=== PATIENT | female | born 1935 | race Caucasian/White ===

== ENCOUNTER → 2018-07-02 14:40 | Outpatient (CLI) | payer MEDICARE, SELFPAY ==
--- NOTE | 2018-07-02 14:45 | BI_ITS ---
MAMMOGRAPHY - BILATERAL SCREENING 3-D HEATHER SYNTHESIS REASON FOR EXAM: Female, 83 years old. Bilateral Screening 3-D tomosynthesis PERTINENT HISTORY: Asymptomatic. MA breast carcinoma, grandmother unknown age. TECHNIQUE: 2-D mammograms and 3-D Heather synthesis of the breast (s) were performed. CAD was performed. COMPARISON: 06/24/2017, 06/22/2016. FINDINGS: The breast composition is almost entirely fat. Scattered benign appearing calcifications are again seen. No dense spiculated dominant masses or suspicious microcalcification cluster are identified. No new architectural distortion, asymmetric density, adenopathy, skin thickening or nipple retraction identified. There has been no significant change since the most recent prior study. BI/SCREENING MAMM (CAD), BILAT IMPRESSION: No mammographic sign of malignancy. Routine yearly mammograms recommended. ASSESSMENT CATEGORY: BIRADS Category 2: Benign. A letter regarding these results will be sent to the patient by the facility within 30 days. FOLLOW UP RECOMMENDATION: Yearly follow up mammogram recommended. (A) Negative mammographic results should not deter biopsy as a palpable lesion if present should be followed on clinical grounds and biopsy performed if clinically persistent for 3 months or increasing size. Approximately 10% of breast cancers are not detected by mammography. A normal mammogram should not delay biopsy of a clinically suspicious abnormality. Dense breast tissue mainstream neoplasm. Electronically Signed: Clyde Tom, at 20:29 EDT Tel , Service support ,
== END ==
PROVIDERS: Family Provider Family Medicine; PCP Family Medicine; Visit Provider Family Medicine
DX: Z12.31 Encounter for screening mammogram for malignant neoplasm of breast (principal)
CPT/HCPCS: 77063; 77067

== ENCOUNTER 2018-11-18 12:58 | Emergency (ER) | payer MEDICARE, SELFPAY ==
[2018-11-18 12:58] VITALS: BP 153/80; PULSE 75; RESP 20; TEMP 36.4; O2SAT 98; BMI 31.3
--- NOTE | 2018-11-18 14:10 | CT_ITS ---
STUDY: CT CERVICAL SPINE WITHOUT CONTRAST REASON FOR EXAM: Female, 83 years old. Trauma RADIATION DOSAGE (If Supplied By Facility): CTDIvol = ( 35.10 ) mGy, DLP = ( 719.31 ) mGycm TECHNIQUE: High resolution transaxial imaging was performed without contrast material. Sagittal and coronal images were reconstructed. Individualized dose optimization techniques were used for this CT. COMPARISON: None FINDINGS: No definite acute fracture/dislocation. The cervical junction is intact. C1-C2 articulation is intact. Mild reversal of curvature. There is normal alignment. Facet joints are intact at all levels bilaterally. No jumped facets. There is multilevel spondyloarthropathy. Multilevel degenerative disc disease seen. Multilevel loss of disc height. Multilevel posterior marginal osteophytes and disc bulges. Multilevel neural foraminal narrowing. Multilevel compromise of the spinal canal. Findings most prominent at C3-C4, and C6-C7. Visualized paraspinal soft tissues and structures are unremarkable. CT/Spine Cervical without Contras IMPRESSION: There is no definite acute fracture/dislocation. Degenerative changes. Electronically Signed: Fabian Sousa MD at 15:33 EST , Service support ,
--- NOTE | 2018-11-18 14:10 | CT_ITS ---
STUDY: CT BRAIN WITHOUT CONTRAST REASON FOR EXAM: Female, 83 years old. Trauma. RADIATION DOSAGE (If Supplied By Facility): CTDIvol = ( 60.81 ) mGy, DLP = ( 1044.28 ) mGycm TECHNIQUE: Transaxial CT imaging of the brain was performed without administration of intravenous contrast material. Individualized dose optimization techniques were used for this CT. COMPARISON: None. FINDINGS: Normal soft tissue structures. Normal calvarium. There are nasal fractures seen. Normal size ventricles and extra-axial spaces for the patient's age. Normal white matter tracts of the cerebral hemispheres. Normal basal ganglia and thalami. Normal brainstem. Normal cerebellum. There is no intracranial hemorrhage. There are no findings of an acute ischemic infarction. Normal visualized paranasal sinuses. CT/Brain/Head without Contrast IMPRESSION: Normal unenhanced CT scan of the brain. Electronically Signed: Fabian Sousa MD at 15:21 EST , Service support ,
--- NOTE | 2018-11-18 14:10 | CT_ITS ---
STUDY: CT FACIAL BONES WITHOUT CONTRAST REASON FOR EXAM: Female, 83 years old. Trauma RADIATION DOSAGE (If Supplied By Facility): CTDIvol = ( 33.45 ) mGy, DLP = ( 729.5 ) mGycm TECHNIQUE: The patient was scanned in a multi detector CT scanner. Sagittal and coronal images were reconstructed. Individualized dose optimization techniques were used for this CT. COMPARISON: None. FINDINGS: Soft tissue swelling seen over the nose. Bilateral comminuted nasal fractures are seen with mild deviation of the nose to the right. No other facial bone fractures. Normal orbital blanton and orbital contents. Normal visualized paranasal sinuses. CT/Sinus/Facial Bone IMPRESSION: Nondisplaced bilateral nasal fractures, but there is some deviation of the nose to the right. Electronically Signed: Fabian Sousa MD at 15:30 EST , Service support ,
[2018-11-18] MEDS: Diphth,Pertuss(Acell),Tet Vac 0.5 ML Vial IM (14:24)
--- NOTE | 2018-11-18 15:46 | ED.DCSUM_ITS ---
- ER Visit Summary Date of Service: 11/18/18 Chief Complaint: Fall History of Present Illness: The patient is a 83 F presenting after fall. Patient states she was loading firewood into a truck and tripped and fell. She has a laceration to her nose with bruising of her forehead. She denies loss of consciousness. No amnesia to the event. No vomiting. She is not on blood thinners. Last tetanus is unknown. No other injuries. Physical Examination: Vitals are stable. Patient is afebrile. Alert no acute distress. HEENT exam abrasion to nose with1.0 cm laceration. No septal hematoma. Midface stable. Abrasion right forehead Neck is nontender Lungs are clear and equal bilaterally. Heart is regular rate and rhythm. Abdomen is soft nontender nondistended. Extremities are unremarkable. Skin is warm and dry. No focal neurologic deficit. Remainder of exam is unremarkable. Emergency Department Course and Treatment: Patient was given tetanus IM. CT head shows no acute process. CT C-spine shows no fracture. CT facial bones shows nondisplaced bilateral nasal fractures, but there is some deviation of the nose to the right. Laceration was repaired. Anesthetized with lidocaine. Irrigated with saline. 2, 6-0 simple sutures were placed. Patient tolerated this well. She declines pain medication. She is advised to follow-up with Dr. Howard. Advised return to ED if worsening complaints. Disposition: Discharge home Impression: Mechanical fall, nasal bone fracture, facial laceration, laceration repair This note was generated with [employer] dictation software. It may contain incorrect words, spelling, and punctuation that were not noted in review of the chart prior to signing ED Disposition - Plan for ED Patient: Referrals: Dakotah Sierra MD [Primary Care Provider] -
--- NOTE | 2018-11-18 16:08 | ED.DEP ---
ED Disposition - Plan for ED Patient: Instructions: ED Mechanical Fall, ED Fx Nasal Conf W X Ray Referrals: Dakotah Sierra MD [Primary Care Provider] - Ariel Diaz MD [STAFF PHYSICIAN] -
== END 2018-11-18 16:37 | disposition home or self-care (01) ==
PROVIDERS: Emergency Provider Emergency Medicine; Family Provider Family Medicine; PCP Family Medicine
DX: S02.2XXB Fracture of nasal bones, initial encounter for open fracture (principal); Z23 Encounter for immunization; W01.0XXA Fall on same level from slipping, tripping and stumbling without subsequent striking against object, initial encounter; Y93.89 Activity, other specified; Y92.89 Other specified places as the place of occurrence of the external cause; Y99.8 Other external cause status
CPT/HCPCS: 12011; 70450; 70486; 72125; 90715; 99283; J7030

== ENCOUNTER → 2020-07-06 | Outpatient (CLI) | payer MEDICARE, SELFPAY ==
[2020-07-06 10:34] LABS: Anion Gap 8 (5-15); BUN 17 mg/dL (7-18); BUN/Creat Ratio 16.8 RATIO (10-20); Calcium,Total 8.7 mg/dL (8.5-10.1); Chloride 106 mmol/L (98-107); Cholesterol 214 mg/dL (200); Creatinine, Serum 1.01 mg/dL (0.55-1.02); EST Glomerular Filtration Rate 56 mL/min (>60); Est Glom Filt Rate - Afr Amer 67 mL/min (>60); Free T3 2.4 pg/mL (2.18-3.98); Glucose 126 mg/dL (74-106); High Density Lipoprotein 49 mg/dL; Potassium 3.9 mmol/L (3.5-5.1); Sodium Level 141 mmol/L (136-145); T4 Free Direct 1.41 ng/dL (0.76-1.46); Thyroid Stim Hormone (TSH) 0.71 uIU/mL (0.358-3.74); Triglycerides 145 mg/dL; Very Low Density Lipoprotein 29 mg/dL (5-40)
== END | disposition home or self-care (01) ==
PROVIDERS: PCP Family Medicine; Referring Provider Family Medicine; Visit Provider Nurse Practitioner Adult Health
DX: E03.9 Hypothyroidism, unspecified (principal); Z13.1 Encounter for screening for diabetes mellitus; Z13.220 Encounter for screening for lipoid disorders
CPT/HCPCS: 36415; 80048; 80061; 84439; 84443; 84481

== ENCOUNTER → 2020-07-07 | Outpatient (CLI) | payer MEDICARE, SELFPAY ==
[2020-07-07 12:53] LABS: Hemoglobin A1c 6.2 % (3.8-5.6)
== END | disposition home or self-care (01) ==
PROVIDERS: PCP Family Medicine; Referring Provider Family Medicine; Visit Provider Family Medicine
DX: R73.9 Hyperglycemia, unspecified (principal)
CPT/HCPCS: 36415; 83036

== ENCOUNTER → 2020-08-05 13:23 | Outpatient (CLI) | payer MEDICARE, SELFPAY ==
--- NOTE | 2020-08-05 13:27 | BI_ITS ---
MAMMOGRAPHY - BILATERAL SCREENING REASON FOR EXAM: Female, 85 years old. Routine annual screening examination. PERTINENT HISTORY: Grandmother with breast cancer. TECHNIQUE: Digital bilateral breast heahter (3D mammographic acquisition) in the CC and MLO projections. 2-D mediolateral oblique (MLO) and craniocaudad (CC) views of both breasts were obtained. CAD: Full Field Digital Mammography with Computer Added Detection was performed. COMPARISON: Comparison is made with prior study dated 07/02/2018. FINDINGS: Breast Composition: The breasts are almost entirely fatty. There are no dominant masses or suspicious calcifications. No other significant abnormalities are identified. There has been no significant change since the prior study. BI/SCREEN MAMM (CAD) W/HEATHER BILAT IMPRESSION: Stable bilateral screening mammogram. Yearly follow-up mammogram recommended. (A) ASSESSMENT CATEGORY: BIRADS Category 1: Negative. A letter regarding these results will be sent to the patient by the facility within 30 days. Approximately 10% of breast cancers are not detected by mammography. A normal mammogram should not delay biopsy of a clinically suspicious abnormality. [id number] Electronically Signed: Kwaku Pryor, at 14:32 EST , Service support ,
== END ==
PROVIDERS: PCP Family Medicine; Referring Provider Family Medicine; Visit Provider Family Medicine
DX: Z12.31 Encounter for screening mammogram for malignant neoplasm of breast (principal)
CPT/HCPCS: 77063; 77067

== ENCOUNTER → 2020-10-11 10:32 | Outpatient (CLI) | payer MEDICARE, SELFPAY ==
[2020-10-11 12:21] LABS: Absolute Neutrophil Count 2.9 X10^3/uL (2.0-7.7); Basophil# 0.02 X10^3/uL; Basophil% 0.4 % (0-1); Eosinophil# 0.11 X10^3/uL; Eosinophils% 2.4 % (0-5); Hematocrit 42.2 % (37-47); Hemoglobin 13.7 g/dL (12.0-15.0); Lymphocyte % 23.9 % (19-41); Mean Corp Hgb Conc 32.5 g/dL (32-36); Mean Corpuscular Hgb 30.4 pg (27.0-32.0); Mean Corpuscular Volume 93.8 fL (81-99); Monocyte# 0.51 X10^3/uL; Monocyte% 11.1 % (0-10); NRBC Flagged by Analyzer 0 % (0-5); Neutrophil # 2.85 X10^3/uL (2.7-7.7); Platelet Count 227 K/mm3 (150-450); RBC Distribution Width CV 13.2 % (11.6-14.6); RBC Distribution Width SD 45.2 fl (35.1-43.9); White Blood Count 4.6 K/mm3 (4.4-11.0)
[2020-10-11 12:34] LABS: ALB/GLOB Ratio 1.2 RATIO (0.9-2.4); AST(SGOT) 11 U/L (15-37); Alanine Aminotransfer ALT/SGPT 20 U/L (13-56); Albumin, Serum 3.8 g/dL (3.2-5.0); Alkaline Phosphatase 51 U/L (45-117); Anion Gap 7 (5-15); BUN 20 mg/dL (7-18); BUN/Creat Ratio 18.5 RATIO (10-20); Calcium,Total 8.8 mg/dL (8.5-10.1); Chloride 106 mmol/L (98-107); Creatinine, Serum 1.08 mg/dL (0.55-1.02); EST Glomerular Filtration Rate 51 mL/min (>60); Est Glom Filt Rate - Afr Amer 62 mL/min (>60); Globulin 3.3 g/dL (2.2-4.2); Glucose 113 mg/dL (74-106); Potassium 4.2 mmol/L (3.5-5.1); Protein, Total 7.1 g/dL (6.4-8.2); Sodium Level 138 mmol/L (136-145)
[2020-10-11 12:36] LABS: Hemoglobin A1c 6.2 % (3.8-5.6)
== END ==
PROVIDERS: PCP Family Medicine; Referring Provider Family Medicine; Visit Provider Family Medicine
DX: M85.80 Other specified disorders of bone density and structure, unspecified site (principal); R73.03 Prediabetes
CPT/HCPCS: 36415; 80053; 82306; 83036; 85025

== ENCOUNTER → 2020-10-13 14:09 | Outpatient (CLI) | payer MEDICARE, SELFPAY ==
--- NOTE | 2020-10-13 14:11 | US_ITS ---
STUDY: THYROID ULTRASOUND REASON FOR EXAM: Female, 85 years old. HX OF NODULE AND HYPOTHYROIDISM. PT STATES SHE IS ON SYNTHROID. PT BELIEVES SHE HAD A TOTAL THYROIDECTOMY IN . TECHNIQUE: Ultrasound evaluation of the thyroid was performed with real-time and static hu-scale imaging. COMPARISON: None. FINDINGS: The patient is status post thyroidectomy. The regional lymph nodes are normal. US/Thyroid IMPRESSION: The patient is status post thyroidectomy. Electronically Signed: Kwaku Pryor MD at 15:11 EST , Service support ,
== END ==
PROVIDERS: PCP Family Medicine; Referring Provider Family Medicine; Visit Provider Family Medicine
DX: E03.9 Hypothyroidism, unspecified (principal)
CPT/HCPCS: 76536

== ENCOUNTER → 2021-06-06 08:59 | Outpatient (CLI) | payer MEDICARE, SELFPAY ==
[2021-06-08 09:46] LABS: Magnesium 2.5 mg/dL (1.6-2.6)
== END ==
PROVIDERS: Anesthesiology; PCP Family Medicine; Visit Provider Orthopaedic Surgery
DX: Z01.818 Encounter for other preprocedural examination (principal)
CPT/HCPCS: 83735

== ENCOUNTER → 2021-06-06 12:16 | Outpatient (CLI) | payer MEDICARE, SELFPAY ==
[2021-06-06 15:06] LABS: Absolute Lymphocyte Count 1.27 X10^3/uL (0.83-4.51); Absolute Neutrophil Count 3.3 X10^3/uL (2.0-7.7); Basophil# 0.02 X10^3/uL; Basophil% 0.4 % (0-1); Eosinophil# 0.11 X10^3/uL; Eosinophils% 2.1 % (0-5); Hematocrit 41.3 % (37-47); Hemoglobin 13.4 g/dL (12.0-15.0); Lymphocyte # 1.27 X10^3/ul (0.83-4.51); Lymphocyte % 23.9 % (19-41); Mean Corp Hgb Conc 32.4 g/dL (32-36); Mean Corpuscular Volume 95.6 fL (81-99); Mean Platelet Vol. 10.5 fl (6.2-12.0); Monocyte# 0.64 X10^3/uL; NRBC Flagged by Analyzer 0 % (0-5); Neutrophil # 3.27 X10^3/uL (2.7-7.7); Neutrophil % 61.4 % (47-70); Platelet Count 211 K/mm3 (150-450); RBC Distribution Width CV 13.3 % (11.6-14.6); RBC Distribution Width SD 47.2 fl (35.1-43.9); Red Blood Count 4.32 M/mm3 (4.2-5.4); White Blood Count 5.3 K/mm3 (4.4-11.0)
[2021-06-06 15:32] LABS: AST(SGOT) 13 U/L (15-37); Alanine Aminotransfer ALT/SGPT 23 U/L (13-56); Albumin, Serum 3.7 g/dL (3.2-5.0); Alkaline Phosphatase 47 U/L (45-117); Anion Gap 7 (5-15); BUN 21 mg/dL (7-18); BUN/Creat Ratio 22.5 RATIO (10-20); Calcium,Total 9.2 mg/dL (8.5-10.1); Chloride 107 mmol/L (98-107); Creatinine, Serum 0.93 mg/dL (0.55-1.02); EST Glomerular Filtration Rate 61 mL/min (>60); Est Glom Filt Rate - Afr Amer 73 mL/min (>60); Globulin 3.6 g/dL (2.2-4.2); Glucose 86 mg/dL (74-106); Potassium 4.1 mmol/L (3.5-5.1); Protein, Total 7.3 g/dL (6.4-8.2); Sodium Level 141 mmol/L (136-145); Thyroid Stim Hormone (TSH) 0.52 uIU/mL (0.358-3.74)
== END ==
PROVIDERS: PCP Family Medicine; Referring Provider Registered Nurse; Visit Provider Registered Nurse
DX: Z01.818 Encounter for other preprocedural examination (principal)
CPT/HCPCS: 36415; 80053; 84443; 85025

== ENCOUNTER → 2021-07-18 07:11 | Outpatient (CLI) | payer MEDICARE, SELFPAY ==
--- NOTE | 2021-07-18 07:12 | ECHOCS_ITS ---
Reason For Study: MURMUR Procedure This was a 2D Doppler, Color Flow transthoracic echocardiogram. The study was technically difficult. Due to body habitus. Contrast injection was performed. Exam performed in department. Left Ventricle Normal LV size. Left ventricular systolic function is normal. The estimated ejection fraction is 60 %. No regional wall motion abnormalities noted. Right Ventricle Normal RV size. Normal systolic function. Atria The left atrium is mildly enlarged. Normal right atrium. No doppler evidence for ASD. Mitral Valve There is no mitral annular calcification. Normal mitral valve. Mild (1+) mitral valve insufficiency. Tricuspid Valve Normal tricuspid valve. Trivial tricuspid valve insufficiency. Unable to estimate RV systolic pressure/pulmonary artery pressure due to technically difficult study. Aortic Valve Trisinus/trileaflet aortic valve. Mild focal aortic valve calcification. Pulmonic Valve Trivial pulmonic valve insufficiency. Great Vessels Normal sized aortic root. Pericardium/Pleural Trivial pericardial effusion. There are no echocardiographic indications of cardiac tamponade. Medication 22 gauge I.V. with prn adaptor inserted into right arm. Diluted definity 4.0ml given slow IV push to enhance endocardial definition. MMode/2D Measurements & Calculations LVIDd: 5.4 cm IVSd: 1.2 cm Ao root diam: 3.1 cm LVIDs: 3.7 cm LVPWd: 1.2 cm FS: 32.5 % LAV(MOD-bp): 73.5 ml LA A4 area: 21.0 cm2 LA dimension(2D): 4.6 cm LAV(MOD-bp) Indexed: 36.0 ml/m2 LAV(MOD-sp2): 74.7 ml LAV(MOD-sp4): 66.8 ml RA A4 area: 14.7 cm2 Time Measurements MV dec time: 0.21 sec Doppler Measurements & Calculations MV E max adam: 72.8 cm/sec Lat Peak E' Adam: 9.0 cm/sec Med Peak E' Adam: 5.0 cm/sec MV A max adam: 53.2 cm/sec E/E' lat: 8.1 E/E' med: 14.6 MV E/A: 1.4 Ao V2 max: 134.1 cm/sec LV V1 max: 100.0 cm/sec PA V2 max: 78.1 cm/sec Ao max P.2 mmHg LV V1 max P.0 mmHg ECHO/Echo Complete W/ Contrast Interpretation Summary The study was technically difficult. Contrast injection was performed. Left ventricular systolic function is normal. The estimated ejection fraction is 60 %. The left atrium is mildly enlarged. Mild (1+) mitral valve insufficiency. Trivial tricuspid valve insufficiency. Mild focal aortic valve calcification. Trivial pulmonic valve insufficiency. Trivial pericardial effusion. There are no echocardiographic indications of cardiac tamponade. Unable to estimate RV systolic pressure/pulmonary artery pressure due to techni flaquito difficult study. Transmitral diastolic flow velocities suggest diastolic dysfunction (pseudonorm al pattern). Ordering Physician: Warren Rollins Referring Physician: Dakotah Sierra Performed By: Alejandra Miramontes, ROSI, RVT
--- NOTE | 2021-07-18 09:19 | STRESSREP_ITS ---
Stress Test Report Date: 07-18-2021 Procedure: Pharmacologic stress nuclear imaging study Indications: Abnormal ECG; preoperative cardiovascular evaluation; hy perlipidemia; hypertension Consent: Per the patient Procedure: The patient underwent pharmacologic (Regadenoson 0.4mg ) evaluation with a peak heart rate of 78 beats per minute (57%predicted maximal heart rate) and a peak blood pressure of 130/74 mmHg. The baseline ECG demonstrated sinus rhythm; nonspecific ST/T wave abnormality. The peak pharmacologic ECG demonstrated with continued nonspecific ST/T wave abnormality. There was a rare PVC during recovery. There was no complaint of chest discomfort during pharmacologic infusion or recovery. The examination was discontinued secondary to completion of protocol. Impression: 1. Pharmacologic (Regadenoson) evaluation 2. Peak pharmacologic ECG with continued nonspecific ST/T wave abnormality. 3. There was a rare PVC during recovery. 4. Nuclear images pending Myocardial perfusion imaging study: Technique: The patient was injected with 14.1 millicuries of technetium 99m Cardiolite and subsequently rest SPECT Cardiolite nuclear imaging was obtained in the horizontal long, vertical long, and short axis views. The patient underwent pharmacologic (Regadenoson) evaluation with a peak heart rate of 78 beats per minute (57% percent predicted maximal heart rate) and a peak blood pressure of 130/74 mmHg. The patient was injected with 44.8 millicuries of technetium 99m Cardiolite and subsequently stress SPECT Cardiolite nuclear imaging was obtained in the horizontal long, vertical long, and short axis views. A gated Cardiolite study at peak stress was obtained. Interpretation: Rest and stress SPECT Cardiolite nuclear imaging status post realignment, normalization, and attenuation correction demonstrate the appearance of relative uniform tracer uptake/myocardial perfusion at rest and status post stress the appearance of an area of diminished myocardial perfusion/tracer uptake in the mid to distal anterior segments. There is end systolic thickening and brightening. The gated Cardiolite study demonstrates myocardial thickening and inward wall motion. The reported LVEF is 70%. Impression: 1. Rest and stress SPECT cardiac nuclear imaging demonstrate myocardial perfusion changes concerning for an area of stress-induced myocardial ischemia in the mid to distal anterior segments. 2. The gated Cardiolite study reports an LVEF of 70%. This note was generated with [employer] software. It may contain incorrect words, spelling, and punctuation that were not noted in checking the note before signing.
== END ==
PROVIDERS: PCP Family Medicine; Referring Provider Internal Medicine Cardiovascular Disease; Visit Provider Internal Medicine Cardiovascular Disease
DX: R94.31 Abnormal electrocardiogram [ECG] [EKG] (principal)
CPT/HCPCS: 78452; 93017; 93306; A9500; Q9957; A4216; C8929; J2785; J3490

== ENCOUNTER → 2021-07-24 09:12 | Outpatient (CLI) | payer MEDICARE, SELFPAY ==
[2021-07-24 10:02] LABS: Absolute Neutrophil Count 2.7 X10^3/uL (2.0-7.7); Basophil# 0.03 X10^3/uL; Basophil% 0.6 % (0-1); Eosinophil# 0.15 X10^3/uL; Eosinophils% 3.2 % (0-5); Hematocrit 39.6 % (37-47); Hematocrit 40.7 % (37-47); Hemoglobin 13.1 g/dL (12.0-15.0); Hemoglobin 13.2 g/dL (12.0-15.0); Lymphocyte % 27.8 % (19-41); Mean Corp Hgb Conc 32.4 g/dL (32-36); Mean Corp Hgb Conc 33.1 g/dL (32-36); Mean Corpuscular Hgb 30.7 pg (27.0-32.0); Mean Corpuscular Hgb 30.9 pg (27.0-32.0); Mean Corpuscular Volume 93.4 fL (81-99); Mean Corpuscular Volume 94.7 fL (81-99); Mean Platelet Vol. 10.1 fl (6.2-12.0); Monocyte# 0.47 X10^3/uL; Monocyte% 10.1 % (0-10); NRBC Flagged by Analyzer 0 % (0-5); Neutrophil # 2.71 X10^3/uL (2.7-7.7); Neutrophil % 58.1 % (47-70); Platelet Count 222 K/mm3 (150-450); Platelet Count 226 K/mm3 (150-450); RBC Distribution Width CV 13.1 % (11.6-14.6); RBC Distribution Width CV 13.2 % (11.6-14.6); RBC Distribution Width SD 45.1 fl (35.1-43.9); RBC Distribution Width SD 45.2 fl (35.1-43.9); Red Blood Count 4.24 M/mm3 (4.2-5.4); White Blood Count 4.7 K/mm3 (4.4-11.0)
[2021-07-24 10:16] LABS: Prothrombin Time (Protime)PT. 12.7 SECONDS (11.7-14.9)
[2021-07-24 10:17] LABS: Partial Thromboplast Time 25.9 Seconds (24.1-36.2)
[2021-07-24 11:05] LABS: ALB/GLOB Ratio 0.9 RATIO (0.9-2.4); AST(SGOT) 15 U/L (15-37); Alanine Aminotransfer ALT/SGPT 18 U/L (13-56); Albumin, Serum 3.3 g/dL (3.2-5.0); Alkaline Phosphatase 48 U/L (45-117); Anion Gap 7 (5-15); BUN 16 mg/dL (7-18); BUN/Creat Ratio 17.3 RATIO (10-20); Calcium,Total 8.7 mg/dL (8.5-10.1); Chloride 109 mmol/L (98-107); Creatinine, Serum 0.93 mg/dL (0.55-1.02); EST Glomerular Filtration Rate 61 mL/min (>60); Est Glom Filt Rate - Afr Amer 74 mL/min (>60); Free T3 2.1 pg/mL (2.18-3.98); Globulin 3.6 g/dL (2.2-4.2); Glucose 113 mg/dL (74-106); Potassium 3.9 mmol/L (3.5-5.1); Protein, Total 6.9 g/dL (6.4-8.2); Sodium Level 139 mmol/L (136-145); T4 Free Direct 1.23 ng/dL (0.76-1.46); Thyroid Stim Hormone (TSH) 1.15 uIU/mL (0.358-3.74)
== END ==
PROVIDERS: Internal Medicine Cardiovascular Disease; PCP Family Medicine; Referring Provider Family Medicine; Visit Provider Family Medicine
DX: Z01.810 Encounter for preprocedural cardiovascular examination (principal); E03.9 Hypothyroidism, unspecified; R73.03 Prediabetes; E78.2 Mixed hyperlipidemia; I10 Essential (primary) hypertension; R94.31 Abnormal electrocardiogram [ECG] [EKG]; R94.39 Abnormal result of other cardiovascular function study; D3A.090 Benign carcinoid tumor of the bronchus and lung
CPT/HCPCS: 36415; 80048; 80053; 84439; 84443; 84481; 85025; 85027; 85610; 85730

== ENCOUNTER 2021-08-01 07:45 | Day surgery (SDC) | payer MEDICARE, SELFPAY ==
--- NOTE | 2021-07-26 10:14 | RAD_ITS ---
STUDY: X-RAY CHEST REASON FOR EXAM: Female, 86 years old. Preop for pelvic surgery TECHNIQUE: PA and lateral views of the chest. COMPARISON: None. FINDINGS: The lungs are clear and expanded. There is no demonstrated pleural abnormality. Normal size heart. Normal mediastinum and riki. Normal visualized pulmonary arteries. Normal visualized aortic arch and descending thoracic aorta. There are diffuse degenerative changes of the visualized thoracic spine. There is degenerative osteoarthritis of the bilateral shoulders. There is no demonstrated abnormality of the visualized soft tissue structures of the upper abdomen. RAD/Chest PA and Lateral IMPRESSION: No acute pulmonary process Electronically Signed: Anil Spain MD at 10:46 EDT , Service support ,
[2021-07-31 07:35] VITALS: BMI 33.2
--- NOTE | 2021-07-31 18:35 | PCM.HP.BLA ---
History and Physical Date of Admission: 08/01/21 [facility] [address] [facility]. [address] [place] [address] [phone] OFFICE VISITDate of Service: 07/26/21 MR#:[id number]: IRAJ SANTOS #:[id number]:1935 Provider: KYARA Mendez RoofAge/Sex: 86/F [facility] HPI History of Present Illness Surgical H&P: Yes Details: This is an 86-year-old white female who presents today for outpatient cardiovascular consultation based upon concerns of an abnormal preoperative ECG with a history of hypertension and hyperlipidemia (not treated) pending upcoming right hip arthroplasty (total). The patient states the best of her knowledge she has no cardiovascular history. She does not recall undergoing cardiovascular evaluation past other than ECGs. It appears she had an ECG performed in 2014 which demonstrated sinus rhythm with minimal voltage criteria for LVH and nonspecific ST and T wave abnormality. Her recent EKG at her PCP office demonstrated sinus rhythm with findings of left ventricular hypertrophy and ST and T wave changes. It appears it was the ST and T wave changes are more prominent than 2015 that raised a concern. Her ECG was repeated in the office on 06/07/2021 showed sinus rhythm with voltage criteria for LVH as well as nonspecific ST and T wave abnormalities which could be compatible with LVH and/or myocardial ischemia in the lateral distribution. To evaluate EKG changes, she underwent a stress test on 07/18/2021 that showed changes concerning for an area of stress-induced myocardial ischemia in the mid to distal anterior segments. She underwent an echocardiogram on 07/18/2021 that showed ejection fraction of 60% and no regional wall motion abnormalities. There was no significant valve disease. Thus, to assess abnormal stress test, she will undergo a heart catheterization. She denies chest, arm, jaw, or neck discomfort. She denies symptoms of shortness of breath with exertion, shortness of breath at rest, orthopnea, PND, sudden weight gain, or bilateral lower extremity edema. She denies chronic cough. She denies palpitations, lightheadedness, dizziness, near syncope, or syncopal episodes. She denies claudication issues. She denies fever or chills. She denies blood in urine, blood in stool, or epistaxis. She denies myalgia. She denies unexplainable fatigue. Her exercise tolerance is stable. 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 Is patient in pain?: No Allergies No Known Allergies Allergy (Verified 07/26/21 09:27) Medications coenzyme Q10 100 mg PO DAILY 12/29/14 [History Confirmed 07/26/21] cholecalciferol (vitamin D3) 50 mcg (2,000 unit) tablet 50 mcg PO DAILY 06/06/21 [History Confirmed 07/26/21] levothyroxine 100 mcg tablet 100 mcg PO DAILY 06/06/21 [History Confirmed 07/26/21] lisinopril 5 mg tablet 5 mg PO QHS 06/06/21 [History Confirmed 07/26/21] clopidogrel 75 mg tablet 75 mg PO QDAY #30 tab 07/26/21 [Rx Confirmed 07/26/21] PFSH Medical History (Reviewed 07/26/21 @ 09:39 by Luis Enrique Joseph NP, CERTIFIED COURT/MEDICAL INTERPRETER-C) Abnormal EKG Abnormal stress test Arthritis Benign essential HTN Cancer Cardiology follow-up encounter History of echocardiogram History of pain when walking History of stress test Hypothyroidism Loss of hearing Lung nodule Mixed hyperlipidemia Non-smoker Restless legs Thyroid disease Wears glasses Surgical History (Reviewed 07/26/21 @ 09:39 by Luis Enrique Joseph CERTIFIED COURT/MEDICAL INTERPRETER, CERTIFIED COURT/MEDICAL INTERPRETER-C) H/O hysterectomy with unilateral oophorectomy History of appendectomy History of left hip replacement History of lobectomy of lung History of thyroidectomy Social History (Reviewed 07/26/21 @ 09:39 by Luis Enrique Joseph NP, CERTIFIED COURT/MEDICAL INTERPRETER-C) Smoking Status: Never smoker alcohol intake: never substance use type: does not use caffeine: No ROS Const Const: Negative for fatigue, weakness, body ache, fever(s) or chills ENT ENT: Negative for dizziness or Nosebleed/epistaxis Cardio Chest Pain: No Palpitations: No Edema: None Muscle aches with walking: None Resp Respiratory: Negative for SOB with activity, SOB at rest, SOB orthopnea\SOB lying down, Cough or paroxysmal nocturnal dyspnea GI GI: Negative nausea, vomiting blood/hematemesis, bright, red blood in stools or black,tarry stools : Negative for hematuria or frequent nighttime urination/ nocturia Musc Musc: Negative for muscle aches/ myalgia Skin Skin: Negative non-healing lesions or rash Neuro Neuro: Negative for dizziness, lightheadedness, near syncope, syncope, orthostatic symptoms or weakness Endo Endo: Negative for fatigue Allergy Allergy/Immunology: Negative for rash Cardiology Exam Const Appearance: cooperative, healthy appearing, comfortable and no acute distress Nutritional Appearance: well nourished and obese Orientation: alert, awake and oriented x3 Head Head: normal to inspection Ears: hearing grossly normal bilaterally Nose: external nose normal Face and Sinus: face symmetric Mouth: oral mucosae normal Eyes General: appearance normal, both eyes and all related structures Eyelids: eyelids normal EOM: EOM intact bilaterally Neck Neck: normal visual inspection and no JVD Carotids: normal carotid upstroke Chest Chest inspection: normal inspection of the chest, symmetric chest movement and normal respiratory effort; Negative cough Auscultation: Bilateral: Clear to Auscultation Cardio Rate: regular rate Rhythm: regular rhythm Heart sounds: S1 normal and S2 normal; Negative rub, gallop or murmur GI GI: normal to inspection and obese Neuro General: patient alert, patient awake, patient oriented x3 and CN's II-XI intact bilaterally Skin Skin: no rashes or lesions noted Extremities Pulses: Normal: Right Posterior Tibial Pulse, Left Posterior Tibial Pulse, Right Radial Pulse and Left Radial Pulse Lower Extremity Edema: None: Bilateral Psych Psychological: normal affect Supplemental Info Supplemental Information Echocardiogram from 07/18/2021: Interpretation Summary The study was technically difficult. Contrast injection was performed. Left ventricular systolic function is normal. The estimated ejection fraction is 60 %. The left atrium is mildly enlarged. Mild (1+) mitral valve insufficiency. Trivial tricuspid valve insufficiency. Mild focal aortic valve calcification. Trivial pulmonic valve insufficiency. Trivial pericardial effusion. There are no echocardiographic indications of cardiac tamponade. Unable to estimate RV systolic pressure/pulmonary artery pressure due to technically difficult study. Transmitral diastolic flow velocities suggest diastolic dysfunction (pseudonormal pattern). Stress Test Report Date: 07-18-2021 Procedure: Pharmacologic stress nuclear imaging study Indications: Abnormal ECG; preoperative cardiovascular evaluation; hyperlipidemia; hypertension Consent: Per the patient Procedure: The patient underwent pharmacologic (Regadenoson 0.4mg ) evaluation with a peak heart rate of 78 beats per minute (57%predicted maximal heart rate) and a peak blood pressure of 130/74 mmHg. The baseline ECG demonstrated sinus rhythm; nonspecific ST/T wave abnormality. The peak pharmacologic ECG demonstrated with continued nonspecific ST/T wave abnormality. There was a rare PVC during recovery. There was no complaint of chest discomfort during pharmacologic infusion or recovery. The examination was discontinued secondary to completion of protocol. Impression: 1. Pharmacologic (Regadenoson) evaluation 2. Peak pharmacologic ECG with continued nonspecific ST/T wave abnormality. 3. There was a rare PVC during recovery. 4. Nuclear images pending Myocardial perfusion imaging study: Technique: The patient was injected with 14.1 millicuries of technetium 99m Cardiolite and subsequently rest SPECT Cardiolite nuclear imaging was obtained in the horizontal long, vertical long, and short axis views. The patient underwent pharmacologic (Regadenoson) evaluation with a peak heart rate of 78 beats per minute (57% percent predicted maximal heart rate) and a peak blood pressure of 130/74 mmHg. The patient was injected with 44.8 millicuries of technetium 99m Cardiolite and subsequently stress SPECT Cardiolite nuclear imaging was obtained in the horizontal long, vertical long, and short axis views. A gated Cardiolite study at peak stress was obtained. Interpretation: Rest and stress SPECT Cardiolite nuclear imaging status post realignment, normalization, and attenuation correction demonstrate the appearance of relative uniform tracer uptake/myocardial perfusion at rest and status post stress the appearance of an area of diminished myocardial perfusion/tracer uptake in the mid to distal anterior segments. There is end systolic thickening and brightening. The gated Cardiolite study demonstrates myocardial thickening and inward wall motion. The reported LVEF is 70%. Impression: 1. Rest and stress SPECT cardiac nuclear imaging demonstrate myocardial perfusion changes concerning for an area of stress-induced myocardial ischemia in the mid to distal anterior segments. 2. The gated Cardiolite study reports an LVEF of 70%. Labs: LDL Cholesterol 136 mg/dL (0-130) H HDL Cholesterol 49 mg/dL (40-) Triglycerides 145 mg/dL (-199) VLDL Cholesterol 29 mg/dL (5-40) Diagnostics: Electrocardiogram Echocardiogram Stress Test NM Stress Test Chest X-Ray Pulmonary: No Data to Display Assessment and Plan Assessment and Plan (1) Abnormal stress test: Status: Acute Orders: Orders: 12 Lead EKG performed by BMS Today Plan - Luis Enrique Joseph CERTIFIED COURT/MEDICAL INTERPRETER, CERTIFIED COURT/MEDICAL INTERPRETER-C: Given patient's most recent abnormal stress test and nonspecific ST changes on EKG previously and again today, she will undergo a heart catheterization. She will begin aspirin and Plavix therapy. Based on results further recommendation will be made. Due to abnormal stress test and concerns, her hip surgery has been postponed. Timing of her hip surgery may depend on findings and long-term antiplatelet therapy. (2) Mixed hyperlipidemia: Status: Acute Plan - Luis Enrique Joseph NP, CERTIFIED COURT/MEDICAL INTERPRETER-C: She will continue risk factor and lifestyle modification. Based on results of heart catheterization, initiating statin medication may be indicated. Plan Details Other Medications: New: clopidogrel (Plavix) 75 mg PO QDAY 30 tabs 11RF Other Orders: Orders: 12 Lead EKG performed by BMS Today Z01.810 Follow Up: Keep as is (KRR) COVID (Procedure Consent) Procedure Criteria Procedure Criteria: Yes Elective The surgeon/proceduralist and patient have discussed in detail the risk of exposure to and/or potential harm posed by the COVID-19 virus with having a surgery/procedure at this time versus the risk of delaying the surgery/procedure. It is not possible to know either the risk of delaying the surgery or procedure or chance of getting an infection with perfect accuracy, but a joint decision was made between the patient and the surgeon/proceduralist to proceed at this time with the scheduled surgery/procedure as indicated on the consent form. Coding Level of Care Code Off vis,est,level 3 Diagnoses Abnormal stress test R94.39 Mixed hyperlipidemia E78.2 Coding Level of Care Code Off vis,est,level 3 Diagnoses Abnormal stress test R94.39 Mixed hyperlipidemia E78.2 07/26/21 1010<Electronically signed by Luis Enrique Joseph NP CERTIFIED COURT/MEDICAL INTERPRETER-C>Date Luis Enrique Joseph NP CERTIFIED COURT/MEDICAL INTERPRETER-C Assessment & Plan Addt'l Comments I have re-examined the patient. There are no clinical changes since date of exam
--- NOTE | 2021-08-01 10:13 | CL.D_ITS ---
Patient Name: IRAJ SANTOS Study Date: 08/01/2021 Performing: Warren Rollins MD Ht: 66.14 inches 168 cm : 1935 Wt: 205.03 lbs 93 kg Age: 86 Gender: female BSA: 2.02 PROCEDURE(S) PERFORMED [id number]/COR/LV CLINICAL PROFILE AND INDICATIONS Indications: Suspected CAD, Pre-Operative Evaluation Heart Failure: None Stress/Imaging Date: 07/18/2021tress Test with SPECT MPI: Positive Intermediate Risk Angina Classification Anginal Classification w/in 2 Weeks: No symptoms CAD Presentations: No Sxs, no angina. CONCLUSIONS Normal Left Ventricular End Diastolic Pressure Normal LV size, wall motion,and systolic function LVEF: by LV gram 60 % Normal coronary arteries RECOMMENDATIONS Risk factor modification DESCRIPTION OF PROCEDURE The patient arrived to the procedure lab. The risks and benefits of the procedure as well as a full d escription of our services here and current unavailability of surgical backup were fully explained to the patient and/or their significant other prior to the catheterization. The Timeout was completed, verifying the correct patient and procedure. The patient's procedural site was prepped and draped in the usual fashion. Local anesthetic was given subcutaneously to right radial region with Lidocaine 2% . Using a modified Seldinger technique, arterial access was obtained via the right radial artery, a 6 Fr sheath was inserted. Left Coronary Artery selective angiography was performed in multiple views u sing a 5 Fr. 4.0 Milton catheter. Right Coronary Artery selective angiography was then performed in mu ltiple views using a 5 Fr. 4.0 Milton catheter. Left Ventriculography was performed in DOMINGUEZ projection using a 5 Fr. Pigtail catheter. LV to AO pullback pressures were then recorded.The arterial sheath was pulled and a TR Band was applied for hemostasis CORONARY ANGIOGRAPHY DOMINANCE: Co- Dominant LEFT HEART ASSESSMENT Left Ventricular Ejection Fraction: by LV Gram 60 % Normal LV wall motion Normal Left Ventricular End Diastolic Pressure LVEDP: 5 mmHg LEFT MAIN: Angiographically normal LEFT ANTERIOR DESCENDING ARTERY: Angiographically normal CIRCUMFLEX ARTERY: Angiographically normal RIGHT CORONARY ARTERY: Angiographically normal AORTIC ROOT: Angiographically normal COMPLICATIONS No Complications PROCEDURE MEDICATIONS Versed 1 mg IV Fentanyl 50 mcg IV Oxygen: 2 L/min via nasal cannula Heparin given IA 08/01/2021 09:41:19 Verapamil 2.5mg, Ntg 100mcgs, 2000 units of Heparin given IA 08/01/2021 09:41:19 SUMMARY OF HEMODYNAMIC DATA Time AIR REST ECG 08:05:38 AO 97/58 (78) SA 09:43:21 LV 135/-10, 10 09:50:03 LV 132/-16, 5 09:50:10 LV 145/-9, 9 09:51:50 LV 146/-9, 11 09:51:57 LVp 149/-8, 11 09:52:03 AOp 135/62 (91) 09:52:08 Signed By Warren Rollins MD On 08/01/2021 10:13:16 Warren Rollins MD
== END 2021-08-01 11:40 | disposition home or self-care (01) ==
LOC: CLSP 07:47
PROVIDERS: PCP Family Medicine; Referring Provider Internal Medicine Cardiovascular Disease; Visit Provider Internal Medicine Cardiovascular Disease
DX: R94.39 Abnormal result of other cardiovascular function study (principal); R94.31 Abnormal electrocardiogram [ECG] [EKG]; E78.2 Mixed hyperlipidemia; I10 Essential (primary) hypertension; E03.9 Hypothyroidism, unspecified; M19.90 Unspecified osteoarthritis, unspecified site; E66.9 Obesity, unspecified; Z79.899 Other long term (current) drug therapy
CPT/HCPCS: 71046; 93458; 99152; 99153; J7040; Q9967; C1769; C1894

== ENCOUNTER 2021-09-18 05:15 | Day surgery (SDC) | payer MEDICARE, SELFPAY ==
[2021-08-31 15:34] LABS: Hematocrit 41.1 % (37-47); Hemoglobin 13.6 g/dL (12.0-15.0); Mean Corp Hgb Conc 33.1 g/dL (32-36); Mean Corpuscular Volume 93.6 fL (81-99); Mean Platelet Vol. 10.6 fl (6.2-12.0); Platelet Count 252 K/mm3 (150-450); RBC Distribution Width CV 13.1 % (11.6-14.6); RBC Distribution Width SD 45.3 fl (35.1-43.9); Red Blood Count 4.39 M/mm3 (4.2-5.4)
[2021-08-31 16:08] LABS: Anion Gap 9 (5-15); BUN 26 mg/dL (7-18); BUN/Creat Ratio 17.6 RATIO (10-20); Calcium,Total 9.2 mg/dL (8.5-10.1); Chloride 106 mmol/L (98-107); Creatinine, Serum 1.48 mg/dL (0.55-1.02); EST Glomerular Filtration Rate 36 mL/min (>60); Est Glom Filt Rate - Afr Amer 43 mL/min (>60); Glucose 179 mg/dL (74-106); Potassium 4.1 mmol/L (3.5-5.1); Sodium Level 138 mmol/L (136-145)
[2021-08-31 16:09] LABS: Hemoglobin A1c 6.1 % (3.8-5.6)
[2021-09-18] VITALS (11 sets, daily range): BP systolic 87–132; BP diastolic 45–85; PULSE 56–77; RESP 12–20; TEMP 36.1–36.9; O2SAT 94–100; BMI 32.1
[2021-09-18 06:30] LABS: Magnesium 2.4 mg/dL (1.6-2.6)
[2021-09-18] MEDS: Lactated Ringers 1,000 ML 15 ML IV (06:30)
[2021-09-18] MEDS: Acetaminophen 500 MG Tablet 1000 MG PO (06:41)
[2021-09-18] MEDS: Gabapentin 600 MG Tablet PO (06:41)
[2021-09-18 07:05] LABS: Bedside Glucose 99 mg/dL (70-110)
--- NOTE | 2021-09-18 07:06 | RAD_ITS ---
STUDY: X-RAY - PELVIS AND RIGHT HIP REASON FOR EXAM: Female, 86 years old. Follow-up after right total hip arthroplasty. TECHNIQUE: 2 views of the pelvis and hip. COMPARISON: None. FINDINGS: Osteopenia. New right total hip arthroplasty in anatomic alignment with expected post-operative findings. There are no complications noted. RAD/Hip 1 view with Pelvis IMPRESSION: Placement of right total hip arthroplasty in anatomic alignment without complications. Electronically Signed: Michel Sommer MD at 9:28 EST , Service support ,
--- NOTE | 2021-09-18 07:30 | FEM_PTH ---
PATIENT: IRAJ SANTOS LOC: [facility] U#:[id number] AGE/SX: 86/F ROOM: RE09/18/[address]: Dr. Miles Corona DO : 1935 BED: DIS: 09/18/2021 SPEC #: [id number] RECD: 09/18/21 11:13 STATUS: MALLORY REQ #: [id number] ANTOINE: 09/18/21 07:[address]: Miles Corona DEPT: SURGICAL PATHOLOGY RECD BY: Katina Funes ENTERED: 09/18/21 11:28 SP TYPE: FEM HEAD OTHR DR: Dr. Dakotah Sierra MD Tissues: Femoral region, NOS Procedures: Decalcification bone/plaque Surgery Specimen Level IV HEADER OPERATION: ERAS, total hip replacement PRE-OP DIAGNOSIS: Primary osteoarthritis TISSUE SUBMITTED: Right hip bone MICROSCOPIC DIAGNOSIS Right hip bone, total hip replacement/resection: Femoral head with degenerative osteoarthritic changes. Fragments of fibroadipose tissue, fibroconnective tissue, skeletal muscle tissue and reactive synovial tissue. HÉCTOR:greyson 09/21/2021 MICROSCOPIC DESCRIPTION Slides are reviewed. GROSS DESCRIPTION Received is one container labeled with the patient's name and designated right hip bone. The specimen consists of a shelton femoral head with portion of femoral neck. The femoral head measures 4.5 x 5 x 4 cm and the femoral neck measures up to 2 cm in length. The articular surface displays prominent osteophyte formation, eburnation and bone erosion. Also present in the specimen container are multiple irregular fragments of bone reamings and pink-yellow soft tissue measuring in aggregate 8 x 8 x 2.5 cm. Thermal Spray Operator sections are submitted in two cassettes as follows: 1 - soft tissue, 2 - bone after decalcification. / HÉCTOR:greyson 09/18/21 TC:5 CPT: 25940, 07059
--- NOTE | 2021-09-18 08:31 | OP.PCM_ITS ---
Report of Operation Date of Procedure: 09/18/21 Pre-Operative Diagnosis: OA Right hip Post-Operative Diagnosis: same Surgery/Procedure Performed:: Right THR Description of Surgical Findings:: Report of Operation Date of Procedure: 09/18/21 Pre-Operative Diagnosis: OA [ right ] hip Post-Operative Diagnosis: same Surgery/Procedure Performed: [right ] THR acoustical carpenter: Michel Blas PA-C Type of Anesthesia: spinal Anesthesiologist: Dakotah Augustin M.D. Specimen's removed: bone Estimated Blood Loss (50 mL): Implants: Karel MDM 50 mm cup, Size 5, 132 degree neck Accolade 2 femur, +0 neck length Surgical Indications: Patient has severe end-stage osteoarthritic changes in the [ right ] hip. They have failed conservative measures including activity modification, anti- inflammatories, use of assistive devices. This to the point where the pain affects their ability to enjoy life and complete activities of daily living without discomfort. Patient has elected to undergo the above procedure Procedure Description: The patient was greeted in the preoperative area the [ ] hip was marked with surgical marker preoperative antibiotics administered. The patient was then taken to or suite in stable condition. Preoperative tranexamic acid was also utilized. Once the patient was placed in the supine position on the operating room table and once adequate anesthesia was obtained they were then placed in the lateral decubitus position with the surgical hip facing the field. All bony prominences were well-padded. A commercial hip position was utilized. The appropriate extremity was then prepped and draped in usual sterile fashion. Ioban was placed on the skin. Surgical timeout was performed and surgery was commenced. A standard posterior approach to the hip was then performed. Incision was planned and carried out with a #10 blade scalpel. Dissection was then carried length of the incision to the IT band which was split proximally and distally. A Charnley retractor was then placed for soft tissue retraction exposing the piriformis. A standard posterior capsulotomy was performed. Severe eburnation of bone was noted and periarticular osteophytes were identified consistent with severe end-stage osteoarthritis. A femoral neck osteotomy guide was used to gregory the proximal femur. A femoral osteotomy was then created approximately 1 fingerbreadth above the lesser trochanter. This was measured and placed on the back table. Once this was complete acetabular retractors were placed anteriorly and posteriorly. Labrum was then removed from the acetabulum exposing the entire cup of the acetabulum. Sequential reaming was then commenced and the acetabulum was medialized and sequentially widened in order to accommodate appropriate size cup. The acetabular cup was then impacted into position to the appropriate depth referencing [id number] degrees anteversion and [45 degrees ]of inclination. Excellent purchase was obtained. An appropriate size MDM liner was then placed. Attention was then turned to the femoral preparation. The hip was placed in the 90/90 position and a lateralizing box osteotome was utilized. Femoral starting awl was used followed by sequential broaching to the appropriate size. Excellent purchase was obtained with the stem no stem subsidence and excellent rotational stability was confirmed. A calcar reamer was then used in the trial head neck was placed on the broach. The hip was then located and taken through full range of motion flexion internal and external rotation as well as extension. Excellent stability was noted no impingement was identified of the components and leg lengths appear to be appropriate. The hip was at this point dislocated and the trial femoral components were removed. The final femoral stem was then implanted and impacted to the appropriate depth. Again excellent purchase was obtained no stem subsidence or rotational instability was noted. The hip was once again trialed and confirmation of leg length and stability was performed. Soft tissue tension also appeared to be appropriate. At this point the hip was redislocated and the trunnion was cleaned and dried meticulously in the appropriate size MDM femoral head was placed on the clean dry trunnion using a 12/14 Albarado taper. The hip was once again relocated and again taken through full range of motion. I did inject a cocktail of postoperative pain medication in the deep and superficial tissues. Copious irrigation was performed. Anatomic closure of the piriformis tendon was performed through drill holes in the greater trochanter. A #1 Vicryl 0 Vicryl was utilized in subcutaneous tissue and surgical dana were placed in the skin. A well-padded nonadherent dressing was applied. Patient was taken to PACU in stable condition. No complications were identified. Will follow standard postop protocol for total hip arthroplasty. My events assistant played a vital role in the procedure beginning with positioning, holding retraction of soft tissues, positioning the leg to optimize visualization during the procedure and assisting with wound closure. Post-op Plan: DVT ppx; ASA 81 mg BID, thigh high compression stockings Follow up: in office in 2 weeks for wound check PT: to start POD #0 at hospital, outpatient PT should be arranged. Preoperative antibiotic: Ancef 2 grams IV Miles Corona DO Surgeon: Miles Corona acoustical carpenter: Michel Blas Type of Anesthesia: Spinal Anesthesiologist: Dakotah Augustin Estimated Blood Loss (mL): 50 cc Fluids Replaced: 1000 cc crystalloid Admit VTE Documentation VTE Present on Admission: No VTE Mechan Device Prophylaxis: SCD's and Thigh High DEISY Hose VTE Pharm Prophylaxis ordered?: Yes
[2021-09-18] MEDS: Lactated Ringers 1,000 ML 999 ML IV (09:20)
== END 2021-09-18 14:44 | disposition home or self-care (01) ==
LOC: SDC 05:16 → AC 05:56
PROVIDERS: Anesthesiology; PCP Family Medicine; Referring Provider Orthopaedic Surgery; Visit Provider Orthopaedic Surgery
PROC: 0SR90JZ Replacement of Right Hip Joint with Synthetic Substitute, Open Approach (ICD-10-PCS; CPT 27130; principal; 2021-09-18 07:05)
DX: M16.11 Unilateral primary osteoarthritis, right hip (principal); I10 Essential (primary) hypertension; E78.2 Mixed hyperlipidemia; E03.9 Hypothyroidism, unspecified; M19.90 Unspecified osteoarthritis, unspecified site; Z96.642 Presence of left artificial hip joint; Z79.899 Other long term (current) drug therapy
CPT/HCPCS: 01214; 27130; 36415; 73501; 80048; 82962; 83036; 83735; 85027; 87081; 88305; 88307; 88311; 97162; C1776; J7120

== ENCOUNTER → 2022-05-29 | Outpatient (CLI) | payer MEDICARE, SELFPAY ==
--- NOTE | 2022-05-29 10:31 | BI_ITS ---
MAMMOGRAPHY - BILATERAL SCREENING REASON FOR EXAM: Female, 87 years old. Routine annual screening examination. PERTINENT HISTORY: Non-contributory. TECHNIQUE: Digital bilateral breast heather (3D mammographic acquisition) in the CC and MLO projections. 2-D mediolateral oblique (MLO) and craniocaudad (CC) views of both breasts were obtained. CAD: Full Field Digital Mammography with Computer Added Detection was performed. COMPARISON: Comparison is made with prior study dated 08/05/2020 and 07/02/2018. FINDINGS: Breast Composition: The breasts are almost entirely fatty. There are no dominant masses or suspicious calcifications. Stable benign appearing bilateral axillary lymph nodes. No other significant abnormalities are identified. There has been no significant change since the prior study. BI/SCRN MAMM (CAD)W/HEATHER BILAT IMPRESSION: Stable bilateral screening mammogram. Yearly follow-up mammogram recommended. (A) ASSESSMENT CATEGORY: BIRADS Category 2: Benign. A letter regarding these results will be sent to the patient by the facility within 30 days. Approximately 10% of breast cancers are not detected by mammography. A normal mammogram should not delay biopsy of a clinically suspicious abnormality. [id number] Electronically Signed: Kwaku Pryor MD at 8:49 EDT ,
== END | disposition home or self-care (01) ==
LOC: OPBI 10:28
PROVIDERS: PCP Family Medicine; Visit Provider Family Medicine
DX: Z12.31 Encounter for screening mammogram for malignant neoplasm of breast (principal)
CPT/HCPCS: 77063; 77067

== ENCOUNTER → 2022-08-07 | Outpatient (CLI) | payer MEDICARE, SELFPAY ==
[2022-08-07 12:01] LABS: Absolute Lymphocyte Count 1.26 X10^3/uL (0.83-4.51); Absolute Neutrophil Count 3.1 X10^3/uL (2.0-7.7); Basophil# 0.03 X10^3/uL; Basophil% 0.6 % (0-1); Eosinophil# 0.22 X10^3/uL; Eosinophils% 4.2 % (0-5); Hematocrit 41.4 % (37-47); Hemoglobin 13.2 g/dL (12.0-15.0); Lymphocyte # 1.26 X10^3/ul (0.83-4.51); Lymphocyte % 24.2 % (19-41); Mean Corp Hgb Conc 31.9 g/dL (32-36); Mean Corpuscular Hgb 30.3 pg (27.0-32.0); Mean Corpuscular Volume 95.2 fL (81-99); Mean Platelet Vol. 10.2 fl (6.2-12.0); Monocyte# 0.61 X10^3/uL; Monocyte% 11.7 % (0-10); NRBC Flagged by Analyzer 0 % (0-5); Neutrophil # 3.07 X10^3/uL (2.7-7.7); Neutrophil % 59.1 % (47-70); Platelet Count 259 K/mm3 (150-450); RBC Distribution Width CV 13.4 % (11.6-14.6); RBC Distribution Width SD 47.6 fl (35.1-43.9); Red Blood Count 4.35 M/mm3 (4.2-5.4); White Blood Count 5.2 K/mm3 (4.4-11.0)
[2022-08-07 12:17] LABS: ALB/GLOB Ratio 1.1 RATIO (0.9-2.4); AST(SGOT) 16 U/L (15-37); Alanine Aminotransfer ALT/SGPT 18 U/L (13-56); Albumin, Serum 3.7 g/dL (3.2-5.0); Alkaline Phosphatase 50 U/L (45-117); Anion Gap 7 (5-15); BUN 19 mg/dL (7-18); BUN/Creat Ratio 18.1 RATIO (10-20); Calcium,Total 9.5 mg/dL (8.5-10.1); Chloride 104 mmol/L (98-107); Creatinine, Serum 1.05 mg/dL (0.55-1.02); EST Glomerular Filtration Rate 53 mL/min (>60); Est Glom Filt Rate - Afr Amer 64 mL/min (>60); Globulin 3.5 g/dL (2.2-4.2); Glucose 121 mg/dL (74-106); Potassium 4.1 mmol/L (3.5-5.1); Protein, Total 7.2 g/dL (6.4-8.2); Sodium Level 138 mmol/L (136-145)
[2022-08-07 12:18] LABS: Hemoglobin A1c 6.2 % (3.8-5.6)
[2022-08-07 12:34] LABS: Microalbumin:Creatinine Ratio 12.1 mg/g CRE (<30 mg/g CRE)
== END | disposition home or self-care (01) ==
LOC: MFPLAB 10:35
PROVIDERS: PCP Family Medicine; Referring Provider Family Medicine; Visit Provider Family Medicine
DX: E11.9 Type 2 diabetes mellitus without complications (principal)
CPT/HCPCS: 36415; 80053; 82043; 82570; 83036; 85025

== ENCOUNTER 2022-08-30 17:05 | Observation (INO) | payer MEDICARE, SELFPAY ==
[2022-08-30] VITALS (9 sets, daily range): BP systolic 144–168; BP diastolic 71–96; PULSE 64–91; RESP 16–22; TEMP 36.3–36.7; O2SAT 96–100; BMI 33.9; BMI 33.5; BMI 31.4
[2022-08-30 17:30] LABS: Bedside Glucose 95 mg/dL (74-106)
--- NOTE | 2022-08-30 17:38 | CT_ITS ---
We are attempting to reach an attending provider to discuss findings. An addendum with communication details will be sent when the communication is complete. STUDY: CT HEAD STROKE PROTOCOL W/O CONTRAST INJECTION REASON FOR EXAM: Female, 87 years old. Neuro deficit, acute, stroke suspected -- left hemianopsia RADIATION DOSAGE (If Supplied By Facility): CTDIvol = ( 44.99 ) mGy, DLP = ( 812.98 ) mGycm TECHNIQUE: Transaxial CT imaging of the brain was performed without administration of intravenous contrast material. Individualized dose optimization techniques were used for this CT. COMPARISON: 11/18/2018 FINDINGS: Normal soft tissue structures. Normal calvarium. Normal size ventricles and extra-axial spaces for the patient''s age. Normal white matter tracts of the cerebral hemispheres. Normal basal ganglia and thalami. Normal brainstem. Normal cerebellum. There is no intracranial hemorrhage. There is cortical and subcortical White matter hypoattenuation in the medial right occipital lobe with mild swelling. Normal visualized paranasal sinuses. ASPECT score: 10 CT/STROKE Brain/Head without Cont IMPRESSION: Findings suggest acute infarct in the medial occipital lobe. Electronically Signed: Warren Muro MD at 18:35 EST ,
--- NOTE | 2022-08-30 17:38 | EKG12_ITS ---
Test Reason : NEURO S/SX Blood Pressure : / mmHG Vent. Rate : 068 BPM Atrial Rate : 068 BPM P-R Int : 176 ms QRS Dur : 100 ms QT Int : 404 ms P-R-T Axes : 063 -14 174 degrees QTc Int : 429 ms Normal sinus rhythm Left ventricular hypertrophy with repolarization abnormality ( R in aVL , Reserve product ) Abnormal ECG Confirmed by NAEEM KHAN, SASHA ([id number]), editor sound FRANCESCO ARMENDARIZ ([id number]) on 09/04/2022 10:38:10 AM Referred By: Confirmed By:LUPILLO HARTLEY MD
--- NOTE | 2022-08-30 17:39 | EDS_ITS ---
HPI History of Present Illness Chief Complaint: Eye Problem Informant: patient and spouse/S.O. Narrative Narrative: Sent in here from [facility], I spoke with Dr. Payne prior to arrival. Patient 2 days of peripheral field vision loss. She wears glasses. Symptoms worse when looking left. Denies headache. Denies stroke history. History of diabetes and hypertension. Reported peripheral visual vision of left hemianopsia. Patient denies any speech changes or hemiparesis. In addition after exam noted injured her left hand 3 days ago there is swelling to the hand and ring finger. She has had her wedding ring there for years unable to remove this. Prior similar symptoms: No PFSH PFSH Medical History Abnormal EKG Abnormal stress test Arthritis Benign essential HTN Cancer Cardiology follow-up encounter History of echocardiogram History of pain when walking History of stress test Hypertension Hypothyroidism Loss of hearing Lung nodule Mixed hyperlipidemia Non-smoker Restless legs Thyroid disease Wears glasses Home Medications coenzyme Q10 50 mg chewable tablet 100 mg PO DAILY 12/29/14 [History Last Taken Unknown] cholecalciferol (vitamin D3) 50 mcg (2,000 unit) tablet 50 mcg PO DAILY 06/06/21 [History Last Taken Unknown] levothyroxine 100 mcg tablet 100 mcg PO DAILY 06/06/21 [History Last Taken 09/18/21] lisinopril 5 mg tablet 5 mg PO QHS 06/06/21 [History Last Taken Unknown] Allergy/AdvReac Type Severity Reaction Status Date / Time No Known Allergies Allergy Verified 08/30/22 17:08 Family History Other Breast cancer CVA (cerebral vascular accident) Heart disease Surgical History H/O hysterectomy with unilateral oophorectomy (~09/18/21) H/O total hip arthroplasty History of appendectomy History of cardiac catheterization History of colonoscopy (~2017) History of left hip replacement History of lobectomy of lung History of thyroidectomy Social History Smoking Status: Never smoker alcohol intake: never substance use type: does not use caffeine: No ROS ROS ED Constitutional Constitutional ED: Denies chills, fever(s) or sweats Eyes Eyes: Reports change in vision ENT ENT ED: Denies dysphagia or sore throat Cardiovascular Cardiovascular: Denies chest pain, leg edema, palpitations or racing heartbeat Respiratory/Chest Respiratory/Chest: Denies cough, dyspnea or dyspnea on exertion Gastrointestinal Gastrointestinal: Denies abdominal pain, diarrhea, nausea or vomiting Genitourinary Genitourinary ED: Denies dysuria, hematuria or urinary frequency Musculoskeletal Musculoskeletal: Reports extremity pain and other Details: Left hand injury ; Denies back pain or neck pain Integumentary Denies rash or wounds Neurologic Neurologic: Denies headache(s), paresthesias or weakness EXAM Physical Exam Const Vital Signs: 08/30/22 17:07 08/30/22 17:06 Temperature 97.6 F L 98.0 F Temperature Source Temporal Oral Pulse Rate 78 91 Respiratory Rate 16 18 Blood Pressure 144/88 H 151/86 H Blood Pressure Mean 106 107 Pulse Ox 98 97 Oxygen Delivery Method Room Air Room Air Positive well nourished and well developed General Appearance ED: well developed and NAD HEENT Reports moist mucous membranes normocephalic and atraumatic Eyes PERRL, EOMs intact bilaterally and conjunctivae normal Eyes Narrative: Left hemianopsia and upper and lower farrell of both eyes. Left pupil dilated compared to the right however status post medications at the eye doctors office. General Eye ED: Yes normal appearance of both eyes Neck no lymphadenopathy and supple General: Negative for tenderness Chest Wall Chest: Negative for tenderness Resp normal respiratory effort and normal air movement Effort and Inspection: symmetric chest movement; Negative for respiratory distress Cardio regular rate, regular rhythm and no murmurs Peripheral Pulses: pulses 2+ throughout GI normal to inspection, nondistended, normoactive bowel sounds and non-tender Palpation: Negative for guarding or rebound tenderness present Back/Spine no CVA tenderness and no thoracic nor lumbar tenderness Extremity Extremity Narrative: Left hand ecchymosis on the ulnar aspect of the hand there is ecchymosis of the ring finger with ring at the proximal base. Patient in a flexed position at the PIP joint. General Extremety ED: Negative for edema or tenderness General Extremity: Negative for edema Neuro oriented x3, CN's II-XII intact bilaterally and no sensory deficits noted Neuro Narrative: NIH of 1 for left hemianopsia Sensorium / Orientation: awake and alert Skin no rashes or lesions noted and no wounds MDM MDM MDM Narrative Medical decision making narrative: Patient clinical left hemianopsia, 2 days and symptoms no tPA candidate. In addition had a ring that is stuck to swollen left ring finger. This was removed and cut off by nursing. Patient understood reasons for this. Stroke work-up initiated, CT head and discussion with radiology does confirm a right occipital stroke on the medial aspect consistent with region of her deficits. Labs are stable. 1 view chest x-ray reviewed by myself and read by radiology shows no acute process. After ring was removed three-view x-ray left hand reviewed on self read by radiology spiral fracture proximal phalanx. She is placed in a AP gutter splint to immobilize. I spoke with hospitalist for admission. Procedure note: Verbal consent. Splinting. Nylon dressing was placed, Kerlix was placed. 4 inch plaster splint ulnar gutter with fingers kept straight with padding. Secured with Octaviano wrap. Patient tolerated procedure well. Neuro vas intact post splinting. Lab Data Attestation: I reviewed the patient's lab results. Labs: Laboratory Results - last 24 hr 08/30/22 17:11 POC Glucose 95 EKG Initial EKG: Attestation: I personally reviewed and interpreted this EKG as follows: Comments: Sinus rate of 68, no ST changes T wave inversions in the lateral leads. This was similar to December 2014. Discharge Plan Dx/Rx/DC Orders Clinical Impression: Occipital stroke, Hemianopia of left eye, Closed fracture of phalanx of left ring finger, Traumatic ecchymosis of left hand Disposition Disposition: Acute Care Hospital [facility] Discharge Date/Time: 08/30/22 20:30
[2022-08-30 17:48] LABS: Absolute Lymphocyte Count 1.57 X10^3/uL (0.83-4.51); Absolute Neutrophil Count 5.5 X10^3/uL (2.0-7.7); Basophil# 0.05 X10^3/uL; Basophil% 0.6 % (0-1); Eosinophil# 0.22 X10^3/uL; Eosinophils% 2.7 % (0-5); Hematocrit 42.7 % (37-47); Hemoglobin 13.6 g/dL (12.0-15.0); Lymphocyte # 1.57 X10^3/ul (0.83-4.51); Mean Corp Hgb Conc 31.9 g/dL (32-36); Mean Corpuscular Hgb 30.4 pg (27.0-32.0); Mean Corpuscular Volume 95.3 fL (81-99); Mean Platelet Vol. 10.5 fl (6.2-12.0); Monocyte% 10.9 % (0-10); NRBC Flagged by Analyzer 0 % (0-5); Neutrophil # 5.51 X10^3/uL (2.7-7.7); Neutrophil % 66.4 % (47-70); Platelet Count 238 K/mm3 (150-450); RBC Distribution Width CV 13.2 % (11.6-14.6); RBC Distribution Width SD 46.4 fl (35.1-43.9); Red Blood Count 4.48 M/mm3 (4.2-5.4); White Blood Count 8.3 K/mm3 (4.4-11.0)
[2022-08-30 17:55] LABS: Partial Thromboplast Time 25.8 Seconds (24.1-36.2); Prothrombin Time (Protime)PT. 12.8 SECONDS (11.7-14.9)
[2022-08-30 18:06] LABS: Anion Gap 9 (5-15); BUN 14 mg/dL (7-18); BUN/Creat Ratio 12.7 RATIO (10-20); Calcium,Total 9.7 mg/dL (8.5-10.1); Chloride 104 mmol/L (98-107); EST Glomerular Filtration Rate 50 mL/min (>60); Est Glom Filt Rate - Afr Amer 61 mL/min (>60); Estimated Creatinine Clearance 34.37 ml/min; Glucose 102 mg/dL (74-106); Potassium 3.8 mmol/L (3.5-5.1); Sodium Level 138 mmol/L (136-145); Troponin-I HS 9 pg/mL (3.0-54.0)
--- NOTE | 2022-08-30 18:20 | RAD_ITS ---
STUDY: X-RAY CHEST REASON FOR EXAM: Female, 87 years old. Neuro deficit, acute, stroke suspected TECHNIQUE: Portable, upright, AP chest x-ray COMPARISON: 07/26/2021 FINDINGS: The lungs are clear and expanded. There is no demonstrated pleural abnormality. Normal size heart. Normal mediastinum and riki. Normal visualized pulmonary arteries. There is atherosclerotic tortuosity of the aortic arch and descending thoracic aorta. There is no demonstrated abnormality of the visualized soft tissue structures of the upper abdomen. RAD/Chest 1 View IMPRESSION: No acute abnormal cardiopulmonary finding. Electronically Signed: Warren Muro MD at 19:11 EST ,
--- NOTE | 2022-08-30 18:25 | RAD_ITS ---
STUDY: X-RAY - LEFT HAND REASON FOR EXAM: Female, 87 years old. FALL TECHNIQUE: 3 view(s) of the hand. COMPARISON: 03/06/2017 RAD/Hand Min 3 Views IMPRESSION: Fourth proximal phalanx spiral fracture with minimal displacement. No radiopaque foreign body. No other finding of fracture or dislocation. Degenerative change most prominent at the first CMC joint. Electronically Signed: Warren Muro MD at 19:12 EST ,
--- NOTE | 2022-08-30 18:40 | ED.RN ---
OK TO COMPLETE NIH AFTER [address] GROSSMAN.. NIH REMAINS THE SAME AT 1.
--- NOTE | 2022-08-30 19:45 | PCM.HP.STD ---
HPI - General General Date of Admission: 08/30/22 Date of Service: 08/30/22 Chief Complaint: VISION LOSS HPI Narrative IRAJ SANTOS, is a 87 F with a significant history of hypertension and hypothyroidism who presents emergency department with left peripheral vision loss. Her symptoms started on 08/28/2022. Her symptoms is persistent. She went to see an eye doctor where her eye was dilated. She was sent to the emergency department. Also on 08/28/2022 patient fell and landed on her left hand. At the emergency department she was found to have fourth proximal phalanx spiral fracture with minimal displacement which was splinted. Emergency Department doctor discussed the case with orthopedic surgeon, Dr Corona who recommended outpatient follow-up with him. Of note patient is supposed to follow-up with Dr. Corona on a prior hip surgery. She stated that appointment is about 6 months time. [facility] Medical History Abnormal EKG Abnormal stress test Arthritis Benign essential HTN Cancer Cardiology follow-up encounter History of echocardiogram History of pain when walking History of stress test Hypertension Hypothyroidism Loss of hearing Lung nodule Mixed hyperlipidemia Non-smoker Restless legs Thyroid disease Wears glasses Home Medications coenzyme Q10 50 mg chewable tablet 100 mg PO DAILY 12/29/14 [History Last Taken Unknown] cholecalciferol (vitamin D3) 50 mcg (2,000 unit) tablet 50 mcg PO DAILY 06/06/21 [History Last Taken Unknown] levothyroxine 100 mcg tablet 100 mcg PO DAILY 06/06/21 [History Last Taken 09/18/21] lisinopril 5 mg tablet 5 mg PO QHS 06/06/21 [History Last Taken Unknown] Allergy/AdvReac Type Severity Reaction Status Date / Time No Known Allergies Allergy Verified 08/30/22 17:08 Family History Other Breast cancer CVA (cerebral vascular accident) Heart disease Surgical History H/O hysterectomy with unilateral oophorectomy (~09/18/21) H/O total hip arthroplasty History of appendectomy History of cardiac catheterization History of colonoscopy (~2017) History of left hip replacement History of lobectomy of lung History of thyroidectomy Social History Smoking Status: Never smoker alcohol intake: never substance use type: does not use caffeine: No ROS ROS Narrative Pertinent positives and pertinent negatives as noted in HPI. All other systems were reviewed and are negative Vital Signs Vital Signs Vital Signs: 08/30/22 17:07 08/30/22 17:06 08/30/22 17:38 Temperature 97.6 F L 98.0 F Temperature Source Temporal Oral Pulse Rate 78 91 Respiratory Rate 16 18 Blood Pressure 144/88 H 151/86 H Blood Pressure Mean 106 107 Pulse Ox 98 97 Oxygen Delivery Method Room Air Room Air Room Air 08/30/22 18:06 08/30/22 19:00 Temperature Temperature Source Pulse Rate 68 69 Respiratory Rate 18 18 Blood Pressure 160/96 H 150/71 H Blood Pressure Mean 117 97 Pulse Ox 97 98 Oxygen Delivery Method Room Air Room Air Weight Weight: 94.6 kg Body Mass Index (BMI) 33.5 Physical Exam Narrative Physical exam: General: Well-nourished, well-developed. Head: Normocephalic, atraumatic, no tenderness Eyes: Vision is grossly intact. EOMI ENT, no trauma, moist mucous membranes, no rhinorrhea Neck: Nontender, No thyromegaly. CVS: Regular rate and rhythm. S1-S2 present. No murmur, gallop or rub. Respiratory : clear to auscultation bilaterally, chest wall nontender, no wheezing Abdomen: Soft, nontender, nondistended, normal bowel sounds, no masses : Deferred Back: Nontender, no CVA tenderness. Extremities: Nontender full range of motion, left hand in splints. Skin: Normal color, no trauma, abrasions Neuro: Alert, oriented, cranial nerves II through XII grossly intact except patient has bilateral left hemianopsia. No hyperreflexia in knee and elbow reflexes. Strength 5 out of 5. No dysmetria with [id number] test and [id number] test. Psychiatry: Normal mood. Normal affect. Not depressed. Not anxious. Results Lab / Micro Data Result Diagrams: 08/30/22 17:40 08/30/22 17:40 Labs: Laboratory Results - last 24 hr 08/30/22 17:11: POC Glucose 95 08/30/22 17:40: WBC 8.3, RBC 4.48, Hgb 13.6, Hct 42.7, MCV 95.3, MCH 30.4, MCHC 31.9 L, RDW Std Deviation 46.4 H, RDW Coeff of Jovan 13.2, Plt Count 238, MPV 10.5, Immature Gran % (Auto) 0.400, Neut % (Auto) 66.4, Lymph % (Auto) 19.0, [place] % (Auto) 10.9 H, Eos % (Auto) 2.7, Baso % (Auto) 0.6, Absolute Neuts (auto) 5.5, Absolute Lymphs (auto) 1.57, Nucleated RBC % 0 08/30/22 17:40: PT 12.8, INR 1.0, APTT 25.8 08/30/22 17:40: Sodium 138, Potassium 3.8, Chloride 104, Carbon Dioxide 25.0, Anion Gap 9, BUN 14, Creatinine 1.10 H, Estim Creat Clear Calc 34.37, Est GFR (MDRD) Af Amer 61, Est GFR (MDRD) Non-Af 50 L, BUN/Creatinine Ratio 12.7, Glucose 102, Calcium 9.7, Troponin I High Sens [address] 08/30/22 17:38 IMPRESSION: Findings suggest acute infarct in the medial occipital lobe. Electronically Signed: Warren Muro MD at 18:35 EST Reading Location ID and State: [facility] / [place] Tel , Service support , ADDENDUM: 08/30/22 1845 IMPRESSION: Findings suggest acute infarct in the medial occipital lobe. N.B. : The above Results were Read Back by Warren Muro MD to Clive Lin MD, and understanding confirmed on 08/30/2022 18:38:06 (ET). Electronically Signed: Warren Muro MD at 18:35 EST , Chest X-Ray 08/30/22 18:20 IMPRESSION: No acute abnormal cardiopulmonary finding. Electronically Signed: Warren Muro MD at 19:11 EST , Hand X-Ray 08/30/22 18:25 IMPRESSION: Fourth proximal phalanx spiral fracture with minimal displacement. No radiopaque foreign body. No other finding of fracture or dislocation. Degenerative change most prominent at the first CMC joint. Electronically Signed: Warren Muro MD at 19:12 EST , Assessment & Plan Assessment/Plan (1) Acute CVA (cerebrovascular accident): (2) Phalanx, proximal fracture of finger: PLAN: Plan Acute CVA Serial NINDS NIH Scale ordered Impression of head CT radiology: Findings suggest acute infarct in the medial occipital lobe. CT head image was visualized and independently interpreted. I agree with radiologist interpretation. Upon my personal head CT image review: I agree with radiologist interpretation Lipid profile and A1c ordered. N.p.o. until bedside swallow eval. Daily aspirin and Plavix ordered. High intensity statin Outside window of permissive hypertension. MRI brain/MRA head and neck ordered. Monitor on telemetry Echocardiogram ordered. Fourth proximal phalanx spiral fracture of the Left hand Splinted at the ED. Patient to follow-up with orthopedic outpatient. Hypertension Blood pressure is not within goal Lisinopril continued. As needed hydralazine ordered. Trend blood pressure and adjust blood pressure medications. CKD stage IIIb Stable DVT prophylaxis Subcutaneous Lovenox ordered. Charges/Coding Visit Charges Inpatient E&M: 18390 Init Hosp L3
--- NOTE | 2022-08-30 20:34 | ECHOD_ITS ---
Reason For Study: TIA/CVA Procedure This was a 2D Doppler, Color Flow transthoracic echocardiogram. Exam performed portable in patient room. Left Ventricle Normal LV size. The estimated ejection fraction is 60 %. Unable to assess diastolic dysfunction. No regional wall motion abnormalities noted. Right Ventricle Normal RV size. Normal systolic function. Atria The left atrium is moderately enlarged. Normal right atrium. Bubble contrast study negative for right to left interatrial shunt. No doppler evidence for ASD. Mitral Valve There is moderate mitral annular calcification. There is no mitral valve stenosis. Trivial mitral valve insufficiency. Tricuspid Valve There is no tricuspid stenosis. Unable to estimate RV systolic pressure due to insufficient tricuspid regurgitant envelope. Trivial tricuspid valve insufficiency. Aortic Valve Trisinus/trileaflet aortic valve. There is no aortic stenosis. No aortic valve insufficiency. Pulmonic Valve There is no pulmonic valvular stenosis. No pulmonic valve insufficiency. Great Vessels Normal aortic root. Pericardium/Pleural No pericardial effusion. Medication Performed a rapid injection of agitated mix of 9 cc saline and 1cc air to assess for atrial septal defect. MMode/2D Measurements & Calculations LVIDd: 5.9 cm IVSd: 1.1 cm Ao root diam: 3.3 cm LVIDs: 3.6 cm LVPWd: 1.4 cm RVDd: 3.4 cm FS: 38.4 % LAV(MOD-sp4): 75.6 ml LVAd ap4: 21.2 cm2 SV(MOD-sp4): 33.4 ml LVLd ap4: 6.7 cm EDV(MOD-sp4): 58.6 ml EDV(sp4-el): 57.1 ml LVAs ap4: 12.0 cm2 LVLs ap4: 5.3 cm ESV(MOD-sp4): 25.2 ml ESV(sp4-el): 22.9 ml EF(MOD-sp4): 57.0 % EF(sp4-el): 59.8 % SV(sp4-el): 34.2 ml LA A4 area: 24.8 cm2 LA dimension(2D): 4.8 cm RA A4 area: 14.7 cm2 Time Measurements MV dec time: 0.15 sec Doppler Measurements & Calculations MV E max adam: 71.4 cm/sec Lat Peak E' Adam: 8.1 cm/sec Med Peak E' Adam: 7.9 cm/sec MV A max adam: 48.7 cm/sec E/E' lat: 8.8 E/E' med: 9.1 MV E/A: 1.5 MV V2 max: 73.8 cm/sec MV dec slope: 474.9 cm/sec2 Ao V2 max: 143.5 cm/sec MV max P.2 mmHg Ao max P.2 mmHg MV V2 mean: 46.0 cm/sec Ao V2 mean: 95.7 cm/sec MV mean P.93 mmHg Ao mean P.4 mmHg MV V2 VTI: 23.5 cm Ao V2 VTI: 32.4 cm AV (velocity ratio): 0.66 LV V1 max: 98.6 cm/sec PA V2 max: 103.8 cm/sec LV V1 max P.9 mmHg PA V2 mean: 70.9 cm/sec LV V1 mean P.3 mmHg LV V1 mean: 72.0 cm/sec LV V1 VTI: 21.5 cm ECHO/Echo Complete Interpretation Summary The estimated ejection fraction is 60 %. Unable to assess diastolic dysfunction. Bubble contrast study negative for right to left interatrial shunt. The left atrium is moderately enlarged. Trivial mitral valve insufficiency. Ordering Physician: Jeb Gonzalez Referring Physician: Dakotah Sierra MD Performed By: Ericka Taylor RCS
[2022-08-30] MEDS: Lisinopril 5 MG Tablet PO (21:30)
[2022-08-30] MEDS: Atorvastatin Calcium 40 MG Tablet PO (21:30)
[2022-08-31] VITALS (10 sets, daily range): BP systolic 121–133; BP diastolic 60–72; PULSE 59–68; RESP 15–16; TEMP 36.8–37.2; O2SAT 94–96; BMI 31.4
[2022-08-31] MEDS: Levothyroxine 100 MCG Tablet PO (06:36)
[2022-08-31 07:13] LABS: Absolute Neutrophil Count 3.5 X10^3/uL (2.0-7.7); Basophil# 0.03 X10^3/uL; Basophil% 0.5 % (0-1); Eosinophil# 0.21 X10^3/uL; Eosinophils% 3.7 % (0-5); Hematocrit 38.6 % (37-47); Hemoglobin 12.6 g/dL (12.0-15.0); Lymphocyte % 21.2 % (19-41); Mean Corp Hgb Conc 32.6 g/dL (32-36); Mean Corpuscular Volume 94.8 fL (81-99); Mean Platelet Vol. 11.3 fl (6.2-12.0); Monocyte# 0.71 X10^3/uL; Monocyte% 12.5 % (0-10); NRBC Flagged by Analyzer 0 % (0-5); Neutrophil # 3.51 X10^3/uL (2.7-7.7); Neutrophil % 61.9 % (47-70); Platelet Count 186 K/mm3 (150-450); RBC Distribution Width CV 13.2 % (11.6-14.6); RBC Distribution Width SD 45.7 fl (35.1-43.9); Red Blood Count 4.07 M/mm3 (4.2-5.4); White Blood Count 5.7 K/mm3 (4.4-11.0)
[2022-08-31 07:35] LABS: Anion Gap 7 (5-15); BUN 13 mg/dL (7-18); BUN/Creat Ratio 13.6 RATIO (10-20); Calcium,Total 8.8 mg/dL (8.5-10.1); Chloride 106 mmol/L (98-107); Cholesterol 194 mg/dL (200); Creatinine, Serum 0.96 mg/dL (0.55-1.02); EST Glomerular Filtration Rate 59 mL/min (>60); Est Glom Filt Rate - Afr Amer 71 mL/min (>60); Estimated Creatinine Clearance 39.38 ml/min; Glucose 110 mg/dL (74-106); High Density Lipoprotein 44 mg/dL; Potassium 3.7 mmol/L (3.5-5.1); Sodium Level 139 mmol/L (136-145); Triglycerides 133 mg/dL; Very Low Density Lipoprotein 27 mg/dL (5-40)
[2022-08-31 07:42] LABS: Hemoglobin A1c 6.5 % (3.8-5.6)
--- NOTE | 2022-08-31 08:13 | PCM.PN.HOSP ---
Subjective Subjective Still with visual deficits in her left visual field. Objective Data Objective Data Vital Signs: Vital Signs Temp Pulse Resp BP Pulse Ox O2 Del Method 37.2 C 65 16 126/72 H 94 Room Air 08/31/22 04:30 08/31/22 04:30 08/31/22 04:30 08/31/22 04:30 08/31/22 04:30 08/31/22 04:30 Oxygen Delivery Method Room Air Weight: 88.4 kg Body Mass Index (BMI) 31.4 Lab / Micro Data Result Diagrams: 08/31/22 06:05 08/31/22 06:05 Labs: Laboratory Results - last 24 hr 08/30/22 17:11: POC Glucose 95 08/30/22 17:40: WBC 8.3, RBC 4.48, Hgb 13.6, Hct 42.7, MCV 95.3, MCH 30.4, MCHC 31.9 L, RDW Std Deviation 46.4 H, RDW Coeff of Jovan 13.2, Plt Count 238, MPV 10.5, Immature Gran % (Auto) 0.400, Neut % (Auto) 66.4, Lymph % (Auto) 19.0, Reeves % (Auto) 10.9 H, Eos % (Auto) 2.7, Baso % (Auto) 0.6, Absolute Neuts (auto) 5.5, Absolute Lymphs (auto) 1.57, Nucleated RBC % 0 08/30/22 17:40: PT 12.8, INR 1.0, APTT 25.8 08/30/22 17:40: Sodium 138, Potassium 3.8, Chloride 104, Carbon Dioxide 25.0, Anion Gap 9, BUN 14, Creatinine 1.10 H, Estim Creat Clear Calc 34.37, Est GFR (MDRD) Af Amer 61, Est GFR (MDRD) Non-Af 50 L, BUN/Creatinine Ratio 12.7, Glucose 102, Calcium 9.7, Troponin I High Sens 9 08/31/22 06:05: WBC 5.7, RBC 4.07 L, Hgb 12.6, Hct 38.6, MCV 94.8, MCH 31.0, MCHC 32.6, RDW Std Deviation 45.7 H, RDW Coeff of Jovan 13.2, Plt Count 186, MPV 11.3, Immature Gran % (Auto) 0.200, Neut % (Auto) 61.9, Lymph % (Auto) 21.2, Reeves % (Auto) 12.5 H, Eos % (Auto) 3.7, Baso % (Auto) 0.5, Absolute Neuts (auto) 3.5, Absolute Lymphs (auto) 1.20, Nucleated RBC % 0 08/31/22 06:05: Sodium 139, Potassium 3.7, Chloride 106, Carbon Dioxide 26.0, Anion Gap 7, BUN 13, Creatinine 0.96, Estim Creat Clear Calc 39.38, Est GFR (MDRD) Af Amer 71, Est GFR (MDRD) Non-Af 59 L, BUN/Creatinine Ratio 13.6, Glucose 110 H, Calcium 8.8, Triglycerides 133, Cholesterol 194, LDL Cholesterol 123, VLDL Cholesterol 27, HDL Cholesterol 44 08/31/22 06:05: Hemoglobin A1c 6.5 H Radiography Diagnostic Testing: Radiology Impression Brain CT 08/30/22 17:38 IMPRESSION: Findings suggest acute infarct in the medial occipital lobe. Electronically Signed: Warren Muro MD at 18:35 EST , ADDENDUM: 08/30/22 1845 IMPRESSION: Findings suggest acute infarct in the medial occipital lobe. N.B. : The above Results were Read Back by Warren Muro MD to Clive Lin MD, and understanding confirmed on 08/30/2022 18:38:06 (ET). Electronically Signed: Warren Muro MD at 18:35 EST , Chest X-Ray 08/30/22 18:20 IMPRESSION: No acute abnormal cardiopulmonary finding. Electronically Signed: Warren Muro MD at 19:11 EST , Hand X-Ray 08/30/22 18:25 IMPRESSION: Fourth proximal phalanx spiral fracture with minimal displacement. No radiopaque foreign body. No other finding of fracture or dislocation. Degenerative change most prominent at the first CMC joint. Electronically Signed: Warren Muro MD at 19:12 EST Reading Location ID and State: [facility] / [place] Tel , Service support , Physical Exam Const alert and no apparent distress Constitutional Narrative: Flat affect Resp normal respiratory effort, no retractions, no use of accessory muscles and clear to auscultation bilaterally Cardio regular rate, regular rhythm, S1 normal heart sound and S2 normal heart sound GI normal to inspection, nondistended, normoactive bowel sounds, soft to palpation, non-tender and non-distended Extremity normal to inspection Neuro Neuro Narrative: Cranial nerves II through XII grossly intact. Patient does have left visual field lateral defect. Assessment & Plan Assessment/Plan (1) Acute CVA (cerebrovascular accident): PLAN: Acute CVA Serial NINDS NIH Scale ordered Impression of head CT radiology: Findings suggest acute infarct in the medial occipital lobe. CT head image was visualized and independently interpreted. I agree with radiologist interpretation. Upon my personal head CT image review: I agree with radiologist interpretation High intensity statin Outside window of permissive hypertension. MRI brain/MRA head and neck performed and final result pending but does show a right occipital lobe infarct on my read. Monitor on telemetry Echocardiogram shows an EF of 60% Consult [facility] neurology (2) Phalanx, proximal fracture of finger: PLAN: Fourth proximal phalanx spiral fracture of the Left hand Splinted at the ED. Patient to follow-up with orthopedic outpatient. PLAN: Plan Hypertension Blood pressure is not within goal Lisinopril continued. As needed hydralazine ordered. Trend blood pressure and adjust blood pressure medications. CKD stage IIIb Stable DVT prophylaxis Subcutaneous Lovenox ordered. Charges/Coding Visit Charges OBSV E&M: 05789 Subsequent observation care L3
--- NOTE | 2022-08-31 08:55 | MRI_ITS ---
STUDY: MRA OF THE HEAD WITHOUT CONTRAST REASON FOR EXAM: Female, 87 years old. Peripheral vision loss TECHNIQUE: 3-D acfy-[id number]-fruezz (TOF) imaging was performed with MIPs. The study was performed unenhanced. COMPARISON: None. FINDINGS: Normal bilateral petrous carotid arteries. Normal right cavernous carotid artery with a normal supraclinoid bifurcation. Normal left cavernous carotid artery with a normal supraclinoid bifurcation. Normal right A1 segments of the anterior cerebral artery. Normal left A1 segments of the anterior cerebral artery. Normal intact anterior communicating artery (ACOM). Normal bilateral A2 segments of the anterior cerebral arteries. Normal right M1 and M2 segments of the middle cerebral arteries, with a normal M1 bifurcation. Normal left M1 and M2 segments of the middle cerebral arteries, with a normal M1 bifurcation. Normal right posterior communicating artery (PCOM). Normal left posterior communicating artery (PCOM). Normal bilateral vertebral arteries. Normal basilar artery with a normal basilar bifurcation. The visualized bilateral superior cerebellar (SCA) arteries are normal. Normal bilateral P1, P2 and visualized P3 segments of the posterior cerebral arteries. 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 There is no major vessel occlusion or hemodynamically significant stenosis. There is no demonstrated abnormality of the visualized brain. 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 No finding of stenosis or occlusion. Electronically Signed: Warren Muro MD at 17:05 EST ,
--- NOTE | 2022-08-31 08:55 | MRI_ITS ---
STUDY: MRA NECK WITHOUT CONTRAST REASON FOR EXAM: Female, 87 years old. CVA TECHNIQUE: Source images were obtained, MIPs were performed. The study was performed unenhanced. COMPARISON: None. FINDINGS: RIGHT CAROTID ARTERIES: Normal right common carotid artery (CCA). Normal right common carotid bulb. Normal origin of the right internal carotid (ICA) artery without a hemodynamically significant stenosis. Normal visualized cervical portion of the right internal carotid artery. Normal origin of the right external carotid artery (ECA). LEFT CAROTID ARTERIES: Normal left common carotid artery (CCA). Normal left common carotid bulb. Normal origin of the left internal carotid (ICA) artery without a hemodynamically significant stenosis. Normal visualized cervical portion of the left internal carotid artery. Normal origin of the left external carotid artery (ECA). VERTEBRAL ARTERIES: There is antegrade flow within the bilateral vertebral arteries with a small left vertebral artery, and a dominant right vertebral artery. MRI/MRA Neck without Contrast IMPRESSION: Normal bilateral cervical carotid and vertebral arteries. Electronically Signed: Warren Muro MD at 17:13 EST ,
--- NOTE | 2022-08-31 08:55 | MRI_ITS ---
INDICATION: cva EXAMINATION: MRI - MR Brain W/O Contrast TECHNIQUE: MRI examination brain obtained with standard protocol including multiplanar multiecho noncontrast imaging. IV Contrast Dosage and Agent: None. COMPARISON: CT of 08/30/2022, MRA examination of 08/31/2022. FINDINGS: HEMISPHERES, CEREBELLUM AND BRAINSTEM: 1. The cerebral parenchyma, ventricular system and gyral pattern have normal configuration. Diffuse involutional changes and scattered chronic microvascular deep white matter disease is present. 2. There is fluid restriction, parenchymal edema and swelling involving the medial inferior aspect of the RIGHT occipital lobe consistent with an evolving RIGHT TIRE BUFFER infarct. No evidence of hemorrhage or hemosiderin deposition. 3. No other areas of fluid restriction.. 4. There is an accumulation of soft tissue along the medial aspect of the RIGHT frontal region, measuring approximately 1.5 x 1.8 cm. There is mild effacement of the RIGHT frontal pole. This is characterized by isointensity 1, elevated FLAIR signal, hypointense T2 signal. This has soft tissue density on CT are not well visualized. Findings likely represent sequelae of a meningioma. No vasogenic edema. PITUITARY: Infundibulum and pituitary have normal configuration. Midline structures appear normal. CSF SPACES: Appropriate for age. No hydrocephalus. Basal cisterns are patent. VESSELS: 1. There are normal flow voids noted in the great vessels at the skull base ORBITS AND PARANASAL SINUSES: 1. Both globes, extraocular muscles, optic nerves and retrobulbar fat appear unremarkable. 2. Mild chronic mucosal thickening within the ethmoid and maxillary sinuses. BONY ELEMENTS: Bony elements of the cranial vault, facial skeleton and skull base have normal appearance. SCALP AND SOFT TISSUES: Normal appearance of the soft tissues of the scalp and the visualized face OTHER: None MRI/Brain without Contrast IMPRESSION: 1. Fluid restriction along the inferior medial aspect of the RIGHT occipital lobe consistent with an acute/evolving nonhemorrhagic RIGHT TIRE BUFFER infarct. 2. Mild involutional change and chronic microvascular deep white matter disease. 3. Extra-axial soft tissue collection/mass along the medial aspect of the anterior frontal pole, measuring 1.5 x 1.8 cm in size. Mild mass effect on the frontal parenchyma without evidence of vasogenic edema, and likely representing a meningioma. 4. Chronic sinus mucosal thickening. Electronically Signed: Keenan Tamayo MD at 17:47 EST ,
[2022-08-31] MEDS: Enoxaparin 40 MG/0.4 ML Syringe SC (09:29)
[2022-08-31] MEDS: Aspirin 81 MG TAB.CHEW PO (09:30)
[2022-08-31] MEDS: Cholecalciferol (VIT D3) 25 MCG TABLET (1,000 UNITS) 50 MCG PO (09:30)
[2022-08-31] MEDS: Clopidogrel Bisulfate 75 MG Tablet PO (09:30)
--- NOTE | 2022-08-31 13:49 | CASEMGMT ---
Per therapy, pt has no further need for therapy at d/c. Pt awaiting MRI, results, and neuro c/s. SStaten RN CM
--- NOTE | 2022-08-31 15:03 | TELEMED_ITS ---
[facility] Telemed has confirmed receipt of a request for visit. This document confirms receipt of the order initiating the consult. To find the results of the consultation, please view the patient's reports for the scanned Telemed Consult.
--- NOTE | 2022-08-31 15:11 | CASEMGMT ---
This RN CM to room with RITCHIE form, explanation done-pt voices understanding, and signs RITCHIE form. Original to chart and copy to pt. Pt voices no further questions/concerns/needs for discharge. SStaten RN CM
--- NOTE | 2022-08-31 16:54 | DCINST_ITS ---
Discharge Instructions Diet Discharge Diet: 1999 Calorie Control Diet Activity Discharge Activity: May Not Drive (until cleared by opthalmology) Follow Up Care Test Results: Test results from this visit will be discussed in further detail at your follow- up appointment, if applicable. Discharge Plan Admission Admit Date/Time: 08/30/22 19:33 Primary Reason for Your Visit: cva Attending Provider: Dakotah Kimball Primary Care Provider: Dakotah Sierra Consulting Providers: Jeb Gonzalez Discharge Orders/Prescriptions Prescriptions: New aspirin 81 mg Tablet,Chewable 81 mg PO BREAKFAST Qty: 0 0RF atorvastatin 40 mg Tablet 40 mg PO QHS Qty: 30 0RF clopidogrel 75 mg Tablet 75 mg PO DAILY Qty: 30 0RF Continued coenzyme Q10 50 MG tablet,chewable 100 mg PO DAILY Label Comments: supplement cholecalciferol (vitamin D3) 50 mcg (2,000 unit) tablet 50 mcg PO DAILY levothyroxine 100 mcg tablet 100 mcg PO DAILY lisinopril 5 mg tablet 5 mg PO QHS Other Ambulatory Orders: 30 Day Event Recorder Preventi (Urgent) Timeframe: 1 Day Facility: [facility] - Location: Cardiovascular Services Ordered By: Dr. Dakotah Kimball AMB Blood Pressure Monitor (Routine) Location: None Selected Ordered By: Dr. Dakotah Kimball Referrals / Follow Up: [facility] [Provider Group] - Within 2 Weeks Dakotah Sierra MD [Primary Care Provider] - Within 2 Weeks Miles Corona DO [Med Staff - Active Staff] - Within 2 Weeks Justyn Wiseman MD [Non-Staff -Ordering Privileges] - Within 1 Month Disposition Disposition (needs filled in before D/C Order can be placed): Home, Self Care
--- NOTE | 2022-08-31 17:05 | PCM.DC.SUM ---
Providers Date of Admission: 08/30/22 Primary Care Physician: Dr. Dakotah Sierra MD Reason For Visit: ACUTE MEDICAL OCCIPITAL LOBE INFARCT Diagnosis Discharge Diagnosis (1) Acute CVA (cerebrovascular accident): Status: Acute Code(s): I63.9 - Cerebral infarction, unspecified Plan: Acute CVA Serial NINDS NIH Scale ordered Impression of head CT radiology: Findings suggest acute infarct in the medial occipital lobe. CT head image was visualized and independently interpreted. I agree with radiologist interpretation. Upon my personal head CT image review: I agree with radiologist interpretation High intensity statin Outside window of permissive hypertension. Echocardiogram shows an EF of 60% Discussed with [facility] neurology, patient has right occipital stroke. Recommended 3 weeks of aspirin and clopidogrel. Patient to follow-up with neurology as well as ophthalmology. No driving as well. Would recommend no driving until patient is cleared by ophthalmology. (2) Phalanx, proximal fracture of finger: Status: Acute Code(s): S62.619A - Displaced fracture of proximal phalanx of unspecified finger, initial encounter for closed fracture Qualifiers: Encounter type: initial encounter Finger: little finger Fracture type: closed Fracture alignment: nondisplaced Laterality: left Qualified Code(s): S62.647A - Nondisplaced fracture of proximal phalanx of left little finger, initial encounter for closed fracture Plan: Fourth proximal phalanx spiral fracture of the Left hand Splinted at the ED. Patient to follow-up with orthopedic outpatient. Plan Hypertension Blood pressure is not within goal Lisinopril continued. As needed hydralazine ordered. Trend blood pressure and adjust blood pressure medications. CKD stage IIIb Stable Discussed with the patient's and daughter at bedside. Medications at Discharge Home Medications coenzyme Q10 50 mg chewable tablet 100 mg PO DAILY 12/29/14 cholecalciferol (vitamin D3) 50 mcg (2,000 unit) tablet 50 mcg PO DAILY 06/06/21 levothyroxine 100 mcg tablet 100 mcg PO DAILY 06/06/21 lisinopril 5 mg tablet 5 mg PO QHS 06/06/21 aspirin 81 mg chewable tablet 81 mg PO BREAKFAST #0 tabs 08/31/22 atorvastatin 40 mg tablet 40 mg PO QHS #30 tabs 08/31/22 clopidogrel 75 mg tablet 75 mg PO DAILY #30 tabs 08/31/22 Hospital Course Operations None Procedures 2-D Echocardiogram Summary of Care Provided Minutes Spent on Discharge: 35 Hospital Course: This is an 87-year-old female presents with cute onset of left visual field loss. Patient had a CAT scan that showed an occipital stroke. MRI showed right occipital stroke. Patient was seen by [facility] teleneurology recommend dual antiplatelet therapy for 3 weeks, follow-up with neurology and ophthalmology. In addition, patient will not drive until cleared by ophthalmology and will be also on atorvastatin. Patient will need an event monitor to see if she does have atrial fibrillation, thus far no evidence of any arrhythmia. Weight / BMI Weight Weight: 88.4 kg Body Mass Index (BMI) 31.4 ABG / Lab / Microbiology Data Result Diagrams: 08/31/22 06:05 08/31/22 06:05 Laboratory: Laboratory Results - last 24 hr 08/30/22 17:11: POC Glucose 95 08/30/22 17:40: WBC 8.3, RBC 4.48, Hgb 13.6, Hct 42.7, MCV 95.3, MCH 30.4, MCHC 31.9 L, RDW Std Deviation 46.4 H, RDW Coeff of Jovan 13.2, Plt Count 238, MPV 10.5, Immature Gran % (Auto) 0.400, Neut % (Auto) 66.4, Lymph % (Auto) 19.0, Becker % (Auto) 10.9 H, Eos % (Auto) 2.7, Baso % (Auto) 0.6, Absolute Neuts (auto) 5.5, Absolute Lymphs (auto) 1.57, Nucleated RBC % 0 08/30/22 17:40: PT 12.8, INR 1.0, APTT 25.8 08/30/22 17:40: Sodium 138, Potassium 3.8, Chloride 104, Carbon Dioxide 25.0, Anion Gap 9, BUN 14, Creatinine 1.10 H, Estim Creat Clear Calc 34.37, Est GFR (MDRD) Af Amer 61, Est GFR (MDRD) Non-Af 50 L, BUN/Creatinine Ratio 12.7, Glucose 102, Calcium 9.7, Troponin I High Sens 9 08/31/22 06:05: WBC 5.7, RBC 4.07 L, Hgb 12.6, Hct 38.6, MCV 94.8, MCH 31.0, MCHC 32.6, RDW Std Deviation 45.7 H, RDW Coeff of Jovan 13.2, Plt Count 186, MPV 11.3, Immature Gran % (Auto) 0.200, Neut % (Auto) 61.9, Lymph % (Auto) 21.2, Becker % (Auto) 12.5 H, Eos % (Auto) 3.7, Baso % (Auto) 0.5, Absolute Neuts (auto) 3.5, Absolute Lymphs (auto) 1.20, Nucleated RBC % 0 08/31/22 06:05: Sodium 139, Potassium 3.7, Chloride 106, Carbon Dioxide 26.0, Anion Gap 7, BUN 13, Creatinine 0.96, Estim Creat Clear Calc 39.38, Est GFR (MDRD) Af Amer 71, Est GFR (MDRD) Non-Af 59 L, BUN/Creatinine Ratio 13.6, Glucose 110 H, Calcium 8.8, Triglycerides 133, Cholesterol 194, LDL Cholesterol 123, VLDL Cholesterol 27, HDL Cholesterol 44 08/31/22 06:05: Hemoglobin A1c 6.5 H Radiography Diagnostic Testing: Radiology Impression Brain CT 08/30/22 17:38 IMPRESSION: Findings suggest acute infarct in the medial occipital lobe. Electronically Signed: Warren Muro MD at 18:35 EST , ADDENDUM: 08/30/22 1845 IMPRESSION: Findings suggest acute infarct in the medial occipital lobe. N.B. : The above Results were Read Back by Warren Muro MD to Clive Lin MD, and understanding confirmed on 08/30/2022 18:38:06 (ET). Electronically Signed: Warren Muro MD at 18:35 EST , Chest X-Ray 08/30/22 18:20 IMPRESSION: No acute abnormal cardiopulmonary finding. Electronically Signed: Warren Muro MD at 19:11 EST , Hand X-Ray 08/30/22 18:25 IMPRESSION: Fourth proximal phalanx spiral fracture with minimal displacement. No radiopaque foreign body. No other finding of fracture or dislocation. Degenerative change most prominent at the first CMC joint. Electronically Signed: Warren Muro MD at 19:12 EST , Echocardiogram 08/30/22 20:34 Interpretation Summary The estimated ejection fraction is 60 %. Unable to assess diastolic dysfunction. Bubble contrast study negative for right to left interatrial shunt. The left atrium is moderately enlarged. Trivial mitral valve insufficiency. Ordering Physician: Jeb Gonzalez Referring Physician: Dakotah Sierra MD Performed By: Ericka Taylor RCS D/C Instructions Discharge Diet: 2000 Calorie Control Diet Meaningful Use Info Meaningful Use Diagnoses (Choose all that apply): Ischemic CVA CVA Therapy Assessed for PT,OT and/or ST?: Yes Ischemic Stroke Antithrombotic order at d/c?: Yes Dx of Atrial fib/flutter?: No Anticoagulant at discharge?: No Reason anticoagulant not ordered: Treatment not Indicated Statins at discharge?: Yes Primary Dx Acute Ischemic CVA?: Yes IV tPA ordered during stay?: No Reason IV t-PA not ordered: Procedure not Indicated Discharge Plan Admission Admit Date/Time: 08/30/22 19:33 Primary Reason for Your Visit: cva Attending Provider: Dakotah Kimball Primary Care Provider: Dakotah Sierra Consulting Providers: Jeb Gonzalez Discharge Orders/Prescriptions Prescriptions: New aspirin 81 mg Tablet,Chewable 81 mg PO BREAKFAST Qty: 0 0RF atorvastatin 40 mg Tablet 40 mg PO QHS Qty: 30 0RF clopidogrel 75 mg Tablet 75 mg PO DAILY Qty: 30 0RF Continued coenzyme Q10 50 MG tablet,chewable 100 mg PO DAILY Label Comments: supplement cholecalciferol (vitamin D3) 50 mcg (2,000 unit) tablet 50 mcg PO DAILY levothyroxine 100 mcg tablet 100 mcg PO DAILY lisinopril 5 mg tablet 5 mg PO QHS Other Ambulatory Orders: 30 Day Event Recorder Preventi (Urgent) Timeframe: 1 Day Facility: [facility] - Location: Cardiovascular Services Ordered By: Dr. Dakotah Kimball AMB Blood Pressure Monitor (Routine) Location: None Selected Ordered By: Dr. Dakotah Kimball Referrals / Follow Up: [facility] [Provider Group] - Within 2 Weeks Dakotah Sierra MD [Primary Care Provider] - Within 2 Weeks Miles Corona DO [Med Staff - Active Staff] - Within 2 Weeks Justyn Wiseman MD [Non-Staff -Ordering Privileges] - Within 1 Month Disposition Disposition (needs filled in before D/C Order can be placed): Home, Self Care Charges/Coding Visit Charges OBSV E&M: 82681 Observation care discharge
== END 2022-08-31 17:05 | disposition home or self-care (01) ==
LOC: ED 19:14 → PCU 19:50
PROVIDERS: Admitting Provider Hospitalist; Emergency Provider Emergency Medicine; PCP Family Medicine
DX: I63.9 Cerebral infarction, unspecified (principal); E11.9 Type 2 diabetes mellitus without complications; S62.615A Displaced fracture of proximal phalanx of left ring finger, initial encounter for closed fracture; E78.2 Mixed hyperlipidemia; H53.47 Heteronymous bilateral field defects; H54.7 Unspecified visual loss; I10 Essential (primary) hypertension; R29.701 NIHSS score 1; E03.9 Hypothyroidism, unspecified; S62.647A Nondisplaced fracture of proximal phalanx of left little finger, initial encounter for closed fracture; R94.31 Abnormal electrocardiogram [ECG] [EKG]; Z79.899 Other long term (current) drug therapy
CPT/HCPCS: 29130; 36415; 70450; 70544; 70547; 70551; 71045; 73130; 80048; 80061; 82962; 83036; 84484; 85025; 85610; 85730; 93005; 93306; 94762; 96372; 97162; 97166; 97802; 99218; 99285; Q9957; A4216; G0378

== ENCOUNTER → 2022-09-04 | Outpatient (CLI) | payer MEDICARE, SELFPAY ==
--- NOTE | 2022-09-04 14:54 | BD_ITS ---
STUDY: DUAL ENERGY X-RAY ABSORPTIOMETRY / DXA REASON FOR EXAM: Female, 87 years old. M85.89 TECHNIQUE: Bone Mineral Density (BMD) measurements of lumbar spine and right forearm were obtained. COMPARISON: Comparison is made with prior examination dated 02/26/2017. FINDINGS: Lumbar Spine (L1-L4): g/cm2 (1.065) / T-score (0.2) / Z-score (3.0) Findings are suggestive of normal bone density with a low fracture risk. Right Forearm: g/cm2 (0.607) / T-score (0.5) / Z-score The T-Scores on the most recent prior examination were: Lumbar Spine (L1-L4): There has been improvement of bone density since the previous examination. BD/Dexa Bone Density Study IMPRESSION: The patient is considered normal as outlined below according to World Rory Organization (WHO) criteria with a low fracture risk. There has been improvement of bone density since the previous examination. Reference Information: The T-score is the number of standard deviations above or below the standard which is normal for young adults at their peak bone mineral density. The World Health Organization (WHO) interprets the T-scores as follows: Above -1 Normal bone density Between -1 and -2.5 Osteopenia Equal to / or below -2.5 Osteoporosis As a practical clinical guideline, osteopenia may be graded as follows: Mild -1 through -1.5 Moderate -1.6 through -2.0 Severe -2.1 through -2.4 The Z-score is the number of standard deviations above or below age-matched controls. A Z-score of less than -1.5 would be considered abnormal. References: 1. NIH Osteoporosis and Related Bone Diseases www osteo.org 2. International Society for Clinical Densitometry www iscd.org 3. National Osteoporosis Foundation www nof.org Electronically Signed: Kwaku Pryor MD at 8:29 EST ,
== END | disposition home or self-care (01) ==
LOC: OPBD 14:39
PROVIDERS: PCP Family Medicine; Visit Provider Family Medicine
DX: M85.89 Other specified disorders of bone density and structure, multiple sites (principal)
CPT/HCPCS: 77080

== ENCOUNTER 2022-12-05 15:14 | Emergency (ER) | payer MEDICARE, SELFPAY ==
[2022-12-05 15:14] VITALS: BP 158/73; PULSE 63; RESP 16; TEMP 36.2; O2SAT 93
[2022-12-05 15:25] VITALS: BMI 39.8
--- NOTE | 2022-12-05 16:01 | EKG12_ITS ---
Test Reason : DIZZINESS Blood Pressure : / mmHG Vent. Rate : 060 BPM Atrial Rate : 060 BPM P-R Int : 170 ms QRS Dur : 098 ms QT Int : 434 ms P-R-T Axes : 021 -17 184 degrees QTc Int : 434 ms Normal sinus rhythm Left ventricular hypertrophy with repolarization abnormality ( R in aVL ) Abnormal ECG Confirmed by NAEEM KHAN, SASHA ([id number]), design editor FRANCESCO ARMENDARIZ ([id number]) on 12/07/2022 7:01:20 AM Referred By: Confirmed By:LUPILLO HARTLEY MD
--- NOTE | 2022-12-05 16:01 | CT_ITS ---
STUDY: CT BRAIN WITHOUT CONTRAST REASON FOR EXAM: Female, 87 years old. dizziness Individualized dose optimization techniques were used for this CT. TECHNIQUE: Transaxial CT imaging of the brain was performed without administration of intravenous contrast material. COMPARISON: MRI 08/31/2022 FINDINGS: There are calcifications noted in the distal vertebral arteries. There are calcifications noted in the cavernous carotid arteries. This is consistent for atherosclerotic disease. Normal calvarium. Old infarct of the right occipital lobe. There is a previously noted soft tissue mass along the right frontal lobe extra-axial space. This is likely a meningioma. There is mild cerebral atrophy with widening of the extra-axial spaces and ventricular dilatation. There are areas of decreased attenuation within the white matter tracts of the supratentorial brain, consistent with microvascular disease changes. Normal basal ganglia and thalami. Normal brainstem. There is mild cerebellar atrophy. There is no intracranial hemorrhage. There are no findings of an acute ischemic infarction. There is sinus disease. Degenerative changes of the mandibular condyles. ASPECTS Score for Acute Strokes: 07/02 CT/Brain/Head without Contrast IMPRESSION: There are no acute findings. Chronic involutional changes of the brain. Electronically Signed: Damian Morgan MD at 16:38 EDT ,
--- NOTE | 2022-12-05 16:03 | EDS_ITS ---
HPI History of Present Illness Chief Complaint: Dizziness Narrative Narrative: 87-year-old female presenting with dizziness. She states that a feeling of off balance. She does not have vertiginous dizziness. Onset was on Saturday. She states it was more severe than. She states it does not bother her when she is sitting. When she tries to walk she gets very lightheaded. She states she has to hold onto blanton and chairs. She has not had any falls or head trauma. 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 No other deficits. She had a mild headache yesterday that went away. She denies any paresthesias. No difficulty moving her arms and legs. No facial droop or slurred speech. No confusion. He denies chest pain or shortness of breath. No urinary complaints. No GI complaints except for mild nausea. [facility] Medical History Abnormal EKG Abnormal stress test Arthritis Benign essential HTN Cancer Cardiology follow-up encounter Chronic left hip pain Closed fracture of phalanx of left ring finger Closed left ankle fracture Hemianopia of left eye History of echocardiogram History of pain when walking History of stress test Hypertension Hypothyroidism Loss of hearing Lung nodule Mixed hyperlipidemia Non-smoker NSVT (nonsustained ventricular tachycardia) Occipital stroke Paroxysmal atrial fibrillation Personal history of colonic polyps Preoperative cardiovascular examination Restless legs Thyroid disease Wears glasses Home Medications coenzyme Q10 50 mg chewable tablet 100 mg PO DAILY 12/29/14 [History Last Taken Unknown] cholecalciferol (vitamin D3) 50 mcg (2,000 unit) tablet 50 mcg PO DAILY 06/06/21 [History Last Taken Unknown] levothyroxine 100 mcg tablet 100 mcg PO DAILY 06/06/21 [History Last Taken 09/18/21] atorvastatin 40 mg tablet 40 mg PO QHS #30 tabs 08/31/22 [Rx Last Taken Unknown] apixaban 2.5 mg tablet (Eliquis) 2.5 mg PO BID started by Dr. Dakotah Sierra, pt's PCP 09/13/22 [History Last Taken Unknown] metoprolol tartrate 25 mg tablet 25 mg PO BID #60 tabs 11/21/22 [Rx Last Taken Unknown] lisinopril 5 mg tablet 5 mg PO BID 12/04/22 [History Last Taken Unknown] Allergy/AdvReac Type Severity Reaction Status Date / Time No Known Allergies Allergy Verified 09/28/22 14:26 Family History Other Breast cancer CVA (cerebral vascular accident) Heart disease Surgical History H/O hysterectomy with unilateral oophorectomy (~09/18/21) H/O total hip arthroplasty History of appendectomy History of cardiac catheterization History of colonoscopy (~2018) History of left hip replacement History of lobectomy of lung History of thyroidectomy Social History Smoking Status: Never smoker alcohol intake: never substance use type: does not use caffeine: No ROS ROS ED ROS Narrative Lightheadedness Constitutional Constitutional ED: Denies chills, fever(s) or sweats Eyes Eyes: Denies blurry vision or change in vision ENT ENT ED: Denies ear pain or sore throat Cardiovascular Cardiovascular: Denies chest pain, palpitations or racing heartbeat Respiratory/Chest Respiratory/Chest: Denies cough, dyspnea or sputum Gastrointestinal Gastrointestinal: Reports nausea; Denies abdominal pain, constipation, diarrhea or vomiting Genitourinary Genitourinary ED: Denies dysuria, hematuria or urinary frequency Musculoskeletal Musculoskeletal: Denies arthralgias, myalgias or neck pain Integumentary Denies abscess, Abrasions or rash Neurologic Neurologic: Reports headache(s); Denies paresthesias or weakness Psychiatric Psychiatric: Denies anxiety, depression, suicidal ideation or suicidal thoughts Endocrine Endocrinology: Denies polydipsia or polyuria EXAM Physical Exam Const Vital Signs: 12/05/22 15:14 12/05/22 16:33 12/05/22 16:45 Temperature 97.1 F L Temperature Source Temporal Pulse Rate 63 Pulse Rate [Lying] 60 Pulse Rate [Sitting (for 1 minute prior to obtaining)] 61 Pulse Rate [Standing (for 1 minute prior to obtaining)] 65 Respiratory Rate 16 Respiratory Pattern Normal Blood Pressure 158/73 H Blood Pressure [Lying] 137/63 H Blood Pressure [Sitting (for 1 minute prior to obtaining)] 155/76 H Blood Pressure [Standing (for 1 minute prior to obtaining)] 139/78 H Blood Pressure Mean 101 Blood Pressure Mean [Lying] 87 Blood Pressure Mean [Sitting (for 1 minute prior to obtaining)] 102 Blood Pressure Mean [Standing (for 1 minute prior to obtaining)] 98 Pulse Ox 93 Oxygen Delivery Method Room Air 12/05/22 17:47 Temperature Temperature Source Pulse Rate 62 Pulse Rate [Lying] Pulse Rate [Sitting (for 1 minute prior to obtaining)] Pulse Rate [Standing (for 1 minute prior to obtaining)] Respiratory Rate 21 H Respiratory Pattern Blood Pressure 139/78 H Blood Pressure [Lying] Blood Pressure [Sitting (for 1 minute prior to obtaining)] Blood Pressure [Standing (for 1 minute prior to obtaining)] Blood Pressure Mean 98 Blood Pressure Mean [Lying] Blood Pressure Mean [Sitting (for 1 minute prior to obtaining)] Blood Pressure Mean [Standing (for 1 minute prior to obtaining)] Pulse Ox 100 Oxygen Delivery Method Room Air Positive well nourished General Appearance ED: NAD; Negative for pallor HEENT Reports moist mucous membranes HEENT Narrative: Negative Salem-Hallpike Negative for trauma Eyes PERRL and EOMs intact bilaterally Neck no lymphadenopathy Resp normal respiratory effort and clear to auscultation bilaterally Auscultation: Negative for rales, rhonchi or wheezes Cardio regular rate and regular rhythm Extremity General Extremety ED: Yes edema and tenderness General Extremity: edema Neuro oriented x3, CN's II-XII intact bilaterally and no sensory deficits noted Sensorium / Orientation: alert Psych mental status grossly normal Skin no rashes or lesions noted General Skin Exam: Negative for jaundice or pallor MDM MDM MDM Narrative Medical decision making narrative: Patient presenting with lightheadedness. She is not having vertiginous dizziness. Differential diagnosis includes but is not limited to vertigo, anemia, dehydration, dysrhythmia, electrolyte abnormality. Patient is well- appearing and her Salem-Hallpike is negative. She is telling me that she is having to hold onto blanton to walk. CBC obtained to assess white blood cell count, hemoglobin, platelets, differential. CMP to assess liver function, renal function, electrolytes, glucose, anion gap. EKG to assess for dysrhythmia. High-sensitivity troponin as well. Urinalysis to assess for infection. Chest x-ray was also obtained as part of cardiac work-up. CT of the brain was included because the patient states she had similar symptoms previously after the stroke she had. She does not have any focal neurologic deficits or lateralizing signs or symptoms today. CBC shows a normal white blood cell count of 7. Hemoglobin stable 13.7 platelets normal at 230. Creatinine 1.00, BUN 9 so there is no evidence of prerenal azotemia. Electrolytes normal. Glucose mildly elevated 135 without anion gap. Urinalysis negative for infection. Chest x-ray on my interpretation shows no acute cardiopulmonary process. Radiologist services and agrees. High-sensitivity troponin is 9. EKG sinus rhythm with a ventricular rate of 60 bpm with slight depressions in the lateral leads however this is present on previous EKGs.. Patient ambulated in the hallway stable without falling. At this point I feel she stable for discharge home. I spoke with Dr. Graham who is on-call for her doctor. He will arrange follow-up with her. Patient discharged in stable condition. Impression: 1. Dizziness Lab Data Labs: Laboratory Results - last 24 hr 12/05/22 12/05/22 12/05/22 16:36 16:36 17:00 WBC 7.0 RBC 4.45 Hgb 13.7 Hct 41.6 MCV 93.5 MCH 30.8 MCHC 32.9 RDW Std Deviation 46.6 H RDW Coeff of Jovan 13.6 Plt Count 230 MPV 10.1 Immature Gran % (Auto) 0.300 Neut % (Auto) 72.5 H Lymph % (Auto) 17.2 L Person % (Auto) 9.1 Eos % (Auto) 0.6 Baso % (Auto) 0.3 Absolute Neuts (auto) 5.1 Absolute Lymphs (auto) 1.20 Nucleated RBC % 0 Sodium 138 Potassium 3.8 Chloride 103 Carbon Dioxide 26.0 Anion Gap 9 BUN 16 Creatinine 1.00 Estim Creat Clear Calc 39.27 Est GFR (MDRD) Af Amer 68 Est GFR (MDRD) Non-Af 56 L BUN/Creatinine Ratio 16.0 Glucose 135 H Calcium 9.3 Total Bilirubin 1.00 AST 19 ALT 37 Alkaline Phosphatase 88 Troponin I High Sens 9 Total Protein 7.2 Albumin 3.6 Globulin 3.6 Albumin/Globulin Ratio 1.0 Urine Color Yellow Urine Clarity Sl. Cloudy Urine pH 5.0 Ur Specific [place] 1.025 Urine Protein 30 H Urine Glucose (UA) Normal Urine Ketones 5 H Urine Occult Blood 150 H Urine Nitrite Negative Urine Bilirubin Negative Urine Urobilinogen 1 H Ur Leukocyte Esterase 100 H Urine RBC 0-5 SEEN Urine WBC 0-5 SEEN Ur Squamous Epith Cells 0-5 SEEN Urine Bacteria 1+ Urine Mucus 0 SEEN Radiography Diagnostic Testing: Clinical Impression(s) from Imaging Studies Brain CT 12/05/22 16:01 IMPRESSION: There are no acute findings. Chronic involutional changes of the brain. Electronically Signed: Damian Morgan MD at 16:38 EDT , Chest X-Ray 12/05/22 16:20 IMPRESSION: There are no acute findings. Electronically Signed: Damian Morgan MD at 16:51 EDT , Discharge Plan Triage Chief Complaint: Dizziness ED Provider: Mundo Melendez Dx/Rx/DC Orders Instructions: ED Dizziness, Uncertain Cause Prescriptions: No Action coenzyme Q10 50 MG tablet,chewable 100 mg PO DAILY Label Comments: supplement atorvastatin 40 mg Tablet 40 mg PO QHS Qty: 30 0RF cholecalciferol (vitamin D3) 50 mcg (2,000 unit) tablet 50 mcg PO DAILY levothyroxine 100 mcg tablet 100 mcg PO DAILY Eliquis 2.5 mg tablet 2.5 mg PO BID metoprolol tartrate 25 mg tablet 25 mg PO BID Qty: 60 12RF lisinopril 5 mg tablet 5 mg PO BID Primary Care Provider: Dakotah Sierra Referrals: Dakotah Sierra MD [Primary Care Provider] - Disposition Disposition: Home, Self Care
--- NOTE | 2022-12-05 16:20 | RAD_ITS ---
STUDY: XR Chest 1 View 12/05/2022 4:19 PM REASON FOR EXAM: Female, 87 years old. CHEST PAIN weakness COMPARISON: 11.3 TECHNIQUE: XR Chest 1 View FINDINGS: There is no demonstrated pleural abnormality. Enlarged heart size. Normal mediastinum. Normal riki. Prominent appearing increased interstitial lung markings. Normal visualized pulmonary arteries. There is atherosclerotic calcification of the aortic arch with tortuosity. There are diffuse degenerative changes of the visualized thoracic spine. There is degenerative osteoarthritis of the bilateral shoulders. There is no demonstrated abnormality of the visualized soft tissue structures of the upper abdomen. RAD/Chest 1 View (Portable) IMPRESSION: There are no acute findings. Electronically Signed: Damian Morgan MD at 16:51 EDT ,
[2022-12-05 16:45] VITALS: BP 137/63; BP 139/78; BP 155/76; PULSE 60; PULSE 61; PULSE 65
[2022-12-05 16:50] LABS: Absolute Neutrophil Count 5.1 X10^3/uL (2.0-7.7); Basophil# 0.02 X10^3/uL; Basophil% 0.3 % (0-1); Eosinophil# 0.04 X10^3/uL; Eosinophils% 0.6 % (0-5); Hematocrit 41.6 % (37-47); Hemoglobin 13.7 g/dL (12.0-15.0); Lymphocyte % 17.2 % (19-41); Mean Corp Hgb Conc 32.9 g/dL (32-36); Mean Corpuscular Hgb 30.8 pg (27.0-32.0); Mean Corpuscular Volume 93.5 fL (81-99); Mean Platelet Vol. 10.1 fl (6.2-12.0); Monocyte# 0.63 X10^3/uL; Monocyte% 9.1 % (0-10); NRBC Flagged by Analyzer 0 % (0-5); Neutrophil # 5.05 X10^3/uL (2.7-7.7); Neutrophil % 72.5 % (47-70); Platelet Count 230 K/mm3 (150-450); RBC Distribution Width CV 13.6 % (11.6-14.6); RBC Distribution Width SD 46.6 fl (35.1-43.9); Red Blood Count 4.45 M/mm3 (4.2-5.4)
[2022-12-05 17:06] LABS: AST(SGOT) 19 U/L (15-37); Alanine Aminotransfer ALT/SGPT 37 U/L (13-56); Albumin, Serum 3.6 g/dL (3.2-5.0); Alkaline Phosphatase 88 U/L (45-117); Anion Gap 9 (5-15); BUN 16 mg/dL (7-18); Calcium,Total 9.3 mg/dL (8.5-10.1); Chloride 103 mmol/L (98-107); EST Glomerular Filtration Rate 56 mL/min (>60); Est Glom Filt Rate - Afr Amer 68 mL/min (>60); Estimated Creatinine Clearance 39.27 ml/min; Globulin 3.6 g/dL (2.2-4.2); Glucose 135 mg/dL (74-106); Potassium 3.8 mmol/L (3.5-5.1); Protein, Total 7.2 g/dL (6.4-8.2); Sodium Level 138 mmol/L (136-145); Troponin-I HS 9 pg/mL (3.0-54.0)
[2022-12-05 17:11] LABS: Mucous, Urine 0 SEEN /hpf (<or=2+)
[2022-12-05 17:37] LABS: Color, Urine Yellow (Yellow); Glucose, Dipstick Normal (Normal); Ketone-Dipstick 5 mg/dl (Negative); Leukocyte Esterase-Dipstick 100 /ul (Negative); Nitrite-Dipstick Negative (Negative); Occult Blood-Urine 150 /ul (Negative); Protein-Dipstick 30 mg/dl (Negative); Specific Gravity, Urine 1.025 (1.002-1.030); Urine Bilirubin Dipstick Negative (Negative); Urine Clarity Sl. Cloudy (Clear); Urine Urobilinogen 1 mg/dl (Normal)
[2022-12-05 17:43] LABS: Bacteria 1+ /hpf (None Seen); Red Blood Cells-Urine 0-5 SEEN /hpf (0-5); Squamous Epithelial Cells - UA 0-5 SEEN /hpf (5-10); White Blood Cells 0-5 SEEN /hpf (0-5)
[2022-12-05 17:47] VITALS: BP 139/78; PULSE 62; RESP 21; O2SAT 100
[2022-12-05 20:49] VITALS: BP 159/95; PULSE 63; RESP 23; O2SAT 98
== END 2022-12-05 20:50 | disposition home or self-care (01) ==
PROVIDERS: Emergency Provider Student in an Organized Health Care Education/Training Program; PCP Family Medicine; Visit Provider Student in an Organized Health Care Education/Training Program
DX: R42 Dizziness and giddiness (principal); I10 Essential (primary) hypertension; E78.2 Mixed hyperlipidemia; Z79.899 Other long term (current) drug therapy; R51.9 Headache, unspecified
CPT/HCPCS: 70450; 71045; 80053; 81001; 84484; 85025; 93005; 99285; A4216

== ENCOUNTER 2022-12-08 15:11 | Observation (INO) | payer MEDICARE, SELFPAY ==
[2022-12-08] VITALS (9 sets, daily range): BP systolic 117–177; BP diastolic 59–83; PULSE 58–71; RESP 16–18; TEMP 35.7–37.3; O2SAT 94–98; BMI 33.8; BMI 31.5
--- NOTE | 2022-12-08 15:30 | EX.ED.DYSGE1 ---
HPI History of Present Illness Chief Complaint: Dizziness Narrative Narrative: 87-year-old female presenting with dizziness. She states its been going on for about 6 days. Patient was seen and evaluated 3 days ago in the emergency room. She had a negative CT scan and negative lab work-up. Her orthostatic vital signs were negative. She had a negative Bryn-Hallpike. At that point the patient stated that her primary care physician told her to double up on her metoprolol because he was concerned that maybe her heart rate was fast or she was hypertensive. She states now that she was told to discontinue the metoprolol. She continues to have dizziness. He states he has had a mild headache. She does not describe this as vertiginous and does not describe it as lightheadedness. She does not feel as if she is going to faint. She does not have any chest pain, shortness of breath, nausea, vomiting. Denies abdominal pain. Denies urinary or vaginal complaints. Denies constipation or diarrhea. No nausea or vomiting. Patient states that when she is sitting she has no symptoms but when she stands up she has symptoms. He is having trouble ambulating at home. She has a history of occipital stroke in the past. She had left-sided hemianopsia. She also has a history of A-fib and she is on anticoagulated on Eliquis. Denies head injury. [facility] Medical History Abnormal EKG Abnormal stress test Arthritis Benign essential HTN Cancer Cardiology follow-up encounter Chronic left hip pain Closed fracture of phalanx of left ring finger Closed left ankle fracture Hemianopia of left eye History of echocardiogram History of pain when walking History of stress test Hypertension Hypothyroidism Loss of hearing Lung nodule Mixed hyperlipidemia Non-smoker NSVT (nonsustained ventricular tachycardia) Occipital stroke Paroxysmal atrial fibrillation Personal history of colonic polyps Preoperative cardiovascular examination Restless legs Thyroid disease Wears glasses Home Medications levothyroxine 100 mcg tablet 100 mcg PO DAILY THYROID 06/06/21 [History Last Taken 12/08/22] apixaban 2.5 mg tablet (Eliquis) 2.5 mg PO BID BLOOD THINNER 09/13/22 [History Last Taken 12/08/22] lisinopril 5 mg tablet 5 mg PO BID BLOOD PRESSURE 12/04/22 [History Last Taken 12/08/22] atorvastatin 40 mg tablet 40 mg PO QHS CHOLESTEROL 12/08/22 [History Last Taken 12/07/22] Allergy/AdvReac Type Severity Reaction Status Date / Time No Known Allergies Allergy Verified 12/08/22 15:13 Family History Other Breast cancer CVA (cerebral vascular accident) Heart disease Surgical History H/O hysterectomy with unilateral oophorectomy (~09/18/21) H/O total hip arthroplasty History of appendectomy History of cardiac catheterization History of colonoscopy (~2017) History of left hip replacement History of lobectomy of lung History of thyroidectomy Social History Smoking Status: Never smoker alcohol intake: never substance use type: does not use caffeine: No ROS ROS ED Review of Systems ROS Unobtainable: Denies due to encephalopathy Constitutional Constitutional ED: Denies chills or fever(s) Eyes Eyes: Denies change in vision or diplopia ENT ENT ED: Denies rhinorrhea or sore throat Cardiovascular Cardiovascular: Denies chest pain or palpitations Respiratory/Chest Respiratory/Chest: Denies cough or dyspnea Gastrointestinal Gastrointestinal: Denies abdominal pain, constipation, nausea or vomiting Genitourinary Genitourinary ED: Denies dysuria or hematuria Musculoskeletal Musculoskeletal: Denies arthralgias or back pain Neurologic Neurologic: Reports headache(s) and other Details: Dizziness ; Denies paresthesias Psychiatric Psychiatric: Denies anxiety or depression EXAM Physical Exam Const Vital Signs: 12/08/22 15:12 12/08/22 15:20 12/08/22 15:20 Temperature 96.3 F L Temperature Source Temporal Pulse Rate 60 60 Pulse Rate [Lying] Pulse Rate [Sitting (for 1 minute prior to obtaining)] Pulse Rate [Standing (for 1 minute prior to obtaining)] Respiratory Rate 18 18 Respiratory Effort Normal Non-Labored Blood Pressure 137/71 H 140/72 H Blood Pressure [Lying] Blood Pressure [Sitting (for 1 minute prior to obtaining)] Blood Pressure [Standing (for 1 minute prior to obtaining)] Blood Pressure Mean 93 94 Blood Pressure Mean [Lying] Blood Pressure Mean [Sitting (for 1 minute prior to obtaining)] Blood Pressure Mean [Standing (for 1 minute prior to obtaining)] Pulse Ox 97 95 Oxygen Delivery Method Room Air Room Air 12/08/22 15:39 12/08/22 15:40 12/08/22 16:24 Temperature Temperature Source Pulse Rate 58 L Pulse Rate [Lying] 60 61 Pulse Rate [Sitting (for 1 minute prior to obtaining)] 61 Pulse Rate [Standing (for 1 minute prior to obtaining)] 68 Respiratory Rate 16 Respiratory Effort Blood Pressure Blood Pressure [Lying] 156/80 H 156/80 H Blood Pressure [Sitting (for 1 minute prior to obtaining)] 148/72 H Blood Pressure [Standing (for 1 minute prior to obtaining)] 125/72 H Blood Pressure Mean Blood Pressure Mean [Lying] 105 105 Blood Pressure Mean [Sitting (for 1 minute prior to obtaining)] 97 Blood Pressure Mean [Standing (for 1 minute prior to obtaining)] 89 Pulse Ox 94 Oxygen Delivery Method Room Air 12/08/22 17:11 Temperature 98.3 F Temperature Source Oral Pulse Rate 59 L Pulse Rate [Lying] Pulse Rate [Sitting (for 1 minute prior to obtaining)] Pulse Rate [Standing (for 1 minute prior to obtaining)] Respiratory Rate 17 Respiratory Effort Blood Pressure 117/59 L Blood Pressure [Lying] Blood Pressure [Sitting (for 1 minute prior to obtaining)] Blood Pressure [Standing (for 1 minute prior to obtaining)] Blood Pressure Mean 78 Blood Pressure Mean [Lying] Blood Pressure Mean [Sitting (for 1 minute prior to obtaining)] Blood Pressure Mean [Standing (for 1 minute prior to obtaining)] Pulse Ox 94 Oxygen Delivery Method Room Air Positive well nourished General Appearance ED: NAD HEENT Reports moist mucous membranes HEENT Narrative: Negative Bryn-Hallpike. Eyes PERRL and EOMs intact bilaterally Neck no lymphadenopathy Resp normal respiratory effort and clear to auscultation bilaterally Cardio regular rate and regular rhythm GI normal to inspection, nondistended, normoactive bowel sounds Extremity normal to inspection Neuro oriented x3 and CN's II-XII intact bilaterally Neuro Narrative: Negative hints exam Sensorium / Orientation: alert Motor Exam: strength 5/5 throughout Psych mental status grossly normal Skin no rashes or lesions noted MDM MDM MDM Narrative Medical decision making narrative: Patient presenting again with dizziness. She has a normal Bryn-Hallpike exam. Negative hints exam. She states again that she is only dizzy when she gets up and walks. When she was seen the other day she was not orthostatic. Today it appears that she is. Blood pressure from 156/80 to 125/72 with orthostatic vital signs. CBC did not show any acute interval changes of significance. CMP is also near the same however the creatinine is increased a little bit. She is a BNP elevation. Liver function is normal. Urinalysis is contaminated I sent this for culture. Chest x-ray my interpretation shows no acute process. EKG normal sinus rhythm with a ventricular rate 61 bpm. There are some T wave inversions and slight depressions in the lateral leads which are not new. CT brain is again negative. Given her continued dizziness and orthostasis patient does not feel she can go home. I discussed with the hospital admission. Impression: 1. Orthostatic hypotension 2. Dizziness Lab Data Labs: Laboratory Results - last 24 hr 12/08/22 12/08/22 12/08/22 15:20 15:20 15:20 WBC 8.4 RBC 4.59 Hgb 14.0 Hct 43.4 MCV 94.6 MCH 30.5 MCHC 32.3 RDW Std Deviation 46.5 H RDW Coeff of Jovan 13.4 Plt Count 255 MPV 10.5 Immature Gran % (Auto) 0.200 Neut % (Auto) 69.4 Lymph % (Auto) 16.1 L [place] % (Auto) 12.3 H Eos % (Auto) 1.5 Baso % (Auto) 0.5 Absolute Neuts (auto) 5.8 Absolute Lymphs (auto) 1.35 Nucleated RBC % 0 Sodium 137 Potassium 3.6 Chloride 101 Carbon Dioxide 26.0 Anion Gap 10 BUN 18 Creatinine 1.08 H Estim Creat Clear Calc 36.36 Est GFR (MDRD) Af Amer 62 Est GFR (MDRD) Non-Af 51 L BUN/Creatinine Ratio 16.7 Glucose 142 H Calcium 8.9 Total Bilirubin 0.70 AST 17 ALT 27 Alkaline Phosphatase 82 Troponin I High Sens 9 B-Natriuretic Peptide 136.3 H Total Protein 7.1 Albumin 3.6 Globulin 3.5 Albumin/Globulin Ratio 1.0 Urine Color Urine Clarity Urine pH Ur Specific [place] Urine Protein Urine Glucose (UA) Urine Ketones Urine Occult Blood Urine Nitrite Urine Bilirubin Urine Urobilinogen Ur Leukocyte Esterase Urine RBC Urine WBC Ur Squamous Epith Cells Ur Transition Epith Cell Urine Bacteria Urine Mucus 12/08/22 15:50 WBC RBC Hgb Hct MCV MCH MCHC RDW Std Deviation RDW Coeff of Jovan Plt Count MPV Immature Gran % (Auto) Neut % (Auto) Lymph % (Auto) Barron % (Auto) Eos % (Auto) Baso % (Auto) Absolute Neuts (auto) Absolute Lymphs (auto) Nucleated RBC % Sodium Potassium Chloride Carbon Dioxide Anion Gap BUN Creatinine Estim Creat Clear Calc Est GFR (MDRD) Af Amer Est GFR (MDRD) Non-Af BUN/Creatinine Ratio Glucose Calcium Total Bilirubin AST ALT Alkaline Phosphatase Troponin I High Sens B-Natriuretic Peptide Total Protein Albumin Globulin Albumin/Globulin Ratio Urine Color Yellow Urine Clarity Sl. Cloudy Urine pH 6.0 Ur Specific [place] 1.020 Urine Protein 30 H Urine Glucose (UA) Normal Urine Ketones Negative Urine Occult Blood 250 H Urine Nitrite Negative Urine Bilirubin Negative Urine Urobilinogen 8 H Ur Leukocyte Esterase 500 H Urine RBC 5-10 SEEN Urine WBC 50-100 SEEN Ur Squamous Epith Cells 10-25 SEEN Ur Transition Epith Cell 0-5 SEEN Urine Bacteria 2+ Urine Mucus 0 SEEN Radiography Diagnostic Testing: Clinical Impression(s) from Imaging Studies Brain CT 12/08/22 15:31 IMPRESSION: Age-related and chronic changes as noted of the brain. Electronically Signed: Juan Horan DO at 16:13 EDT Reading Location ID and State: [facility] / [place] Tel [phone], Service support , Chest X-Ray 12/08/22 15:55 IMPRESSION: No radiographic evidence of acute cardiopulmonary disease. Electronically Signed: Juan Horan DO at 16:17 EDT , Discharge Plan Triage Chief Complaint: Dizziness ED Provider: Mundo Melendez Dx/Rx/DC Orders Prescriptions: No Action atorvastatin 40 mg tablet 40 mg PO QHS levothyroxine 100 mcg tablet 100 mcg PO DAILY Eliquis 2.5 mg tablet 2.5 mg PO BID lisinopril 5 mg tablet 5 mg PO BID Primary Care Provider: Dakotah Sierra Referrals: Dakotah Sierra MD [Primary Care Provider] -
--- NOTE | 2022-12-08 15:31 | CT_ITS ---
STUDY: CT BRAIN WITHOUT CONTRAST REASON FOR EXAM: Female, 87 years old. dizziness RADIATION DOSAGE (If Supplied By Facility): CTDIvol = ( 44.99 ) mGy, DLP = ( 846.73 ) mGycm TECHNIQUE: Transaxial CT imaging of the brain was performed without administration of intravenous contrast material. Individualized dose optimization techniques were used for this CT. COMPARISON: December 05, 2022 FINDINGS: Normal soft tissue structures. Normal calvarium. Normal size ventricles and extra-axial spaces for the patient''s age. Old right occipital infarct. Mild white matter microangiopathic ischemic changes of the cerebral hemispheres. Normal basal ganglia and thalami. Normal brainstem. Normal cerebellum. There is no intracranial hemorrhage. There are no findings of an acute ischemic infarction. Retention cysts in the right maxillary sinus. CT/Brain/Head without Contrast IMPRESSION: Age-related and chronic changes as noted of the brain. Electronically Signed: Juan Horan DO at 16:13 EDT ,
--- NOTE | 2022-12-08 15:31 | EKG12_ITS ---
Test Reason : DIZZY Blood Pressure : / mmHG Vent. Rate : 061 BPM Atrial Rate : 061 BPM P-R Int : 166 ms QRS Dur : 094 ms QT Int : 412 ms P-R-T Axes : 065 -18 152 degrees QTc Int : 414 ms Normal sinus rhythm Left ventricular hypertrophy with repolarization abnormality ( R in aVL ) Abnormal ECG Confirmed by NAEEM KHAN, SASHA ([id number]), sports editor FRANCESCO ARMENDARIZ ([id number]) on 12/10/2022 9:48:09 AM Referred By: JORGE LUIS Confirmed By:LUPILLO HARTLEY MD
[2022-12-08 15:45] LABS: Absolute Lymphocyte Count 1.35 X10^3/uL (0.83-4.51); Absolute Neutrophil Count 5.8 X10^3/uL (2.0-7.7); Basophil# 0.04 X10^3/uL; Basophil% 0.5 % (0-1); Eosinophil# 0.13 X10^3/uL; Eosinophils% 1.5 % (0-5); Hematocrit 43.4 % (37-47); Lymphocyte # 1.35 X10^3/ul (0.83-4.51); Lymphocyte % 16.1 % (19-41); Mean Corp Hgb Conc 32.3 g/dL (32-36); Mean Corpuscular Hgb 30.5 pg (27.0-32.0); Mean Corpuscular Volume 94.6 fL (81-99); Mean Platelet Vol. 10.5 fl (6.2-12.0); Monocyte# 1.03 X10^3/uL; Monocyte% 12.3 % (0-10); NRBC Flagged by Analyzer 0 % (0-5); Neutrophil # 5.83 X10^3/uL (2.7-7.7); Neutrophil % 69.4 % (47-70); Platelet Count 255 K/mm3 (150-450); RBC Distribution Width CV 13.4 % (11.6-14.6); RBC Distribution Width SD 46.5 fl (35.1-43.9); Red Blood Count 4.59 M/mm3 (4.2-5.4); White Blood Count 8.4 K/mm3 (4.4-11.0)
--- NOTE | 2022-12-08 15:55 | RAD_ITS ---
INDICATION: dizziness EXAMINATION/TECHNIQUE: X-RAY - XR Chest 1 View COMPARISON: December 05, 2022. FINDINGS: LINES/DEVICES: None. LUNGS: No consolidation, edema or effusion. No pneumothorax. MEDIASTINUM AND CARDIOVASCULAR STRUCTURES: Cardiac silhouette not enlarged. Central airways and mediastinal contour are unremarkable. BONES AND SOFT TISSUES: Mild degenerative vertebral changes. RAD/Chest 1 View (Portable) IMPRESSION: No radiographic evidence of acute cardiopulmonary disease. Electronically Signed: Juan Horan DO at 16:17 EDT ,
[2022-12-08 16:00] LABS: AST(SGOT) 17 U/L (15-37); Alanine Aminotransfer ALT/SGPT 27 U/L (13-56); Albumin, Serum 3.6 g/dL (3.2-5.0); Alkaline Phosphatase 82 U/L (45-117); Anion Gap 10 (5-15); BUN 18 mg/dL (7-18); BUN/Creat Ratio 16.7 RATIO (10-20); Calcium,Total 8.9 mg/dL (8.5-10.1); Chloride 101 mmol/L (98-107); Creatinine, Serum 1.08 mg/dL (0.55-1.02); EST Glomerular Filtration Rate 51 mL/min (>60); Est Glom Filt Rate - Afr Amer 62 mL/min (>60); Estimated Creatinine Clearance 36.36 ml/min; Globulin 3.5 g/dL (2.2-4.2); Glucose 142 mg/dL (74-106); Potassium 3.6 mmol/L (3.5-5.1); Protein, Total 7.1 g/dL (6.4-8.2); Sodium Level 137 mmol/L (136-145); Troponin-I HS 9 pg/mL (3.0-54.0)
[2022-12-08 16:01] LABS: Mucous, Urine 0 SEEN /hpf (<or=2+)
[2022-12-08 16:09] LABS: Color, Urine Yellow (Yellow); Glucose, Dipstick Normal (Normal); Ketone-Dipstick Negative (Negative); Leukocyte Esterase-Dipstick 500 /ul (Negative); Nitrite-Dipstick Negative (Negative); Occult Blood-Urine 250 /ul (Negative); Protein-Dipstick 30 mg/dl (Negative); Urine Bilirubin Dipstick Negative (Negative); Urine Clarity Sl. Cloudy (Clear); Urine Urobilinogen 8 mg/dl (Normal)
[2022-12-08 16:13] LABS: BNP,B-Type NATRIURETIC PEPTIDE 136.3 pg/mL (0-100)
[2022-12-08 16:15] LABS: Squamous Epithelial Cells - UA 10-25 SEEN /hpf (5-10)
[2022-12-08 16:16] LABS: Red Blood Cells-Urine 5-10 SEEN /hpf (0-5); White Blood Cells 50-100 SEEN /hpf (0-5)
[2022-12-08 16:17] LABS: Bacteria 2+ /hpf (None Seen)
[2022-12-08 16:18] LABS: Transitional Epithelial - Ur 0-5 SEEN /hpf (0-5)
--- NOTE | 2022-12-08 16:54 | NURSING ---
DR DEL CID FOR DR BLACKBURN
[2022-12-08] MEDS: 0.9% Normal Saline 1,000 ML 999 ML IV (17:11)
--- NOTE | 2022-12-08 17:59 | NURSING ---
MED SURG OBS OLEGHE ORTHOSTATIC HYPOTENSION
--- NOTE | 2022-12-08 18:20 | HP.PCM_ITS ---
[facility] - General General Date of Admission: 12/08/22 Date of Service: 12/08/22 Chief Complaint: Dizziness and unsteadiness of gait HPI Narrative IRAJ SANTOS, is a 87 F who presents dizziness and unsteadiness of gait of acute/subacute onset 6 days ago. Was in the emergency department a day after onset at which time work-up including CT of the brain was largely normal. Symptoms have persisted and so patient returned to the emergency department. Complains of generalized weakness and difficulty with balance. Denies any vertigo. Denies any numbness or tingling in any of the extremities. Denies any muscle weakness, involuntary movements, vision problems, headache, neck stiffness, dysarthria, dysphagia, dysphasia denies any tinnitus. [facility] Medical History Abnormal EKG Abnormal stress test Arthritis Benign essential HTN Cancer Cardiology follow-up encounter Chronic left hip pain Closed fracture of phalanx of left ring finger Closed left ankle fracture Hemianopia of left eye History of echocardiogram History of pain when walking History of stress test Hypertension Hypothyroidism Loss of hearing Lung nodule Mixed hyperlipidemia Non-smoker NSVT (nonsustained ventricular tachycardia) Occipital stroke Paroxysmal atrial fibrillation Personal history of colonic polyps Preoperative cardiovascular examination Restless legs Thyroid disease Wears glasses Home Medications levothyroxine 100 mcg tablet 100 mcg PO DAILY THYROID 06/06/21 [History Last Taken 12/08/22] apixaban 2.5 mg tablet (Eliquis) 2.5 mg PO BID BLOOD THINNER 09/13/22 [History Last Taken 12/08/22] lisinopril 5 mg tablet 5 mg PO BID BLOOD PRESSURE 12/04/22 [History Last Taken 12/08/22] atorvastatin 40 mg tablet 40 mg PO QHS CHOLESTEROL 12/08/22 [History Last Taken 12/07/22] Allergy/AdvReac Type Severity Reaction Status Date / Time No Known Allergies Allergy Verified 12/08/22 15:13 Family History Other Breast cancer CVA (cerebral vascular accident) Heart disease Surgical History H/O hysterectomy with unilateral oophorectomy (~09/18/21) H/O total hip arthroplasty History of appendectomy History of cardiac catheterization History of colonoscopy (~2018) History of left hip replacement History of lobectomy of lung History of thyroidectomy Social History Smoking Status: Never smoker alcohol intake: never substance use type: does not use caffeine: No Prior Cardiac Testing/Procedures Prior Cardiac Testing/Procedures: MRI ROS ROS Narrative Denies any chest pain or shortness of breath. All other systems reviewed and essentially negative as above reported the history. Vital Signs Vital Signs Vital Signs: 12/08/22 15:12 12/08/22 15:20 12/08/22 15:20 Temperature 35.7 C L Temperature Source Temporal Pulse Rate 60 60 Pulse Rate [Lying] Pulse Rate [Sitting (for 1 minute prior to obtaining)] Pulse Rate [Standing (for 1 minute prior to obtaining)] Respiratory Rate 18 18 Respiratory Effort Normal Non-Labored Blood Pressure 137/71 H 140/72 H Blood Pressure [Lying] Blood Pressure [Sitting (for 1 minute prior to obtaining)] Blood Pressure [Standing (for 1 minute prior to obtaining)] Blood Pressure Mean 93 94 Blood Pressure Mean [Lying] Blood Pressure Mean [Sitting (for 1 minute prior to obtaining)] Blood Pressure Mean [Standing (for 1 minute prior to obtaining)] Pulse Ox 97 95 Oxygen Delivery Method Room Air Room Air 12/08/22 15:39 12/08/22 15:40 12/08/22 16:24 Temperature Temperature Source Pulse Rate 58 L Pulse Rate [Lying] 60 61 Pulse Rate [Sitting (for 1 minute prior to obtaining)] 61 Pulse Rate [Standing (for 1 minute prior to obtaining)] 68 Respiratory Rate 16 Respiratory Effort Blood Pressure Blood Pressure [Lying] 156/80 H 156/80 H Blood Pressure [Sitting (for 1 minute prior to obtaining)] 148/72 H Blood Pressure [Standing (for 1 minute prior to obtaining)] 125/72 H Blood Pressure Mean Blood Pressure Mean [Lying] 105 105 Blood Pressure Mean [Sitting (for 1 minute prior to obtaining)] 97 Blood Pressure Mean [Standing (for 1 minute prior to obtaining)] 89 Pulse Ox 94 Oxygen Delivery Method Room Air 12/08/22 17:11 12/08/22 17:58 Temperature 36.8 C 36.4 C L Temperature Source Oral Oral Pulse Rate 59 L 71 Pulse Rate [Lying] Pulse Rate [Sitting (for 1 minute prior to obtaining)] Pulse Rate [Standing (for 1 minute prior to obtaining)] Respiratory Rate 17 16 Respiratory Effort Blood Pressure 117/59 L 117/59 L Blood Pressure [Lying] Blood Pressure [Sitting (for 1 minute prior to obtaining)] Blood Pressure [Standing (for 1 minute prior to obtaining)] Blood Pressure Mean 78 78 Blood Pressure Mean [Lying] Blood Pressure Mean [Sitting (for 1 minute prior to obtaining)] Blood Pressure Mean [Standing (for 1 minute prior to obtaining)] Pulse Ox 94 97 Oxygen Delivery Method Room Air Room Air Weight Weight: 98 kg Body Mass Index (BMI) 33.8 Physical Exam Narrative General exam. Elderly woman, not in any obvious distress, not particularly ill looking, depressed appearing, irritable. HEENT. Oral mucosa moist no pallor jaundice Neck. Neck is supple. Lungs. Clear to auscultation Heart. First and second heart sounds are no murmurs. Abdomen. Soft and nontender to palpation. No masses felt. Extremities. 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 Gait is ataxic and slightly unsteady. Romberg's test is positive. Power is 5 out of 5 in all extremities, cranial 2-12 grossly intact. Deep tendon reflexes exaggerated 3+ in both lower extremities. 2+ in upper extremities. Sensation is grossly intact. Results Medical Records Data Attestation: I reviewed the patient's medical records Lab / Micro Data Attestation: I reviewed the patient's lab results. Result Diagrams: 12/08/22 15:20 12/08/22 15:20 Labs: Laboratory Results - last 24 hr 12/08/22 15:20: WBC 8.4, RBC 4.59, Hgb 14.0, Hct 43.4, MCV 94.6, MCH 30.5, MCHC 32.3, RDW Std Deviation 46.5 H, RDW Coeff of Jovan 13.4, Plt Count 255, MPV 10.5, Immature Gran % (Auto) 0.200, Neut % (Auto) 69.4, Lymph % (Auto) 16.1 L, [place] % (Auto) 12.3 H, Eos % (Auto) 1.5, Baso % (Auto) 0.5, Absolute Neuts (auto) 5.8, Absolute Lymphs (auto) 1.35, Nucleated RBC % 0 12/08/22 15:20: Sodium 137, Potassium 3.6, Chloride 101, Carbon Dioxide 26.0, Anion Gap 10, BUN 18, Creatinine 1.08 H, Estim Creat Clear Calc 36.36, Est GFR ( MDRD) Af Amer 62, Est GFR (MDRD) Non-Af 51 L, BUN/Creatinine Ratio 16.7, Glucose 142 H, Calcium 8.9, Total Bilirubin 0.70, AST 17, ALT 27, Alkaline Phosphatase 82, Troponin I High Sens 9, Total Protein 7.1, Albumin 3.6, Globulin 3.5, Albumin/Globulin Ratio 1.0 12/08/22 15:20: B-Natriuretic Peptide 136.3 H 12/08/22 15:50: Urine Color Yellow, Urine Clarity Sl. Cloudy, Urine pH 6.0, Ur Specific [place] 1.020, Urine Protein 30 H, Urine Glucose (UA) Normal, Urine Ketones Negative, Urine Occult Blood 250 H, Urine Nitrite Negative, Urine Bi lirubin Negative, Urine Urobilinogen 8 H, Ur Leukocyte Esterase 500 H, Urine RBC 5-10 SEEN, Urine WBC 50-100 SEEN, Ur Squamous Epith Cells 10-25 SEEN, Ur Transition Epith Cell 0-5 SEEN, Urine Bacteria 2+, Urine Mucus 0 SEEN Rhythm Strip Rhythm Strip: Sinus Rhythm Radiology Impression Brain CT 12/08/22 15:31 IMPRESSION: Age-related and chronic changes as noted of the brain. Electronically Signed: Juan Horan DO at 16:13 EDT , Chest X-Ray 12/08/22 15:55 IMPRESSION: No radiographic evidence of acute cardiopulmonary disease. Electronically Signed: Juan Horan DO at 16:17 EDT , Assessment & Plan Assessment/Plan (1) Ataxia: PLAN: Plan 1. Acute to subacute onset of dizziness and ataxia of gait. Given prior history of posterior circulation stroke will need to consider the possibility of repeat posterior circulation stroke. Given positive Romberg's sign on examination will need to consider possibility of subacute combined degeneration of the posterior cord from vitamin B12 deficiency. We will check vitamin B12 levels. MRI of the brain. Physical Occupational Therapy to evaluate. Charges/Coding Visit Charges Inpatient E&M: 71180 Init Hosp L3
[2022-12-08] MEDS: Lisinopril 5 MG Tablet PO (21:50)
[2022-12-08] MEDS: Atorvastatin Calcium 40 MG Tablet PO (21:50)
[2022-12-08] MEDS: APIXABAN 2.5 MG TABLET (WCH) PO (21:50)
[2022-12-09 03:45] VITALS: BP 151/81; PULSE 60; RESP 16; TEMP 36.7; O2SAT 96
[2022-12-09] MEDS: Levothyroxine 100 MCG Tablet PO (05:00)
--- NOTE | 2022-12-09 07:03 | PN.HOSP_ITS ---
Reason for Visit Reason for Visit: Steadiness of gait/dizziness Subjective Subjective Patient is an 87-year-old white female who presented to emergency department [facility] on 12/08/2022 with dizziness and unsteadiness of gait that has been ongoing for about 6 days now. She was seen in the emergency department the day after onset at which time she had essentially negative work- up which included a CT of the brain which showed no acute findings. Her symptoms had persisted so she returned to the emergency department. Upon representation she reported generalized weakness and difficulty with balance but no vertigo. She denied any numbness or tingling in any of the extremities and any focal muscle weakness, visual issues, headache, dysarthria, dysphagia or tinnitus. Vital signs on presentation were overall unremarkable. She was found to have a positive Romberg sign on admission. B12 levels, MRI of the brain, physical and Occupational Therapy have been ordered to further evaluate the patient. Her labs were overtly unremarkable other than she did have a monocytosis so 1 would question whether or not this was viral. B12 and MRI are still pending. 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 At that time she was placed on 3 weeks of aspirin and Plavix and recommended to have neuro and ophthalmology follow-up. Objective Data Objective Data Vital Signs: Vital Signs Temp Pulse Resp BP Pulse Ox O2 Del Method 98.1 F 60 16 151/81 H 96 Room Air 12/09/22 03:45 12/09/22 03:45 12/09/22 03:45 12/09/22 03:45 12/09/22 03:45 12/09/22 03:45 Oxygen Delivery Method Room Air Weight: 91.4 kg Body Mass Index (BMI) 31.5 Intake & Output: Intake and Output for Last 24 Hours 12/07/22 12/08/22 12/09/22 23:59 23:59 23:59 Intake Total 1000 / 1600 1200 / 1200 Balance 1000 / 1600 1200 / 1200 Lab / Micro Data Result Diagrams: 12/08/22 15:20 12/08/22 15:20 Labs: Laboratory Results - last 24 hr 12/08/22 15:20: WBC 8.4, RBC 4.59, Hgb 14.0, Hct 43.4, MCV 94.6, MCH 30.5, MCHC 32.3, RDW Std Deviation 46.5 H, RDW Coeff of Jovan 13.4, Plt Count 255, MPV 10.5, Immature Gran % (Auto) 0.200, Neut % (Auto) 69.4, Lymph % (Auto) 16.1 L, [place] % (Auto) 12.3 H, Eos % (Auto) 1.5, Baso % (Auto) 0.5, Absolute Neuts (auto) 5.8, Absolute Lymphs (auto) 1.35, Nucleated RBC % 0 12/08/22 15:20: Sodium 137, Potassium 3.6, Chloride 101, Carbon Dioxide 26.0, Anion Gap 10, BUN 18, Creatinine 1.08 H, Estim Creat Clear Calc 36.36, Est GFR (MDRD) Af Amer 62, Est GFR (MDRD) Non-Af 51 L, BUN/Creatinine Ratio 16.7, Glucose 142 H, Calcium 8.9, Total Bilirubin 0.70, AST 17, ALT 27, Alkaline Phosphatase 82, Troponin I High Sens 9, Total Protein 7.1, Albumin 3.6, Globulin 3.5, Albumin/Globulin Ratio 1.0 12/08/22 15:20: B-Natriuretic Peptide 136.3 H 12/08/22 15:50: Urine Color Yellow, Urine Clarity Sl. Cloudy, Urine pH 6.0, Ur Specific [place] 1.020, Urine Protein 30 H, Urine Glucose (UA) Normal, Urine Ketones Negative, Urine Occult Blood 250 H, Urine Nitrite Negative, Urine Bilirubin Negative, Urine Urobilinogen 8 H, Ur Leukocyte Esterase 500 H, Urine RBC 5-10 SEEN, Urine WBC 50-100 SEEN, Ur Squamous Epith Cells 10-25 SEEN, Ur Transition Epith Cell 0-5 SEEN, Urine Bacteria 2+, Urine Mucus 0 SEEN Radiography Diagnostic Testing: Radiology Impression Brain CT 12/08/22 15:31 IMPRESSION: Age-related and chronic changes as noted of the brain. Electronically Signed: Juan Horan DO at 16:13 EDT Reading Location ID and State: [facility] / [place] Tel [phone], Service support , Chest X-Ray 12/08/22 15:55 IMPRESSION: No radiographic evidence of acute cardiopulmonary disease. 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 -Was admitted here at the end of August 2022 and 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 twice daily Hyperlipidemia -Continue atorvastatin 40 mg at at bedtime DVT prophylaxis -Continue apixaban 2.5 mg twice daily CODE STATUS -Document is full code but unverified will have to discuss
[2022-12-09] MEDS: 0.9% Saline Lock 10 ML Syringe IV (08:49)
[2022-12-09] MEDS: Aspirin 81 MG TAB.CHEW PO (08:49)
[2022-12-09] MEDS: Lisinopril 5 MG Tablet PO (08:58)
[2022-12-09] MEDS: APIXABAN 2.5 MG TABLET (WCH) PO (08:58)
--- NOTE | 2022-12-09 09:00 | MRI_ITS ---
HISTORY: ataxia and dizziness. TECHNIQUE: Multiplanar and multisequence MR images of the brain were obtained before and after the intravenous administration of 20 mL Clariscan. 342 images. COMPARISON: CT prior day, MRI 08/31/2022. FINDINGS: BRAIN PARENCHYMA: Chronic small vessel ischemic gliosis. Old right occipital infarct. No abnormal focus of restricted diffusion. No acute intracranial hemorrhage identified. CSF SPACES: Mild generalized volume loss. 1.7 x 1.6 cm avidly enhancing right frontal extra-axial mass with mild buckling of the right anterior frontal cortex, similar in size prior. Second 5 x 15 mm enhancing extra-axial mass attached to the right tentorium with mild cortical buckling of the right temporal cortex. No significant midline shift or other mass effect.No extra-axial fluid collection. VASCULAR SYSTEM: Major intracranial flow voids are unremarkable. PARANASAL SINUSES AND MASTOID AIR CELLS: Right maxillary sinus mucous retention cyst. ORBITS: Symmetric contents. MRI/Brain W/WO Contrast IMPRESSION: No evidence for acute infarct. 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 Chronic involutional and white matter changes. Old right occipital infarct. Electronically Signed: Marlene Olsen MD at 11:03 EDT ,
[2022-12-09 09:45] VITALS: BP 152/78; PULSE 61; RESP 16; TEMP 36.6; O2SAT 95
--- NOTE | 2022-12-09 11:45 | DS.PCM_ITS ---
Providers Date of Admission: 12/08/22 Date of Discharge: 12/09/22 Primary Care Physician: Dr. Dakotah Sierra MD Reason For Visit: DIZZINESS AND ATAXIA Diagnosis Discharge Diagnosis (1) Ataxia: Status: Acute Code(s): R27.0 - Ataxia, unspecified (2) Generalized weakness: Status: Acute Code(s): R53.1 - Weakness Medications at Discharge Home Medications levothyroxine 100 mcg tablet 100 mcg PO DAILY THYROID 06/06/21 apixaban 2.5 mg tablet (Eliquis) 2.5 mg PO BID BLOOD THINNER 09/13/22 lisinopril 5 mg tablet 5 mg PO BID BLOOD PRESSURE 12/04/22 atorvastatin 40 mg tablet 40 mg PO QHS CHOLESTEROL 12/08/22 amlodipine 5 mg tablet 5 mg PO DAILY #30 tabs 12/09/22 aspirin 81 mg chewable tablet 81 mg PO BREAKFAST #0 tabs 12/09/22 prednisone 20 mg tablet 20 mg PO DAILY #10 tabs 12/09/22 Hospital Course Operations None Procedures EKG and - (CT brain/chest x-ray/MRI brain) Summary of Care Provided Minutes Spent on Discharge: 33 Hospital Course: Patient is an 87-year-old white female who presented to emergency department [facility] on 12/08/2022 with dizziness and unsteadiness of gait that has been ongoing for about 6 days now.? She was seen in the emergency department the day after onset at which time she had essentially negative work- up which included a CT of the brain which showed no acute findings.? Her symptoms had persisted so she returned to the emergency department.? Upon representation she reported generalized weakness and difficulty with balance but no vertigo.? She denied any numbness or tingling in any of the extremities and any focal muscle weakness, visual issues, headache, dysarthria, dysphagia or tinnitus.? Vital signs on presentation were overall unremarkable.? She was found to have a positive Romberg sign on admission.? B12 levels, MRI of the brain, physical and Occupational Therapy have been ordered to further evaluate the patient.? Her labs were overtly unremarkable other than she did have a monocytosis so 1 would question whether or not this was viral.? B12 and MRI are still pending.? 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 At that time she was placed on 3 weeks of aspirin and Plavix and recommended to have neuro and ophthalmology follow-up. Patient indicated she was on aspirin and Plavix but has stopped both of them since. I have recommended she restart her aspirin based on neurology recommendations. She evidently was diagnosed with paroxysmal atrial fib in the meantime and was placed on Eliquis. I would avoid triple therapy with the addition of Plavix however I would go ahead and continue the aspirin and Eliquis at this time. MRI was performed and showed no acute new findings. Old stroke was noted. B12 l evel and methylmalonic acid level were pending at the time of discharge. Her UA was suggestive of infection however culture shows mixed gram-positive and gram- negative organisms indicating a contaminated specimen. No antibiotics were prescribed. We obtained a respiratory viral panel as we did have some concern that she could have a labyrinthitis related to a respiratory viral infection and this was unremarkable. This being negative does not rule out labyrinthitis as etiology. She was seen by physical and Occupational Therapy prior to discharge and deemed safe to go home without any ongoing assistance however we did recommend ongoing utilization of a walker while her balance feels off to her. She was anxious to go home. Given the concern for labyrinthitis we did treat her with a steroid burst 40 mg daily for 5 days. She was on the fence whether or not she would utilize this but we did send the prescription in to be available for her if she so desired. I did instruct her to follow-up with ENT if the symptoms do not resolve in the next 7 to 10 days. Information for ENT follow-up was given to her at the time of discharge. She was discharged home in stable condition on 12/09/2022. She is to follow-up with her primary care physician within the 2 weeks. She states she has follow-up with ophthalmology from previous admission in 6 months. 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 PAF Hypothyroidism Hypertension Hyperlipidemia Obesity Physical Exam Const alert, oriented x3, no apparent distress, healthy appearing and well nourished Constitutional Narrative: Obese, elderly, white female, lying in bed, appears comfortable, sits on the edge of the bed without any disequilibrium, nontoxic General Appearance: cooperative, comfortable, well kempt and well developed Orientation / Consciousness: awake, oriented to person, oriented to place and oriented to time Exam Limitations: no limitations Nutritional Appearance: obese HEENT normocephalic, head/scalp atraumatic and moist oral mucous membranes HEENT Narrative: Mallampati 3, no thrush, mild hearing deficits Eyes PERRL, EOMs intact bilaterally and conjunctivae normal Eyes Narrative: No scleral icterus Neck no lymphadenopathy and supple Neck Narrative: Trachea midline, no thyroid enlargement Resp normal respiratory effort, no retractions, no use of accessory muscles and clear to auscultation bilaterally Auscultation: Negative for rales, rhonchi or wheezes Cardio regular rate, regular rhythm, S1 normal heart sound, S2 normal heart sound, no murmurs, no rub, no gallops and no clicks GI normal to inspection, nondistended, normoactive bowel sounds, soft to palpation and non-tender Extremity no clubbing, cyanosis or edema Extremity Narrative: 2+ pedal pulses Skin no rashes or lesions noted, no wounds, skin turgor normal and no jaundice Neuro oriented x3, CN's II-XII intact bilaterally, moves all extremities and no focal motor deficits Neuro Narrative: Mild generalized weakness noted with proximal musculature being weaker than distal Coordination / Balance: [id number] test normal and [id number] test normal Speech: speech normal Psych Psych Narrative: Affect is somewhat flat, patient seems somewhat agitated at my existence Weight / BMI Weight Weight: 91.4 kg Body Mass Index (BMI) 31.5 ABG / Lab / Microbiology Data Result Diagrams: 12/08/22 15:20 12/08/22 15:20 Laboratory: Laboratory Results - last 24 hr 12/08/22 15:20: WBC 8.4, RBC 4.59, Hgb 14.0, Hct 43.4, MCV 94.6, MCH 30.5, MCHC 32.3, RDW Std Deviation 46.5 H, RDW Coeff of Jovan 13.4, Plt Count 255, MPV 10.5, Immature Gran % (Auto) 0.200, Neut % (Auto) 69.4, Lymph % (Auto) 16.1 L, Quay % (Auto) 12.3 H, Eos % (Auto) 1.5, Baso % (Auto) 0.5, Absolute Neuts (auto) 5.8, Absolute Lymphs (auto) 1.35, Nucleated RBC % 0 12/08/22 15:20: Sodium 137, Potassium 3.6, Chloride 101, Carbon Dioxide 26.0, Anion Gap 10, BUN 18, Creatinine 1.08 H, Estim Creat Clear Calc 36.36, Est GFR (MDRD) Af Amer 62, Est GFR (MDRD) Non-Af 51 L, BUN/Creatinine Ratio 16.7, Glucose 142 H, Calcium 8.9, Total Bilirubin 0.70, AST 17, ALT 27, Alkaline Phosphatase 82, Troponin I High Sens 9, Total Protein 7.1, Albumin 3.6, Globulin 3.5, Albumin/Globulin Ratio 1.0 12/08/22 15:20: B-Natriuretic Peptide 136.3 H 12/08/22 15:50: Urine Color Yellow, Urine Clarity Sl. Cloudy, Urine pH 6.0, Ur Specific [place] 1.020, Urine Protein 30 H, Urine Glucose (UA) Normal, Urine Ketones Negative, Urine Occult Blood 250 H, Urine Nitrite Negative, Urine Bilirubin Negative, Urine Urobilinogen 8 H, Ur Leukocyte Esterase 500 H, Urine RBC 5-10 SEEN, Urine WBC 50-100 SEEN, Ur Squamous Epith Cells 10-25 SEEN, Ur Transition Epith Cell 0-5 SEEN, Urine Bacteria 2+, Urine Mucus 0 SEEN Microbiology: Microbiology 12/08/22 15:50 Urine, Clean Catch Urine Culture - Preliminary Mixed Gram Pos & Gram Neg Org Radiography Diagnostic Testing: Radiology Impression Brain CT 12/08/22 15:31 IMPRESSION: Age-related and chronic changes as noted of the brain. Electronically Signed: Juan Horan DO at 16:13 EDT , Chest X-Ray 12/08/22 15:55 IMPRESSION: No radiographic evidence of acute cardiopulmonary disease. Electronically Signed: Juan Horan DO at 16:17 EDT , Brain MRI 12/09/22 09:00 IMPRESSION: No evidence for acute infarct. 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 Chronic involutional and white matter changes. Old right occipital infarct. Electronically Signed: Marlene Olsen MD at 11:03 EDT , Meaningful Use Info Meaningful Use Diagnoses (Choose all that apply): None applicable Discharge Plan Admission Admit Date/Time: 12/08/22 17:54 Primary Reason for Your Visit: Unsteady gait Attending Provider: Madai Kinney Primary Care Provider: Dakotah Sierra Consulting Providers: Thu Elmore Instructions Additional Instructions / Restrictions: 1. Continue to hold metoprolol that was started by your primary care physician. I have started a new blood pressure medication called amlodipine. Metoprolol can affect your heart rates and slow down your heart and I do not want your heart rate any slower than it has been while you have been hospitalized. However, your blood pressure has been above goal and this is the reason for the addition of the amlodipine 5 mg daily. Please can you to take your home lisinopril 5 mg twice daily. 2. If your symptoms persist for the next 7 to 10 days would recommend follow-up with ear nose and throat doctor as noted below. Call for an appointment if your symptoms have not improved. Your MRI is negative for any new stroke. 3. Continue to use a walker until you are more steady while walking. Discharge Orders/Prescriptions Prescriptions: New aspirin 81 mg Tablet,Chewable 81 mg PO BREAKFAST Qty: 0 0RF prednisone 20 mg tablet 20 mg PO DAILY Qty: 10 0RF Rx Instructions: Take 2 tablets once daily for 5 days amlodipine 5 mg tablet 5 mg PO DAILY Qty: 30 0RF Continued atorvastatin 40 mg tablet 40 mg PO QHS levothyroxine 100 mcg tablet 100 mcg PO DAILY Eliquis 2.5 mg tablet 2.5 mg PO BID lisinopril 5 mg tablet 5 mg PO BID Referrals / Follow Up: Dakotah Sierra MD [Primary Care Provider] - Within 2 Weeks Ariel Diaz MD [Med Staff - Active Staff] - See Referral Note (If problems walking do not improve in the next 7-10 days) Disposition Disposition (needs filled in before D/C Order can be placed): Home, Self Care Charges/Coding Visit Charges Inpatient E&M: 96896 Disch Hosp
[2022-12-09 14:41] VITALS: BP 134/81; PULSE 71; RESP 18; TEMP 36.9; O2SAT 96
[2022-12-10 08:14] LABS: Vitamin B12 296 pg/mL (211-911)
[2022-12-13 13:05] LABS: Methylmalonic Acid Bld 413 nmol/L (0-378)
== END 2022-12-09 14:41 | disposition home or self-care (01) ==
LOC: ED 17:40 → MS3 18:13
PROVIDERS: Admitting Provider Internal Medicine; Emergency Provider Student in an Organized Health Care Education/Training Program; PCP Family Medicine; Visit Provider Internal Medicine
DX: R27.0 Ataxia, unspecified (principal); I48.0 Paroxysmal atrial fibrillation; Z79.01 Long term (current) use of anticoagulants; E78.2 Mixed hyperlipidemia; I95.1 Orthostatic hypotension; E66.9 Obesity, unspecified; R53.1 Weakness; I10 Essential (primary) hypertension; E89.0 Postprocedural hypothyroidism; H53.47 Heteronymous bilateral field defects; Z79.899 Other long term (current) drug therapy; Z79.890 Hormone replacement therapy; Z68.31 Body mass index [BMI] 31.0-31.9, adult; R26.81 Unsteadiness on feet
CPT/HCPCS: 70450; 70553; 71045; 80053; 81001; 82607; 83880; 83921; 84484; 85025; 87086; 87088; 87633; 93005; 96360; 96361; 97161; 97165; 99221; 99285; A9575; J7030; A4216; G0378

== ENCOUNTER → 2022-12-10 | Outpatient (CLI) | payer MEDICARE, SELFPAY ==
[2022-12-10 18:14] LABS: AST(SGOT) 11 U/L (15-37); Alanine Aminotransfer ALT/SGPT 25 U/L (13-56); Albumin, Serum 3.5 g/dL (3.2-5.0); Alkaline Phosphatase 78 U/L (45-117); Anion Gap 12 (5-15); BUN 19 mg/dL (7-18); BUN/Creat Ratio 19.7 RATIO (10-20); Calcium,Total 9.6 mg/dL (8.5-10.1); Chloride 102 mmol/L (98-107); Creatinine, Serum 0.96 mg/dL (0.55-1.02); EST Glomerular Filtration Rate 58 mL/min (>60); Est Glom Filt Rate - Afr Amer 70 mL/min (>60); Globulin 3.5 g/dL (2.2-4.2); Glucose 174 mg/dL (74-106); Potassium 3.5 mmol/L (3.5-5.1); Sodium Level 137 mmol/L (136-145)
== END | disposition home or self-care (01) ==
LOC: MFPLAB 16:43
PROVIDERS: PCP Family Medicine; Visit Provider Family Medicine
DX: E04.1 Nontoxic single thyroid nodule (principal); R31.9 Hematuria, unspecified; R42 Dizziness and giddiness
CPT/HCPCS: 36415; 80053; 84443; 87086; 87088

== ENCOUNTER 2023-03-14 12:00 | Outpatient (RCR) | payer MEDICARE, SELFPAY ==
--- NOTE | 2023-02-01 14:15 | HP.PTEVAL ---
Patient's Visit Information IRAJ SANTOS is a 87 year old F referred to Physical Therapy by Dr. Dakotah Sierra MD with a diagnosis of dizzyness, occipital stroke. Date of Evaluation: 02/01/23 Physical Therapist: Dakotah Nicholson, KARANT, OCS, CSCS - Visit Plan Frequency: 2x /Week Duration: 4-6 Weeks Plan: biodex balance test EG then 2x/week for 4 weeks for... 1/. progress home VOR and cawthorne herson ex(VOR H 60 sec adn head turns 15x 6x/day given today). 2. work on vestibular balance foam and/ or ec and comfort with weight shift to HEP when safe. - Subjective Dizzy. Has been that way since October. had stroke in July and put on medicine. Put on elaquist for blood pressure adn has been dizzy since. Described dizzyness as imbalanced, not spinning. [place] good yesterday even sitting to mow the yard. Not dizzy lying or sitting ever. Standing and moving is when she gets dizzy intermittently. Better in evening after meds wear off. Stroke gave loss of peripheral vision in eye only. Uses wh walker on bad days but not needed at home in the last week. No falls at home. Sleep is OK. Not employed. No regular exercises. Spends day sitting alot since October. prior used to split wood and keep house clean. - Objective Pt is short with answers and does not appear to want to be at therapy or know why she is present. Walks with wh walker slowly but I into PT. [facility] chair and bed I. Steps reciprocal with two rails mod I. cervical aROM is limtied in rot and extension but not painful and funcitonal, tends to hold head very still wehn ambulating and no dizzyness or LOB but does not feel steady moving head or VOR when standing. reflexes 1/3 patella and achilles. sensation LE WNL to gross light touch. coordination LE WNL to reciprocal toe and heel tap. UE AROM and LE AROM WFL, some tightness in HS and gastroc but functional. Oculomotor: no nystagmus with gaze or head shake. - head thrust. - skew eye deviation. - ocular tilt. dizzy with head turns not nods. Pursuit adn saccades are nromal and asymtppomatic. VOR is slightly transiently symptomatic and slow, worse in standing. Standing on foam with ec immediately makes her realize her dizzy symptoms are unsteady more so than spinning. Some minor symptoms with head movements sitting. - Balance/Special Test Scores Functional Gait Assessment Score: 28 % Disability: 6.6700 CATSIB Score (Max score 120 seconds): 92 Lower Extremity Functional Score: 8 - Goals Goal 1:: Patient stand on foam with ec for 15 seconds without LOB Goal Time Frame: 4-6 Weeks Goal 2:: Have biodex test and results Goal Time Frame: 2-4 Weeks Goal 3:: Pt feel 505 better in overall ability to get around Goal Time Frame: 4-6 Weeks Goal 4:: LEFS 40 Goal Time Frame: 4-6 Weeks - Rehabilitation Potential Physical Therapy Diagnosis: unsteadiness causing sedentarism Rehabilitation Potential: Fair - Anticipated Interventions Patient/Client Instruction: Educate patient on: Condition, Plan of Care For the Purpose of:: To improve muscle performance and motor function, To increase tolerance to activity/condition/position, To improve gait and locomotor functions, To improve balance, To improve safety with gait Therapeutic Exercise to Include: Strength training, Balance training, Neuromotor development For the Purpose of:: To improve muscle performance and motor function, To increase tolerance to activity/condition/position, To improve ability of physical actions for home/community/work/leisure, To improve gait and locomotor functions, To improve balance, To improve safety with gait Thank you for the opportunity to evaluate your patient. For Medicare and Medicare HMO plans, please review the plan of care and approve it. It will need to be FAXED BACK to us at [phone] for Medicare purposes. For Medicare only, by signing this I certify the plan of care. Please let me know if there are questions or concerns regarding this plan of care. Physician Signature: Date:
--- NOTE | 2023-02-13 11:24 | HP.PTCOM ---
PT Communication Note 02/13/[address] Dakotah Sierra MD , Thank you for the referral of Anyg to [facility] for balance and vestibular assessment. i have enclosed a copy of her balance results for your review. In summation, she scored well on all parts of the Limits of Stability and Modified CATSIB testing except for eyes closed on foam condition which was poor score and confidence. With this in mind, I plan to see her 2x/week for 4 weeks to work on vestibular exercise progression and balance until safe with a home exercise program. Please contact me if there are questions regarding her assessments. Sincerely, Dakotah Nicholson, DPT, OCS, CSCS Contact Information
--- NOTE | 2023-03-12 13:00 | HP.PTDCSUM ---
It has been my pleasure to treat IRAJ SANTOS referred by Dr. Dakotah Sierra MD, with the diagnosis of dizzyness, occipital stroke for a total of 8 visit(s). Discharge Date: Please see the following information for a summary of their discharge status. Subjective: Pt states she got really dizzy after last session - happened when she was shopping. Objective/Function: Pt did great today - progressed some exercises and added a few new ones. Still not able to replicate any dizziness. Pt did have a LOB moment when doing static foam stance with eyes closed. Goal 1:: Patient stand on foam with ec for 15 seconds without LOB Goal 2:: Have biodex test and results Goal Progress: Goal Met Goal 3:: Pt feel 505 better in overall ability to get around Goal 4:: LEFS 40 Plan: 2x/week for 4 weeks for... 1. progress home VOR and cawthorne herson ex (VOR H 60 sec adn head turns 15x 6x/day given IE, can progress to standing balance and VOR x2 when easy.). 2. work on vestibular balance foam and/or ec and comfort with weight shift to HEP when safe. Can work on functional step and recover also. If there are questions or concerns regarding this patient's physical therapy, please feel free to call me at [phone]. Thank you for the referral of this patient. Sincerely, Dakotah Nicholson, DPT, OCS, CSCS Balance/Gait/Functional tests - Balance/Special Test Scores Functional Gait Assessment Score: 28 % Disability: 6.6700 CATSIB Score (Max score 120 seconds): 92 Lower Extremity Functional Score: 8
--- NOTE | 2023-03-14 11:49 | HP.PTDCSUM ---
It has been my pleasure to treat IRAJ SANTOS referred by Dr. Dakotah Sierra MD, with the diagnosis of dizzyness, occipital stroke for a total of 10 visit(s). Discharge Date: 03/14/23 Please see the following information for a summary of their discharge status. Subjective: Aw pretty good. About the same. Then says not dizzy anymore. 90% better dizzyness, no falls. 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 Basic ADLs are going well. Doing eye exercises now. % Improvement: 90 Objective/Function: FGA same, romberg ec on foam much better., no dizzyness with VOR today. pt confusing overall with subjective as she states about the same then 85% better but is certainly functional and doing what she needs to at home. She wishes to be done with PT and is appropriate to be done. Goal 1:: Patient stand on foam with ec for 15 seconds without LOB Goal Progress: Goal Met Goal 2:: Have biodex test and results Goal Progress: Goal Met Goal 3:: Pt feel 505 better in overall ability to get around Goal Progress: Goal Met Goal 4:: LEFS 40 Goal Progress: Goal Met Plan: d/c If there are questions or concerns regarding this patient's physical therapy, please feel free to call me at [phone]. Thank you for the referral of this patient. Sincerely, Dakotah Nicholson, DPT, OCS, CSCS Balance/Gait/Functional tests - Balance/Special Test Scores Functional Gait Assessment Score: 28 % Disability: 6.6700 CATSIB Score (Max score 120 seconds): 120 Lower Extremity Functional Score: 54
== END 2023-03-14 12:27 | disposition home or self-care (01) ==
LOC: PT 12:00
PROVIDERS: PCP Family Medicine; Referring Provider Family Medicine; Visit Provider Family Medicine
DX: R42 Dizziness and giddiness (principal); Z86.73 Personal history of transient ischemic attack (TIA), and cerebral infarction without residual deficits
CPT/HCPCS: 97110; 97112; 97162; 97164; 97750

== ENCOUNTER → 2023-05-07 | Outpatient (CLI) | payer MEDICARE, SELFPAY ==
[2023-05-07 17:52] LABS: Absolute Lymphocyte Count 1.35 X10^3/uL (0.83-4.51); Absolute Neutrophil Count 5.5 X10^3/uL (2.0-7.7); Basophil# 0.04 X10^3/uL; Basophil% 0.5 % (0-1); Eosinophil# 0.15 X10^3/uL; Eosinophils% 1.9 % (0-5); Hemoglobin 13.2 g/dL (12.0-15.0); Lymphocyte # 1.35 X10^3/ul (0.83-4.51); Lymphocyte % 17.5 % (19-41); Mean Corp Hgb Conc 31.4 g/dL (32-36); Mean Corpuscular Hgb 30.6 pg (27.0-32.0); Mean Corpuscular Volume 97.2 fL (81-99); Mean Platelet Vol. 10.9 fl (6.2-12.0); Monocyte# 0.64 X10^3/uL; Monocyte% 8.3 % (0-10); NRBC Flagged by Analyzer 0 % (0-5); Neutrophil # 5.52 X10^3/uL (2.7-7.7); Neutrophil % 71.5 % (47-70); Platelet Count 230 K/mm3 (150-450); RBC Distribution Width CV 13.1 % (11.6-14.6); RBC Distribution Width SD 47.1 fl (35.1-43.9); Red Blood Count 4.32 M/mm3 (4.2-5.4); White Blood Count 7.7 K/mm3 (4.4-11.0)
[2023-05-07 18:11] LABS: AST(SGOT) 14 U/L (15-37); Alanine Aminotransfer ALT/SGPT 26 U/L (13-56); Albumin, Serum 3.4 g/dL (3.2-5.0); Alkaline Phosphatase 62 U/L (45-117); Anion Gap 8 (5-15); BUN 21 mg/dL (7-18); BUN/Creat Ratio 18.3 RATIO (10-20); Calcium,Total 9.4 mg/dL (8.5-10.1); Chloride 106 mmol/L (98-107); Creatinine, Serum 1.15 mg/dL (0.55-1.02); EST Glomerular Filtration Rate 47 mL/min (>60); Est Glom Filt Rate - Afr Amer 57 mL/min (>60); Globulin 3.4 g/dL (2.2-4.2); Glucose 131 mg/dL (74-106); Potassium 3.9 mmol/L (3.5-5.1); Protein, Total 6.8 g/dL (6.4-8.2); Sodium Level 141 mmol/L (136-145); Thyroid Stim Hormone (TSH) 0.84 uIU/mL (0.358-3.74)
[2023-05-07 18:51] LABS: Microalbumin:Creatinine Ratio 39.8 mg/g CRE (<30 mg/g CRE)
[2023-05-07 19:20] LABS: Hemoglobin A1c 6.5 % (3.8-5.6)
== END | disposition home or self-care (01) ==
LOC: MFPLAB 15:20
PROVIDERS: PCP Family Medicine; Visit Provider Family Medicine
DX: I12.9 Hypertensive chronic kidney disease with stage 1 through stage 4 chronic kidney disease, or unspecified chronic kidney disease (principal); E11.22 Type 2 diabetes mellitus with diabetic chronic kidney disease; N18.31 Chronic kidney disease, stage 3a; E03.9 Hypothyroidism, unspecified
CPT/HCPCS: 36415; 80053; 82043; 82570; 83036; 84443; 85025

== ENCOUNTER → 2023-05-30 | Outpatient (CLI) | payer MEDICARE, SELFPAY ==
--- NOTE | 2023-05-30 10:49 | BI_ITS ---
MAMMOGRAPHY - BILATERAL SCREENING REASON FOR EXAM: Female, 88 years old. Routine annual screening examination. PERTINENT HISTORY: Grandmother with breast cancer. TECHNIQUE: Digital bilateral breast heather (3D mammographic acquisition) in the CC and MLO projections. 2-D mediolateral oblique (MLO) and craniocaudad (CC) views of both breasts were obtained. CAD: Full Field Digital Mammography with Computer Added Detection was performed. COMPARISON: Comparison is made with prior study of May 29, 2022 and August 05, 2020. FINDINGS: Breast Composition: The breasts are almost entirely fatty. There are no dominant masses or suspicious calcifications. Stable benign-appearing bilateral axillary lymph nodes. No other significant abnormalities are identified. There has been no significant change since the prior study. BI/SCRN MAMM (CAD)W/HEATHER BILAT IMPRESSION: Stable bilateral screening mammogram. Yearly follow-up mammogram recommended. (A) ASSESSMENT CATEGORY: BIRADS Category 2: Benign. A letter regarding these results will be sent to the patient by the facility within 30 days. Approximately 10% of breast cancers are not detected by mammography. A normal mammogram should not delay biopsy of a clinically suspicious abnormality. [id number] Electronically Signed: Kwaku Pryor MD at 13:40 EDT ,
== END | disposition home or self-care (01) ==
LOC: OPBI 10:48
PROVIDERS: PCP Family Medicine; Referring Provider Family Medicine; Visit Provider Family Medicine
DX: Z12.31 Encounter for screening mammogram for malignant neoplasm of breast (principal)
CPT/HCPCS: 77063; 77067

== ENCOUNTER → 2023-06-20 | Outpatient (CLI) | payer MEDICARE, SELFPAY ==
--- NOTE | 2023-06-20 14:20 | CT_ITS ---
INDICATION: LUNG CA FOLLOW UP EXAMINATION: CT CHEST WITHOUT CONTRAST - CT Chest W/O Contrast Injection TECHNIQUE: Helically acquired images were obtained of the chest. A radiation dose optimization technique was used for this scan. IV Contrast dosage and agent: None. COMPARISON: 12/31/2014. FINDINGS: LUNGS, PLEURA AND LARGE AIRWAYS: Findings suggestive of postsurgical changes with scarring involving the left mid-upper lung. Previously seen left upper lobe nodule/mass is not identified on current study, likely consistent with postsurgical resection. There is a small nodule identified within the right upper lobe measuring 3.4 mm, stable in the interval. There is a small nodule within the left upper lobe, image 64, series 4 and sagittal image 82, series 601 measuring 3.5 mm indistinctly seen on current examination and therefore difficult to assess interval change. There is a third nodule within the anterior right middle lobe, axial image 68, series 4, not visualized on previous exam and measuring 2.6 mm. There is mild bilateral lower lobe atelectasis with minimal left lower lobe scarring. No pleural effusion or thickening. No pneumothorax. THYROID: No thyroid lesions. HEART AND PERICARDIUM: Heart size is normal. No pericardial effusion. CORONARY ARTERIES: Coronary artery calcification VESSELS: Mild calcified sclerosis of aorta with no aneurysm. MEDIASTINUM AND OMI: No mediastinal or hilar adenopathy. Esophagus is unremarkable. No hiatal hernia. UPPER ABDOMEN: No acute pathology. BONES: Diffuse osteopenia with multilevel degenerative disease of the spine. CT/Chest without Contrast IMPRESSION: Status post partial left upper lobe resection with previously seen left upper lobe mass not identified on current exam. No recurrent nodule or mass within the left lung parenchyma seen. Stable right upper lobe pulmonary nodule as described in measuring 3.4 mm. Nodule within the right lower lobe measuring 2.5 mm, incompletely seen on previous exam and difficult to assess progression. 2.6 mm nodule within the right lower lobe not seen on prior examination. Recommend 6 month follow-up CT to evaluate stability. Electronically Signed: Irasema Glasgow MD at 20:41 EDT ,
== END | disposition home or self-care (01) ==
LOC: CT 14:18
PROVIDERS: PCP Family Medicine; Referring Provider Internal Medicine Pulmonary Disease; Visit Provider Internal Medicine Pulmonary Disease
DX: C34.92 Malignant neoplasm of unspecified part of left bronchus or lung (principal)
CPT/HCPCS: 71250

== ENCOUNTER → 2023-10-18 | Outpatient (CLI) | payer MEDICARE, SELFPAY ==
--- OUTSIDE RECORDS SUMMARY | 2023-10-18 11:52 | XMS RPT_ITS | CCD ---
Author Name Unknown Address [address] [place] [address] Organization [facility] Care Team Providers Care Risk Compliance Manager Name Role Phone Clyde Skaggs MD Dakotah Sierra MD Primary Care Provider Medications Completed/Discontinued Medications Medication Drug Class(es) Dates Sig (Normalized) Sig (Original) Acetaminophen / HYDROcodone (4 sources) Opioid Agonist Start: 10-02-2011 VICODIN 5-500 MG TABS one tab four times a day as needed for pain HYDROCODONE-ACETAMI NOPHEN [id number] Santi Brush MD Problems Active Problems Problem Classification Problem Date Documented Date Episodic/Chronic Complications of surgical procedures or medical care (1 source) Postoperative hypothyroidism; Translations: [Postprocedural hypothyroidism] Onset: 08-17-2015 09-18-2021 Chronic Other nutritional; endocrine; and metabolic disorders (1 source) Obese class I; Translations: [Obesity, unspecified] Onset: 02-11-2019 02-11-2019 Chronic Past or Other Problems Problem Classification Problem Date Documented Da te Episodic/Chronic Neoplasms of unspecified nature or uncertain behavior (2 sources) Neoplasm of uncertain behavior of skin; Translations: [Neoplasm of uncertain behavior of skin] 03-27-2011 Episodic Other and unspecified benign neoplasm (3 sources) Personal history of colonic polyps; Translations: [Hemangioma] Onset: 05-23-2017 05-23-2017 Episodic Other and unspecified benign neoplasm (1 source) Hemangioma; Translations: [Hemangioma unspecified site] 03-27-2011 Episodic Other lower respiratory disease (1 source) Multiple nodules of lung; Translations: [Other nonspecific abnormal finding of lung field] Onset: 02-11-2019 01-27-2020 Episodic Other nervous system disorders (2 sources) Skin sensation disturbance; Translations: [Unspecified disturbances of skin sensation] Onset: 09-12-2011 09-30-2011 Episodic Other skin disorders (11 sources) Lentigo; Translations: [Unspecified hypertrophic and atrophic conditions of skin] Onset: 03-27-2011 03-27-2011 Episodic Other skin disorders (1 source) Unspecified hypertrophic and atrophic conditions of skin; Translations: [Unspecified hypertrophic and atrophic conditions of skin] Onset: 09-12-2011 09-30-2011 Episodic Other skin disorders (1 source) Skin tag; Translations: [Other hypertrophic disorders of the skin] Onset: 03-27-2011 03-27-2011 Episodic Other skin disorders (2 sources) Sebaceous cyst; Translations: [Sebaceous cyst] Onset: 09-12-2011 10-14-2011 Episodic Other skin disorders (1 source) Mass of soft tissue; Translations: [Other specified soft tissue disorders] Onset: 05-23-2017 05-23-2017 Episodic Other skin disorders (1 source) Actinic keratosis; Translations: [Actinic keratosis] 03-27-2011 Episodic Other skin disorders (1 source) Epidermoid cyst of skin; Translations: [Sebaceous cyst] 03-27-2011 Episodic Other skin disorders (1 source) Senile hyperkeratosis; Translations: [Other seborrheic keratosis] 03-27-2011 Episodic Other skin disorders (1 source) Milia; Translations: [Other specified disorders of skin] 03-27-2011 Episodic Results Test Name Value Interpretation Reference Range Facil ity Vital Signs Date Time Vital Sign Value Performing Clinician Facility 05-23-2017 09:20-0400 BMI (Body Mass Index) 24.95 kg/m2 Clyde Skaggs MD [facility] Work Phone: 05-23-2017 09:20-0400 Body Temperature 98.2 [degF] Clyde Skaggs MD [facility] Work Phone: 05-23-2017 09:20-0400 BP Diastolic 84 mm[Hg] Clyde Skaggs MD [facility] Work Phone: 05-23-2017 09:20-0400 BP Systolic 134 mm[Hg] Clyde Skaggs MD [facility] Work Phone: 05-23-2017 09:20-0400 Height 176.53 cm Clyde Skaggs MD [facility] Work Phone: 05-23-2017 09:20-0400 Pulse (Heart Rate) 57 /min Clyde Skaggs MD [facility] Work Phone: 05-23-2017 09:20-0400 Respiratory Rate 18 /min Clyde Skaggs MD [facility] Work Phone: 05-23-2017 09:20-0400 Weight 77.75 kg Clyde Skaggs MD [facility] Work Phone: Encounters Encounter Date Encounter Type Care Provider Facility Start: 05-24-2022 End: 05-24-2022 Subsequent hospital visit by physician [facility] Work Phone: Cat Scan Procedures Date Procedure Procedure Detail Performing Clinician Start: 05-24-2022 Ct thorax w/o contra st material [facility] Provider Plan of Treatment Date Care Activity Detail Author Start: 05-24-2022 Influenza vaccination INFLUENZA (#1) [facility] Start: 10-21-2021 COVID-19 VACCINE (4 - Booster for Pfizer series) COVID-19 VACCINE (4 - Booster for Pfizer series) [facility] Start: 09-23-2021 ADVANCE DIRECTIVE DISCUSSION ADVANCE DIRECTIVE DISCUSSION [facility] Start: 05-17-2018 DIABETES SCREEN DIABETES SCREEN [facility] Start: 05-23-2017 End: 05-23-2017 Appointment Appointment [facility] Work Phone: Start: 05-23-2017 End: 05-23-2017 Diagnostic colonoscopy Colonoscopy [facility] Work Phone: Start: 09-24-2014 PNEUMOCOCCAL: 65+ (2 - PCV) PNEUMOCOCCAL: 65+ (2 - PCV) [facility] Start: 2001 BONE DENSITY BONE DENSITY [facility] Start: 1986 SHINGRIX VACCINE (1 of 2) SHINGRIX VACCINE (1 of 2) [facility] Start: 1955 Urine microalbumin profile DTAP,TDAP,TD (1 - Tdap) [facility] Immunizations Immunization Date Immunization Notes Care Provider Trevor torres 09-24-2013 pneumococcal polysaccharide vaccine, [address] ([facility]) Work Phone: [facility] Payers Date Payer Category Payer Medicare [employer] MEDICARE [employer] MEDICARE PPO [id number] 2019-Present [phone] [address] [address] [place] [address] PPO [id number] Social History Date Type Detail Facility Start: 04-22-2015 Tobacco smoking stat us NHIS Never smoked tobacco [facility] Start: 04-22-2015 Tobacco use and exposure Smoke less tobacco non-user [facility] Start: 01-27-2020 Alcohol intake Current non-dr edge inker uppers of alcohol (finding) [facility] Start: 1935 Sex Assigned At Not on file [facility] Progress note 05-24-2022 Note Date & Type Note Facility 05-24-2022 Note HNO ID: [id number] Author: RT Peterson(R) Service: Radiology Author Type: Technologist Type: Progress Notes Filed: 05/24/2022 11:02 AM Note Text: Radiology Service Progress Note PATIENT NAME: Angy Mota DATE OF SERVICE: May 24, 2022 TIME: 11:02 AM PATIENT IDENTITY VERIFICATION COMPLETED USING TWO (2) IDENTIFIERS: Name and Date of confirmed by patient verbally. FALL SCREENING: Has the patient had 2 falls in the last year or 1 fall with injury or currently using an Ambulatory Assistive Device (Walker, Cane, Wheelchair, Crutches, etc.)? No PATIENT GENDER DATA: Female. status: : No status: NO. PATIENT RELEVANT IMPLANT DATA REVIEWED: Not Applicable RADIOLOGY DEPARTMENT: CT; Exam(s) Completed: Chest PERIPHERAL IV DATA: Not applicable SIGNED BY: RT Peterson(R) May 24, 2022 11:02 AM [facility] History of Present illness Narrative 05-24-2022 RT Peterson(R) - 05/24/2022 11:00 AM EDT Note Date & Type Note Facility 05-24-2022 History of Presen t illness Narrative Radiology Service Progress Note PATIENT NAME: Angy Mota DATE OF SERVICE: May 24, 2022 TIME: 11:02 AM PATIENT IDENTITY VERIFICATION COMPLETED USING TWO (2) IDENTIFIERS: Name and Date of confirmed by patient verbally. FALL SCREENING: Has the patient had 2 falls in the last year or 1 fall with injury or currently using an Ambulatory Assistive Device (Walker, Cane, Wheelchair, Crutches, etc.)? No PATIENT GENDER DATA: Female. status: : No status: NO. PATIENT RELEVANT IMPLANT DATA REVIEWED: Not Applicable RADIOLOGY DEPARTMENT: CT; Exam(s) Completed: Chest PERIPHERAL IV DATA: Not applicable SIGNED BY: RT Peterson(R) May 24, 2022 11:02 AM documented in this encounter [facility] History of Past illness Narrative 02-11-2019 Note Date & Type Note Facility documented as of this encounter (statuses as of 05/25/2022) [facility] Reason for visit Narrative Diagnostic Procedure Only (Routine) - Closed Note Date & Type Note Facility Referral ID Status Reason Start Date Expiration Date V isits Requested Visits Authorized [id number] Closed Patient Cleared - Admin/Chairm an/Director advise to proceed 05/24/2022 06/23/2022 1 1 [facility] Summary Purpose Family History No Family History Records FoundNo Family History Records Found Advance Directives No Advanced Directives Records FoundDocuments on File Type Date Recorded 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 Advance Directive(s) 05/11/2015 1:28 PM Additional Source Comments INFORMATION SOURCE (unrecogn ized section and content) DATE CREATED AUTHOR AUTHOR'S ORGANIZ ATION 05/25/2022 [facility] Source Comments (unrecognize d section and content) In the event this informatio n is protected by the Federal Confidentiality of Alcohol and Drug Abuse Patient Records regulations: The Federal rules restrict any use of the information to criminally investigate or prosecute any alcohol or drug abuse patient.[facility] Care Teams (unrecognized sec tion and content) FOR RECORDS PERTAINING TO PATIENTS WHO ARE OR HAVE BEEN ENROLLED IN A CHEMICAL DEPENDENCY/SUBSTANCEABUSE PROGRAM, SOME INFORMATION MAY BE OMITTED. This clinical summary was aggregated from multiple sources. Caution should be exercised in using it in the provision of clinical care. This summary normalizes information from multiple sources, and as a consequence, information in this document may materially change the coding, format and clinical context of patient data. In addition, data may be omitted in some cases. CLINICAL DECISIONS SHOULD BE BASED ON THE PRIMARY CLINICAL RECORDS. [facility] provides no warranty or guarantee of the accuracy or completeness of information in this document.
[2023-10-18 12:21] LABS: Absolute Lymphocyte Count 1.46 X10^3/uL (0.83-4.51); Absolute Neutrophil Count 4.1 X10^3/uL (2.0-7.7); Basophil# 0.05 X10^3/uL; Basophil% 0.8 % (0-1); Eosinophils% 3.1 % (0-5); Hematocrit 40.7 % (37-47); Lymphocyte # 1.46 X10^3/ul (0.83-4.51); Lymphocyte % 22.4 % (19-41); Mean Corp Hgb Conc 31.9 g/dL (32-36); Mean Corpuscular Hgb 30.4 pg (27.0-32.0); Mean Corpuscular Volume 95.1 fL (81-99); Mean Platelet Vol. 10.8 fl (6.2-12.0); Monocyte# 0.67 X10^3/uL; Monocyte% 10.3 % (0-10); NRBC Flagged by Analyzer 0 % (0-5); Neutrophil # 4.11 X10^3/uL (2.7-7.7); Neutrophil % 63.1 % (47-70); Platelet Count 218 K/mm3 (150-450); RBC Distribution Width CV 13.5 % (11.6-14.6); Red Blood Count 4.28 M/mm3 (4.2-5.4); White Blood Count 6.5 K/mm3 (4.4-11.0)
[2023-10-18 12:59] LABS: ALB/GLOB Ratio 1.1 RATIO (0.9-2.4); AST(SGOT) 14 U/L (15-37); Alanine Aminotransfer ALT/SGPT 19 U/L (13-56); Albumin, Serum 3.6 g/dL (3.2-5.0); Alkaline Phosphatase 58 U/L (45-117); Anion Gap 7 (5-15); BUN 20 mg/dL (7-18); BUN/Creat Ratio 18.7 RATIO (10-20); Calcium,Total 9.5 mg/dL (8.5-10.1); Chloride 108 mmol/L (98-107); Creatinine, Serum 1.07 mg/dL (0.55-1.02); EST Glomerular Filtration Rate 52 mL/min (>60); Est Glom Filt Rate - Afr Amer 62 mL/min (>60); Globulin 3.3 g/dL (2.2-4.2); Glucose 123 mg/dL (74-106); Protein, Total 6.9 g/dL (6.4-8.2); Sodium Level 140 mmol/L (136-145)
== END | disposition home or self-care (01) ==
LOC: MFPLAB 11:20
PROVIDERS: PCP Family Medicine; Visit Provider Family Medicine
DX: I63.9 Cerebral infarction, unspecified (principal); E11.9 Type 2 diabetes mellitus without complications
CPT/HCPCS: 36415; 80053; 82043; 82570; 85025

== ENCOUNTER → 2024-06-04 | Outpatient (CLI) | payer MEDICARE, SELFPAY ==
--- NOTE | 2024-06-04 13:47 | BI_ITS ---
MAMMOGRAPHY - BILATERAL SCREENING REASON FOR EXAM: Female, 89 years old. Routine annual screening examination. PERTINENT HISTORY: Grandmother with breast cancer. TECHNIQUE: Digital bilateral breast heather (3D mammographic acquisition) in the CC and MLO projections. 2-D mediolateral oblique (MLO) and craniocaudad (CC) views of both breasts were obtained. CAD: Full Field Digital Mammography with Computer Added Detection was performed. COMPARISON: Comparison is made with prior study May 30, 2023 and May 29, 2022. FINDINGS: Breast Composition: The breasts are almost entirely fatty. There are no dominant masses or suspicious calcifications. Small bilateral axillary lymph nodes. No other significant abnormalities are identified. There has been no significant change since the prior study. BI/SCRN MAMM (CAD)W/HEATHER BILAT IMPRESSION: Stable bilateral screening mammogram. Yearly follow-up mammogram recommended. (A) ASSESSMENT CATEGORY: BIRADS Category 2: Benign. A letter regarding these results will be sent to the patient by the facility within 30 days. Approximately 10% of breast cancers are not detected by mammography. A normal mammogram should not delay biopsy of a clinically suspicious abnormality. [id number] Electronically Signed: Kwaku Pryor MD at 15:30 EDT ,
== END | disposition home or self-care (01) ==
LOC: OPBI 13:47
PROVIDERS: PCP Family Medicine; Referring Provider Family Medicine; Visit Provider Family Medicine
DX: Z12.31 Encounter for screening mammogram for malignant neoplasm of breast (principal)
CPT/HCPCS: 77063; 77067

== ENCOUNTER → 2024-10-02 | Outpatient (CLI) | payer MEDICARE, SELFPAY ==
[2024-10-02 15:21] LABS: Absolute Lymphocyte Count 1.31 X10^3/uL (0.83-4.51); Absolute Neutrophil Count 4.6 X10^3/uL (2.0-7.7); Basophil# 0.05 X10^3/uL; Basophil% 0.7 % (0-1); Eosinophil# 0.12 X10^3/uL; Eosinophils% 1.8 % (0-5); Hematocrit 45.7 % (37-47); Hemoglobin 14.9 g/dL (12.0-15.0); Lymphocyte # 1.31 X10^3/ul (0.83-4.51); Lymphocyte % 19.6 % (19-41); Mean Corp Hgb Conc 32.6 g/dL (32-36); Mean Corpuscular Hgb 30.2 pg (27.0-32.0); Mean Corpuscular Volume 92.7 fL (81-99); Mean Platelet Vol. 10.3 fl (6.2-12.0); Monocyte# 0.62 X10^3/uL; Monocyte% 9.3 % (0-10); NRBC Flagged by Analyzer 0 % (0-5); Neutrophil # 4.56 X10^3/uL (2.7-7.7); Neutrophil % 68.2 % (47-70); Platelet Count 269 K/mm3 (150-450); RBC Distribution Width CV 13.6 % (11.6-14.6); RBC Distribution Width SD 46.5 fl (35.1-43.9); Red Blood Count 4.93 M/mm3 (4.2-5.4); White Blood Count 6.7 K/mm3 (4.4-11.0)
[2024-10-02 15:46] LABS: ALB/GLOB Ratio 1.2 RATIO (0.9-2.4); AST(SGOT) 15 U/L (15-37); Alanine Aminotransfer ALT/SGPT 23 U/L (13-56); Albumin, Serum 3.8 g/dL (3.2-5.0); Alkaline Phosphatase 58 U/L (45-117); Anion Gap 6 (5-15); BUN 18 mg/dL (7-18); BUN/Creat Ratio 15.5 RATIO (10-20); Calcium,Total 9.9 mg/dL (8.5-10.1); Chloride 106 mmol/L (98-107); Cholesterol 137 mg/dL (200); Creatinine, Serum 1.16 mg/dL (0.55-1.02); EST Glomerular Filtration Rate 47 mL/min (>60); Est Glom Filt Rate - Afr Amer 57 mL/min (>60); Globulin 3.3 g/dL (2.2-4.2); Glucose 124 mg/dL (74-106); High Density Lipoprotein 45 mg/dL; Potassium 3.8 mmol/L (3.5-5.1); Protein, Total 7.1 g/dL (6.4-8.2); Sodium Level 138 mmol/L (136-145); Triglycerides 113 mg/dL; Very Low Density Lipoprotein 23 mg/dL (5-40)
[2024-10-02 16:34] LABS: Hemoglobin A1c 6.7 % (3.8-5.6)
[2024-10-02 16:52] LABS: Microalbumin,Random Urine 51.8 mg/L (NO RANGE EST.); Microalbumin:Creatinine Ratio 27.7 mg/g CRE (<30 mg/g CRE)
== END | disposition home or self-care (01) ==
LOC: MTLAB 11:07
PROVIDERS: PCP Family Medicine; Referring Provider Family Medicine; Visit Provider Family Medicine
DX: E11.22 Type 2 diabetes mellitus with diabetic chronic kidney disease (principal); N18.31 Chronic kidney disease, stage 3a
CPT/HCPCS: 36415; 80053; 80061; 82043; 82570; 83036; 84443; 85025

== ENCOUNTER → 2025-04-23 | Outpatient (CLI) | payer MEDICARE, SELFPAY ==
[2025-04-23 18:29] LABS: AST(SGOT) 18 U/L (<=31); Alanine Aminotransfer ALT/SGPT 13 U/L (<=34); Albumin, Serum 4.3 g/dL (3.4-4.8); Alkaline Phosphatase 61 U/L (35-104); Anion Gap 14 (5-15); BUN 28 mg/dL (4-19); BUN/Creat Ratio 20.8 RATIO (10-20); Calcium,Total 10.1 mg/dL (7.6-11.0); Carbon Dioxide 23.8 mmol/L (21.0-32.0); Chloride 103 mmol/L (98-108); Globulin 2.6 g/dL (2.2-4.2); Glucose 109 mg/dL (70-99); Potassium 4.4 mmol/L (3.3-5.1)
--- OUTSIDE RECORDS SUMMARY | 2025-04-23 19:32 | XMS RPT_ITS | CCD ---
Author Organization [facility] Care Team Providers Care Trim Sawyer Name Role Phone Chris Skaggs MD Unavailable [phone] Lesley Sierra MD Primary Care Provider Dr. Lesley Sierra Primary Care Provider Dr. Lesley Sierra Referring Provider [phone] Dr. Chris Skaggs Attending Provider [phone] Clive Lin Emergency Provider Dr. Jeb Gonzalez Admit Provider Dr. Jeb Gonzalez Attending Provider Dr. Jeb Gonzalez Other Provider Dr. Lesley Kimball Attending Provider Dr. Lesley Kimball Other Provider Dr. Mario Jack Attending Provider Dr. Lesley Sierra Primary Care Provider Dr. Lesley Sierra Referring Provider Dr. Chris Skaggs Attending Provider Dr. Clive Lin Emergency Provider Dr. Jeb Gonzalezit Provider Dr. Jeb Gonzalez Attending Provider Dr. Jeb Gonzalez Other Provider Dr. Lesley Kimball Attending Provider Dr. Lesley Kimball Other Provider Dr. Mario Jack Attending Provider Dr. Warren Rollins Attending Provider Dr. Lesley Kimball Referring Provider Dr. Mundo Melendez Emergency Provider Dr. Thu Elmore Admit Provider Dr. Thu Elmore Attending Provider Dr. Thu Elmore Other Provider Dr. Madai Kinney Attending Provider Dr. Madai Kinney Other Provider Roof SHIRT FOLDING MACHINE OPERATOR, SHIRT FOLDING MACHINE OPERATOR-C Luis Enrique May Attending Provider Dr. Lesley Sierra Primary Care Provider Dr. Lesley Sierra Referring Provider Dr. Lesley Sierra Primary Care Provider Dr. Lesley Sierra Referring Provider Roof SHIRT FOLDING MACHINE OPERATOR, SHIRT FOLDING MACHINE OPERATOR-Rico May Attending Provider Dr. Lesley Sierra Primary Care Provider [phone] Lesley Sierra Referring Provider Claude MAYS, PA Valery Brandon Attending Provider Lesley Sierra MD Primary Care Provider Lesley Sierra Attending Unavailable Lesley Sierra Primary Care Unavailable Lesley Sierra Referring Unavailable Miles Groves Attending Unavailable Lesley Sierra Primary Care Unavailable Lesley Sierra Referring Unavailable Lesley Sierra Attending Unavailable Lesley Sierra Primary Care Unavailable Lesley Sierra Referring Unavailable Lesley Sierra MD Primary Care Provider [phone] LESLEY SIERRA Primary Care Unavailable CHRIS BARBOSA Referring Unavailable Medications Current Medications Medication Drug Class(es) Dates Sig (Normalized) Sig (Original) apixaban 2.5 mg oral tablet (15 sources) Factor Xa Inhibitor Start: 09-13-2022 End: 12-11-2022 take 1 tablet by mouth twice daily Apixaban (Eliquis) 2.5 mg tablet Active 2.5 MG PO TWICE A DAY 60 December 11, 2022 9:51am aspirin 81 mg chewable tablet (20 sources) Platelet Aggregation Inhibitor, Nonsteroidal Anti-inflammatory Drug Start: 12-09-2022 take 81 mg by mouth at breakfast Aspirin Active 81 MG PO WITH BREAKFAST 0 December 08, 2022 11:00pm Start: 08-31-2022 take 81 mg by mouth at breakfa st Aspirin Active 81 MG PO WITH BREAKFAST 0 August 31, 2022 12:00am Start: 08-01-2021 End: 08-01-2021 take 81 mg by mouth once daily Aspirin Discontinued 81 MG PO DAILY August 01, 2021 12:00am August 01, 2021 10:47am atorvastatin 40 mg oral tablet (18 sources) HMG-CoA Reductase Inhibitor Start: 08-31-2022 End: 12-08-2022 take 40 mg by mouth at bedtime Atorvastatin Active 40 MG PO AT BEDTIME December 08, 2022 3:53pm cholecalciferol 0.05 mg oral tablet (20 sources) Vitamin D Start: 06-06-2021 take 50 ug by mouth once daily Cholecalciferol (Vitamin D3) Active 50 MCG PO DAILY June 06, 2021 12:00am Start: 12-29-2014 End: 06-06-2021 take 2 tablets by mouth once daily Cholecalciferol (Vitamin D3) (Vitamin D3) 1,000 UNIT tablet Discontinued 2000 UNIT PO DAILY December 28, 2014 11:00pm June 06, 2021 5:04pm Cholecalciferol, Vitamin D3, (VITAMIN D-3) 2,000 unit ORAL Cap Take by mouth. Active VITAMIN D3 2000 UNIT CAPS CHOLECALCIFEROL [id number] Cameron Luna DO Comment on above: Take by mouth. FLAXSEED OIL (OMEGA 3 ORAL) (3 sources) FLAXSEED OIL (OM EGA 3 ORAL) Take by mouth once daily. Active FLAXSEED OIL (OM EGA 3 ORAL) Take by mouth once daily. 0 Active Comment on above: Take by mouth once d aily. levothyroxine sodium 0.1 mg oral tablet (20 sources) l-Thyroxine Start: 0 take 1 tablet by mouth once daily levothyroxine (SYNTHROID) 100 mcg tablet Indications: Postsurgical hypothyroidism Take 1 tablet by mouth once daily. 90 tablet 3 01/27/2020 Active Start: 10-20-2015 End: 06-06-2021 take 88 ug by mouth once daily Levothyroxine Discontin ued 88 MCG PO DAILY October 20, 2015 2:48pm June 06, 2021 5:04pm Start: 07-11-2015 End: 10-20-2015 take 112 ug by mouth once daily Levothyroxine Discontinued 112 MCG PO DAILY 90 July 10, 2015 11:00pm October 20, 2015 2:48pm Comment on above: Take 1 tablet by jenni once daily. lisinopril 5 mg oral tablet (20 sources) Angiotensin Converting Enzyme Inhibitor Start: take 2.5 mg by mouth at bedtime Lisinopril Active 2.5 MG PO AT BEDTIME January 29, 2023 1:53pm Start: 12-11-2022 End: 01-29-2023 take 10 mg by mouth at bedtime Lisinopril Discontinued 10 MG PO AT BEDTIME December 11, 2022 9:48am January 29, 2023 1:54pm Start: 06-06-2021 End: 12-11-2022 take 5 mg by mouth twice daily Lisinopril Discontinued 5 MG PO TWICE A DAY December 04, 2022 8:59am December 11, 2022 9:49am ubidecarenone 50 mg chewable tablet (4 sources) Start: 12-29-2014 Coenzyme Q10 A ctive 100 MG PO DAILY December 29, 2014 12:00am UBIDECARENONE (COQ-10 ORAL) (3 sources) UBIDECARENONE (C OQ-10 ORAL) Take by mouth. Active UBIDECARENONE (C OQ-10 ORAL) Take by mouth. 0 Active Comment on above: Take by mouth. Completed/Discontinued Medications Medication Drug Class(es) Dates Sig (Normalized) Sig (Original) Acetaminophen / HYDROcodone (4 sources) Opioid Agonist Start: 10-02-2011 VICODIN 5-500 MG TABS one tab four times a day as needed for pain HYDROCODONE-ACETAMI NOPHEN [id number] Santi Brush MD Start: 10-02-2011 End: 01-17-2012 VICODIN 5-500 MG TABS one ta b four times a day as needed for pain HYDROCODONE-ACETAMINOPHEN [id number] Cameron Luna DO amLODIPine 5 mg oral tablet (19 sources) Dihydropyridine Calcium Channel Belle Start: 12-11-2022 End: 12-11-2022 take 2.5 mg by mouth twice daily Amlodipine Discontinued 2.5 MG PO TWICE A DAY 60 December 11, 2022 9:44am December 11, 2022 9:49am Start: 12-09-2022 End: 01-29-2023 take 5 mg by mouth once daily Amlodipine Discontinued 5 MG PO DAILY December 11, 2022 9:48am January 29, 2023 1:53pm ascorbic acid 250 mg oral tablet (16 sources) Vitamin C Start: 06-06-2021 End: 06-07-2021 take 250 mg by mouth once daily Ascorbic Acid (Vitamin C) Discontinued 250 MG PO DAILY June 05, 2021 11:00pm June 07, 2021 2:28pm End: 09-12-2011 VITAMIN C 250 MG TABS ASCORB IC ACID [id number] Cameron Luna DO cefadroxil 500 mg oral capsule (4 sources) Cephalosporin Antibacterial Start: 10-02-2011 End: 01-17-2012 CEFADROXIL 500 MG CAPS one tab twice a day CEFADROXIL [id number] Santi Brush MD clopidogrel 75 mg oral tablet (20 sources) P2Y12 Platelet Inhibitor Start: 08-31-2022 End: 09-13-2022 take 75 mg by mouth once daily Clopidogrel Discontinued 75 MG PO DAILY August 31, 2022 12:00am September 13, 2022 3:23pm Start: 07-26-2021 End: 08-01-2021 take 1 tablet by mouth once daily Clopidogrel (Plavix) 75 mg tablet Discontinued 75 MG PO daily July 25, 2021 11:00pm August 01, 2021 10:48am COENZYME Q10 CAPS (1 source) CO Q 10 CAPS FABRICIO NZYME Q10 CAPS [id number] Cameron Luna DO COENZYME Q10 CAPS (1 source) CO Q 10 CAPS FABRICIO NZYME Q10 CAPS [id number] Cameron Luna DO fish oil (1 source) EQL FISH OIL CAP S OMEGA-3 FATTY ACIDS CAPS [id number] Cameron Luna DO Flaxseed extract (2 sources) Non-Standardized Food Allergenic Extract, Non-Standardized Plant Allergenic Extract FLAX SEED OIL CAPS FLAXSEED (LINSEED) CAPS [id number] Cameron Luna DO Dzcoj-Po-2-Dha-Epa -Phospho-Ast (Krill Oil) 1 EACH capsule (12 sources) Start: 12-29-2014 End: 06-06-2021 take 1 capsule by mouth once daily Hdxfl-Ev-7-Dha-Epa-Ph ospho-Ast (Krill Oil) 1 EACH capsule Discontinued 1 EACH PO DAILY December 29, 2014 12:00am June 06, 2021 6:05pm Start: 12-29-2014 End: 06-06-2021 take 1 capsule by mouth once daily Ogfed-We-4-Ops-Ltw-Nnelfzc-Ast (Krill Oi l) 1 EACH capsule Discontinued 1 EACH PO DAILY December 28, 2014 11:00pm June 06, 2021 5:05pm metoprolol tartrate 25 mg oral tablet (10 sources) beta-Adrenergic Belle Start: 11-21-2022 End: 11-21-2022 take 25 mg by mouth twice daily Metoprolol Tartrate Discontinued 25 MG PO TWICE A DAY November 21, 2022 12:00am November 21, 2022 8:56am naproxen sodium 220 mg oral tablet (12 sources) Nonsteroidal Anti-inflammatory Drug Start: 10-20-2015 End: 11-02-2015 take 1 tablet by mouth every twelve hours as needed Naproxen Sodium (Aleve) 220 MG tablet Discontinued 220 MG PO EVERY 12 HOURS NEEDED October 20, 2015 12:00am November 02, 2015 1:08pm OMEGA-3 FATTY ACIDS CAPS (1 source) EQL FISH OIL CAP S OMEGA-3 FATTY ACIDS CAPS [id number] Cameron Luna DO oxyCODONE hydrochloride 5 mg oral tablet (12 sources) Opioid Agonist Start: 01-01-2015 End: 01-02-2015 take 1 tablet by mouth every four hours as needed for pain, then take 2 tablets by mouth every four hours as needed for pain Oxycodone Discontinued 5 MG PO EVERY 4 HOURS NEEDED December 31, 2014 11:00pm January 02, 2015 11:35am 1 or 2 tabs by mouth every 4 hours as needed for foot pain predniSONE 20 mg oral tablet (7 sources) Start: 12-09-2022 End: 01-29-2023 take 2 tablets by mouth once daily Prednisone Discontinued 20 MG PO DAILY December 08, 2022 11:00pm January 29, 2023 1:53pm Take 2 tablets once daily for 5 days Problems Active Problems Problem Classification Problem Date Documented Date Episodic/Chronic Acute cerebrovascular disease (20 sources) Cerebrovascular accident; Translations: [Cerebral infarction, unspecified] Chronic Blindness and vision defects (11 sources) Hemianopia ; Translations: [Homonymous bilateral field defects, left side] Episodic Cardiac dysrhythmias (20 sources) Paroxysmal atrial fibrillation; Translations: [Paroxysmal atrial fibrillation] Onset: 11-02-2024 11-21-2022 Chronic Complications of surgical procedures or medical care (3 sources) Postoperative hypothyroidism; Translations: [Postprocedural hypothyroidism] Onset: 08-17-2015 09-18-2021 Chronic Conditions associated with dizziness or vertigo (12 sources) Dizziness; Translations: [Dizziness and giddiness] 12-11-2022 Episodic Diabetes mellitus with complications (1 source) Type 2 diabetes mellitus with diabetic chronic kidney disease; Translations: [Type 2 diabetes mellitus with diabetic chronic kidney disease] Onset: 10-23-2024 Chronic Disorders of lipid metabolism (12 sources) Mixed hyperlipidemia; Translations: [Mixed hyperlipidemia] 09-08-2022 Chronic Essential hypertension (12 sources) Benign essential hypertension; Translations: [Essential (primary) hypertension] 09-08-2022 Chronic Fracture of upper limb (19 sources) Fracture of proximal phalanx of finger; Translations: [Displaced fracture of proximal phalanx of unspecified finger, initial encounter for closed fracture] Episodic Malaise and fatigue (11 sources) Asthenia; Translations: [Weakness] 12-09-2022 Episodic Other and unspecified benign neoplasm (16 sources) Personal history of colonic polyps; Translations: [Hemangioma] Onset: 05-23-2017 05-23-2017 Episodic Other lower respiratory disease (12 sources) Nodule of lung; Translations: [Solitary pulmonary nodule] 06-07-2021 Episodic Other nervous system disorders (8 sources) Ataxia; Translations: [Ataxia, unspecified] 12-08-2022 Episodic Other nervous system disorders (5 sources) Ataxia, unspecified; Translations: [Lack of coordination] 12-08-2022 Episodic Other non-traumatic joint disorders (12 sources) Hip pain; Translations: [Pain in left hip] 09-08-2022 Episodic Other nutritional; endocrine; and metabolic disorders (3 sources) Obese class I; Translations: [Obesity, unspecified] Onset: 02-11-2019 02-11-2019 Chronic Superficial injury; contusion (6 sources) Ecchymosis; Translations: [Contusion of left hand, initial encounter] Episodic Thyroid disorders (12 sources) Hypothyroidism; Translations: [Hypothyroidism, unspecified] 09-08-2022 Chronic Past or Other Problems Problem Classification Problem Date Documented Date Episodic/Chronic Fracture of lower limb (13 sources) Closed fracture of ankle; Translations: [Other fracture of left lower leg, initial encounter for closed fracture] Onset: 02-11-2019 Resolved: 02-11-2019 09-08-2022 Episodic Neoplasms of unspecified nature or uncertain behavior (2 sources) Neoplasm of uncertain behavior of skin; Translations: [Neoplasm of uncertain behavior of skin] 03-27-2011 Episodic Other and unspecified benign neoplasm (1 source) Hemangioma; Translations: [Hemangioma unspecified site] 03-27-2011 Episodic Other and unspecified benign neoplasm (1 source) Carcinoid tumor of lung; Translations: [Benign carcinoid tumor of the bronchus and lung] Onset: 05-16-2015 Resolved: 02-10-2018 09-18-2021 Episodic Other and unspecified benign neoplasm (1 source) Hurthle cell metaplasia of thyroid gland; Translations: [Benign neoplasm of thyroid gland] Onset: 05-16-2015 Resolved: 02-10-2018 09-18-2021 Episodic Other lower respiratory disease (3 sources) Multiple nodules of lung; Translations: [Other nonspecific abnormal finding of lung field] Onset: 02-11-2019 01-27-2020 Episodic Other nervous system disorders (2 sources) Skin sensation disturbance; Translations: [Unspecified disturbances of skin sensation] Onset: 09-12-2011 09-30-2011 Episodic Other nervous system disorders (1 source) Postoperative pain ; Translations: [Other acute postprocedural pain] Onset: 05-17-2015 Resolved: 08-17-2015 09-18-2021 Episodic Other screening for suspected conditions (not mental disorders or infectious disease) (20 sources) Cardiovascular stress test abnormal; Translations: [Abnormal result of other cardiovascular function study] Onset: 06-25-2024 09-08-2022 Episodic Other skin disorders (11 sources) Lentigo; [...] [Other specified disorders of skin] 03-27-2011 Episodic Unclassified (1 source) Drug therapy finding; Translations: [DVT prophylaxis] Onset: 05-16-2015 Resolved: 08-17-2015 09-18-2021 Results Test Name Value Interpretation Reference Range Facility CT CHEST WO IVCONon 11-26-19 CT CHEST WO IVCON * * *Final Report* * * DATE OF EXAM: Nov 25 2024 11:26AM [facility] 0541 - CT CHEST WO IVCON / PROCEDURE REASON: Malignant Neoplasm of Lung * * * * Physician Interpretation * * * * EXAMINATION: CHEST CT WITHOUT CONTRAST CLINICAL HISTORY: 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 Technique: Spiral CT acquisition of the chest from the thoracic inlet to the upper abdomen without contrast. MQ: CTCWO_6 CT Radiation dose: Integrated Dose-length product (DLP) for this visit = 472 mGy*cm CT Dose Reduction Employed: Automated exposure control(AEC) and iterative recon Comparison: Multiple prior CT scans of the chest including the most recent study 11/28/2023 RESULT: Limitations: None. Lines, tubes, and devices: None. Lung parenchyma and airways: Status post left upper lobectomy with no findings to suggest recurrent mass. Minimal right apical pleural-parenchyma l scarring. No focal pulmonary consolidation. Bibasilar linear atelectasis/scarri ng. Multiple subcentimeter pulmonary nodules. For reference: 6 mm right upper lobe nodule (7:80). 5 mm right upper lobe nodule (7:93). 2 mm left lower lobe nodule (7:144). 4 mm right middle lobe nodule, previously 3 mm (7:117). 4 mm right middle lobe nodule (7:131). 3-4 mm right lower lobe nodules (7:110)(7:120) (7:132). 15 x 11 mm nodule in the central right upper lobe adjacent to the right superior pulmonary vein is stable since 2018 and likely benign (7:100). No new or enlarging suspicious pulmonary nodules. The central airways are patent without suspicious endobronchial lesion. Pleural space: No pleural effusion, nodular pleural thickening, or pneumothorax. Lower neck, lymph nodes, and mediastinum: Status post total thyroidectomy with clips in the surgical bed. No lymphadenopathy in the supraclavicular, axillary, mediastinal, or hilar regions. The esophagus is nondilated. Heart, pericardium, and thoracic vessels: The thoracic aorta and main pulmonary artery are normal in caliber. Mild thoracic atherosclerosis with involvement of the aortic root and great vessel origins. There is left atrial enlargement. Mitral annular calcifications. No coronary artery atherosclerotic calcifications are noted, although the study is not optimized for coronary assessment. No pericardial effusion or thickening. Bones and soft tissues: No destructive bone lesion. 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 Mild generalized osteopenia. Mild to moderate bilateral degenerative joint disease in the glenohumeral joints. The soft tissues of the chest wall appear unremarkable. Upper abdomen: Visualized portions of the upper abdomen disclose no acute process. Cholelithiasis is noted. A suspected 10 mm nodule of the left adrenal gland (6:373) appears unchanged in CT appearance since the prior exam. Atherosclerotic calcifications within the abdominal aorta and its major branches. Localizer images: Status post bilateral total hip arthroplasties. IMPRESSION: Compared to 11/28/2023, no convincing evidence of recurrent or metastatic disease has developed. More specifically, 1. Again demonstrated are postoperative changes of left upper lobectomy. No evidence of recurrent mass is identified. 2. Stable appearance of multiple indeterminate lung nodules. 3. No new or progressive thoracic adenopathy. Continued CT surveillance per clinical protocol is suggested. Box Lining Machine Feeder: [facility] Transcribe Date/Time: Nov 25 2024 12:55P Dictated by : MARJ REIS MD This examination was interpreted and the report reviewed and electronically signed by: LEONARD BECKER MD on Nov 25 2024 3:20PM EST [id number] IACN Normal [facility] CT Chest WO contraston 11-25 IMPRESSION: Compared to 11/28/2023, no convincing evidence of recurrent or metastatic disease has developed. More specifically, 1. Again demonstrated are postoperative changes of left upper lobectomy. No evidence of recurrent mass is identified. 2. Stable appearance of multiple indeterminate lung nodules. 3. No new or progressive thoracic adenopathy. Continued CT surveillance per clinical protocol is suggested. 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 Status post total thyroidectomy for Hurthle cell adenoma. Technique: Spiral CT acquisition of the chest from the thoracic inlet to the upper abdomen without contrast. MQ: CTCWO_6 CT Radiation dose: Integrated Dose-length product (DLP) for this visit = 472 mGy*cm CT Dose Reduction Employed: Automated exposure control(AEC) and iterative recon Comparison: Multiple prior CT scans of the chest including the most recent study 11/28/2023 RESULT: Limitations: None. Lines, tubes, and devices: None. Lung parenchyma and airways: Status post left upper lobectomy with no findings to suggest recurrent mass. Minimal right apical pleural-parenchyma l scarring. No focal pulmonary consolidation. Bibasilar linear atelectasis/scarri ng. Multiple subcentimeter pulmonary nodules. For reference: 6 mm right upper lobe nodule (7:80). 5 mm right upper lobe nodule (7:93). 2 mm left lower lobe nodule (7:144). 4 mm right middle lobe nodule, previously 3 mm (7:117). 4 mm right middle lobe nodule (7:131). 3-4 mm right lower lobe nodules (7:110)(7:120) (7:132). 15 x 11 mm nodule in the central right upper lobe adjacent to the right superior pulmonary vein is stable since 2018 and likely benign (7:100). No new or enlarging suspicious pulmonary nodules. The central airways are patent without suspicious endobronchial lesion. Pleural space: No pleural effusion, nodular pleural thickening, or pneumothorax. Lower neck, lymph nodes, and mediastinum: Status post total thyroidectomy with clips in the surgical bed. No lymphadenopathy in the supraclavicular, axillary, mediastinal, or hilar regions. The esophagus is nondilated. Heart, pericardium, and thoracic vessels: The thoracic aorta and main pulmonary artery are normal in caliber. Mild thoracic atherosclerosis with involvement of the aortic root and great vessel origins. There is left atrial enlargement. Mitral annular calcifications. No coronary artery atherosclerotic calcifications are noted, although the study is not optimized for coronary assessment. No pericardial effusion or thickening. Bones and soft tissues: No destructive bone lesion. 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 Mild generalized osteopenia. Mild to moderate bilateral degenerative joint disease in the glenohumeral joints. The soft tissues of the chest wall appear unremarkable. Upper abdomen: Visualized portions of the upper abdomen disclose no acute process. Cholelithiasis is noted. A suspected 10 mm nodule of the left adrenal gland (6:373) appears unchanged in CT appearance since the prior exam. Atherosclerotic calcifications within the abdominal aorta and its major branches. Localizer images: Status post bilateral total hip arthroplasties. 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 Status post total thyroidectomy for Hurthle cell adenoma. Technique: Spiral CT acquisition of the chest from the thoracic inlet to the upper abdomen without contrast. MQ: CTCWO_6 CT Radiation dose: Integrated Dose-length product (DLP) for this visit = 472 mGy*cm CT Dose Reduction Employed: Automated exposure control(AEC) and iterative recon Comparison: Multiple prior CT scans of the chest including the most recent study 11/28/2023 RESULT: Limitations: None. Lines, tubes, and devices: None. Lung parenchyma and airways: Status post left upper lobectomy with no findings to suggest recurrent mass. Minimal right apical pleural-parenchyma l scarring. No focal pulmonary consolidation. Bibasilar linear atelectasis/scarri ng. Multiple subcentimeter pulmonary nodules. For reference: 6 mm right upper lobe nodule (7:80). 5 mm right upper lobe nodule (7:93). 2 mm left lower lobe nodule (7:144). 4 mm right middle lobe nodule, previously 3 mm (7:117). 4 mm right middle lobe nodule (7:131). 3-4 mm right lower lobe nodules (7:110)(7:120) (7:132). 15 x 11 mm nodule in the central right upper lobe adjacent to the right superior pulmonary vein is stable since 2018 and likely benign (7:100). No new or enlarging suspicious pulmonary nodules. The central airways are patent without suspicious endobronchial lesion. Pleural space: No pleural effusion, nodular pleural thickening, or pneumothorax. Lower neck, lymph nodes, and mediastinum: Status post total thyroidectomy with clips in the surgical bed. No lymphadenopathy in the supraclavicular, axillary, mediastinal, or hilar regions. The esophagus is nondilated. Heart, pericardium, and thoracic vessels: The thoracic aorta and main pulmonary artery are normal in caliber. Mild thoracic atherosclerosis with involvement of the aortic root and great vessel origins. There is left atrial enlargement. Mitral annular calcifications. No coronary artery atherosclerotic calcifications are noted, although the study is not optimized for coronary assessment. No pericardial effusion or thickening. Bones and soft tissues: No destructive bone lesion. 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 Mild generalized osteopenia. Mild to moderate bilateral degenerative joint disease in the glenohumeral joints. The soft tissues of the chest wall appear unremarkable. Upper abdomen: Visualized portions of the upper abdomen disclose no acute process. Cholelithiasis is noted. A suspected 10 mm nodule of the left adrenal gland (6:373) appears unchanged in CT appearance since the prior exam. Atherosclerotic calcifications within the abdominal aorta and its major branches. Localizer images: Status post bilateral total hip arthroplasties. IMPRESSION IMPRESSION: Compared to 11/28/2023, no convincing evidence of recurrent or metastatic disease has developed. More specifically, 1. Again demonstrated are postoperative changes of left upper lobectomy. No evidence of recurrent mass is identified. 2. Stable appearance of multiple indeterminate lung nodules. 3. No new or progressive thoracic adenopathy. Continued CT surveillance per clinical protocol is suggested. Box Lining Machine Feeder[facility] Transcribe Date/Time: Nov 25 2024 12:55P Dictated by : MARJ REIS MD This examination was interpreted and the report reviewed and electronically signed by: LEONARD BECKER MD on Nov 25 2024 3:20PM EST [facility] Radiology Study observation (narrative) [facility] CT Chest WO contrastOrdered By: Ccf Provider on 11-25-2024 [facility] 12 Lead EKG performed [place] [facility] [place] 11-02-2024 12 Lead EKG performed by [facility] [address] [facility] [place] [address] 12 Lead EKG performed [place] [facility] 11/02/24 1127 MR#: [id number] Acct: [id number] Name: IRAJ SANTOS Rep #: [id number] : 1935 89 From: Miles Groves MD Attending Dr: Dr. Miles Groves MD Status: MONTOYA Ordering Dr: Miles Groves MD Date: 11/02/24 Location: [facility] [place] Sex: F C Admitted: BMS/12 Lead EKG performed by [facility] ECG Report Interpretation --------Atrial fibrillation - occasional ectopic ventricular beat Voltage criteria for Left ventricular hypertrophy -Old anteroseptal infarct. -Nonspecific ST depression + Negative T-waves ABNORMAL Electronically signed on 11/02/2024 at 14:[address] Miles Groves [employer] Version 8610 11/02/24 1503 Date Miels Groves MD CC: Dr. Lesley Sierra MD Date Dictated: 11/02/241126 Date Transcribed: 11/02/241126 [employer] Lining Machine Feeder: Signed Normal [facility] Cardiology Visit Reporton Cardiology Visit Report [facility] [address] [place] [address] OFFICE VISIT Date of Service: 11/02/24 MR#: [id number] Acct: [id number] Name: IRAJ SANTOS Rep #: [id number] : 1935 Provider: Dr. Miles kaur MD Age/Sex: 89/F [place] [facility] Status: Signed HPI HPI History of Present Illness Details: Patient is a 89-year-old white female who comes today for monitoring of her cardiovascular status. Patient carries a history of atrial fibrillation which is known to be persistent. She is on Eliquis denies any nuisance bleeding. She denies any symptoms she really does not know that she is in atrial fibrillation. 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 The patient has a history of normal coronary arteries July 2021 her echocardiogram done August 2022 showed a normal EF of 60% the bubble contrast study was negative for [id number] shunt. The left atrium was moderately enlarged and there was trivial mitral regurgitation. EKG in office today shows atrial fibrillation with a controlled ventricular response of 86 bpm. There is an occasional PVC noted there is voltage criteria for LVH and an old septal infarct cannot be excluded. There was nondiagnostic ST-T wave changes consistent with LVH. Patient denies any lower extremity edema denies any PND orthopnea. She reports she is doing fairly well in her home environment denying any anginal type symptoms syncope or near syncope. Intake Vital Signs 09/11/23 10:49 11/02/24 14:22 Height 5 ft 7 in 5 ft 7 in Weight: 208 lb BMI 32.5 BP 112/82 H Blood Pressure Location Lt brachial Position Sitting Respiration 18 Pulse 71 Pulse Source Monitor Pulse Oximetry (%) 96 Oxygen Delivery Method room air Intake Visit Reasons: 1 Y FU Access Nurse Required: No Accompanied by: Self Is patient in pain?: No Allergies No Known Allergies Allergy (Verified 11/02/24 14:23) Medications ???Medication ???Instructions ???Recorded ???Confirmed ???Type levothyroxine 100 mcg tablet 100 mcg PO DAILY THYROID 06/06/21 11/02/24 History atorvastatin 40 mg tablet 40 mg PO QHS CHOLESTEROL 12/08/22 11/02/24 History aspirin 81 mg chewable tablet 81 mg PO BREAKFAST #0 tabs 3 11/02/24 Rx apixaban 2.5 mg tablet (Eliquis) 2.5 mg PO BID BLOOD THINNER #60 11/02/24 Rx tabs lisinopril 5 mg tablet 2.5 mg PO QHS BLOOD PRESSURE 01/2911/02/24 History Ejection fraction %: 60 Have you fallen in the past year?: No PFSH Medical History (Updated 11/02/24 @ 14:[address] 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 Generalized weakness Paroxysmal atrial fibrillation NSVT (nonsustained ventricular tachycardia) Closed fracture of phalanx of left ring finger Hemianopia of left eye Occipital stroke Personal history of colonic polyps Hypertension Abnormal stress test Loss of hearing Wears glasses Cancer Thyroid disease Arthritis Restless legs Non-smoker History of pain when walking History of echocardiogram History of stress test Cardiology follow-up encounter Benign essential HTN Preoperative cardiovascular examination Hypothyroidism Abnormal EKG Lung nodule Closed left ankle fracture Chronic left hip pain Surgical History History of colonoscopy ( 2017) H/O total hip arthroplasty History of cardiac catheterization History of thyroidectomy History of lobectomy of lung History of appendectomy H/O hysterectomy with unilateral oophorectomy ( 09/18/21) History of left hip replacement Family History Other Breast cancer CVA (cerebral vascular accident) Heart disease Social History Smoking Status: Never smoker alcohol intake: never substance use type: does not use caffeine: No ROS Const Const: Positive for fatigue; Negative for weakness ENT ENT: Positive for dizziness (only when standing up in the morning); Negative for balance problems Cardio Chest Pain: No Palpitations: No Edema: None Muscle aches with walking: None Resp Respiratory: Negative for SOB with activity, SOB at rest or SOB orthopnea SOB lying down GI GI: Negative nausea, vomiting or heartburn Musc Musc: Negative for muscle weakness or balance problems Neuro Neuro: Positive for dizziness (only when standing up in the morning); Negative for lightheadedness, near syncope, syncope or weakness Endo Endo: Positive for fatigue Cardiology Exam Const Appearance: cooperative, comfortable and no acute distress Nutritional Appearance (more content not included)... Normal [facility] CBC W/Diff, Automatedon 09-23 Absolute Lymph 1.31 X10 3/uL Normal 0.83-4.51 [facility] Comment on above: Order Comment: Order Date: 10/02/24 Order Info: 0184-1 - CBCD Performed By: #### L 501.9520, L100.0100, L500.4050, L501.9985 #### [facility] [address] [place], [address] Absolute Neut 4.6 X10 3/uL Normal 2.0-7.7 [facility] Comment on above: Order Comment: Order Date: 10/02/24 Order Info: 0184-1 - CBCD Performed By: #### L 501.9520, L100.0100, L500.4050, L501.9985 #### [facility] [address] [place], [address] Basophils/100 WBC (Bld) 0.7 % Normal 0-1 [facility] Comment on above: Order Comment: Order Date: 10/02/24 Order Info: 0184-1 - CBCD Performed By: #### L 501.9520, L100.0100, L500.4050, [id number] #### [facility] [address] [place], [address] Eosinophils/100 WBC (Bld) 1.8 % Normal 0-5 [facility] Comment on above: Order Comment: Order Date: 10/02/24 Order Info: 0184-1 - CBCD Performed By: #### L 501.9520, L100.0100, L500.4050, L501.9985 #### [facility] [address] [place], [address] Erythrocyte distribution width (RBC) [Ratio] 13.6 % Normal 11.6-14.6 [facility] Comment on above: Order Comment: Order Date: 10/02/24 Order Info: 0184-1 - CBCD Performed By: #### L 501.9520, L100.0100, L500.4050, L501.9985 #### [facility] [address] [place], [address] Hematocrit (Bld) [Volume fraction] 45.7 % Normal 37-47 [facility] Comment on above: Order Comment: Order Date: 10/02/24 Order Info: 0184-1 - CBCD Performed By: #### L 501.9520, L100.0100, L500.4050, L501.9985 #### [facility] [address] [place], [address] Hemoglobin (Bld) [Mass/Vol] 14.9 g/dL Normal 12.0-15.0 [facility] Comment on above: Order Comment: Order Date: 10/02/24 Order Info: 0184-1 - CBCD Performed By: #### L 501.9520, L100.0100, L500.4050, L501.9985 #### [facility] [address] [place], [address] IG% 0.400 Normal 0.0-0.9 [facility] Comment on above: Order Comment: Order Date: 10/02/24 Order Info: 0184-1 - CBCD Result Comment: IG% - Immature Granulocytes (promyelocytes, myelocytes and metamyelocytes) > 1% indicates that a LEFT SHIFT is Present. Performed By: #### L 501.9520, L100.0100, L500.4050, L501.9985 #### [facility] [address] [place], [address] Lymphocytes/100 WBC (Bld) 19.6 % Normal 19-41 [facility] Comment on above: Order Comment: Order Date: 10/02/24 Order Info: 0184-1 - CBCD Performed By: #### L 501.9520, L100.0100, L500.4050, L501.9985 #### [facility] [address] [place], [address] MCH (RBC) [Entitic mass] 30.2 pg Normal 27.0-32.0 [facility] Comment on above: Order Comment: Order Date: 10/02/24 Order Info: 0184-1 - CBCD Performed By: #### L 501.9520, L100.0100, L500.4050, L501.9985 #### [facility] [address] [place], [address] MCHC (RBC) [Mass/Vol] 32.6 g/dL Normal 32-36 [facility] Comment on above: Order Comment: Order Date: 10/02/24 Order Info: 0184-1 - CBCD Performed By: #### L 501.9520, L100.0100, L500.4050, L501.9985 #### [facility] [address] [place], [address] MCV (RBC) [Entitic vol] 92.7 fL Normal 81-99 [facility] Comment on above: Order Comment: Order Date: 10/02/24 Order Info: 0184-1 - CBCD Performed By: #### L 501.9520, L100.0100, L500.4050, L501.9985 #### [facility] [address] [place], [address] Monocytes/100 WBC (Bld) 9.3 % Normal 0-10 [facility] Comment on above: Order Comment: Order Date: 10/02/24 Order Info: 0184-1 - CBCD Performed By: #### L 501.9520, L100.0100, L500.4050, L501.9985 #### [facility] [address] [place], [address] Neutrophils/100 WBC (Bld) 68.2 % Normal 47-70 [facility] Comment on above: Order Comment: Order Date: 10/02/24 Order Info: 0184-1 - CBCD Performed By: #### L 501.9520, L100.0100, L500.4050, L501.9985 #### [facility] [address] [place], [address] Nucleated RBC (Bld) [#/Vol] 0 10*3/uL Normal 0-5 [facility] Comment on above: Order Comment: Order Date: 10/02/24 Order Info: 0184-1 - CBCD Performed By: #### L 501.9520, L100.0100, L500.4050, L501.9985 #### [facility] [address] [place], [address] Platelet mean volume (Bld) [Entitic vol] 10.3 fL Normal 6.2-12.0 [facility] Comment on above: Order Comment: Order Date: 10/02/24 Order Info: 0184-1 - CBCD Performed By: #### L 501.9520, L100.0100, L500.4050, L501.9985 #### [facility] [address] [place], [address] Platelets (Bld) [#/Vol] 269 10*3/uL Normal 150-450 [facility] Comment on above: Order Comment: Order Date: 10/02/24 Order Info: 0184-1 - CBCD Performed By: #### L 501.9520, L100.0100, L500.4050, L501.9985 #### [facility] [address] [place], [address] RBC (Bld) [#/Vol] 4.93 10*6/uL Normal 4.2-5.4 [facility] Comment on above: Order Comment: Order Date: 10/02/24 Order Info: 0184-1 - CBCD Performed By: #### L 501.9520, L100.0100, L500.4050, L501.9985 #### [facility] [address] [place], [address] RDW SD 46.5 fl High 35.1-43.9 [facility] Comment on above: Order Comment: Order Date: 10/02/24 Order Info: 0184-1 - CBCD Performed By: #### L 501.9520, L100.0100, L500.4050, L501.9985 #### [facility] [address] [place], [address] WBC (Bld) [#/Vol] 6.7 10*3/uL Normal 4.4-11.0 [facility] Comment on above: Order Comment: Order Date: 10/02/24 Order Info: 0184-1 - CBCD Performed By: #### L 501.9520, L100.0100, L500.4050, L501.9985 #### [facility] [address] [place], [address] Comprehensive Metabolic Prof ilon 10-02-2024 Albumin [Mass/Vol] 3.8 g/dL Normal 3.2-5.0 [facility] Comment on above: Order Comment: Order Date: 10/02/24 Order Info: 0786-1 - CMP Order Info: [id number] - LIPID Order Date: 03/30/24 Order Info: 3016-3 - TSH Performed By: #### L 501.9520, L100.0100, L500.4050, L501.9985 #### [facility] [address] [place], [address] Albumin/Globulin [Mass ratio] 1.2 {ratio} Normal 0.9-2.4 [facility] Comment on above: Order Comment: Order Date: 10/02/24 Order Info: 0786-1 - CMP Order Info: [id number] - LIPID Order Date: 03/30/24 Order Info: 3016-3 - TSH Performed By: #### L 501.9520, L100.0100, L500.4050, L501.9985 #### [facility] [address] [place], [address] ALK P 58 U/L Normal 45-117 [facility] Comment on above: Order Comment: Order Date: 10/02/24 Order Info: 0786-1 - CMP Order Info: [id number] - LIPID Order Date: 03/30/24 Order Info: 3016-3 - TSH Performed By: #### L 501.9520, L100.0100, L500.4050, L501.9985 #### [facility] [address] [place], [address] ALT [Catalytic activity/Vol] 23 U/L Normal 13-56 [facility] Comment on above: Order Comment: Order Date: 10/02/24 Order Info: 0786-1 - CMP Order Info: [id number] - LIPID Order Date: 03/30/24 Order Info: 3016-3 - TSH Performed By: #### L 501.9520, L100.0100, L500.4050, L501.9985 #### [facility] [address] [place], [address] AST [Catalytic activity/Vol] 15 U/L Normal 15-37 [facility] Comment on above: Order Comment: Order Date: 10/02/24 Order Info: 785-1 - CMP Order Info: [id number] - LIPID Order Date: 03/30/24 Order Info: 3016-3 - TSH Performed By: #### L 501.9520, L100.0100, L500.4050, L501.9985 #### [facility] [address] [place], [address] Bilirubin [Mass/Vol] 0.90 mg/dL Normal 0.20-1.00 [facility] Comment on above: Order Comment: Order Date: 10/02/24 Order Info: 785-1 - CMP Order Info: [id number] - LIPID Order Date: 03/30/24 Order Info: 3016-3 - TSH Result Comment: For patients on eltrombopag therapy, use of Dimension [place] TBIL is not recommended. Performed By: #### L 501.9520, L100.0100, L500.4050, L501.9985 #### [facility] [address] [place], [address] BUN/CRE 15.5 RATIO Normal 10-20 [facility] Comment on above: Order Comment: Order Date: 10/02/24 Order Info: 0786- - CMP Order Info: [id number] - LIPID Order Date: 03/30/24 Order Info: 3016-3 - TSH Performed By: #### L 501.9520, L100.0100, L500.4050, L501.9985 #### [facility] [address] [place], [address] CA,Total 9.9 mg/dL Normal 8.5-10.1 [facility] Comment on above: Order Comment: Order Date: 10/02/24 Order Info: 0786-1 - CMP Order Info: [id number] - LIPID Order Date: 03/30/24 Order Info: 3016-3 - TSH Performed By: #### L 501.9520, L100.0100, L500.4050, L501.9985 #### [facility] [address] [place], [address] Chloride [Moles/Vol] 106 mmol/L Normal 98-107 [facility] Comment on above: Order Comment: Order Date: 10/02/24 Order Info: 0786-1 - CMP Order Info: [id number] - LIPID Order Date: 03/30/24 Order Info: 3016-3 - TSH Performed By: #### L 501.9520, L100.0100, L500.4050, L501.9985 #### [facility] [address] [place], [address] CO2 [Moles/Vol] 27.0 mmol/L Normal 21.0-32.0 [facility] Comment on above: Order Comment: Order Date: 10/02/24 Order Info: 0786-1 - CMP Order Info: [id number] - LIPID Order Date: 03/30/24 Order Info: 3016-3 - TSH Performed By: #### L 501.9520, L100.0100, L500.4050, L501.9985 #### [facility] [address] [place], [address] Creatinine [Mass/Vol] 1.16 mg/dL High 0.55-1.02 [facility] Comment on above: Order Comment: Order Date: 10/02/24 Order Info: 0786-1 - CMP Order Info: [id number] - LIPID Order Date: 03/30/24 Order Info: 3016-3 - TSH Result Comment: The validity of the calculated GFR GFRAA in patients over 70 years has not been determined. Clinical correlation is essential. Performed By: #### L 501.9520, L100.0100, L500.4050, L501.9985 #### [facility] [address] [place], [address] EST GFR - AA 57 mL/min Low >60 [facility] Comment on above: Order Comment: Order Date: 10/02/24 Order Info: 0786-1 - CMP Order Info: [id number] - LIPID Order Date: 03/30/24 Order Info: 3016-3 - TSH Result Comment: Afri can Lebanese GFR Calc Performed By: #### L 501.9520, L100.0100, L500.4050, L501.9985 #### [facility] [address] [place], [address] GAP 6 Normal 5-15 [facility] Comment on above: Order Comment: Order Date: 10/02/24 Order Info: 07-1 - CMP Order Info: [id number] - LIPID Order Date: 03/30/24 Order Info: 3015-3 - TSH Performed By: #### L 501.9520, L100.0100, L500.4050, L501.9985 #### [facility] [address] [place], [address] GFR/1.73 sq M.predicted among non-blacks MDRD (S/P/Bld) [Vol rate/Area] 47 mL/min/{1.73_m2} Low >60 [facility] Comment on above: Order Comment: Order Date: 10/02/24 Order Info: 0786-1 - CMP Order Info: [id number] - LIPID Order Date: 03/30/24 Order Info: 301-3 - TSH Result Comment: Non- GFR Calc Performed By: #### L 501.9520, L100.0100, L500.4050, L501.9985 #### [facility] [address] [place], [address] Globulin (S) [Mass/Vol] 3.3 g/dL Normal 2.2-4.2 [facility] Comment on above: Order Comment: Order Date: 10/02/24 Order Info: 0786-1 - CMP Order Info: [id number] - LIPID Order Date: 03/30/24 Order Info: 3016-3 - TSH Performed By: #### L 501.9520, L100.0100, L500.4050, L501.9985 #### [facility] [address] [place], [address] Glucose [Mass/Vol] 124 mg/dL High 74-106 [facility] Comment on above: Order Comment: Order Date: 10/02/24 Order Info: 0786-1 - CMP Order Info: [id number] - LIPID Order Date: 03/30/24 Order Info: 3016-3 - TSH Result Comment: Fast ing Glucose result from 100 to 125 mg/dL suggests IMPAIRED HOMEOSTASIS per A.D.A. criteria. Performed By: #### L 501.9520, L100.0100, L500.4050, L501.9985 #### [facility] [address] [place], [address] Potassium [Moles/Vol] 3.8 mmol/L Normal 3.5-5.1 [facility] Comment on above: Order Comment: Order Date: 10/02/24 Order Info: 0786-1 - CMP Order Info: [id number] - LIPID Order Date: 03/30/24 Order Info: 3016-3 - TSH Performed By: #### L 501.9520, L100.0100, L500.4050, L501.9985 #### [facility] [address] [place], [address] Sodium [Moles/Vol] 138 mmol/L Normal 136-145 [facility] Comment on above: Order Comment: Order Date: 10/02/24 Order Info: 0786-1 - CMP Order Info: [id number] - LIPID Order Date: 03/30/24 Order Info: 3016-3 - TSH Performed By: #### L 501.9520, L100.0100, L500.4050, L501.9985 #### [facility] [address] [place], [address] T PROT 7.1 g/dL Normal 6.4-8.2 [facility] Comment on above: Order Comment: Order Date: 10/02/24 Order Info: 0786-1 - CMP Order Info: [id number] - LIPID Order Date: 03/30/24 Order Info: 3016-3 - TSH Performed By: #### L 501.9520, L100.0100, L500.4050, L501.9985 #### [facility] [address] [place], [address] Urea nitrogen [Mass/Vol] 18 mg/dL Normal 7-18 [facility] Comment on above: Order Comment: Order Date: 10/02/24 Order Info: 0786-1 - CMP Order Info: [id number] - LIPID Order Date: 03/30/24 Order Info: 3016-3 - TSH Performed By: #### L 501.9520, L100.0100, L500.4050, L501.9985 #### [facility] [address] [place], [place], [address] Creatinine, Urine (random)on 10-02-2024 UR CREAT 187.00 mg/dL Normal NO RANGE EST. [facility] Comment on above: Order Comment: Order Date: 10/02/24 Order Info: [id number] - CREATU Performed By: #### L 502.0250, L501.1200, L500.4100 #### [facility] [address] [place], [place], [address] Hemoglobin A1con 10-02-2024 HbA1c (Bld) [Mass fraction] 6.7 % High 3.8-5.6 [facility] Comment on above: Order Comment: Order Date: 03/30/24 Order Info: [id number] - A1C Result Comment: Norm al < 5.7 % Prediabetic 5.7 - 6.4 % Diabetic >or= 6.5 % Please note range changes. Performed By: #### L 501.9520, L100.0100, L500.4050, L501.9985 #### [facility] [address] [place], [address] Lipid Profileon 10-02-2024 Cholesterol [Mass/Vol] 137 mg/dL Normal 200 [facility] Comment on above: Order Comment: Order Date: 10/02/24 Order Info: 0786-1 - CMP Order Info: [id number] - LIPID Order Date: 03/30/24 Order Info: 3016-3 - TSH Result Comment: <200 mg/dL Desirable 200-240 mg/dL Borderline >240 mg/dL High Risk Performed By: #### L 502.0250, L501.1200, L500.4100 #### [facility] [address] [place], [address] Cholesterol in HDL [Mass/Vol] 45 mg/dL Normal [facility] Comment on above: Order Comment: Order Date: 10/02/24 Order Info: [id number] - CMP Order Info: [id number] - LIPID Order Date: 03/30/24 Order Info: [id number] - TSH Result Comment: The drugs N-Acetylcysteine and Metamizole may falsely depress this assay. Reference Range HDL <40 mg/dL Low HDL Cholesterol HDL >or= 60 mg/dL High HDL Cholesterol Performed By: #### L 502.0250, L501.1200, L500.4100 #### [facility] [address] [place], [address] Cholesterol in LDL [Mass/Vol] 69 mg/dL Normal 0-130 [facility] Comment on above: Order Comment: Order Date: 10/02/24 Order Info: [id number] - CMP Order Info: [id number] - LIPID Order Date: 03/30/24 Order Info: [id number] - TSH Performed By: #### L 502.0250, L501.1200, L500.4100 #### [facility] [address] [place], [address] Cholesterol in VLDL [Mass/Vol] 23 mg/dL Normal 5-40 [facility] Comment on above: Order Comment: Order Date: 10/02/24 Order Info: [id number] - CMP Order Info: [id number] - LIPID Order Date: 03/30/24 Order Info: [id number] - TSH Performed By: #### L 502.0250, L501.1200, L500.4100 #### [facility] [address] [place], [address] Triglyceride [Mass/Vol] 113 mg/dL Normal [facility] Comment on above: Order Comment: Order Date: 10/02/24 Order Info: [id number] - CMP Order Info: [id number] - LIPID Order Date: 03/30/24 Order Info: [id number] - TSH Result Comment: The drugs N-Acetylcysteine and Metamizole may falsely depress this assay. Serum Triglycerides Reference Interval Normal <150 mg/dL Borderline high 150 - 199 mg/dL High 200 - 499 mg/dL Very High > or = 500 mg/dL Performed By: #### L 502.0250, L501.1200, L500.4100 #### [facility] [address] [place], [address] Microalb:Creat Ratio,Random URon 10-02-2024 Creatinine [Mass/Vol] 187.00 mg/dL Normal NO RAN GE EST. [facility] Comment on above: Order Comment: Order Date: 10/02/24 Order Info: [id number] - MIACRE Performed By: #### L 502.0250, L501.1200, L500.4100 #### [facility] [address] [place], [address] MALB:CRE 27.7 mg/g CRE Normal <30 mg/g CRE [facility] Comment on above: Order Comment: Order Date: 10/02/24 Order Info: [id number] - MIACRE Performed By: #### L 502.0250, L501.1200, L500.4100 #### [facility] [address] [place], [address] MICROALBUMIN,UR 51.8 mg/L Normal NO RANGE EST. [facility] Comment on above: Order Comment: Order Date: 10/02/24 Order Info: [id number] - MIACRE Performed By: #### L 502.0250, L501.1200, L500.4100 #### [facility] [address] [place], [address] Thyroid Stim Hormone (TSH)on 10-02-2024 TSH 2.700 uIU/mL Normal 0.358-3.740 [facility] Comment on above: Order Comment: Order Date: 10/02/24 Order Info: [id number] - CMP Order Info: [id number] - LIPID Order Date: 03/30/24 Order Info: [id number] - TSH Performed By: #### L 501.9520, L100.0100, L500.4050, L501.9985 #### [facility] [address] [place], [address] SCRN MAMM (CAD)W/HEATHER BILATo n 06-04-2024 SCRN MAMM (CAD)W/HEATHER BILAT [facility] Imaging Services [address] [place] [address] SCRN MAMM (CAD)W/HEATHER BILAT MR#: [id number] Acct: [id number] Name: IRAJ SANTOS Rep #: [id number] : [id number] F [id number] From: Kwaku anand MD PCP: Dr. Lesley Sierra MD Status: [facility] Study: SCRN MAMM (CAD)W/HEATHER BILAT Date of Exam: 05/24 11/16 Exam# [id number] Ordering Dr: Lesley Sierra MD [id number] MAMMOGRAPHY - BILATERAL SCREENING REASON FOR EXAM: Female, 89 years old. Routine annual screening examination. PERTINENT HISTORY: Grandmother with breast cancer. TECHNIQUE: Digital bilateral breast heather (3D mammographic acquisition) in the CC and MLO projections. 2-D mediolateral oblique (MLO) and craniocaudad (CC) views of both breasts were obtained. CAD: Full Field Digital Mammography with Computer Added Detection was performed. COMPARISON: Comparison is made with prior study May 30, 2023 and May 29, 2022. FINDINGS: Breast Composition: The breasts are almost entirely fatty. There are no dominant masses or suspicious calcifications. Small bilateral axillary lymph nodes. No other significant abnormalities are identified. There has been no significant change since the prior study. BI/SCRN MAMM (CAD)W/HEATHER BILAT IMPRESSION: Stable bilateral screening mammogram. Yearly follow-up mammogram recommended. (A) ASSESSMENT CATEGORY: BIRADS Category 2: Benign. A letter regarding these results will be sent to the patient by the facility within 30 days. Approximately 10% of breast cancers are not detected by mammography. A normal mammogram should not delay biopsy of a clinically suspicious abnormality. [id number] Electronically Signed: Kwaku Pryor MD at 15:30 EDT , CC: Dr. Lesley Sierra MD Box Lining Machine Feeder: Signed Normal [facility] CT CHEST WO CONTRASTon 11-27 [facility] Absolute lymphocyte countOrd ered By: Lesley Sierra on 10-18-2023 Lymphocytes Auto (Unsp spec) [#/Vol] 1.46 10*3/uL 0.83-4.51 [facility] Automated lymphocyte count a s percentage of total leukocytesOrdered By: Lesley Sierra on 10-18-2023 Lymphocytes/100 WBC Auto (Unsp spec) 22.4 % 19-41 [facility] Basophil percentageOrdered B y: Lesley Sierra on 10-18-2023 Basophils/100 WBC (Bld) 0.8 % 0-1 [facility] Bilirubin [Mass/Vol] 0.80 mg/dL 0.20-1.00 [facility] Comment on above: For patients on eltr ombopag therapy, use of Dimension [place] TBIL is not recommended. Chloride [Moles/Vol] 108 mmol/L 98-107 [facility] Eosinophils/100 WBC (Bld) 3.1 % 0-5 [facility] Glucose [Mass/Vol] 123 mg/dL 74-106 [facility] Comment on above: Fasting Glucose resu lt from 100 to 125 mg/dL suggests IMPAIRED HOMEOSTASIS per A.D.A. criteria. Hemoglobin (Bld) [Mass/Vol] 13.0 g/dL 12.0-15.0 [facility] Monocytes/100 WBC (Bld) 10.3 % 0-10 [facility] Neutrophils (Bld) [#/Vol] 4.1 10*3/uL 2.0-7.7 [facility] Neutrophils/100 WBC (Bld) 63.1 % 47-70 [facility] Potassium [Moles/Vol] 4.0 mmol/L 3.5-5.1 [facility] Protein [Mass/Vol] 6.9 g/dL 6.4-8.2 [facility] Sodium [Moles/Vol] 140 mmol/L 136-145 [facility] WBC (Bld) [#/Vol] 6.5 10*3/uL 4.4-11.0 [facility] Determination of erythrocyte mean corpuscular volume (MCV)Ordered By: Lesley Sierra on 10-18-2023 MCV (RBC) [Entitic vol] 95.1 fL 81-99 [facility] Erythrocyte distribution wid th ratioOrdered By: Lesley Sierra on 10-18-2023 Erythrocyte distribution width (RBC) [Ratio] 13.5 % 11.6-14.6 [facility] Erythrocyte distribution wid th standard deviationOrdered By: Lesley Sierra on 10-18-2023 Erythrocyte distribution width (RBC) [Entitic vol] 47.0 fL 35.1-43.9 [facility] Hematocrit Auto (Bld) [Volum e fraction]Ordered By: Lesley Sierra on 10-18-2023 Hematocrit (Bld) [Volume fraction] 40.7 % 37-47 [facility] Immature granulocytes/100 WB C Auto (Bld)Ordered By: Lesley Sierra on 10-18-2023 Immature granulocytes/100 WBC (Bld) 0.300 % 0.0-0.9 [facility] Comment on above: IG% - Immature Granu locytes (promyelocytes, myelocytes and metamyelocytes) > 1% indicates that a LEFT SHIFT is Present. Laboratory - Chemistry and C hemistry - challengeOrdered By: Lesley Sierra on 10-18-2023 Albumin/Globulin [Mass ratio] 1.1 {ratio} 0.9-2.4 [facility] ALP [Catalytic activity/Vol] 58 U/L 45-117 [facility] ALT [Catalytic activity/Vol] 19 U/L 13-56 [facility] CO2 [Moles/Vol] 25.0 mmol/L 21.0-32.0 [facility] Globulin (S) [Mass/Vol] 3.3 g/dL 2.2-4.2 [facility] Urea nitrogen/Creatinine [Mass ratio] 18.7 mg/mg 10-20 [facility] - Hematology and Cell countsOrdered By: Lesley Sirera on 10-18-2023 MCH (RBC) [Entitic mass] 30.4 pg 27.0-32.0 [facility] MCHC (RBC) [Mass/Vol] 31.9 g/dL 32-36 [facility] Nucleated RBC/100 WBC (Bld) [Ratio] 0 % 0-5 [facility] Platelets (Bld) [#/Vol] 218 10*3/uL 150-450 [facility] No Panel InformationOrdered By: Lesley Sierra on 10-18-2023 Estimated GFR (MDRD) Amer 62 mL/min >60 [facility] Comment on above: GFR Calc Estimated GFR (MDRD) Non-Af Amer 52 mL/min >60 [facility] Comment on above: Non- GFR Calc Platelet mean volume Eric-Ec ker (Bld) [Entitic vol]Ordered By: Lesley Sierra on 10-18-2023 Platelet mean volume (Bld) [Entitic vol] 10.8 fL 6.2-12.0 [facility] RBC Auto (Bld) [#/Vol]Ordere d By: Lesley Sierra on 10-18-2023 RBC (Bld) [#/Vol] 4.28 10*6/uL 4.2-5.4 [facility] Serum or plasma calcium brigette urement (mass/volume)Ordered By: Lesley Sierra on 10-18-2023 Calcium [Mass/Vol] 9.5 mg/dL 8.5-10.1 [facility] Serum or plasma creatinine m easurement (mass/volume)Ordered By: Lesley Sierra on 10-18-2023 Creatinine [Mass/Vol] 1.07 mg/dL 0.55-1.02 [facility] Comment on above: The validity of the calculated GFR & GFRAA in patients over 70 years has not been determined. Clinical correlation is essential. Serum or plasma urea nitroge n measurement (mass/volume)Ordered By: Lesley Sierra on 10-18-2023 Urea nitrogen [Mass/Vol] 20 mg/dL 7-18 [facility] Thin prep Papanicolaou smear with manual screeningOrdered By: Lesley Sierra on 10-18-2023 Thin prep Papanicolaou smear with manual screening 3.6 g/dL 3.2-5.0 [facility] Thin prep Papanicolaou smear with manual screening 14 U/L 15-37 [facility] Thin prep Papanicolaou smear with manual screening 7 5-15 [facility] Absolute lymphocyte countOrd ered By: Lesley Sierra on 05-07-2023 Lymphocytes Auto (Unsp spec) [#/Vol] 1.35 10*3/uL 0.83-4.51 [facility] Basophil percentageOrdered B y: Lesley Sierra on 05-07-2023 Basophils/100 WBC (Bld) 0.5 % 0-1 [facility] Bilirubin [Mass/Vol] 0.60 mg/dL 0.20-1.00 [facility] Comment on above: For patients on eltr ombopag therapy, use of Dimension [place] TBIL is not recommended. Chloride [Moles/Vol] 106 mmol/L 98-107 [facility] Eosinophils/100 WBC (Bld) 1.9 % 0-5 [facility] Glucose [Mass/Vol] 131 mg/dL 74-106 [facility] Comment on above: Fasting Glucose resu lt greater than or equal to 126 mg/dL suggests DIABETES MELLITUS per A.D.A. criteria. Neutrophils (Bld) [#/Vol] 5.5 10*3/uL 2.0-7.7 [facility] Neutrophils/100 WBC (Bld) 71.5 % 47-70 [facility] Potassium [Moles/Vol] 3.9 mmol/L 3.5-5.1 [facility] Protein [Mass/Vol] 6.8 g/dL 6.4-8.2 [facility] Sodium [Moles/Vol] 141 mmol/L 136-145 [facility] WBC (Bld) [#/Vol] 7.7 10*3/uL 4.4-11.0 [facility] Blood erythrocytes count (nu mber/volume)Ordered By: Lesley Sierra on 05-07-2023 RBC (Bld) [#/Vol] 4.32 10*6/uL 4.2-5.4 [facility] Blood hemoglobin measurement (mass/volume)Ordered By: Lesley Sierra on 05-07-2023 Hemoglobin (Bld) [Mass/Vol] 13.2 g/dL 12.0-15.0 [facility] Blood lymphocytes/100 leukoc ytesOrdered By: Lesley Sierra on 05-07-2023 Lymphocytes/100 WBC (Bld) 17.5 % 19-41 [facility] Blood monocytes/100 leukocyt esOrdered By: Lesley Sierra on 05-07-2023 Monocytes/100 WBC (Bld) 8.3 % 0-10 [facility] Blood platelet mean volumeOr dered By: Lesley Sierra on 05-07-2023 Platelet mean volume (Bld) [Entitic vol] 10.9 fL 6.2-12.0 [facility] Determination of erythrocyte mean corpuscular volume (MCV)Ordered By: Lesley Sierra on 05-07-2023 MCV (RBC) [Entitic vol] 97.2 fL 81-99 [facility] Hematocrit Auto (Bld) [Volum e fraction]Ordered By: Lesley Sierra on 05-07-2023 Hematocrit (Bld) [Volume fraction] 42.0 % 37-47 [facility] - Chemistry and C hemistry - challengeOrdered By: Lesley Sierra on 05-07-2023 ALP [Catalytic activity/Vol] 62 U/L 45-117 [facility] ALT [Catalytic activity/Vol] 26 U/L 13-56 [facility] CO2 [Moles/Vol] 27.0 mmol/L 21.0-32.0 [facility] Globulin (S) [Mass/Vol] 3.4 g/dL 2.2-4.2 [facility] Urea nitrogen/Creatinine [Mass ratio] 18.3 mg/mg 10-20 [facility] - Hematology and Cell countsOrdered By: Lesley Sierra on 05-07-2023 Erythrocyte distribution width (RBC) [Entitic vol] 47.1 fL 35.1-43.9 [facility] Erythrocyte distribution width (RBC) [Ratio] 13.1 % 11.6-14.6 [facility] Immature granulocytes/100 WBC (Bld) 0.300 % 0.0-0.9 [facility] Comment on above: IG% - Immature Granu locytes (promyelocytes, myelocytes and metamyelocytes) > 1% indicates that a LEFT SHIFT is Present. MCH (RBC) [Entitic mass] 30.6 pg 27.0-32.0 [facility] Nucleated RBC/100 WBC (Bld) [Ratio] 0 % 0-5 [facility] MCHC Auto (RBC) [Mass/Vol]Or dered By: Lesley Sierra on 05-07-2023 MCHC (RBC) [Mass/Vol] 31.4 g/dL 32-36 [facility] No Panel InformationOrdered By: Lesley Sierra on 05-07-2023 Estimated GFR (MDRD) Amer 57 mL/min >60 [facility] Comment on above: GFR Calc Estimated GFR (MDRD) Non-Af Amer 47 mL/min >60 [facility] Comment on above: Non- GFR Calc Thyroid Stimulating Hormone (TSH) 0.84 uIU/mL 0.358-3.74 [facility] Urine Microalbumin/Creatinine Ratio 39.8 mg/g CRE <30 [facility] Platelets bldOrdered By: Torri Sierra on 05-07-2023 Platelets (Bld) [#/Vol] 230 10*3/uL 150-450 [facility] Serum or plasma albumin brigette urement (mass/volume)Ordered By: Lesley Sierra on 05-07-2023 Albumin [Mass/Vol] 3.4 g/dL 3.2-5.0 [facility] Serum or plasma albumin/glob ulin mass ratioOrdered By: Lesley Sierra on 05-07-2023 Albumin/Globulin [Mass ratio] 1.0 {ratio} 0.9-2.4 [facility] Serum or plasma calcium brigette urement (mass/volume)Ordered By: Lesley Sierra on 05-07-2023 Calcium [Mass/Vol] 9.4 mg/dL 8.5-10.1 [facility] Serum or plasma creatinine m easurement (mass/volume)Ordered By: Lesley Sierra on 05-07-2023 Creatinine [Mass/Vol] 1.15 mg/dL 0.55-1.02 [facility] Comment on above: The validity of the calculated GFR & GFRAA in patients over 70 years has not been determined. Clinical correlation is essential. Serum or plasma urea nitroge n measurement (mass/volume)Ordered By: Lesley Sierra on 05-07-2023 Urea nitrogen [Mass/Vol] 21 mg/dL 7-18 [facility] Thin prep Papanicolaou smear with manual screeningOrdered By: Lesley Sierra on 05-07-2023 Thin prep Papanicolaou smear with manual screening 14 U/L 15-37 [facility] Thin prep Papanicolaou smear with manual screening 8 5-15 [facility] Thin prep Papanicolaou smear with manual screening 135.0 mg/L NO RANGE EST. [facility] Urine creatinine measurement (mass/volume)Ordered By: Lesley Sierra on 05-07-2023 Creatinine (U) [Mass/Vol] 339.00 mg/dL NO RANGE EST. [facility] Whole blood hemoglobin A1c/t otal hemoglobin ratio (mass fraction)Ordered By: Lesley Sierra on 05-07-2023 HbA1c (Bld) [Mass fraction] 6.5 % 3.8-5.6 [facility] Comment on above: Normal < 5.7 % Predi abetic 5.7 - 6.4 % Diabetic >or= 6.5 % Please note range changes. Culture, urineOrdered By: Yarelis Martinez on 12-12-2022 Bacteria identified Cx Nom (U) Mixed Gram Pos & Gram Neg Org [facility] Basophil percentageOrdered B y: Dr. Sierra on 12-10-2022 Bilirubin [Mass/Vol] 0.50 mg/dL 0.20-1.00 [facility] Comment on above: For patients on eltr ombopag therapy, use of Dimension [place] TBIL is not recommended. Chloride [Moles/Vol] 102 mmol/L 98-107 [facility] Glucose [Mass/Vol] 174 mg/dL 74-106 [facility] Comment on above: Fasting Glucose resu lt greater than or equal to 126 mg/dL suggests DIABETES MELLITUS per A.D.A. criteria. Potassium [Moles/Vol] 3.5 mmol/L 3.5-5.1 [facility] Protein [Mass/Vol] 7.0 g/dL 6.4-8.2 [facility] Sodium [Moles/Vol] 137 mmol/L 136-145 [facility] Culture, urineOrdered By: Dr Jaguar Melendez on 12-10-2022 Bacteria identified Cx Nom (U) Mixed Gram Pos & Gram Neg [facility] - Chemistry and C hemistry - challengeOrdered By: Dr. Sierra on 12-10-2022 ALP [Catalytic activity/Vol] 78 U/L 45-117 [facility] ALT [Catalytic activity/Vol] 25 U/L 13-56 [facility] CO2 [Moles/Vol] 23.0 mmol/L 21.0-32.0 [facility] Globulin (S) [Mass/Vol] 3.5 g/dL 2.2-4.2 [facility] Urea nitrogen/Creatinine [Mass ratio] 19.7 mg/mg 10-20 [facility] No Panel InformationOrdered By: Dr. Sierra on 12-10-2022 Estimated GFR (MDRD) Amer 70 mL/min >60 [facility] Comment on above: GFR Calc Estimated GFR (MDRD) Non-Af Amer 58 mL/min >60 [facility] Comment on above: Non- GFR Calc Thyroid Stimulating Hormone (TSH) 0.80 uIU/mL 0.358-3.74 [facility] Serum or plasma albumin brigette urement (mass/volume)Ordered By: Dr. Sierra on 12-10-2022 Albumin [Mass/Vol] 3.5 g/dL 3.2-5.0 [facility] Serum or plasma albumin/glob ulin mass ratioOrdered By: Dr. Sierra on 12-10-2022 Albumin/Globulin [Mass ratio] 1.0 {ratio} 0.9-2.4 [facility] Serum or plasma calcium brigette urement (mass/volume)Ordered By: Dr. Sierra on 12-10-2022 Calcium [Mass/Vol] 9.6 mg/dL 8.5-10.1 [facility] Serum or plasma creatinine m easurement (mass/volume)Ordered By: Dr. Sierra on 12-10-2022 Creatinine [Mass/Vol] 0.96 mg/dL 0.55-1.02 [facility] Comment on above: The validity of the calculated GFR & GFRAA in patients over 70 years has not been determined. Clinical correlation is essential. Serum or plasma urea nitroge n measurement (mass/volume)Ordered By: Dr. Sierra on 12-10-2022 Urea nitrogen [Mass/Vol] 19 mg/dL 7-18 [facility] Thin prep Papanicolaou smear with manual screeningOrdered By: Dr. Sierra on 12-10-2022 Thin prep Papanicolaou smear with manual screening 11 U/L 15-37 [facility] Thin prep Papanicolaou smear with manual screening 12 5-15 [facility] - Microbiology an d Antimicrobial susceptibilityOrdered By: Dr. Kinney on 12-09-2022 Respiratory pathogens DNA and RNA 12b panel DEDRICK+probe (Unsp spec) [facility] Absolute lymphocyte countOrd ered By: Dr. Melendez on 12-08-2022 Lymphocytes Auto (Unsp spec) [#/Vol] 1.35 10*3/uL 0.83-4.51 [facility] Basophil percentageOrdered B y: Dr. Melendez on 12-08-2022 Basophil percentage 50-100 SEEN /hpf 0-5 [facility] Basophils/100 WBC (Bld) 0.5 % 0-1 [facility] Bilirubin [Mass/Vol] 0.70 mg/dL 0.20-1.00 [facility] Comment on above: For patients on eltr ombopag therapy, use of Dimension [place] TBIL is not recommended. Chloride [Moles/Vol] 101 mmol/L 98-107 [facility] Eosinophils/100 WBC (Bld) 1.5 % 0-5 [facility] Glucose [Mass/Vol] 142 mg/dL 74-106 [facility] Comment on above: Fasting Glucose resu lt greater than or equal to 126 mg/dL suggests DIABETES MELLITUS per A.D.A. criteria. Neutrophils (Bld) [#/Vol] 5.8 10*3/uL 2.0-7.7 [facility] Neutrophils/100 WBC (Bld) 69.4 % 47-70 [facility] Potassium [Moles/Vol] 3.6 mmol/L 3.5-5.1 [facility] Protein [Mass/Vol] 7.1 g/dL 6.4-8.2 [facility] Sodium [Moles/Vol] 137 mmol/L 136-145 [facility] WBC (Bld) [#/Vol] 8.4 10*3/uL 4.4-11.0 [facility] Bilirubin Test strip Ql (U)O rdered By: Dr. Melendez on 12-08-2022 Bilirubin Ql (U) Negative Negative [facility] Blood erythrocytes count (nu mber/volume)Ordered By: Dr. Melendez on 12-08-2022 RBC (Bld) [#/Vol] 4.59 10*6/uL 4.2-5.4 [facility] Blood hemoglobin measurement (mass/volume)Ordered By: Dr. Melendez on 12-08-2022 Hemoglobin (Bld) [Mass/Vol] 14.0 g/dL 12.0-15.0 [facility] Blood lymphocytes/100 leukoc ytesOrdered By: Dr. Melendez on 12-08-2022 Lymphocytes/100 WBC (Bld) 16.1 % 19-41 [facility] Blood monocytes/100 leukocyt esOrdered By: Dr. Melendez on 12-08-2022 Monocytes/100 WBC (Bld) 12.3 % 0-10 [facility] Blood platelet mean volumeOr dered By: Dr. Melendez on 12-08-2022 Platelet mean volume (Bld) [Entitic vol] 10.5 fL 6.2-12.0 [facility] Determination of erythrocyte mean corpuscular volume (MCV)Ordered By: Dr. Melendez on 12-08-2022 MCV (RBC) [Entitic vol] 94.6 fL 81-99 [facility] Hematocrit Auto (Bld) [Volum e fraction]Ordered By: Dr. Melendez on 12-08-2022 Hematocrit (Bld) [Volume fraction] 43.4 % 37-47 [facility] Ketones Test strip Ql (U)Ord ered By: Dr. Melendez on 12-08-2022 Ketones Ql (U) Negative Negative [facility] - Chemistry and C hemistry - challengeOrdered By: Dr. Elmore on 12-08-2022 Cobalamin (Vitamin B12) [Mass/Vol] 296 pg/mL 211-911 [facility] [facility] - Chemistry and C hemistry - challengeOrdered By: Dr. Melendez on 12-08-2022 ALP [Catalytic activity/Vol] 82 U/L 45-117 [facility] ALT [Catalytic activity/Vol] 27 U/L 13-56 [facility] CO2 [Moles/Vol] 26.0 mmol/L 21.0-32.0 [facility] Globulin (S) [Mass/Vol] 3.5 g/dL 2.2-4.2 [facility] Natriuretic peptide B (Bld) [Mass/Vol] 136.3 pg/mL 0-100 [facility] Urea nitrogen/Creatinine [Mass ratio] 16.7 mg/mg 10-20 [facility] Laboratory - Hematology and Cell countsOrdered By: Dr. Melendez on 12-08-2022 Erythrocyte distribution width (RBC) [Entitic vol] 46.5 fL 35.1-43.9 [facility] Erythrocyte distribution width (RBC) [Ratio] 13.4 % 11.6-14.6 [facility] Immature granulocytes/100 WBC (Bld) 0.200 % 0.0-0.9 [facility] Comment on above: IG% - Immature Granu locytes (promyelocytes, myelocytes and metamyelocytes) > 1% indicates that a LEFT SHIFT is Present. MCH (RBC) [Entitic mass] 30.5 pg 27.0-32.0 [facility] Nucleated RBC/100 WBC (Bld) [Ratio] 0 % 0-5 [facility] MCHC Auto (RBC) [Mass/Vol]Or dered By: Dr. Melendez on 12-08-2022 MCHC (RBC) [Mass/Vol] 32.3 g/dL 32-36 [facility] Mucus LM Ql (Urine sed)Order ed By: Dr. Melendez on 12-08-2022 Mucus Ql (Urine sed) 0 SEEN /hpf [facility] Nitrite Test strip Ql (U)Ord ered By: Dr. Melendez on 12-08-2022 Nitrite Ql (U) Negative Negative [facility] No Panel InformationOrdered By: Dr. Melendez on 12-08-2022 Urine Transitional Epithelial Cells 0-5 SEEN /hpf 0-5 [facility] Estimated Creatinine Clearance Calc 36.36 ml/min [facility] Estimated GFR (MDRD) Amer 62 mL/min >60 [facility] Comment on above: GFR Calc Estimated GFR (MDRD) Non-Af Amer 51 mL/min >60 [facility] Comment on above: Non- GFR Calc Troponin I High Sensitivity 9 pg/mL 3.0-54.0 [facility] Comment on above: Please Note: New Jennifer t Units and Gender Specific Reference Ranges. For more information see Policy Stat Procedure [place] High Sensitivity Troponin (TNIH) and attachments. Platelets bldOrdered By: Dr. Melendez on 12-08-2022 Platelets (Bld) [#/Vol] 255 10*3/uL 150-450 [facility] Protein Test strip Ql (U)Ord ered By: Dr. Melendez on 12-08-2022 Protein Ql (U) 30 mg/dl Negative [facility] Serum or plasma albumin brigette urement (mass/volume)Ordered By: Dr. Melendez on 12-08-2022 Albumin [Mass/Vol] 3.6 g/dL 3.2-5.0 [facility] Serum or plasma albumin/glob ulin mass ratioOrdered By: Dr. Melendez on 12-08-2022 Albumin/Globulin [Mass ratio] 1.0 {ratio} 0.9-2.4 [facility] Serum or plasma calcium brigette urement (mass/volume)Ordered By: Dr. Melendez on 12-08-2022 Calcium [Mass/Vol] 8.9 mg/dL 8.5-10.1 [facility] Serum or plasma creatinine m easurement (mass/volume)Ordered By: Dr. Melendez on 12-08-2022 Creatinine [Mass/Vol] 1.08 mg/dL 0.55-1.02 [facility] Comment on above: The validity of the calculated GFR & GFRAA in patients over 70 years has not been determined. Clinical correlation is essential. Serum or plasma methylmalona te measurement (moles/volume)Ordered By: Dr. Elmore on 12-08-2022 Methylmalonate [Moles/Vol] 413 nmol/L 0-378 [facility] Comment on above: Performed at: - [address] [id number] Director: Dominique Choe MD, Phone: [phone] Serum or plasma urea nitroge n measurement (mass/volume)Ordered By: Dr. Melendez on 12-08-2022 Urea nitrogen [Mass/Vol] 18 mg/dL 7-18 [facility] Squamous epithelial cells de tection in urine sediment by light microscopyOrdered By: Dr. Melendez on 12-08-2022 Epithelial cells.squamous LM Ql (Urine sed) 10-25 SEEN /hpf 5-10 [facility] Thin prep Papanicolaou smear with manual screeningOrdered By: Dr. Melendez on 12-08-2022 Thin prep Papanicolaou smear with manual screening 17 U/L 15-37 [facility] Thin prep Papanicolaou smear with manual screening 10 5-15 [facility] Urine blood detectionOrdered By: Dr. Melendez on 12-08-2022 RBC Ql (U) 250 /ul Negative [facility] RBC Ql (U) 5-10 SEEN /hpf 0-5 [facility] Urine clarityOrdered By: Dr. Melendez on 12-08-2022 Clarity (U) Sl. Cloudy Clear [facility] Urine color determinationOrd ered By: Dr. Melendez on 12-08-2022 Color (U) Yellow Yellow [facility] Urine glucose detectionOrder ed By: Dr. Melendez on 12-08-2022 Glucose Ql (U) Normal mg/dl Normal [facility] Urine leukocyte esterase det ection by dipstickOrdered By: Dr. Melendez on 12-08-2022 Leukocyte esterase Test strip Ql (U) 500 /ul Negative [facility] Urine pHOrdered By: Dr. Raudel womack on 12-08-2022 pH (U) 6.0 [pH] 5.0 - 8.0 [facility] Urine sediment bacteria coun t by microscopy (number/high power field)Ordered By: Dr. Melendez on 12-08-2022 Bacteria LM.HPF (Urine sed) [#/Area] 2 /[HPF] None Seen [facility] Urine specific gravity measu rementOrdered By: Dr. Melendez on 12-08-2022 Specific gravity (U) [Rel density] 1.020 1.002-1.030 [facility] Urobilinogen Auto test strip Ql (U)Ordered By: Dr. Mleendez on 12-08-2022 Urobilinogen Ql (U) 8 mg/dl Normal [facility] Absolute lymphocyte countOrd ered By: Dr. Melendez on 12-05-2022 Lymphocytes Auto (Unsp spec) [#/Vol] 1.20 10*3/uL 0.83-4.51 [facility] Basophil percentageOrdered B y: Dr. Melendez on 12-05-2022 Basophil percentage 0-5 SEEN /hpf 0-5 [facility] Basophils/100 WBC (Bld) 0.3 % 0-1 [facility] Bilirubin [Mass/Vol] 1.00 mg/dL 0.20-1.00 [facility] Comment on above: For patients on eltr ombopag therapy, use of Dimension [place] TBIL is not recommended. Chloride [Moles/Vol] 103 mmol/L 98-107 [facility] Eosinophils/100 WBC (Bld) 0.6 % 0-5 [facility] Glucose [Mass/Vol] 135 mg/dL 74-106 [facility] Comment on above: Fasting Glucose resu lt greater than or equal to 126 mg/dL suggests DIABETES MELLITUS per A.D.A. criteria. Neutrophils (Bld) [#/Vol] 5.1 10*3/uL 2.0-7.7 [facility] Neutrophils/100 WBC (Bld) 72.5 % 47-70 [facility] Potassium [Moles/Vol] 3.8 mmol/L 3.5-5.1 [facility] Protein [Mass/Vol] 7.2 g/dL 6.4-8.2 [facility] Sodium [Moles/Vol] 138 mmol/L 136-145 [facility] WBC (Bld) [#/Vol] 7.0 10*3/uL 4.4-11.0 [facility] Bilirubin Test strip Ql (U)O rdered By: Dr. Melendez on 12-05-2022 Bilirubin Ql (U) Negative Negative [facility] Blood erythrocytes count (nu mber/volume)Ordered By: Dr. Melendez on 12-05-2022 RBC (Bld) [#/Vol] 4.45 10*6/uL 4.2-5.4 [facility] Blood hemoglobin measurement (mass/volume)Ordered By: Dr. Melendez on 12-05-2022 Hemoglobin (Bld) [Mass/Vol] 13.7 g/dL 12.0-15.0 [facility] Blood lymphocytes/100 leukoc ytesOrdered By: Dr. Melendez on 12-05-2022 Lymphocytes/100 WBC (Bld) 17.2 % 19-41 [facility] Blood monocytes/100 leukocyt esOrdered By: Dr. Melendez on 12-05-2022 Monocytes/100 WBC (Bld) 9.1 % 0-10 [facility] Blood platelet mean volumeOr dered By: Dr. Melendez on 12-05-2022 Platelet mean volume (Bld) [Entitic vol] 10.1 fL 6.2-12.0 [facility] Determination of erythrocyte mean corpuscular volume (MCV)Ordered By: Dr. Melendez on 12-05-2022 MCV (RBC) [Entitic vol] 93.5 fL 81-99 [facility] Hematocrit Auto (Bld) [Volum e fraction]Ordered By: Dr. Melendez on 12-05-2022 Hematocrit (Bld) [Volume fraction] 41.6 % 37-47 [facility] Ketones Test strip Ql (U)Ord ered By: Dr. Melendez on 12-05-2022 Ketones Ql (U) 5 mg/dl Negative [facility] Laboratory - Chemistry and C hemistry - challengeOrdered By: Dr. Melendez on 12-05-2022 ALP [Catalytic activity/Vol] 88 U/L 45-117 [facility] ALT [Catalytic activity/Vol] 37 U/L 13-56 [facility] CO2 [Moles/Vol] 26.0 mmol/L 21.0-32.0 [facility] Globulin (S) [Mass/Vol] 3.6 g/dL 2.2-4.2 [facility] Urea nitrogen/Creatinine [Mass ratio] 16.0 mg/mg 10-20 [facility] Laboratory - Hematology and Cell countsOrdered By: Dr. Melendez on 12-05-2022 Erythrocyte distribution width (RBC) [Entitic vol] 46.6 fL 35.1-43.9 [facility] Erythrocyte distribution width (RBC) [Ratio] 13.6 % 11.6-14.6 [facility] Immature granulocytes/100 WBC (Bld) 0.300 % 0.0-0.9 [facility] Comment on above: IG% - Immature Granu locytes (promyelocytes, myelocytes and metamyelocytes) > 1% indicates that a LEFT SHIFT is Present. MCH (RBC) [Entitic mass] 30.8 pg 27.0-32.0 [facility] Nucleated RBC/100 WBC (Bld) [Ratio] 0 % 0-5 [facility] MCHC Auto (RBC) [Mass/Vol]Or dered By: Dr. Melendez on 12-05-2022 MCHC (RBC) [Mass/Vol] 32.9 g/dL 32-36 [facility] Mucus LM Ql (Urine sed)Order ed By: Dr. Melendez on 12-05-2022 Mucus Ql (Urine sed) 0 SEEN /hpf [facility] Nitrite Test strip Ql (U)Ord ered By: Dr. Melendez on 12-05-2022 Nitrite Ql (U) Negative Negative [facility] No Panel InformationOrdered By: Dr. Melendez on 12-05-2022 Estimated Creatinine Clearance Calc 39.27 ml/min [facility] Estimated GFR (MDRD) Amer 68 mL/min >60 [facility] Comment on above: GFR Calc Estimated GFR (MDRD) Non-Af Amer 56 mL/min >60 [facility] Comment on above: Non- GFR Calc Troponin I High Sensitivity 9 pg/mL 3.0-54.0 [facility] Comment on above: Please Note: New Jennifer t Units and Gender Specific Reference Ranges. For more information see Policy Stat Procedure [place] High Sensitivity Troponin (TNIH) and attachments. Platelets bldOrdered By: Dr. Melendez on 12-05-2022 Platelets (Bld) [#/Vol] 230 10*3/uL 150-450 [facility] Protein Test strip Ql (U)Ord ered By: Dr. Melendez on 12-05-2022 Protein Ql (U) 30 mg/dl Negative [facility] Serum or plasma albumin brigette urement (mass/volume)Ordered By: Dr. Melendez on 12-05-2022 Albumin [Mass/Vol] 3.6 g/dL 3.2-5.0 [facility] Serum or plasma albumin/glob ulin mass ratioOrdered By: Dr. Melendez on 12-05-2022 Albumin/Globulin [Mass ratio] 1.0 {ratio} 0.9-2.4 [facility] Serum or plasma calcium brigette urement (mass/volume)Ordered By: Dr. Melendez on 12-05-2022 Calcium [Mass/Vol] 9.3 mg/dL 8.5-10.1 [facility] Serum or plasma creatinine m easurement (mass/volume)Ordered By: Dr. Melednez on 12-05-2022 Creatinine [Mass/Vol] 1.00 mg/dL 0.55-1.02 [facility] Comment on above: The validity of the calculated GFR & GFRAA in patients over 70 years has not been determined. Clinical correlation is essential. Serum or plasma urea nitroge n measurement (mass/volume)Ordered By: Dr. Melendez on 12-05-2022 Urea nitrogen [Mass/Vol] 16 mg/dL 7-18 [facility] Squamous epithelial cells de tection in urine sediment by light microscopyOrdered By: Dr. Melendez on 12-05-2022 Epithelial cells.squamous LM Ql (Urine sed) 0-5 SEEN /hpf 5-10 [facility] Thin prep Papanicolaou smear with manual screeningOrdered By: Dr. Melendez on 12-05-2022 Thin prep Papanicolaou smear with manual screening 19 U/L 15-37 [facility] Thin prep Papanicolaou smear with manual screening 9 5-15 [facility] Urine blood detectionOrdered By: Dr. Melendez on 12-05-2022 RBC Ql (U) 150 /ul Negative [facility] RBC Ql (U) 0-5 SEEN /hpf 0-5 [facility] Urine clarityOrdered By: Dr. Melendez on 12-05-2022 Clarity (U) Sl. Cloudy Clear [facility] Urine color determinationOrd ered By: Dr. Melendez on 12-05-2022 Color (U) Yellow Yellow [facility] Urine glucose detectionOrder ed By: Dr. Melendez on 12-05-2022 Glucose Ql (U) Normal mg/dl Normal [facility] Urine leukocyte esterase det ection by dipstickOrdered By: Dr. Melendez on 12-05-2022 Leukocyte esterase Test strip Ql (U) 100 /ul Negative [facility] Urine pHOrdered By: Dr. Raudel womack on 12-05-2022 pH (U) 5.0 [pH] 5.0 - 8.0 [facility] Urine sediment bacteria coun t by microscopy (number/high power field)Ordered By: Dr. Melendez on 12-05-2022 Bacteria LM.HPF (Urine sed) [#/Area] 1 /[HPF] None Seen [facility] Urine specific gravity measu rementOrdered By: Dr. Melendez on 12-05-2022 Specific gravity (U) [Rel density] 1.025 1.002-1.030 [facility] Urobilinogen Auto test strip Ql (U)Ordered By: Dr. Melendez on 12-05-2022 Urobilinogen Ql (U) 1 mg/dl Normal [facility] Absolute lymphocyte countOrd ered By: Dr. Gonzalez on 08-31-2022 Lymphocytes Auto (Unsp spec) [#/Vol] 1.20 10*3/uL 0.83-4.51 [facility] Basophil percentageOrdered B y: Dr. Gonzalez on 08-31-2022 Basophils/100 WBC (Bld) 0.5 % 0-1 [facility] Chloride [Moles/Vol] 106 mmol/L 98-107 [facility] Cholesterol [Mass/Vol] 194 mg/dL <200 [facility] Comment on above: <200 mg/dL Desirable 200-240 mg/dL Borderline >240 mg/dL High Risk Eosinophils/100 WBC (Bld) 3.7 % 0-5 [facility] Glucose [Mass/Vol] 110 mg/dL 74-106 [facility] Comment on above: Fasting Glucose resu lt from 100 to 125 mg/dL suggests IMPAIRED HOMEOSTASIS per A.D.A. criteria. Neutrophils (Bld) [#/Vol] 3.5 10*3/uL 2.0-7.7 [facility] Neutrophils/100 WBC (Bld) 61.9 % 47-70 [facility] Potassium [Moles/Vol] 3.7 mmol/L 3.5-5.1 [facility] Comment on above: Slight Hemolysis, Re sult may be falsely increased. Sodium [Moles/Vol] 139 mmol/L 136-145 [facility] Triglyceride [Mass/Vol] 133 mg/dL <199 [facility] Comment on above: The drugs N-Acetylcy steine and Metamizole may falsely depress this assay.Serum Triglycerides Reference Interval Normal <150 mg/dL Borderline high 150 - 199 mg/dL High 200 - 499 mg/dL Very High > or = 500 mg/dL WBC (Bld) [#/Vol] 5.7 10*3/uL 4.4-11.0 [facility] Blood erythrocytes count (nu mber/volume)Ordered By: Dr. Gonzalez on 08-31-2022 RBC (Bld) [#/Vol] 4.07 10*6/uL 4.2-5.4 [facility] Blood hemoglobin measurement (mass/volume)Ordered By: Dr. Gonzalez on 08-31-2022 Hemoglobin (Bld) [Mass/Vol] 12.6 g/dL 12.0-15.0 [facility] Blood lymphocytes/100 leukoc ytesOrdered By: Dr. Gonzalez on 08-31-2022 Lymphocytes/100 WBC (Bld) 21.2 % 19-41 [facility] Blood monocytes/100 leukocyt esOrdered By: Dr. Gonzalez on 08-31-2022 Monocytes/100 WBC (Bld) 12.5 % 0-10 [facility] Blood platelet mean volumeOr dered By: Dr. Gonzalez on 08-31-2022 Platelet mean volume (Bld) [Entitic vol] 11.3 fL 6.2-12.0 [facility] Determination of erythrocyte mean corpuscular volume (MCV)Ordered By: Dr. Gonzalez on 08-31-2022 MCV (RBC) [Entitic vol] 94.8 fL 81-99 [facility] Hematocrit Auto (Bld) [Volum e fraction]Ordered By: Dr. Gonzalez on 08-31-2022 Hematocrit (Bld) [Volume fraction] 38.6 % 37-47 [facility] Laboratory - Chemistry and C hemistry - challengeOrdered By: Dr. Gonzalez on 08-31-2022 CO2 [Moles/Vol] 26.0 mmol/L 21.0-32.0 [facility] Urea nitrogen/Creatinine [Mass ratio] 13.6 mg/mg 10-20 [facility] Laboratory - Hematology and Cell countsOrdered By: Dr. Gonzalez on 08-31-2022 Erythrocyte distribution width (RBC) [Entitic vol] 45.7 fL 35.1-43.9 [facility] Erythrocyte distribution width (RBC) [Ratio] 13.2 % 11.6-14.6 [facility] Immature granulocytes/100 WBC (Bld) 0.200 % 0.0-0.9 [facility] Comment on above: IG% - Immature Granu locytes (promyelocytes, myelocytes and metamyelocytes) > 1% indicates that a LEFT SHIFT is Present. MCH (RBC) [Entitic mass] 31.0 pg 27.0-32.0 [facility] Nucleated RBC/100 WBC (Bld) [Ratio] 0 % 0-5 [facility] MCHC Auto (RBC) [Mass/Vol]Or dered By: Dr. Gonzalez on 08-31-2022 MCHC (RBC) [Mass/Vol] 32.6 g/dL 32-36 [facility] No Panel InformationOrdered By: Dr. Gonzalez on 08-31-2022 Estimated Creatinine Clearance Calc 39.38 ml/min [facility] Estimated GFR (MDRD) Amer 71 mL/min >60 [facility] Comment on above: GFR Calc Estimated GFR (MDRD) Non-Af Amer 59 mL/min >60 [facility] Comment on above: Non- GFR Calc Platelets bldOrdered By: Dr. Gonzalez on 08-31-2022 Platelets (Bld) [#/Vol] 186 10*3/uL 150-450 [facility] Serum or plasma calcium brigette urement (mass/volume)Ordered By: Dr. Gonzalez on 08-31-2022 Calcium [Mass/Vol] 8.8 mg/dL 8.5-10.1 [facility] Serum or plasma cholesterol in HDL measurement (mass/volume)Ordered By: Dr. Gonzalez on 08-31-2022 Cholesterol in HDL [Mass/Vol] 44 mg/dL >40 [facility] Comment on above: The drugs N-Acetylcy steine and Metamizole may falsely depress this assay. Reference Range HDL <40 mg/dL Low HDL Cholesterol HDL >or= 60 mg/dL High HDL Cholesterol Serum or plasma cholesterol in VLDL measurement (mass/volume)Ordered By: Dr. Gonzalez on 08-31-2022 Cholesterol in VLDL [Mass/Vol] 27 mg/dL 5-40 [facility] Serum or plasma creatinine m easurement (mass/volume)Ordered By: Dr. Gonzalez on 08-31-2022 Creatinine [Mass/Vol] 0.96 mg/dL 0.55-1.02 [facility] Comment on above: The validity of the calculated GFR & GFRAA in patients over 70 years has not been determined. Clinical correlation is essential. Serum or plasma low density lipoprotein (LDL) cholesterol measurement (mass/volume)Ordered By: Dr. Gonzalez on 08-31-2022 Cholesterol in LDL [Mass/Vol] 123 mg/dL 0-130 [facility] Serum or plasma urea nitroge n measurement (mass/volume)Ordered By: Dr. Gonzalez on 08-31-2022 Urea nitrogen [Mass/Vol] 13 mg/dL 7-18 [facility] Thin prep Papanicolaou smear with manual screeningOrdered By: Dr. Gonzalez on 08-31-2022 Thin prep Papanicolaou smear with manual screening 7 5-15 [facility] Whole blood hemoglobin A1c/t otal hemoglobin ratio (mass fraction)Ordered By: Dr. Gonzalez on 08-31-2022 HbA1c (Bld) [Mass fraction] 6.5 % 3.8-5.6 [facility] Comment on above: Normal < 5.7 % Predi abetic 5.7 - 6.4 % Diabetic >or= 6.5 % Please note range changes. Absolute lymphocyte counton 08-30-2022 Lymphocytes Auto (Unsp spec) [#/Vol] 1.57 10*3/uL 0.83-4.51 [facility] Work Phone: Basophil percentageon 2021 Basophils/100 WBC (Bld) 0.6 % 0-1 [facility] Work Phone: Chloride [Moles/Vol] 104 mmol/L 98-107 [facility] Work Phone: Eosinophils/100 WBC (Bld) 2.7 % 0-5 [facility] Work Phone: Glucose [Mass/Vol] 102 mg/dL 74-106 [facility] Work Phone: Comment on above: Fasting Glucose resu lt from 100 to 125 mg/dL suggests IMPAIRED HOMEOSTASIS per A.D.A. criteria. Neutrophils (Bld) [#/Vol] 5.5 10*3/uL 2.0-7.7 [facility] Work Phone: Neutrophils/100 WBC (Bld) 66.4 % 47-70 [facility] Work Phone: Potassium [Moles/Vol] 3.8 mmol/L 3.5-5.1 [facility] Work Phone: Sodium [Moles/Vol] 138 mmol/L 136-145 [facility] Work Phone: WBC (Bld) [#/Vol] 8.3 10*3/uL 4.4-11.0 [facility] Work Phone: Blood erythrocytes count (nu mber/volume)on 08-30-2022 RBC (Bld) [#/Vol] 4.48 10*6/uL 4.2-5.4 [facility] Work Phone: Blood hemoglobin measurement (mass/volume)on 08-30-2022 Hemoglobin (Bld) [Mass/Vol] 13.6 g/dL 12.0-15.0 [facility] Work Phone: Blood lymphocytes/100 leukoc yteson 08-30-2022 Lymphocytes/100 WBC (Bld) 19.0 % 19-41 [facility] Work Phone: Blood monocytes/100 leukocyt eson 08-30-2022 Monocytes/100 WBC (Bld) 10.9 % 0-10 [facility] Work Phone: Blood platelet mean volumeon 08-30-2022 Platelet mean volume (Bld) [Entitic vol] 10.5 fL 6.2-12.0 [facility] Work Phone: Determination of erythrocyte mean corpuscular volume (MCV)on 08-30-2022 MCV (RBC) [Entitic vol] 95.3 fL 81-99 [facility] Work Phone: Glucose Glucometer (BldC) [M ass/Vol]Ordered By: Dr. Lin on 08-30-2022 Glucose [Mass/Vol] 95 mg/dL 74-106 [facility] Comment on above: MANAGEMENT OF PATIEN T CARE PER NURSING PROTOCOL Hematocrit Auto (Bld) [Volum e fraction]on 08-30-2022 Hematocrit (Bld) [Volume fraction] 42.7 % 37-47 [facility] Work Phone: INR in Blood by Coagulation assayOrdered By: Dr. Lin on 08-30-2022 INR Coag (Bld) [Relative time] 1.0 {INR} [facility] Laboratory - Chemistry and C hemistry - challengeon 08-30-2022 CO2 [Moles/Vol] 25.0 mmol/L 21.0-32.0 [facility] Work Phone: Urea nitrogen/Creatinine [Mass ratio] 12.7 mg/mg 10-20 [facility] Work Phone: Laboratory - CoagulationOrde red By: Dr. Lin on 08-30-2022 aPTT Coag (Bld) [Time] 25.8 s 24.1-36.2 [facility] PT Coag (PPP) [Time] 12.8 s 11.7-14.9 [facility] Laboratory - Hematology and Cell countson 08-30-2022 Erythrocyte distribution width (RBC) [Entitic vol] 46.4 fL 35.1-43.9 [facility] [facility] Work Phone: Erythrocyte distribution width (RBC) [Ratio] 13.2 % 11.6-14.6 [facility] Work Phone: Immature granulocytes/100 WBC (Bld) 0.400 % 0.0-0.9 [facility] Work Phone: Comment on above: IG% - Immature Granu locytes (promyelocytes, myelocytes and metamyelocytes) > 1% indicates that a LEFT SHIFT is Present. MCH (RBC) [Entitic mass] 30.4 pg 27.0-32.0 [facility] Work Phone: Nucleated RBC/100 WBC (Bld) [Ratio] 0 % 0-5 [facility] Work Phone: MCHC Auto (RBC) [Mass/Vol]on 08-30-2022 MCHC (RBC) [Mass/Vol] 31.9 g/dL 32-36 [facility] Work Phone: No Panel Informationon 08-30 Estimated Creatinine Clearance Calc 34.37 ml/min [facility] Work Phone: Estimated GFR (MDRD) Amer 61 mL/min >60 [facility] Work Phone: Comment on above: GFR Calc Estimated GFR (MDRD) Non-Af Amer 50 mL/min >60 [facility] Work Phone: Comment on above: Non- GFR Calc No Panel InformationOrdered By: Dr. Lin on 08-30-2022 Troponin I High Sensitivity 9 pg/mL 3.0-54.0 [facility] Comment on above: Please Note: New Jennifer t Units and Gender Specific Reference Ranges. For more information see Policy Stat Procedure [place] High Sensitivity Troponin (TNIH) and attachments. Platelets bldon 08-30-2022 Platelets (Bld) [#/Vol] 238 10*3/uL 150-450 [facility] Work Phone: Serum or plasma calcium brigette urement (mass/volume)on 08-30-2022 Calcium [Mass/Vol] 9.7 mg/dL 8.5-10.1 [facility] Work Phone: Serum or plasma creatinine m easurement (mass/volume)on 08-30-2022 Creatinine [Mass/Vol] 1.10 mg/dL 0.55-1.02 [facility] Work Phone: Comment on above: The validity of the calculated GFR & GFRAA in patients over 70 years has not been determined. Clinical correlation is essential. Serum or plasma urea nitroge n measurement (mass/volume)on 08-30-2022 Urea nitrogen [Mass/Vol] 14 mg/dL 7-18 [facility] Work Phone: Thin prep Papanicolaou smear with manual screeningon 08-30-2022 Thin prep Papanicolaou smear with manual screening 9 - [facility] Work Phone: Absolute lymphocyte countOrd ered By: Dr. Sierra on 08-07-2022 Lymphocytes Auto (Unsp spec) [#/Vol] 1.26 10*3/uL 0.83-4.51 [facility] Basophil percentageOrdered B y: Dr. Sierra on 08-07-2022 Basophils/100 WBC (Bld) 0.6 % 0-1 [facility] Bilirubin [Mass/Vol] 0.60 mg/dL 0.20-1.00 [facility] Comment on above: For patients on eltr ombopag therapy, use of Dimension [place] TBIL is not recommended. Chloride [Moles/Vol] 104 mmol/L 98-107 [facility] Eosinophils/100 WBC (Bld) 4.2 % 0-5 [facility] Glucose [Mass/Vol] 121 mg/dL 74-106 [facility] Comment on above: Fasting Glucose resu lt from 100 to 125 mg/dL suggests IMPAIRED HOMEOSTASIS per A.D.A. criteria. Neutrophils (Bld) [#/Vol] 3.1 10*3/uL 2.0-7.7 [facility] Neutrophils/100 WBC (Bld) 59.1 % 47-70 [facility] Potassium [Moles/Vol] 4.1 mmol/L 3.5-5.1 [facility] Protein [Mass/Vol] 7.2 g/dL 6.4-8.2 [facility] Sodium [Moles/Vol] 138 mmol/L 136-145 [facility] WBC (Bld) [#/Vol] 5.2 10*3/uL 4.4-11.0 [facility] Blood erythrocytes count (nu mber/volume)Ordered By: Dr. Sierra on 08-07-2022 RBC (Bld) [#/Vol] 4.35 10*6/uL 4.2-5.4 [facility] Blood hemoglobin measurement (mass/volume)Ordered By: Dr. Sierra on 08-07-2022 Hemoglobin (Bld) [Mass/Vol] 13.2 g/dL 12.0-15.0 [facility] Blood lymphocytes/100 leukoc ytesOrdered By: Dr. Sierra on 08-07-2022 Lymphocytes/100 WBC (Bld) 24.2 % 19-41 [facility] Blood monocytes/[address] leukocyt esOrdered [address]: [address] Sierra on 08-07-2022 Monocytes/100 WBC (Bld) 11.7 % 0-10 [facility] Blood platelet mean volumeOr dered By: Dr. Sierra on 08-07-2022 Platelet mean volume (Bld) [Entitic vol] 10.2 fL 6.2-12.0 [facility] Determination of erythrocyte mean corpuscular volume (MCV)Ordered By: Dr. Sierra on 08-07-2022 MCV (RBC) [Entitic vol] 95.2 fL 81-99 [facility] Hematocrit Auto (Bld) [Volum e fraction]Ordered By: Dr. Sierra on 08-07-2022 Hematocrit (Bld) [Volume fraction] 41.4 % 37-47 [facility] Laboratory - Chemistry and C hemistry - challengeOrdered By: Dr. Sierra on 08-07-2022 ALP [Catalytic activity/Vol] 50 U/L 45-117 [facility] ALT [Catalytic activity/Vol] 18 U/L 13-56 [facility] CO2 [Moles/Vol] 27.0 mmol/L 21.0-32.0 [facility] Globulin (S) [Mass/Vol] 3.5 g/dL 2.2-4.2 [facility] Urea nitrogen/Creatinine [Mass ratio] 18.1 mg/mg 10-20 [facility] Laboratory - Hematology and Cell countsOrdered By: Dr. Sierra on 08-07-2022 Erythrocyte distribution width (RBC) [Entitic vol] 47.6 fL 35.1-43.9 [facility] Erythrocyte distribution width (RBC) [Ratio] 13.4 % 11.6-14.6 [facility] Immature granulocytes/100 WBC (Bld) 0.200 % 0.0-0.9 [facility] Comment on above: IG% - Immature Granu locytes (promyelocytes, myelocytes and metamyelocytes) > 1% indicates that a LEFT SHIFT is Present. MCH (RBC) [Entitic mass] 30.3 pg 27.0-32.0 [facility] Nucleated RBC/100 WBC (Bld) [Ratio] 0 % 0-5 [facility] MCHC Auto (RBC) [Mass/Vol]Or dered By: Dr. Sierra on 08-07-2022 MCHC (RBC) [Mass/Vol] 31.9 g/dL 32-36 [facility] No Panel InformationOrdered By: Dr. Sierra on 08-07-2022 Estimated GFR (MDRD) Amer 64 mL/min >60 [facility] Comment on above: GFR Calc Estimated GFR (MDRD) Non-Af Amer 53 mL/min >60 [facility] Comment on above: Non- GFR Calc Urine Microalbumin/Creatinine Ratio 12.1 mg/g CRE <30 [facility] Platelets bldOrdered By: Dr. Sierra on 08-07-2022 Platelets (Bld) [#/Vol] 259 10*3/uL 150-450 [facility] Serum or plasma albumin brigette urement (mass/volume)Ordered By: Dr. Sierra on 08-07-2022 Albumin [Mass/Vol] 3.7 g/dL 3.2-5.0 [facility] Serum or plasma albumin/glob ulin mass ratioOrdered By: Dr. Sierra on 08-07-2022 Albumin/Globulin [Mass ratio] 1.1 {ratio} 0.9-2.4 [facility] Serum or plasma calcium brigette urement (mass/volume)Ordered By: Dr. Sierra on 08-07-2022 Calcium [Mass/Vol] 9.5 mg/dL 8.5-10.1 [facility] Serum or plasma creatinine m easurement (mass/volume)Ordered By: Dr. Sierra on 08-07-2022 Creatinine [Mass/Vol] 1.05 mg/dL 0.55-1.02 [facility] Comment on above: The validity of the calculated GFR & GFRAA in patients over 70 years has not been determined. Clinical correlation is essential. Serum or plasma urea nitroge n measurement (mass/volume)Ordered By: Dr. Sierra on 08-07-2022 Urea nitrogen [Mass/Vol] 19 mg/dL 7-18 [facility] Thin prep Papanicolaou smear with manual screeningOrdered By: Dr. Sierra on 08-07-2022 Thin prep Papanicolaou smear with manual screening 16 U/L 15-37 [facility] Thin prep Papanicolaou smear with manual screening 7 5-15 [facility] Thin prep Papanicolaou smear with manual screening 20.0 mg/L NO RANGE EST. [facility] Urine creatinine measurement (mass/volume)Ordered By: Dr. Sierra on 08-07-2022 Creatinine (U) [Mass/Vol] 165.00 mg/dL NO RANGE EST. [facility] Whole blood hemoglobin A1c/t otal hemoglobin ratio (mass fraction)Ordered By: Dr. Sierra on 08-07-2022 HbA1c (Bld) [Mass fraction] 6.2 % 3.8-5.6 [facility] Comment on above: Normal < 5.7 % Predi abetic 5.7 - 6.4 % Diabetic >or= 6.5 % Please note range changes. CT CHEST IVCONon 05-24-20 [facility] 12-29-2020 ARAINNAN Telephone (SPPRAD) -------- DILMAIRAJ WILLIAMSON ( ) 1935 F Date Time Provider Department 12/29/20 CYNDIE BONILLA (ARIANNA)SPPRAD During your visit today, we recorded the following information about you: Cyndie Castro APRN.CNP 12/29/2020 12:44 PM Signed Pt stated she had repeat colonoscopy done outside [facility] on 06/04/2017 Allergies As of Date: 12/29/2020 (No Known Allergies) Date Reviewed: 01/27/2020 Reviewed by: Lindsay Girard Ma - Fully Assessed Reason for Visit: recall colonoscopy [Other] Prescriptions as of 12/29/2020 Sig: LEVOTHYROXINE 100 MCG TABLET Take 1 tablet by mouth once d* OMEGA 3 ORAL Take by mouth once daily. * CHOLECALCIFEROL (VITAMIN D3) * Take by mouth. * COQ-10 ORAL Take by mouth. 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] 08/17/2015 Obesity, Class I, BMI 30-34.9 [E66.9] 02/11/2019 Closed fracture of ankle [S82.899A] 02/11/2019 02/11/[address] Multiple lung nodules on CT [R91.8] 02/11/2019 Encounter Status:Closed by CYNDIE BONILLA on 12/29/20 [facility] Office Visit: 5 year colonos copyon 05-23-2017 Documentation of current medications (procedure) Done Invalid Interpretation Code [facility] Work Phone: Fall risk assessment No Invalid Interpretation Code [facility] Work Phone: Protein mass conc Done [facility] Work Phone: Tobacco smoking status NHIS Never Invalid Interpretation Code [facility] Work Phone: Tobacco smoking status NHIS Never smoker [facility] Work Phone: Tobacco use [facility] Never smoker Invalid Interpretation Code [facility] Work Phone: Office Visit: 5 year colonos copyon 12-04-2011 Colonoscopy (procedure) Abnormal Invalid Interpretation Code [facility] Work Phone: Protein mass conc Abnormal [facility] Work Phone: Vital Signs Date Time Vital Sign Value Performing Clinician Facility 09-11-2023 10:49-0500 Body height 170.[address] Lesley Sierra Work Phone: [facility] 09-11-2023 10:49-0500 Body mass index (BMI) [Ratio] 32.7 kg/m2 Dr. Lesley Sierra Work Phone: [facility] 09-11-2023 10:49-0500 Body weight 94.[address] Lesley Sierra Work Phone: [facility] 09-11-2023 10:49-0500 Diastolic blood pressure 70 mm[Hg] Dr. Lesley Sierra Work Phone: [facility] 09-11-2023 10:49-0500 Heart rate 85 /min Dr. Lesley Sierra Work Phone: [facility] 09-11-2023 10:49-0500 Respiratory rate 18 /min Dr. Lesley Sierra Work Phone: [facility] 09-11-2023 10:49-0500 SaO2% (BldA) [Mass fraction] 95 % Dr. Lesley Sierra Work Phone: [facility] 09-11-2023 10:49-0500 Systolic blood pressure 113 mm[Hg] Dr. Lesley Sierra Work Phone: [facility] 01-29-2023 14:52-0400 Body height 170.[address] Lesley Sierra Work Phone: [facility] 01-29-2023 14:52-0400 Body mass index (BMI) [Ratio] 31.4 kg/m2 Dr. Lesley Sierra Work Phone: [facility] 01-29-2023 14:52-0400 Body weight 90.[address] Lesley Sierra Work Phone: [facility] 01-29-2023 14:52-0400 Diastolic blood pressure 74 mm[Hg] Dr. Lesley Sierra Work Phone: [facility] 01-29-2023 14:52-0400 Heart rate 74 /min Dr. Lesley Sierra Work Phone: [facility] 01-29-2023 14:52-0400 Respiratory rate 16 /min Dr. Lesley Sierra Work Phone: [facility] 01-29-2023 14:52-0400 Systolic blood pressure 123 mm[Hg] Dr. Lesley Sierra Work Phone: [facility] 12-11-2022 10:03-0400 Body height 170.[address] Lesley Sierra Work Phone: [facility] 12-11-2022 10:03-0400 Body mass index (BMI) [Ratio] 31.4 kg/m2 Dr. Lesley Sierra Work Phone: [facility] 12-11-2022 10:03-0400 Body weight 91.[address] Lesley Sierra Work Phone: [facility] 12-11-2022 10:03-0400 Diastolic blood pressure 90 mm[Hg] Dr. Lesley Sierra Work Phone: [facility] 12-11-2022 10:03-0400 Heart rate 59 /min Dr. Lesley Sierra Work Phone: [facility] 12-11-2022 10:03-0400 Respiratory rate 18 /min Dr. Lesley Sierra Work Phone: [facility] 12-11-2022 10:03-0400 SaO2% (BldA) [Mass fraction] 97 % Dr. Lesley Sierra Work Phone: [facility] 12-11-2022 10:03-0400 Systolic blood pressure 141 mm[Hg] Dr. Lesley Sierra Work Phone: [facility] 12-09-2022 14:41-0400 Body temperature 98.4 [degF] Dr. Lesley Sierra Work Phone: [facility] 12-09-2022 14:41-0400 Diastolic blood pressure 81 mm[Hg] Dr. Lesley Sierra Work Phone: [facility] 12-09-2022 14:41-0400 Heart rate 71 /min Dr. Lesley Sierra Work Phone: [facility] 12-09-2022 14:41-0400 Respiratory rate 18 /min Dr. Lesley Sierra Work Phone: [facility] 12-09-2022 14:41-0400 SaO2% (BldA) [Mass fraction] 96 % Dr. Lesley Sierra Work Phone: [facility] 12-09-2022 14:41-0400 Systolic blood pressure 134 mm[Hg] Dr. Lesley Sierra Work Phone: [facility] 12-09-2022 09:45-0400 Body temperature 97.8 [degF] Dr. Lesley Sierra Work Phone: [facility] 12-09-2022 09:45-0400 Diastolic blood pressure 78 mm[Hg] Dr. Lesley Sierra Work Phone: [facility] 12-09-2022 09:45-0400 Heart rate 61 /min Dr. Lesley Sierra Work Phone: [facility] 12-09-2022 09:45-0400 Respiratory rate 16 /min Dr. Lesley Sierra Work Phone: [facility] 12-09-2022 09:45-0400 SaO2% (BldA) [Mass fraction] 95 % Dr. Lesley Sierra Work Phone: [facility] 12-09-2022 09:45-0400 Systolic blood pressure 152 mm[Hg] Dr. Lesley Sierra Work Phone: [facility] 12-08-2022 18:45-0400 Body height 170.[address] Lesley Sierra Work Phone: [facility] 12-08-2022 18:45-0400 Body mass index (BMI) [Ratio] 31.5 kg/m2 Dr. Lesley Sierra Work Phone: [facility] 12-08-2022 18:45-0400 Body weight 91.[address] Lesley Sierra Work Phone: [facility] 12-08-2022 17:58-0400 Body temperature 97.5 [degF] Dr. Lesley Sierra Work Phone: [facility] 12-08-2022 17:58-0400 Diastolic blood pressure 59 mm[Hg] Dr. Lesley Sierra Work Phone: [facility] 12-08-2022 17:58-0400 Heart rate 71 /min Dr. Lesley Sierra Work Phone: [facility] 12-08-2022 17:58-0400 Respiratory rate 16 /min Dr. Lesley Sierra Work Phone: [facility] 12-08-2022 17:58-0400 SaO2% (BldA) [Mass fraction] 97 % Dr. Lesley Sierra Work Phone: [facility] 12-08-2022 17:58-0400 Systolic blood pressure 117 mm[Hg] Dr. Lesley Sierra Work Phone: [facility] 12-08-2022 15:20-0400 Body mass index (BMI) [Ratio] 33.8 kg/m2 Dr. Lesley Sierra Work Phone: [facility] 12-08-2022 15:20-0400 Body weight [address] Lesley Sierra Work Phone: [facility] 12-08-2022 15:12-0400 Body height 170.[address] Lesley Sierra Work Phone: [facility] 12-05-2022 20:49-0400 Diastolic blood pressure 95 mm[Hg] Dr. Lesley Sierra Work Phone: [facility] 12-05-2022 20:49-0400 Heart rate 63 /min Dr. Lesley Sierra Work Phone: [phone](325)[phone] [place] [address] 12-05-2022 20:49-0400 Respiratory rate 23 /min Dr. Lesley Sierra Work Phone: 2(307)[phone] [place] [address] 12-05-2022 20:49-0400 SaO2% (BldA) [Mass fraction] 98 % Dr. Lesley Sierra Work Phone: 0(518)702-836772 [place] [address] 12-05-2022 20:49-0400 Systolic blood pressure 159 mm[Hg] Dr. Lesley Sierra Work Phone: 9(599)181-975773 [address] 12-05-2022 15:25-0400 Body mass index (BMI) [Ratio] 39.8 kg/m2 Dr. Lesley Sierra Work Phone: 3(839)090-552972 [place] [address] 12-05-2022 15:25-0400 Body weight 115.[address] Lesley Sierra Work Phone: 3(050)[phone] [place] [address] 12-05-2022 15:14-0400 Body height 170.[address] Lesley Sierra Work Phone: 3(691)761-535872 [place] [address] 12-05-2022 15:14-0400 Body temperature 97.1 [degF] Dr. Lesley Sierra Work Phone: [facility] 08-31-2022 16:04-0500 Heart rate 68 /min Dr. Lesley Sierra Work Phone: 5(276)[phone] [place] [address] 08-31-2022 14:30-0500 Body temperature 98.3 [degF] Dr. Lesley Sierra Work Phone: [facility] 08-31-2022 14:30-0500 Diastolic blood pressure 60 mm[Hg] Dr. Lesley Sierra Work Phone: [facility] 08-31-2022 14:30-0500 Respiratory rate 15 /min Dr. Lesley Sierra Work Phone: [facility] 08-31-2022 14:30-0500 SaO2% (BldA) [Mass fraction] 96 % Dr. Lesley Sierra Work Phone: [facility] 08-31-2022 14:30-0500 Systolic blood pressure 133 mm[Hg] Dr. Lesley Sierra Work Phone: [facility] 08-31-2022 10:53-0500 Body height 167.[address] Lesley Sierra Work Phone: [facility] Work Phone: 08-31-2022 10:53-0500 Body weight 88.[address] Lesley Sierra Work Phone: [facility] 08-31-2022 01:21-0500 Body mass index (BMI) [Ratio] 31.4 kg/m2 Dr. Lesley Sierra Work Phone: [facility] 08-30-2022 20:00-0500 Diastolic blood pressure 81 mm[Hg] Dr. Lesley Sierra Work Phone: [facility] Work Phone: 08-30-2022 20:00-0500 Heart rate 87 /min Dr. Lesley Sierra Work Phone: [facility] Work Phone: 08-30-2022 20:00-0500 Respiratory rate 19 /min Dr. Lesley Sierra Work Phone: [facility] Work Phone: 08-30-2022 20:00-0500 SaO2% (BldA) [Mass fraction] 96 % Dr. Lesley Sierra Work Phone: [facility] Work Phone: 08-30-2022 20:00-0500 Systolic blood pressure 164 mm[Hg] Dr. Lesley Sierra Work Phone: [facility] Work Phone: 08-30-2022 19:46-0500 Body temperature 97.4 [degF] Dr. Lesley Sierra Work Phone: [facility] Work Phone: 08-30-2022 17:14-0500 Body height [address] Lesley Sierra Work Phone: [facility] Work Phone: 08-30-2022 17:14-0500 Body mass index (BMI) [Ratio] 33.5 kg/m2 Dr. Lesley Sierra Work Phone: [facility] Work Phone: 08-30-2022 17:14-0500 Body weight 94.[address] Lesley Sierra Work Phone: [facility] Work Phone: 08-23-2022 13:54-0500 Body mass index (BMI) [Ratio] 35 kg/m2 Dr. Lesley Sierra Work Phone: [facility] 08-23-2022 13:54-0500 Body temperature 97.4 [degF] Dr. Lesley Sierra Work Phone: [facility] 08-23-2022 13:54-0500 Body weight 92.[address] Lesley Sierra Work Phone: [facility] 08-23-2022 13:54-0500 Diastolic blood pressure 76 mm[Hg] Dr. Lesley Sierra Work Phone: [facility] 08-23-2022 13:54-0500 Heart rate 69 /min Dr. Lesley Sierra Work Phone: [facility] 08-23-2022 13:54-0500 Respiratory rate 17 /min Dr. Lesley Sierra Work Phone: [facility] 08-23-2022 13:54-0500 SaO2% (BldA) [Mass fraction] 97 % Dr. Lesley Sierra Work Phone: [facility] 08-23-2022 13:54-0500 Systolic blood pressure 126 mm[Hg] Dr. Lesley Sierra Work Phone: [facility] 05-23-2017 09:20-0400 BMI (Body Mass Index) 24.95 kg/m2 Chris Skaggs MD [facility] Work Phone: 05-23-2017 09:20-0400 Body Temperature 98.2 [degF] Chris Skaggs MD [facility] Work Phone: 05-23-2017 09:20-0400 BP Diastolic 84 mm[Hg] Chris Skaggs MD [facility] Work Phone: 05-23-2017 09:20-0400 BP Systolic 134 mm[Hg] Chris Skaggs MD [facility] Work Phone: 05-23-2017 09:20-0400 Height 176.53 cm Chris Skaggs MD [facility] Work Phone: 05-23-2017 09:20-0400 Pulse (Heart Rate) 57 /min Chris Skaggs MD [facility] Work Phone: 05-23-2017 09:20-0400 Respiratory Rate 18 /min Chris Skaggs MD [facility] Work Phone: 05-23-2017 09:20-0400 Weight 77.75 kg Chris Skaggs MD [facility] Work Phone: Encounters Encounter Date Encounter Type Care Provider Facility Start: 11-25-2024 End: 11-25-2024 ambulatory LESLEY SIERRA Facility:[facility] Start: 11-25-2024 End: 11-25-2024 Subsequent hospital visit by physician Susan [facility] (I-Stat) Work Phone: Cat Scan Start: 11-02-2024 End: 11-02-2024 ambulatory Miles Groves Facility:[facility] Start: 10-02-2024 End: 10-02-2024 ambulatory Lesley Sierra Facility:[facility] Start: 06-04-2024 End: 06-04-2024 ambulatory Lesley Sierra Facility:[facility] Start: 11-28-2023 End: 11-28-2023 Subsequent hospital visit by physician [facility] (I-Stat) Work Phone: Cat Scan Start: 10-18-2023 End: 10-18-[address] Lesley Sierra Work Phone: [facility] Work Phone: Start: 10-18-2023 End: 10-18-[address] Lelsey Sierra Work Phone: [facility] Start: 09-11-2023 End: 09-11-[address] Lesley Sierra Work Phone: [facility] [facility] Work Phone: Start: 05-30-2023 End: 05-30-2023 ambulatory [facility] Work Phone: Start: 05-30-2023 End: 05-30-2023 Patient encounter procedure [facility]-Outpatient Breast Imaging Work Phone: Start: 05-07-2023 End: 05-07-[address] Lesley Sierra Work Phone: [facility] Work Phone: Start: 05-07-2023 End: 05-07-[address] Lesley Sierra Work Phone: [facility] Start: 03-14-2023 End: 03-14-[address] Lesley Sierra Work Phone: [facility] Work Phone: Start: 03-14-2023 End: 03-14-[address] Lesley Sierra Work Phone: [facility]-Physical Therapy Start: 03-12-2023 End: 03-12-[address] Lesley Sierra Work Phone: [facility] Work Phone: Start: 03-12-2023 End: 03-12-[address] Lesley Sierra Work Phone: [facility]-Physical Therapy Start: 01-29-2023 End: 01-29-[address] Lesley Sierra Work Phone: [facility] Start: 12-11-2022 End: 12-11-[address] Lesley Sierra Work Phone: [facility] Start: 12-10-2022 End: 12-10-[address] Lesley Sierra Work Phone: [facility] Work Phone: Start: 12-10-2022 End: 12-10-[address] Lesley Sierra Work Phone: [facility] Start: 12-09-2022 Non-patient / Non-visit Dr. Eladio Sierra Work Phone: [facility] Inpatient Physicians Start: 12-08-2022 Non-patient / Non-visit Dr. Eladio Sierra Work Phone: [facility] Start: 12-08-2022 End: 12-09-2022 Evaluation and management of inpatient Dr. Lesley Sierra Work Phone: [facility]-Medical Surgical 3 Start: 12-08-2022 End: 12-09-[address] Lesley Sierra Work Phone: [facility] Work Phone: Start: 12-05-2022 End: 12-05-2022 Emergency department patient visit Dr. Lesley Sierra Work Phone: [facility]-Emergency Department Start: 10-09-2022 End: 10-09-2022 Non-patient / Non-visit Dr. Lesley Sierra Work Phone: [facility] Start: 09-10-[address] Lesley walter Work Phone: [facility]-Cardiovascular Services Start: 09-04-2022 End: 09-04-[address] Lesley Sierra Work Phone: [facility]-Outpatient Bone Densitometry Start: 08-31-2022 Non-patient / Non-visit Dr. Eladio Sierra Work Phone: [facility] Start: 08-30-2022 Non-patient / Non-visit Dr. Eladio Sierra Work Phone: [facility] Start: 08-30-2022 End: 08-31-2022 Evaluation and management of inpatient Dr. Lesley Sierra Work Phone: [facility]-Progressive Care Unit Start: 08-30-2022 End: 08-31-[address] Lesley Sierra Work Phone: [facility] Work Phone: Start: 08-23-2022 End: 08-23-[address] Lesley Sierra Work Phone: [facility] Start: 08-07-2022 End: 08-07-2022 ambulatory [facility] Work Phone: Start: 08-07-2022 End: 08-07-2022 Patient encounter procedure [facility] Start: 05-29-2022 End: 05-29-2022 Patient encounter procedure [facility]-Outpatient Breast Imaging Start: 05-24-2022 End: 05-24-2022 Subsequent hospital visit by physician [facility] ([facility]) Work Phone: Cat Scan Start: 06-07-2021 Patient encounter status [facility] Procedures Date Procedure Procedure Detail Performing Clinician Start: 11-25-2024 Ct thorax w/o contra st material [facility] Provider Start: 11-28-2023 CT CHEST WO CONTRAST [facility] f Provider Start: 05-30-2023 Screening mammography Start: 12-09-2022 MRI of brain with contrast Dr. Lesley Sierra Work Phone: Start: 12-08-2022 Plain chest X-ray Dr. Gabriel Sierra Work Phone: Start: 12-08-2022 CT of head without contrast Dr. Lesley Sierra Work Phone: Start: 12-05-2022 Plain chest X-ray Dr. Gabriel Sierra Work Phone: Start: 12-05-2022 CT of head without contrast Dr. Lesley Sierra Work Phone: Start: 09-04-2022 Dual energy X-ray absorptiometry Dr. Lesley Sierra Work Phone: Start: 08-31-2022 Magnetic resonance angiography of head without contrast Dr. Lesley Sierra Work Phone: Start: 08-31-2022 Magnetic resonance angiography of neck without contrast Dr. Lesley Sierra Work Phone: Start: 08-31-2022 MRI of brain without contrast Dr. Lesley Sierra Work Phone: Start: 08-30-2022 Plain x-ray of hand Dr. Lesley Sierra Work Phone: Start: 08-30-2022 Plain chest X-ray Dr. Gabriel Sierra Work Phone: Start: 08-30-2022 CT of head without contrast Dr. Lesley Sierra Work Phone: Start: 05-29-2022 Screening mammography Start: 05-24-2022 Ct thorax w/o contra st material [facility] Provider Bacteria identified in Urine by Culture Dr. Lesley Sierra Work Phone: Respiratory Panel (PCR) Dr. Lesley Sierra Work Phone: Urine culture Dr. Lesley Sierra Work Phone: Urine culture Dr. Lesley Sierra Work Phone: Plan of Treatment Date Care Activity Detail Author Start: 11-18-2028 Urine microalbumin profile DTaP,Tdap,Td Vaccine (2 - Td or Tdap) [facility] Start: 09-23-2024 Advance Directive Discussion Advance Directive Discussion [facility] Start: 05-24-2024 Covid-19 Vaccine () Covid-19 Vaccine () [facility] Start: 09-23-2023 Advance Directive Discussion Advance Directive Discussion [facility] Start: 09-23-2023 Depression Assessment Depression Assessment [facility] Start: 05-24-2023 Covid-19 Vaccine () Covid-19 Vaccine () [facility] Start: 12-09-2022 Patient discharge [facility] Start: 12-08-2022 Following clinical pathway protocol [facility] Start: 12-08-2022 Vitamin B12 measurement [facility] Start: 12-08-2022 Diagnostic radiography of abdomen Abdomen Single View [facility] Start: 12-08-2022 Plain chest X-ray Chest 1 View [facility] Start: 12-08-2022 X-ray of skull Skull less than 4 Views [facility] Start: 12-08-2022 Admission procedure [facility] Start: 12-08-2022 Assessment of risk of venous thromboembolism [facility] Start: 12-08-2022 Insertion of catheter into peripheral vein [facility] Start: 12-08-2022 MRI of brain with contrast Brain W/WO Contrast [facility] Start: 12-08-2022 Providing care according to standard [facility] Start: 12-08-2022 Referral to occupational therapist [facility] Start: 12-08-2022 Referral to service [facility] Start: 12-08-2022 Verification routine [facility] Start: 12-08-2022 [facility] Start: 12-08-2022 [facility] Start: 12-08-2022 Methylmalonate measurement [facility] Start: 08-31-2022 Patient discharge [facility] Start: 08-31-2022 Referral to occupational therapist [facility] Start: 08-31-2022 Referral to service [facility] Start: 08-31-2022 Ambulatory blood pressure recording [facility] Start: 08-30-2022 Following clinical pathway protocol [facility] Start: 08-30-2022 Assessment of risk of venous thromboembolism [facility] Start: 08-30-2022 Cardiac monitoring [facility] Start: 08-30-2022 Catheterization of vein [facility] Start: 08-30-2022 Continuous pulse oximetry [facility] Start: 08-30-2022 Elevation of head of bed [facility] Start: 08-30-2022 Exercises [facility] Start: 08-30-2022 Implementation of planned interventions [facility] Start: 08-30-2022 Insertion of catheter into peripheral vein [facility] Start: 08-30-2022 Measuring intake and output [facility] Start: 08-30-2022 Notification of physician [facility] Start: 08-30-2022 Oxygen therapy [facility] Start: 08-30-2022 Patient referral to dietitian [facility] Start: 08-30-2022 Providing care according to standard [facility] Start: 08-30-2022 Referral to service [facility] Start: 08-30-2022 Tobacco use cessation education [facility] Start: 08-30-2022 [facility] Start: 08-30-2022 Verification routine [facility] Work Phone: Start: 08-30-2022 Admission procedure [facility] Start: 08-30-2022 Oxygen therapy [facility] Work Phone: Start: 08-30-2022 [facility] Work Phone: Start: 08-30-2022 Application finger splint static APPLICATION OF FINGER SPLINT [facility] Start: 05-24-2022 Influenza vaccination INFLUENZA (#1) [facility] Start: 10-21-2021 COVID-19 VACCINE (4 - Booster for Pfizer series) COVID-19 VACCINE (4 - Booster for Pfizer series) [facility] Start: 09-23-2021 ADVANCE DIRECTIVE DISCUSSION ADVANCE DIRECTIVE DISCUSSION [facility] Start: 05-17-2018 DIABETES SCREEN DIABETES SCREEN [facility] Start: 05-17-2018 Diabetes Screening Diabetes Screening [facility] Start: 05-23-2017 End: 05-23-2017 Appointment Appointment [facility] Work Phone: Start: 05-23-2017 End: 05-23-2017 Diagnostic colonoscopy Colonoscopy [facility] Work Phone: Start: 09-24-2014 PNEUMOCOCCAL: 65+ (2 - PCV) PNEUMOCOCCAL: 65+ (2 - PCV) [facility] Start: 2001 BONE DENSITY BONE DENSITY [facility] Start: 2001 Screening for osteoporosis Bone Density Screening [facility] Start: 1986 SHINGRIX VACCINE (1 of 2) SHINGRIX VACCINE (1 of 2) [facility] Start: 1955 Urine microalbumin profile DTAP,TDAP,TD (1 - Tdap) [facility] Start: 1954 Anxiety Screening Anxiety Screening [facility] Start: 1954 Depression Screening Depression Screening [facility] Bacteria identified in Urine by Culture Urine Culture [facility] Cardiac event recording [facility] Work Phone: Colonoscopy [facility] Work Phone: Colonoscopy [facility] Patient Education ED Dizziness, Uncertain Cause [facility] Work Phone: Patient referral [facility] Work Phone: Urine culture Urine Culture [facility] Immunizations Immunization Date Immunization Notes Care Provider Fa [facility] 08-11-2022 Covid Pfizer Bivalen t Booster Dr. Lesley Sierra Work Phone: [facility] 07-02-2022 influenza, high dose seasonal, preservative-free Dr. Lesley Sierra Work Phone: [facility] 06-21-2021 Covid (Pfizer) Dr. Lesley may Work Phone: [facility] 11-09-2020 Covid (Pfizer) Dr. Lesley may Work Phone: [facility] 10-19-2020 Covid (Pfizer) Dr. Lesley may Work Phone: [facility] 11-18-2018 tetanus toxoid, redu ankush diphtheria toxoid, and acellular pertussis vaccine, adsorbed [facility] 07-13-2015 influenza, injectabl e, quadrivalent, preservative free [facility] 07-13-2015 influenza, seasonal, injectable [facility] 09-24-2013 pneumococcal polysaccharide vaccine, [address] ([facility]) Work Phone: [facility] Payers Date Payer Category Payer Self-pay [id number] 2019 Medicare HU[employer]NA MEDICARE HU[employer]NA MEDICARE PPO [id number] 2019-Present [phone] [place] [address] PPO [id number] 2019 Medicare (Managed Care) HUMANA M EDFLORINDARE [id number] 2012 Medicare [id number] Unknown [id number] Unknown [id number] Unknown 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) [facility] Start: 1935 Sex Assigned At Not on file [facility] Start: 12-07-2021 End: 09-11-2023 Tobacco smoking status NHIS Unknown if ever smoked [facility] Start: 1935 Sex Assigned At Female W [facility] Start: 12-31-2014 None [facility] Start: 12-31-2014 Spouse/ Signif icant Other [facility] Start: 12-31-2014 Non-smoker [facility] Start: 01-27-2020 End: 08-31-2020 History of Social function [facility] Start: 01-27-2020 End: 08-31-2020 Tobacco use panel [facility] National Score (1-100), lower number is lower risk Not on file [facility] Medical Equipment Procedure Code Equipment Code Equipment Origin al Text Equipment Identifier Dates ([id number]) Coated hip femur prosthesis, modular [id number] FDA Start: 09-18-2021 ([id number]) Non-constrained polyethylene acetabular liner [id number] FDA Start: 09-18-2021 ([id number]) Acetabular shell [id number] FDA Start: 09-18-2021 ([id number]) Metallic femoral head prosthesis [id number] FDA Start: 09-18-2021 ([id number]) Acetabular shell ()[id number] FDA Start: 09-18-2021 Goals Date Patient Goal Desired Activity /State Functional Status Date Assessment Result Facility 12-09-2022 Functional status Ambulates;Tim r;Bathroom Privilege [facility] Work Phone: 08-31-2022 Functional status Bedrest [facility] Work Phone: 05-19-2015 Are you deaf, or do you have serious difficulty hearing 05/19/2015 4:33 PM Amy Narvaez RN No [facility] 05-19-2015 Are you blind, or do you have serious difficulty seeing, even when wearing glasses No 05/19/2015 4:33 PM Amy Narvaez RN No [facility] 05-19-2015 Do you have serious difficulty walking or climbing stairs No 05/19/2015 4:33 PM Amy Narvaez RN No [facility] 05-19-2015 Do you have difficul ty dressing or bathing No 05/19/2015 4:33 PM Amy Narvaez RN No [facility] 05-19-2015 Because of a physica l, mental, or emotional condition, do you have difficulty doing errands alone such as visiting a physician's office or shopping No 05/19/2015 4:33 PM Amy Narvaez RN No [facility] Mental Status Date Assessment Result Facility 12-09-2022 Cognitive function Voice/Name [facility] Work Phone: 12-08-2022 Cognitive function Level Of Cons ciousness Awake;Alert;Appropriate;Fol lows Commands [facility] Work Phone: 12-05-2022 Cognitive function Level Of Cons ciousness Awake;Alert;Appropriate;Fol lows Commands [facility] Work Phone: 08-31-2022 Cognitive function Voice/Name [facility] Work Phone: 08-31-2022 Cognitive function Appropriate [facility] Work Phone: 05-19-2015 Because of a physica l, mental, or emotional condition, do you have serious difficulty concentrating, remembering, or making decisions No 05/19/2015 4:33 PM Amy Narvaez RN No [facility] Clinical Notes 02-11-2019 to 11-25-2024 Marisela Toney, RT(R) - 11/25/2024 11:00 AM Marisela Musa, RT(R) - 11/28/2023 10:20 AM EST Note Date & Type Note Facility 11-25-2024 History of Present illness Narrative Radiology Service Progress Note PATIENT NAME: Iraj Santos DATE OF SERVICE: November 25, 2024 TIME: 12:16 PM PATIENT IDENTITY VERIFICATION COMPLETED USING TWO (2) IDENTIFIERS: Name and Date of confirmed by patient verbally. FALL SCREENING: Has the patient had 2 falls in the last year or 1 fall with injury or currently using an Ambulatory Assistive Device (Walker, Cane, Wheelchair, Crutches, etc.)? No PATIENT GENDER DATA: Assigned female at . status: : No status: NO. PATIENT RELEVANT IMPLANT DATA REVIEWED: Yes PATIENT PRESENTS WITH AN IMPLANTABLE OR ATTACHED ASTHMA EDUCATOR: No RADIOLOGY DEPARTMENT: CT; Exam(s) Completed: Chest PERIPHERAL IV DATA: Not applicable SIGNED BY: RT Ferdinand(Meg) November 25, 2024 12:16 PM documented in this encounter [facility] 11-25-2024 Note HNO ID: [id number] Author: MARISELA TONEY RT(R) Service: ? Author Type: Health Sciences Department Chair Type: Progress Notes Filed: 11/25/2024 12:16 Note Text: Radiology Service Progress Note PATIENT NAME: Iraj Santos DATE OF SERVICE: November 25, 2024 TIME: 12:16 PM PATIENT IDENTITY VERIFICATION COMPLETED USING TWO (2) IDENTIFIERS: Name and Date of confirmed by patient verbally. FALL SCREENING: Has the patient had 2 falls in the last year or 1 fall with injury or currently using an Ambulatory Assistive Device (Walker, Cane, Wheelchair, Crutches, etc.)? No PATIENT GENDER DATA: Assigned female at . status: : No status: NO. PATIENT RELEVANT IMPLANT DATA REVIEWED: Yes PATIENT PRESENTS WITH AN IMPLANTABLE OR ATTACHED ASTHMA EDUCATOR: No RADIOLOGY DEPARTMENT: CT; Exam(s) Completed: Chest PERIPHERAL IV DATA: Not applicable SIGNED BY: RT Ferdinand(Meg) November 25, 2024 12:16 PM [facility] 11-28-2023 History of Present illness Narrative Radiology Service Progress Note PATIENT NAME: Iraj Santos DATE OF SERVICE: November 28, 2023 TIME: 12:17 PM PATIENT IDENTITY VERIFICATION COMPLETED USING TWO (2) IDENTIFIERS: Name and Date of confirmed by patient verbally. FALL SCREENING: Has the patient had 2 falls in the last year or 1 fall with injury or currently using an Ambulatory Assistive Device (Walker, Cane, Wheelchair, Crutches, etc.)? No PATIENT GENDER DATA: Female. status: : No status: NO. PATIENT RELEVANT IMPLANT DATA REVIEWED: Yes PATIENT PRESENTS WITH AN IMPLANTABLE OR ATTACHED ASTHMA EDUCATOR: No RADIOLOGY DEPARTMENT: CT; Exam(s) Completed: Chest PERIPHERAL IV DATA: Not applicable SIGNED BY: RT Ferdinand(R) November 28, 2023 12:17 PM documented in this encounter [facility] 03-14-2023 Discharge summary Note Date/Time March 14, 2023 11:49am [facility] Physical Therapy [facility] [address] [place] [address]. [address] [place] [address] / REHABILITATION SERVICES DISCHARGE SUMMARY MR#: [id number] Acct: [id number] Name: IRAJ SANTOS Rep #: [id number] : 1935 87 From: Lesley Becker DPT, OCS, CSCS Referring Dr.: Dr. Lesley Sierra MD Status: REG RCR Insurance: [employer] MEDICARE PPO SELF PAY INSURANCE It has been my pleasure to treat IRAJ SANTOS referred by Dr. Lesley Sierra MD, with the diagnosis of dizzyness, occipital stroke for a total of 10 visit(s). Discharge Date: 03/14/23 Please see the following information for a summary of their discharge status. Subjective: Aw pretty good. About the same. Then says not dizzy anymore. 90%better dizzyness, no falls. 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 Basic ADLs are going well. Doing eye exercises now. % Improvement: 90 Objective/Function: FGA same, romberg ec on foam much better., no dizzyness withVOR today. pt confusing overall with subjective as she states about the same then 85% better but is certainly functional and doing what she needs to at home. She wishes to be done with PT and is appropriate to be done. Goal 1:: Patient stand on foam with ec for 15 seconds without LOB Goal Progress: Goal Met Goal 2:: Have biodex test and results Goal Progress: Goal Met Goal 3:: Pt feel 505 better in overall ability to get around Goal Progress: Goal Met Goal 4:: LEFS 40 Goal Progress: Goal Met Plan: d/c If there are questions or concerns regarding this patient's physical therapy, please feel free to call me at [phone]. Thank you for the referral of thispatient. Sincerely, Lesley Becker DPT, OCS, CSCS Balance/Gait/Functional tests - Balance/Special Test Scores Functional Gait Assessment Score: 28 % Disability: 6.6700 CATSIB Score (Max score 120 seconds): 120 Lower Extremity Functional Score: 54 <Electronically signed by Lesley Becker DPT, DAMIÁN, CSCS> 03/14/23 1149 CC: Dr. Lesley Sierra MD ~ EBG Signed [facility] Work Phone: 1(816) 554-172906-20-2023 Discharge summary Author Lesley Becker [facility] March 12, 2023 1:00pm Note Date/Time March 12, 2023 1:00 pm [facility] Physical Therapy [facility] [address] [place] [address] / REHABILITATION SERVICES DISCHARGE SUMMARY MR#: [id number] Acct: [id number] Name: IRAJ SANTOS Rep #: [id number] : 1935 87 From: Lesley Becker DPT, OCS, CSCS Referring Dr.: Dr. Lesley Sierra MD Status: REG RCR Insurance: [employer] MEDICARE PPO SELF PAY INSURANCE It has been my pleasure to treat IRAJ SANTOS referred by Dr. Lesley Sierra MD, with the diagnosis of dizzyness, occipital stroke for a total of 8 visit(s). Discharge Date: Please see the following information for a summary of their discharge status. Subjective: Pt states she got really dizzy after last session - happened when she was shopping. Objective/Function: Pt did great today - progressed some exercises and added a few new ones. Still not able to replicate any dizziness. Pt did have a LOB moment when doing static foam stance with eyes closed. Goal 1:: Patient stand on foam with ec for 15 seconds without LOB Goal 2:: Have biodex test and results Goal Progress: Goal Met Goal 3:: Pt feel 505 better in overall ability to get around Goal 4:: LEFS 40 Plan: 2x/week for 4 weeks for... 1. progress home VOR and cawthorne herson ex (VOR H 60 sec adn head turns 15x 6x/day given IE, can progress to standing balance and VOR x2 when easy.). 2. work on vestibular balance foam and/or ec and comfort with weight shift to HEP when safe. Can work on functional step and recover also. If there are questions or concerns regarding this patient's physical therapy, please feel free to call me at [phone]. Thank you for the referral of thispatient. Sincerely, Lesley Becker, JOSUE, OCS, CSCS Balance/Gait/Functional tests - Balance/Special Test Scores Functional Gait Assessment Score: 28 % Disability: 6.6700 CATSIB Score (Max score 120 seconds): 92 Lower Extremity Functional Score: 8 <Electronically signed by Lesley Becker DPT, DAMIÁN, CSCS> 03/12/23 1300 CC: Dr. Lesley Sierra MD ~ EBG Signed [facility] Work Phone: [phone]) 105-103403-19-[address] Kinney [facility] December 09, 2022 12:54pm Note Date/Time December 09, 2022 11: 46am [facility] Medical Records Department [address] [place] [address] Discharge Summary 12/09/22 1145 MR#: [id number] Acct: [id number] Name: IRAJ SANTOS Rep #:[id number] : 1935 87 From: Madai Kinney DO PCP: Dr. Lesley Sierra MD Status:ADM JESSI Location: [place] [address] Providers Date of Admission: 12/08/22 Date of Discharge: 12/09/22 Primary Care Physician: Dr. Lesley Sierra MD Reason For Visit: DIZZINESS AND ATAXIA Diagnosis Discharge Diagnosis (1) Ataxia: Status: Acute Code(s): R27.0 - Ataxia, unspecified (2) Generalized weakness: Status: Acute Code(s): R53.1 - Weakness Medications at Discharge Home Medications levothyroxine 100 mcg tablet 100 mcg PO DAILY THYROID 06/06/21 apixaban 2.5 mg tablet (Eliquis) 2.5 mg PO BID BLOOD THINNER 09/13/22 lisinopril 5 mg tablet 5 mg PO BID BLOOD PRESSURE 12/04/22 atorvastatin 40 mg tablet 40 mg PO QHS CHOLESTEROL 12/08/22 amlodipine 5 mg tablet 5 mg PO DAILY #30 tabs 12/09/22 aspirin 81 mg chewable tablet 81 mg PO BREAKFAST #0 tabs 12/09/22 prednisone 20 mg tablet 20 mg PO DAILY #10 tabs 12/09/22 Hospital Course Operations None Procedures EKG and - (CT brain/chest x-ray/MRI brain) Summary of Care Provided Minutes Spent on Discharge: 33 Hospital Course: Patient is an 87-year-old white female who presented to emergency department [facility] on 12/08/2022 with dizziness and unsteadiness of gait that has been ongoing for about 6 days now.? She was seen in the emergency department the day after onset at which time she had essentially negative work-up which included a CT of the brain which showed no acute findings.? Her symptoms had persisted so she returned to the emergency department.? Upon representation she reported generalized weakness and difficulty with balance butno vertigo.? She denied any numbness or tingling in any of the extremities and any focal muscle weakness, visual issues, headache, dysarthria, dysphagia or tinnitus.? Vital signs on presentation were overall unremarkable.? She was foundto have a positive Romberg sign on admission.? B12 levels, MRI of the brain, physical and Occupational Therapy have been ordered to further evaluate the patient.? Her labs were overtly unremarkable other than she did have a monocytosis so 1 would question whether or not this was viral.? B12 and MRI are still pending.? 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 At that time she was placed on 3 weeks of aspirin and Plavix and recommended to have neuro and ophthalmology follow-up. Patient indicated she was on aspirin and Plavix but has stopped both of them since. I have recommended she restart her aspirin based on neurology recommendations. She evidently was diagnosed with paroxysmal atrial fib in the meantime and was placed on Eliquis. I would avoid triple therapy with the addition of Plavix however I would go ahead and continue the aspirin and Eliquis at this time. MRIwas performed and showed no acute new findings. Old stroke was noted. B12 level and methylmalonic acid level were pending at the time of discharge. Her UA was suggestive of infection however culture shows mixed gram-positive and gram- negative organisms indicating a contaminated specimen. No antibiotics wereprescribed. We obtained a respiratory viral panel as we did have some concern that she could have a labyrinthitis related to a respiratory viral infection andthis was unremarkable. This being negative does not rule out labyrinthitis as etiology. She was seen by physical and Occupational Therapy prior to discharge and deemed safe to go home without any ongoing assistance however we did recommend ongoing utilization of a walker while her balance feels off to her. She was anxious to go home. Given the concern for labyrinthitis we did treat her with a steroid burst 40 mg daily for 5 days. She was on the fence whether or not she would utilize this but we did send the prescription in to be available for her if she so desired. I did instruct her to follow-up with ENT if the symptoms do not resolve in the next 7 to 10 days. Information for ENT follow-up was given to her at the time of discharge. She was discharged home instable condition on 12/09/2022. She is to follow-up with her primary care physician within the 2 weeks. She states she has follow-up with ophthalmology from previous admission in 6 months. 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 PAF Hypothyroidism Hypertension Hyperlipidemia Obesity Physical Exam Const alert, oriented x3, no apparent distress, healthy appearing and well nourished Constitutional Narrative: Obese, elderly, white female, lying in bed, appears comfortable, sits on the edge of the bed without any disequilibrium, nontoxic General Appearance: cooperative, comfortable, well kempt and well developed Orientation / Consciousness: awake, oriented to person, oriented to place and oriented to time Exam Limitations: no limitations Nutritional Appearance: obese HEENT normocephalic, head/scalp atraumatic and moist oral mucous membranes HEENT Narrative: Mallampati 3, no thrush, mild hearing deficits Eyes PERRL, EOMs intact bilaterally and conjunctivae normal Eyes Narrative: No scleral icterus Neck no lymphadenopathy and supple Neck Narrative: Trachea midline, no thyroid enlargement Resp normal respiratory effort, no retractions, no use of accessory muscles and clearto auscultation bilaterally Auscultation: Negative for rales, rhonchi or wheezes Cardio regular rate, regular rhythm, S1 normal heart sound, S2 normal heart sound, no murmurs, no rub, no gallops and no clicks GI normal to inspection, nondistended, normoactive bowel sounds, soft to palpation and non-tender Extremity no clubbing, cyanosis or edema Extremity Narrative: 2+ pedal pulses Skin no rashes or lesions noted, no wounds, skin turgor normal and no jaundice Neuro oriented x3, CN's II-XII intact bilaterally, moves all extremities and no focal motor deficits Neuro Narrative: Mild generalized weakness noted with proximal musculature being weaker than distal Coordination / Balance: rpfssi-hz-plwd test normal and [id number]-bm-bhvd test normal Speech: speech normal Psych Psych Narrative: Affect is somewhat flat, patient seems somewhat agitated at my existence Weight / BMI Weight Weight: 91.4 kg Body Mass Index (BMI) 31.5 ABG / Lab / Microbiology Data Result Diagrams: 12/08/22 15:20 12/08/22 15:20 Laboratory: Laboratory Results - last 24 hr 12/08/22 15:20: WBC 8.4, RBC 4.59, Hgb 14.0, Hct 43.4, MCV 94.6, MCH 30.5, MCHC 32.3, RDW Std Deviation 46.5 H, RDW Coeff of Jovan 13.4, Plt Count 255, MPV 10.5, Immature Gran % (Auto) 0.200, Neut % (Auto) 69.4, Lymph % (Auto) 16.1 L, [place] % (Auto) 12.3 H, Eos % (Auto) 1.5, Baso % (Auto) 0.5, Absolute Neuts (auto) 5.8, Absolute Lymphs (auto) 1.35, Nucleated RBC % 0 12/08/22 15:20: Sodium 137, Potassium 3.6, Chloride 101, Carbon Dioxide 26.0, Anion Gap 10, BUN 18, Creatinine 1.08 H, Estim Creat Clear Calc 36.36, Est GFR (MDRD) Af Amer 62, Est GFR (MDRD) Non-Af 51 L, BUN/Creatinine Ratio 16.7, Glucose 142 H, Calcium 8.9, Total Bilirubin 0.70, AST 17, ALT 27, Alkaline Phosphatase 82, Troponin I High Sens 9, Total Protein 7.1, Albumin 3.6, Globulin3.5, Albumin/Globulin Ratio 1.0 12/08/22 15:20: B-Natriuretic Peptide 136.3 H 12/08/22 15:50: Urine Color Yellow, Urine Clarity Sl. Cloudy, Urine pH 6.0, Ur Specific [place] 1.020, Urine Protein 30 H, Urine Glucose (UA) Normal, Urine Ketones Negative, Urine Occult Blood 250 H, Urine Nitrite Negative, Urine Bilirubin Negative, Urine Urobilinogen 8 H, Ur Leukocyte Esterase 500 H, Urine RBC 5-10 SEEN, Urine WBC 50-100 SEEN, Ur Squamous Epith Cells 10-25 SEEN, Ur Transition Epith Cell 0-5 SEEN, Urine Bacteria 2+, Urine Mucus 0 SEEN Microbiology: Microbiology 12/08/22 15:50 Urine, Clean Catch Urine Culture - Preliminary Mixed Gram Pos & Gram Neg Org Radiography Diagnostic Testing: Radiology Impression Brain CT 12/08/22 15:31 IMPRESSION: Age-related and chronic changes as noted of the brain. Electronically Signed: Juan Horan DO at 16:13 EDT , Chest X-Ray 12/08/22 15:55 IMPRESSION: No radiographic evidence of acute cardiopulmonary disease. Electronically Signed: Juan Horan DO at 16:17 EDT , Brain MRI 12/09/22 09:00 IMPRESSION: No evidence for acute infarct. 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 Chronic involutional and white matter changes. Old right occipital infarct. Electronically Signed: Marlene Olsen MD at 11:03 EDT , Meaningful Use Info Meaningful Use Diagnoses (Choose all that apply): None applicable Discharge Plan Admission Admit Date/Time: 12/08/22 17:54 Primary Reason for Your Visit: Unsteady gait Attending Provider: Madai Kinney Primary Care Provider: Lesley Sierra Consulting Providers: Thu Elmore Instructions Additional Instructions / Restrictions: 1. Continue to hold metoprolol that was started by your primary care physician. I have started a new blood pressure medication called amlodipine. Metoprolol can affect your heart rates and slow down your heart and I do not want your heart rate any slower than it has been while you have been hospitalized. However, your blood pressure has been above goal and this is the reason for the addition of the amlodipine 5 mg daily. Please can you to take your home lisinopril 5 mg twice daily. 2. If your symptoms persist for the next 7 to 10 days would recommend follow- upwith ear nose and throat doctor as noted below. Call for an appointment if yoursymptoms have not improved. Your MRI is negative for any new stroke. 3. Continue to use a walker until you are more steady while walking. Discharge Orders/Prescriptions Prescriptions: New aspirin 81 mg Tablet,Chewable 81 mg PO BREAKFAST Qty: 0 0RF prednisone 20 mg tablet 20 mg PO DAILY Qty: 10 0RF Rx Instructions: Take 2 tablets once daily for 5 days amlodipine 5 mg tablet 5 mg PO DAILY Qty: 30 0RF Continued atorvastatin 40 mg tablet 40 mg PO QHS levothyroxine 100 mcg tablet 100 mcg PO DAILY Eliquis 2.5 mg tablet 2.5 mg PO BID lisinopril 5 mg tablet 5 mg PO BID Referrals / Follow Up: Lesley Sierra MD [Primary Care Provider] - Within 2 Weeks Ariel Diaz MD [Med Staff - Active Staff] - See Referral Note (If problems walking do not improve in the next 7-10 days) Disposition Disposition (needs filled in before D/C Order can be placed): Home, Self Care Charges/Coding Visit Charges Inpatient E&M: 48281 Disch Hosp 12/09/22 1254 <Electronically signed by Madai Kinney DO> Cosigner Signature (if applicable): CC: Dr. Lesley Sierra MD; Dr. Madai Kinney DO~ Signed [facility] Work Phone: [phone] History and physical note Author Dr. Elmore [facility] December 08, 2022 6:31pm Note Date/Time December 08, 2022 6:3 1pm [facility] Medical Records Department [address] [place] [address] History & Physical Exam 12/08/22 1820 MR#: [id number] Acct: [id number] Name: IRAJ SANTOS Rep #:[id number] : 1935 87 From: Thu Villatoro PCP: Dr. Lesley Sierra MD Status:ADM JESSI Location: [place] [address] HPI - General General Date of Admission: 12/08/22 Date of Service: 12/08/22 Chief Complaint: Dizziness and unsteadiness of gait HPI Narrative IRAJ SANTOS, is a 87 F who presents dizziness and unsteadiness of gait of acute/subacute onset 6 days ago. Was in the emergency department a day after onset at which time work-up including CT of the brain was largely normal. Symptoms have persisted and so patient returned to the emergency department. Complains of generalized weakness and difficulty with balance. Denies any vertigo. Denies any numbness or tingling in any of the extremities. Denies anymuscle weakness, involuntary movements, vision problems, headache, neck stiffness, dysarthria, dysphagia, dysphasia denies any tinnitus. [facility] Medical History Abnormal EKG Abnormal stress test Arthritis Benign essential HTN Cancer Cardiology follow-up encounter Chronic left hip pain Closed fracture of phalanx of left ring finger Closed left ankle fracture Hemianopia of left eye History of echocardiogram History of pain when walking History of stress test Hypertension Hypothyroidism Loss of hearing Lung nodule Mixed hyperlipidemia Non-smoker NSVT (nonsustained ventricular tachycardia) Occipital stroke Paroxysmal atrial fibrillation Personal history of colonic polyps Preoperative cardiovascular examination Restless legs Thyroid disease Wears glasses Home Medications levothyroxine 100 mcg tablet 100 mcg PO DAILY THYROID 06/06/21 [History Last Taken 12/08/22] apixaban 2.5 mg tablet (Eliquis) 2.5 mg PO BID BLOOD THINNER 09/13/22 [History Last Taken 12/08/22] lisinopril 5 mg tablet 5 mg PO BID BLOOD PRESSURE 12/04/22 [History Last Taken 12/08/22] atorvastatin 40 mg tablet 40 mg PO QHS CHOLESTEROL 12/08/22 [History Last Taken 12/07/22] Allergy/AdvReac Type Severity Reaction Status Date / Time No Known Allergies Allergy Verified 12/08/22 15:13 Family History Other Breast cancer CVA (cerebral vascular accident) Heart disease Surgical History H/O hysterectomy with unilateral oophorectomy (~09/18/21) H/O total hip arthroplasty History of appendectomy History of cardiac catheterization History of colonoscopy (~2017) History of left hip replacement History of lobectomy of lung History of thyroidectomy Social History Smoking Status: Never smoker alcohol intake: never substance use type: does not use caffeine: No Prior Cardiac Testing/Procedures Prior Cardiac Testing/Procedures: MRI ROS ROS Narrative Denies any chest pain or shortness of breath. All other systems reviewed and essentially negative as above reported the history. Vital Signs Vital Signs Vital Signs: 12/08/22 15:12 12/08/22 15:20 12/08/22 15:20 Temperature 35.7 C L Temperature Source Temporal Pulse Rate 60 60 Pulse Rate [Lying] Pulse Rate [Sitting (for 1 minute prior to obtaining)] Pulse Rate [Standing (for 1 minute prior to obtaining)] Respiratory Rate 18 18 Respiratory Effort Normal Non-Labored Blood Pressure 137/71 H 140/72 H Blood Pressure [Lying] Blood Pressure [Sitting (for 1 minute prior to obtaining)] Blood Pressure [Standing (for 1 minute prior to obtaining)] Blood Pressure Mean 93 94 Blood Pressure Mean [Lying] Blood Pressure Mean [Sitting (for 1 minute prior to obtaining)] Blood Pressure Mean [Standing (for 1 minute prior to obtaining)] Pulse Ox 97 95 Oxygen Delivery Method Room Air Room Air 12/08/22 15:39 12/08/22 15:40 12/08/22 16:24 Temperature Temperature Source Pulse Rate 58 L Pulse Rate [Lying] 60 61 Pulse Rate [Sitting (for 1 minute prior to obtaining)] 61 Pulse Rate [Standing (for 1 minute prior to obtaining)] 68 Respiratory Rate 16 Respiratory Effort Blood Pressure Blood Pressure [Lying] 156/80 H 156/80 H Blood Pressure [Sitting (for 1 minute prior to obtaining)] 148/72 H Blood Pressure [Standing (for 1 minute prior to obtaining)] 125/72 H Blood Pressure Mean Blood Pressure Mean [Lying] 105 105 Blood Pressure Mean [Sitting (for 1 minute prior to obtaining)] 97 Blood Pressure Mean [Standing (for 1 minute prior to obtaining)] 89 Pulse Ox 94 Oxygen Delivery Method Room Air 12/08/22 17:11 12/08/22 17:58 Temperature 36.8 C 36.4 C L Temperature Source Oral Oral Pulse Rate 59 L 71 Pulse Rate [Lying] Pulse Rate [Sitting (for 1 minute prior to obtaining)] Pulse Rate [Standing (for 1 minute prior to obtaining)] Respiratory Rate 17 16 Respiratory Effort Blood Pressure 117/59 L 117/59 L Blood Pressure [Lying] Blood Pressure [Sitting (for 1 minute prior to obtaining)] Blood Pressure [Standing (for 1 minute prior to obtaining)] Blood Pressure Mean 78 78 Blood Pressure Mean [Lying] Blood Pressure Mean [Sitting (for 1 minute prior to obtaining)] Blood Pressure Mean [Standing (for 1 minute prior to obtaining)] Pulse Ox 94 97 Oxygen Delivery Method Room Air Room Air Weight Weight: 98 kg Body Mass Index (BMI) 33.8 Physical Exam Narrative General exam. Elderly woman, not in any obvious distress, not particularly ill looking, depressed appearing, irritable. HEENT. Oral mucosa moist no pallor jaundice Neck. Neck is supple. Lungs. Clear to auscultation Heart. First and second heart sounds are no murmurs. Abdomen. Soft and nontender to palpation. No masses felt. Extremities. 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 Gait is ataxic and slightly unsteady. Romberg's test is positive. Power is 5 out of 5 in all extremities, cranial 2-12 grossly intact. Deep tendon reflexes exaggerated 3+ in both lower extremities. 2+ in upper extremities. Sensation is grossly intact. Results Medical Records Data Attestation: I reviewed the patient's medical records Lab / Micro Data Attestation: I reviewed the patient's lab results. Result Diagrams: 12/08/22 15:20 12/08/22 15:20 Labs: Laboratory Results - last 24 hr 12/08/22 15:20: WBC 8.4, RBC 4.59, Hgb 14.0, Hct 43.4, MCV 94.6, MCH 30.5, MCHC 32.3, RDW Std Deviation 46.5 H, RDW Coeff of Jovan 13.4, Plt Count 255, MPV 10.5, Immature Gran % (Auto) 0.200, Neut % (Auto) 69.4, Lymph % (Auto) 16.1 L, [place] % (Auto) 12.3 H, Eos % (Auto) 1.5, Baso % (Auto) 0.5, Absolute Neuts (auto) 5.8, Absolute Lymphs (auto) 1.35, Nucleated RBC % 0 12/08/22 15:20: Sodium 137, Potassium 3.6, Chloride 101, Carbon Dioxide 26.0, Anion Gap 10, BUN 18, Creatinine 1.08 H, Estim Creat Clear Calc 36.36, Est GFR (MDRD) Af Amer 62, Est GFR (MDRD) Non-Af 51 L, BUN/Creatinine Ratio 16.7, Glucose 142 H, Calcium 8.9, Total Bilirubin 0.70, AST 17, ALT 27, Alkaline Phosphatase 82, Troponin I High Sens 9, Total Protein 7.1, Albumin 3.6, Globulin3.5, Albumin/Globulin Ratio 1.0 12/08/22 15:20: B-Natriuretic Peptide 136.3 H 12/08/22 15:50: Urine Color Yellow, Urine Clarity Sl. Cloudy, Urine pH 6.0, Ur Specific [place] 1.020, Urine Protein 30 H, Urine Glucose (UA) Normal, Urine Ketones Negative, Urine Occult Blood 250 H, Urine Nitrite Negative, Urine Bilirubin Negative, Urine Urobilinogen 8 H, Ur Leukocyte Esterase 500 H, Urine RBC 5-10 SEEN, Urine WBC 50-100 SEEN, Ur Squamous Epith Cells 10-25 SEEN, Ur Transition Epith Cell 0-5 SEEN, Urine Bacteria 2+, Urine Mucus 0 SEEN Rhythm Strip Rhythm Strip: Sinus Rhythm Radiology Impression Brain CT 12/08/22 15:31 IMPRESSION: Age-related and chronic changes as noted of the brain. Electronically Signed: Juanedwina HoranDO at 16:13 EDT , Chest X-Ray 12/08/22 15:55 IMPRESSION: No radiographic evidence of acute cardiopulmonary disease. Electronically Signed: Juan Horan DO at 16:17 EDT , Assessment & Plan Assessment/Plan (1) Ataxia: PLAN: Plan 1. Acute to subacute onset of dizziness and ataxia of gait. Given prior history of posterior circulation stroke will need to consider the possibility ofrepeat posterior circulation stroke. Given positive Romberg's sign on examination will need to consider possibility of subacute combined degeneration of the posterior cord from vitamin B12 deficiency. We will check vitamin B12 levels. MRI of the brain. Physical Occupational Therapy to evaluate. Charges/Coding Visit Charges Inpatient E&M: 89571 Init Hosp L3 12/08/22 1831 <Electronically signed by Thu Elmore MD> Cosigner Signature (if applicable): CC: Dr. Lesley Sierra MD; Dr. Thu Elmore MD~ Signed [facility] Work Phone: [phone]) 163-320303-18-[address] Melendez [facility] December 08, 2022 5:35pm Note Date/Time December 08, 2022 3:3 1pm [facility] Medical Records Department [address] [place] [address] Emergency Department Summary 12/08/22 MR#: [id number] Acct: [id number] Name: IRAJ SANTOS Rep #:[id number] : 1935 87 From: Mundo Melendez DO PCP: Dr. Lesley Sierra MD Status:REG ER Location: ED HPI History of Present Illness Chief Complaint: Dizziness Narrative Narrative: 87-year-old female presenting with dizziness. She states its been going on for about 6 days. Patient was seen and evaluated 3 days ago in the emergency room. She had a negative CT scan and negative lab work-up. Her orthostatic vital signs were negative. She had a negative Bryn-Hallpike. At that point the patient stated that her primary care physician told her to double up on her metoprolol because he was concerned that maybe her heart rate was fast or she was hypertensive. She states now that she was told to discontinue the metoprolol. She continues to have dizziness. He states he has had a mild headache. She does not describe this as vertiginous and does not describe it as lightheadedness. She does not feel as if she is going to faint. She does not have any chest pain, shortness of breath, nausea, vomiting. Denies abdominal pain. Denies urinary or vaginal complaints. Denies constipation or diarrhea. No nausea or vomiting. Patient states that when she is sitting she has no symptoms but when she stands up she has symptoms. He is having trouble ambulating at home. 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 She also has a history of A-fib and she is on anticoagulated on Eliquis. Denies head injury. [facility] Medical History Abnormal EKG Abnormal stress test Arthritis Benign essential HTN Cancer Cardiology follow-up encounter Chronic left hip pain Closed fracture of phalanx of left ring finger Closed left ankle fracture Hemianopia of left eye History of echocardiogram History of pain when walking History of stress test Hypertension Hypothyroidism Loss of hearing Lung nodule Mixed hyperlipidemia Non-smoker NSVT (nonsustained ventricular tachycardia) Occipital stroke Paroxysmal atrial fibrillation Personal history of colonic polyps Preoperative cardiovascular examination Restless legs Thyroid disease Wears glasses Home Medications levothyroxine 100 mcg tablet 100 mcg PO DAILY THYROID 06/06/21 [History Last Taken 12/08/22] apixaban 2.5 mg tablet (Eliquis) 2.5 mg PO BID BLOOD THINNER 09/13/22 [History Last Taken 12/08/22] lisinopril 5 mg tablet 5 mg PO BID BLOOD PRESSURE 12/04/22 [History Last Taken 12/08/22] atorvastatin 40 mg tablet 40 mg PO QHS CHOLESTEROL 12/08/22 [History Last Taken 12/07/22] Allergy/AdvReac Type Severity Reaction Status Date / Time No Known Allergies Allergy Verified 12/08/22 15:13 Family History Other Breast cancer CVA (cerebral vascular accident) Heart disease Surgical History H/O hysterectomy with unilateral oophorectomy (~09/18/21) H/O total hip arthroplasty History of appendectomy History of cardiac catheterization History of colonoscopy (~2017) History of left hip replacement History of lobectomy of lung History of thyroidectomy Social History Smoking Status: Never smoker alcohol intake: never substance use type: does not use caffeine: No ROS ROS ED Review of Systems ROS Unobtainable: Denies due to encephalopathy Constitutional Constitutional ED: Denies chills or fever(s) Eyes Eyes: Denies change in vision or diplopia ENT ENT ED: Denies rhinorrhea or sore throat Cardiovascular Cardiovascular: Denies chest pain or palpitations Respiratory/Chest Respiratory/Chest: Denies cough or dyspnea Gastrointestinal Gastrointestinal: Denies abdominal pain, constipation, nausea or vomiting Genitourinary Genitourinary ED: Denies dysuria or hematuria Musculoskeletal Musculoskeletal: Denies arthralgias or back pain Neurologic Neurologic: Reports headache(s) and other Details: Dizziness ; Denies paresthesias Psychiatric Psychiatric: Denies anxiety or depression EXAM Physical Exam Const Vital Signs: 12/08/22 15:12 12/08/22 15:20 12/08/22 15:20 Temperature 96.3 F L Temperature Source Temporal Pulse Rate 60 60 Pulse Rate [Lying] Pulse Rate [Sitting (for 1 minute prior to obtaining)] Pulse Rate [Standing (for 1 minute prior to obtaining)] Respiratory Rate 18 18 Respiratory Effort Normal Non-Labored Blood Pressure 137/71 H 140/72 H Blood Pressure [Lying] Blood Pressure [Sitting (for 1 minute prior to obtaining)] Blood Pressure [Standing (for 1 minute prior to obtaining)] Blood Pressure Mean 93 94 Blood Pressure Mean [Lying] Blood Pressure Mean [Sitting (for 1 minute prior to obtaining)] Blood Pressure Mean [Standing (for 1 minute prior to obtaining)] Pulse Ox 97 95 Oxygen Delivery Method Room Air Room Air 12/08/22 15:39 12/08/22 15:40 12/08/22 16:24 Temperature Temperature Source Pulse Rate 58 L Pulse Rate [Lying] 60 61 Pulse Rate [Sitting (for 1 minute prior to obtaining)] 61 Pulse Rate [Standing (for 1 minute prior to obtaining)] 68 Respiratory Rate 16 Respiratory Effort Blood Pressure Blood Pressure [Lying] 156/80 H 156/80 H Blood Pressure [Sitting (for 1 minute prior to obtaining)] 148/72 H Blood Pressure [Standing (for 1 minute prior to obtaining)] 125/72 H Blood Pressure Mean Blood Pressure Mean [Lying] 105 105 Blood Pressure Mean [Sitting (for 1 minute prior to obtaining)] 97 Blood Pressure Mean [Standing (for 1 minute prior to obtaining)] 89 Pulse Ox 94 Oxygen Delivery Method Room Air 12/08/22 17:11 Temperature 98.3 F Temperature Source Oral Pulse Rate 59 L Pulse Rate [Lying] Pulse Rate [Sitting (for 1 minute prior to obtaining)] Pulse Rate [Standing (for 1 minute prior to obtaining)] Respiratory Rate 17 Respiratory Effort Blood Pressure 117/59 L Blood Pressure [Lying] Blood Pressure [Sitting (for 1 minute prior to obtaining)] Blood Pressure [Standing (for 1 minute prior to obtaining)] Blood Pressure Mean 78 Blood Pressure Mean [Lying] Blood Pressure Mean [Sitting (for 1 minute prior to obtaining)] Blood Pressure Mean [Standing (for 1 minute prior to obtaining)] Pulse Ox 94 Oxygen Delivery Method Room Air Positive well nourished General Appearance ED: NAD HEENT Reports moist mucous membranes HEENT Narrative: Negative [place]. Eyes PERRL and EOMs intact bilaterally Neck no lymphadenopathy Resp normal respiratory effort and clear to auscultation bilaterally Cardio regular rate and regular rhythm GI normal to inspection, nondistended, normoactive bowel sounds Extremity normal to inspection Neuro oriented x3 and CN's II-XII intact bilaterally Neuro Narrative: Negative hints exam Sensorium / Orientation: alert Motor Exam: strength 5/5 throughout Psych mental status grossly normal Skin no rashes or lesions noted MDM MDM MDM Narrative Medical decision making narrative: Patient presenting again with dizziness. She has a normal [place] exam. Negative hints exam. She states again that she is only dizzy when she gets up and walks. When she was seen the other day she was not orthostatic. Today it appears that she is. Blood pressure from 156/80 to 125/72 with orthostatic vital signs. CBC did not show any acute interval changes of significance. CMP is also near the same however the creatinine is increased a little bit. She is a BNP elevation. Liver function is normal. Urinalysis is contaminated I sent this for culture. Chest x-ray my interpretation shows no acute process. EKG normal sinus rhythm with a ventricular rate 61 bpm. There are some T wave inversions and slight depressions in the lateral leads which are not new. CT brain is again negative. Given her continued dizziness and orthostasis patient does not feel she can go home. I discussed with the hospital admission. Impression: 1. Orthostatic hypotension 2. Dizziness Lab Data Labs: Laboratory Results - last 24 hr 12/08/22 12/08/22 12/08/22 15:20 15:20 15:20 WBC 8.4 RBC 4.59 Hgb 14.0 Hct 43.4 MCV 94.6 MCH 30.5 MCHC 32.3 RDW Std Deviation 46.5 H RDW Coeff of Jovan 13.4 Plt Count 255 MPV 10.5 Immature Gran % (Auto) 0.200 Neut % (Auto) 69.4 Lymph % (Auto) 16.1 L [place] % (Auto) 12.3 H Eos % (Auto) 1.5 Baso % (Auto) 0.5 Absolute Neuts (auto) 5.8 Absolute Lymphs (auto) 1.35 Nucleated RBC % 0 Sodium 137 Potassium 3.6 Chloride 101 Carbon Dioxide 26.0 Anion Gap 10 BUN 18 Creatinine 1.08 H Estim Creat Clear Calc 36.36 Est GFR (MDRD) Af Amer 62 Est GFR (MDRD) Non-Af 51 L BUN/Creatinine Ratio 16.7 Glucose 142 H Calcium 8.9 Total Bilirubin 0.70 AST 17 ALT 27 Alkaline Phosphatase 82 Troponin I High Sens 9 B-Natriuretic Peptide 136.3 H Total Protein 7.1 Albumin 3.6 Globulin 3.5 Albumin/Globulin Ratio 1.0 Urine Color Urine Clarity Urine pH Ur Specific [place] Urine Protein Urine Glucose (UA) Urine Ketones Urine Occult Blood Urine Nitrite Urine Bilirubin Urine Urobilinogen Ur Leukocyte Esterase Urine RBC Urine WBC Ur Squamous Epith Cells Ur Transition Epith Cell Urine Bacteria Urine Mucus 12/08/22 15:50 WBC RBC Hgb Hct MCV MCH MCHC RDW Std Deviation RDW Coeff of Joavn Plt Count MPV Immature Gran % (Auto) Neut % (Auto) Lymph % (Auto) [place] % (Auto) Eos % (Auto) Baso % (Auto) Absolute Neuts (auto) Absolute Lymphs (auto) Nucleated RBC % Sodium Potassium Chloride Carbon Dioxide Anion Gap BUN Creatinine Estim Creat Clear Calc Est GFR (MDRD) Af Amer Est GFR (MDRD) Non-Af BUN/Creatinine Ratio Glucose Calcium Total Bilirubin AST ALT Alkaline Phosphatase Troponin I High Sens B-Natriuretic Peptide Total Protein Albumin Globulin Albumin/Globulin Ratio Urine Color Yellow Urine Clarity Sl. Cloudy Urine pH 6.0 Ur Specific [place] 1.020 Urine Protein 30 H Urine Glucose (UA) Normal Urine Ketones Negative Urine Occult Blood 250 H Urine Nitrite Negative Urine Bilirubin Negative Urine Urobilinogen 8 H Ur Leukocyte Esterase 500 H Urine RBC 5-10 SEEN Urine WBC 50-100 SEEN Ur Squamous Epith Cells 10-25 SEEN Ur Transition Epith Cell 0-5 SEEN Urine Bacteria 2+ Urine Mucus 0 SEEN Radiography Diagnostic Testing: Clinical Impression(s) from Imaging Studies Brain CT 12/08/22 15:31 IMPRESSION: Age-related and chronic changes as noted of the brain. Electronically Signed: Juan Horan DO at 16:13 EDT , Chest X-Ray 12/08/22 15:55 IMPRESSION: No radiographic evidence of acute cardiopulmonary disease. Electronically Signed: Juan Horan DO at 16:17 EDT , Discharge Plan Triage Chief Complaint: Dizziness ED Provider: Mundo Melendez Dx/Rx/DC Orders Prescriptions: No Action atorvastatin 40 mg tablet 40 mg PO QHS levothyroxine 100 mcg tablet 100 mcg PO DAILY Eliquis 2.5 mg tablet 2.5 mg PO BID lisinopril 5 mg tablet 5 mg PO BID Primary Care Provider: Lesley Sierra Referrals: Lesley Sierra MD [Primary Care Provider] - What to do if you have Problems For any increased pain, shortness of breath, bleeding, nausea or vomiting, chestpain, or any unexpected problems, contact your Primary Care Provider. Call [facility] ([phone]) or report to the closest Emergency Room. Call 911 if necessary. 12/08/22 7105 <Electronically signed by Mundo Melendez DO> Cosigner Signature (if applicable): CC: Dr. Lesley Sierra MD ~ Signed [facility] Work Phone: [phone] 639-293003-18-[address] Melendez [facility] December 08, 2022 5:35pm Note Date/Time December 08, 2022 3:3 1pm [facility] Medical Records Department [address] [place] [address] Emergency Department Summary 12/08/22 MR#: [id number] Acct: [id number] Name: IRAJ SANTOS Rep #:[id number] : 1935 87 From: Mundo Melendez DO PCP: Dr. Lesley Sierra MD Status:REG ER Location: ED HPI History of Present Illness Chief Complaint: Dizziness Narrative Narrative: 87-year-old female presenting with dizziness. She states its been going on for about 6 days. Patient was seen and evaluated 3 days ago in the emergency room. She had a negative CT scan and negative lab work-up. Her orthostatic vital signs were negative. She had a negative [place]. At that point the patient stated that her primary care physician told her to double up on her metoprolol because he was concerned that maybe her heart rate was fast or she was hypertensive. She states now that she was told to discontinue the metoprolol. She continues to have dizziness. He states he has had a mild headache. She does not describe this as vertiginous and does not describe it as lightheadedness. She does not feel as if she is going to faint. She does not have any chest pain, shortness of breath, nausea, vomiting. Denies abdominal pain. Denies urinary or vaginal complaints. Denies constipation or diarrhea. No nausea or vomiting. Patient states that when she is sitting she has no symptoms but when she stands up she has symptoms. He is having trouble ambulating at home. 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 She also has a history of A-fib and she is on anticoagulated on Eliquis. Denies head injury. [facility] Medical History Abnormal EKG Abnormal stress test Arthritis Benign essential HTN Cancer Cardiology follow-up encounter Chronic left hip pain Closed fracture of phalanx of left ring finger Closed left ankle fracture Hemianopia of left eye History of echocardiogram History of pain when walking History of stress test Hypertension Hypothyroidism Loss of hearing Lung nodule Mixed hyperlipidemia Non-smoker NSVT (nonsustained ventricular tachycardia) Occipital stroke Paroxysmal atrial fibrillation Personal history of colonic polyps Preoperative cardiovascular examination Restless legs Thyroid disease Wears glasses Home Medications levothyroxine 100 mcg tablet 100 mcg PO DAILY THYROID 06/06/21 [History Last Taken 12/08/22] apixaban 2.5 mg tablet (Eliquis) 2.5 mg PO BID BLOOD THINNER 09/13/22 [History Last Taken 12/08/22] lisinopril 5 mg tablet 5 mg PO BID BLOOD PRESSURE 12/04/22 [History Last Taken 12/08/22] atorvastatin 40 mg tablet 40 mg PO QHS CHOLESTEROL 12/08/22 [History Last Taken 12/07/22] Allergy/AdvReac Type Severity Reaction Status Date / Time No Known Allergies Allergy Verified 12/08/22 15:13 Family History Other Breast cancer CVA (cerebral vascular accident) Heart disease Surgical History H/O hysterectomy with unilateral oophorectomy (~09/18/21) H/O total hip arthroplasty History of appendectomy History of cardiac catheterization History of colonoscopy (~2017) History of left hip replacement History of lobectomy of lung History of thyroidectomy Social History Smoking Status: Never smoker alcohol intake: never substance use type: does not use caffeine: No ROS ROS ED Review of Systems ROS Unobtainable: Denies due to encephalopathy Constitutional Constitutional ED: Denies chills or fever(s) Eyes Eyes: Denies change in vision or diplopia ENT ENT ED: Denies rhinorrhea or sore throat Cardiovascular Cardiovascular: Denies chest pain or palpitations Respiratory/Chest Respiratory/Chest: Denies cough or dyspnea Gastrointestinal Gastrointestinal: Denies abdominal pain, constipation, nausea or vomiting Genitourinary Genitourinary ED: Denies dysuria or hematuria Musculoskeletal Musculoskeletal: Denies arthralgias or back pain Neurologic Neurologic: Reports headache(s) and other Details: Dizziness ; Denies paresthesias Psychiatric Psychiatric: Denies anxiety or depression EXAM Physical Exam Const Vital Signs: 12/08/22 15:12 12/08/22 15:20 12/08/22 15:20 Temperature 96.3 F L Temperature Source Temporal Pulse Rate 60 60 Pulse Rate [Lying] Pulse Rate [Sitting (for 1 minute prior to obtaining)] Pulse Rate [Standing (for 1 minute prior to obtaining)] Respiratory Rate 18 18 Respiratory Effort Normal Non-Labored Blood Pressure 137/71 H 140/72 H Blood Pressure [Lying] Blood Pressure [Sitting (for 1 minute prior to obtaining)] Blood Pressure [Standing (for 1 minute prior to obtaining)] Blood Pressure Mean 93 94 Blood Pressure Mean [Lying] Blood Pressure Mean [Sitting (for 1 minute prior to obtaining)] Blood Pressure Mean [Standing (for 1 minute prior to obtaining)] Pulse Ox 97 95 Oxygen Delivery Method Room Air Room Air 12/08/22 15:39 12/08/22 15:40 12/08/22 16:24 Temperature Temperature Source Pulse Rate 58 L Pulse Rate [Lying] 60 61 Pulse Rate [Sitting (for 1 minute prior to obtaining)] 61 Pulse Rate [Standing (for 1 minute prior to obtaining)] 68 Respiratory Rate 16 Respiratory Effort Blood Pressure Blood Pressure [Lying] 156/80 H 156/80 H Blood Pressure [Sitting (for 1 minute prior to obtaining)] 148/72 H Blood Pressure [Standing (for 1 minute prior to obtaining)] 125/72 H Blood Pressure Mean Blood Pressure Mean [Lying] 105 105 Blood Pressure Mean [Sitting (for 1 minute prior to obtaining)] 97 Blood Pressure Mean [Standing (for 1 minute prior to obtaining)] 89 Pulse Ox 94 Oxygen Delivery Method Room Air 12/08/22 17:11 Temperature 98.3 F Temperature Source Oral Pulse Rate 59 L Pulse Rate [Lying] Pulse Rate [Sitting (for 1 minute prior to obtaining)] Pulse Rate [Standing (for 1 minute prior to obtaining)] Respiratory Rate 17 Respiratory Effort Blood Pressure 117/59 L Blood Pressure [Lying] Blood Pressure [Sitting (for 1 minute prior to obtaining)] Blood Pressure [Standing (for 1 minute prior to obtaining)] Blood Pressure Mean 78 Blood Pressure Mean [Lying] Blood Pressure Mean [Sitting (for 1 minute prior to obtaining)] Blood Pressure Mean [Standing (for 1 minute prior to obtaining)] Pulse Ox 94 Oxygen Delivery Method Room Air Positive well nourished General Appearance ED: NAD HEENT Reports moist mucous membranes HEENT Narrative: Negative [place]. Eyes PERRL and EOMs intact bilaterally Neck no lymphadenopathy Resp normal respiratory effort and clear to auscultation bilaterally Cardio regular rate and regular rhythm GI normal to inspection, nondistended, normoactive bowel sounds Extremity normal to inspection Neuro oriented x3 and CN's II-XII intact bilaterally Neuro Narrative: Negative hints exam Sensorium / Orientation: alert Motor Exam: strength 5/5 throughout Psych mental status grossly normal Skin no rashes or lesions noted MDM MDM MDM Narrative Medical decision making narrative: Patient presenting again with dizziness. She has a normal [place] exam. Negative hints exam. She states again that she is only dizzy when she gets up and walks. When she was seen the other day she was not orthostatic. Today it appears that she is. Blood pressure from 156/80 to 125/72 with orthostatic vital signs. CBC did not show any acute interval changes of significance. CMP is also near the same however the creatinine is increased a little bit. She is a BNP elevation. Liver function is normal. Urinalysis is contaminated I sent this for culture. Chest x-ray my interpretation shows no acute process. EKG normal sinus rhythm with a ventricular rate 61 bpm. There are some T wave inversions and slight depressions in the lateral leads which are not new. CT brain is again negative. Given her continued dizziness and orthostasis patient does not feel she can go home. I discussed with the hospital admission. Impression: 1. Orthostatic hypotension 2. Dizziness Lab Data Labs: Laboratory Results - last 24 hr 12/08/22 12/08/22 12/08/22 15:20 15:20 15:20 WBC 8.4 RBC 4.59 Hgb 14.0 Hct 43.4 MCV 94.6 MCH 30.5 MCHC 32.3 RDW Std Deviation 46.5 H RDW Coeff of Jovan 13.4 Plt Count 255 MPV 10.5 Immature Gran % (Auto) 0.200 Neut % (Auto) 69.4 Lymph % (Auto) 16.1 L [place] % (Auto) 12.3 H Eos % (Auto) 1.5 Baso % (Auto) 0.5 Absolute Neuts (auto) 5.8 Absolute Lymphs (auto) 1.35 Nucleated RBC % 0 Sodium 137 Potassium 3.6 Chloride 101 Carbon Dioxide 26.0 Anion Gap 10 BUN 18 Creatinine 1.08 H Estim Creat Clear Calc 36.36 Est GFR (MDRD) Af Amer 62 Est GFR (MDRD) Non-Af 51 L BUN/Creatinine Ratio 16.7 Glucose 142 H Calcium 8.9 Total Bilirubin 0.70 AST 17 ALT 27 Alkaline Phosphatase 82 Troponin I High Sens 9 B-Natriuretic Peptide 136.3 H Total Protein 7.1 Albumin 3.6 Globulin 3.5 Albumin/Globulin Ratio 1.0 Urine Color Urine Clarity Urine pH Ur Specific [place] Urine Protein Urine Glucose (UA) Urine Ketones Urine Occult Blood Urine Nitrite Urine Bilirubin Urine Urobilinogen Ur Leukocyte Esterase Urine RBC Urine WBC Ur Squamous Epith Cells Ur Transition Epith Cell Urine Bacteria Urine Mucus 12/08/22 15:50 WBC RBC Hgb Hct MCV MCH MCHC RDW Std Deviation RDW Coeff of Jovan Plt Count MPV Immature Gran % (Auto) Neut % (Auto) Lymph % (Auto) [place] % (Auto) Eos % (Auto) Baso % (Auto) Absolute Neuts (auto) Absolute Lymphs (auto) Nucleated RBC % Sodium Potassium Chloride Carbon Dioxide Anion Gap BUN Creatinine Estim Creat Clear Calc Est GFR (MDRD) Af Amer Est GFR (MDRD) Non-Af BUN/Creatinine Ratio Glucose Calcium Total Bilirubin AST ALT Alkaline Phosphatase Troponin I High Sens B-Natriuretic Peptide Total Protein Albumin Globulin Albumin/Globulin Ratio Urine Color Yellow Urine Clarity Sl. Cloudy Urine pH 6.0 Ur Specific [place] 1.020 Urine Protein 30 H Urine Glucose (UA) Normal Urine Ketones Negative Urine Occult Blood 250 H Urine Nitrite Negative Urine Bilirubin Negative Urine Urobilinogen 8 H Ur Leukocyte Esterase 500 H Urine RBC 5-10 SEEN Urine WBC 50-100 SEEN Ur Squamous Epith Cells 10-25 SEEN Ur Transition Epith Cell 0-5 SEEN Urine Bacteria 2+ Urine Mucus 0 SEEN Radiography Diagnostic Testing: Clinical Impression(s) from Imaging Studies Brain CT 12/08/22 15:31 IMPRESSION: Age-related and chronic changes as noted of the brain. Electronically Signed: Juan Horan DO at 16:13 EDT , Chest X-Ray 12/08/22 15:55 IMPRESSION: No radiographic evidence of acute cardiopulmonary disease. Electronically Signed: Juan Horan DO at 16:17 EDT , Discharge Plan Triage Chief Complaint: Dizziness ED Provider: Mundo Melendez Dx/Rx/DC Orders Prescriptions: No Action atorvastatin 40 mg tablet 40 mg PO QHS levothyroxine 100 mcg tablet 100 mcg PO DAILY Eliquis 2.5 mg tablet 2.5 mg PO BID lisinopril 5 mg tablet 5 mg PO BID Primary Care Provider: Lesley Sierra Referrals: Lesley Sierra MD [Primary Care Provider] - What to do if you have Problems For any increased pain, shortness of breath, bleeding, nausea or vomiting, chestpain, or any unexpected problems, contact your Primary Care Provider. Call [facility] ([phone]) or report to the closest Emergency Room. Call 911 if necessary. 12/08/22 8491 <Electronically signed by Mundo Melendez DO> Cosigner Signature (if applicable): CC: Dr. Lesley Sierra MD ~ Signed [facility] Work Phone: [phone] 777-155803-15-[address] Melendez [facility] December 05, 2022 8:24pm Note Date/Time December 05, 2022 4:0 6pm [facility] Medical Records Department [address] [place] [address] Emergency Department Summary 12/05/22 MR#: [id number] Acct: [id number] Name: IRAJ SANTOS Rep #:[id number] : 1935 87 From: Mundo Melendez DO PCP: Dr. Lesley Sierra MD Status:REG ER Location: ED HPI History of Present Illness Chief Complaint: Dizziness Narrative Narrative: 87-year-old female presenting with dizziness. She states that a feeling of off balance. She does not have vertiginous dizziness. Onset was on Saturday. She states it was more severe than. She states it does not bother her when she is sitting. When she tries to walk she gets very lightheaded. She states she has to hold onto [place] and chairs. She has not had any falls or head trauma. 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 No other deficits. She had a mild headache yesterday that went away. She denies any paresthesias. No difficulty moving her arms and legs. No facial droop or slurred speech. No confusion. He denies chest pain or shortness of breath. No urinary complaints. No GI complaints except for mild nausea. [facility] Medical History Abnormal EKG Abnormal stress test Arthritis Benign essential HTN Cancer Cardiology follow-up encounter Chronic left hip pain Closed fracture of phalanx of left ring finger Closed left ankle fracture Hemianopia of left eye History of echocardiogram History of pain when walking History of stress test Hypertension Hypothyroidism Loss of hearing Lung nodule Mixed hyperlipidemia Non-smoker NSVT (nonsustained ventricular tachycardia) Occipital stroke Paroxysmal atrial fibrillation Personal history of colonic polyps Preoperative cardiovascular examination Restless legs Thyroid disease Wears glasses Home Medications coenzyme Q10 50 mg chewable tablet 100 mg PO DAILY 12/29/14 [History Last Taken Unknown] cholecalciferol (vitamin D3) 50 mcg (2,000 unit) tablet 50 mcg PO DAILY 06/06/21[History Last Taken Unknown] levothyroxine 100 mcg tablet 100 mcg PO DAILY 06/06/21 [History Last Taken 09/18/21] atorvastatin 40 mg tablet 40 mg PO QHS #30 tabs 08/31/22 [Rx Last Taken Unknown] apixaban 2.5 mg tablet (Eliquis) 2.5 mg PO BID started by Dr. Lesley Sierra, pt's PCP 09/13/22 [History Last Taken Unknown] metoprolol tartrate 25 mg tablet 25 mg PO BID #60 tabs 11/21/22 [Rx Last Taken Unknown] lisinopril 5 mg tablet 5 mg PO BID 12/04/22 [History Last Taken Unknown] Allergy/AdvReac Type Severity Reaction Status Date / Time No Known Allergies Allergy Verified 09/28/22 14:26 Family History Other Breast cancer CVA (cerebral vascular accident) Heart disease Surgical History H/O hysterectomy with unilateral oophorectomy (~09/18/21) H/O total hip arthroplasty History of appendectomy History of cardiac catheterization History of colonoscopy (~2017) History of left hip replacement History of lobectomy of lung History of thyroidectomy Social History Smoking Status: Never smoker alcohol intake: never substance use type: does not use caffeine: No ROS ROS ED ROS Narrative Lightheadedness Constitutional Constitutional ED: Denies chills, fever(s) or sweats Eyes Eyes: Denies blurry vision or change in vision ENT ENT ED: Denies ear pain or sore throat Cardiovascular Cardiovascular: Denies chest pain, palpitations or racing heartbeat Respiratory/Chest Respiratory/Chest: Denies cough, dyspnea or sputum Gastrointestinal Gastrointestinal: Reports nausea; Denies abdominal pain, constipation, diarrhea or vomiting Genitourinary Genitourinary ED: Denies dysuria, hematuria or urinary frequency Musculoskeletal Musculoskeletal: Denies arthralgias, myalgias or neck pain Integumentary Denies abscess, Abrasions or rash Neurologic Neurologic: Reports headache(s); Denies paresthesias or weakness Psychiatric Psychiatric: Denies anxiety, depression, suicidal ideation or suicidal thoughts Endocrine Endocrinology: Denies polydipsia or polyuria EXAM Physical Exam Const Vital Signs: 12/05/22 15:14 12/05/22 16:33 12/05/22 16:45 Temperature 97.1 F L Temperature Source Temporal Pulse Rate 63 Pulse Rate [Lying] 60 Pulse Rate [Sitting (for 1 minute prior to obtaining)] 61 Pulse Rate [Standing (for 1 minute prior to obtaining)] 65 Respiratory Rate 16 Respiratory Pattern Normal Blood Pressure 158/73 H Blood Pressure [Lying] 137/63 H Blood Pressure [Sitting (for 1 minute prior to obtaining)] 155/76 H Blood Pressure [Standing (for 1 minute prior to obtaining)] 139/78 H Blood Pressure Mean 101 Blood Pressure Mean [Lying] 87 Blood Pressure Mean [Sitting (for 1 minute prior to obtaining)] 102 Blood Pressure Mean [Standing (for 1 minute prior to obtaining)] 98 Pulse Ox 93 Oxygen Delivery Method Room Air 12/05/22 17:47 Temperature Temperature Source Pulse Rate 62 Pulse Rate [Lying] Pulse Rate [Sitting (for 1 minute prior to obtaining)] Pulse Rate [Standing (for 1 minute prior to obtaining)] Respiratory Rate 21 H Respiratory Pattern Blood Pressure 139/78 H Blood Pressure [Lying] Blood Pressure [Sitting (for 1 minute prior to obtaining)] Blood Pressure [Standing (for 1 minute prior to obtaining)] Blood Pressure Mean 98 Blood Pressure Mean [Lying] Blood Pressure Mean [Sitting (for 1 minute prior to obtaining)] Blood Pressure Mean [Standing (for 1 minute prior to obtaining)] Pulse Ox 100 Oxygen Delivery Method Room Air Positive well nourished General Appearance ED: NAD; Negative for pallor HEENT Reports moist mucous membranes HEENT Narrative: Negative [place]-Hallpike Negative for trauma Eyes PERRL and EOMs intact bilaterally Neck no lymphadenopathy Resp normal respiratory effort and clear to auscultation bilaterally Auscultation: Negative for rales, rhonchi or wheezes Cardio regular rate and regular rhythm Extremity General Extremety ED: Yes edema and tenderness General Extremity: edema Neuro oriented x3, CN's II-XII intact bilaterally and no sensory deficits noted Sensorium / Orientation: alert Psych mental status grossly normal Skin no rashes or lesions noted General Skin Exam: Negative for jaundice or pallor MDM MDM MDM Narrative Medical decision making narrative: Patient presenting with lightheadedness. She is not having vertiginous dizziness. Differential diagnosis includes but is not limited to vertigo, anemia, dehydration, dysrhythmia, electrolyte abnormality. Patient is well-appearing and her [place]- Hallpike is negative. She is telling me that she is having to hold onto blanton to walk. CBC obtained to assess white blood cell count, hemoglobin, platelets, differential. CMP to assess liver function, renalfunction, electrolytes, glucose, anion gap. EKG to assess for dysrhythmia. High-sensitivity troponin as well. Urinalysis to assess for infection. Chest x-ray was also obtained as part of cardiac work-up. CT of the brain was included because the patient states she had similar symptoms previously after the stroke she had. She does not have any focal neurologic deficits or lateralizing signs or symptoms today. CBC shows a normal white blood cell countof 7. Hemoglobin stable 13.7 platelets normal at 230. Creatinine 1.00, BUN 9 so there is no evidence of prerenal azotemia. Electrolytes normal. Glucose mildly elevated 135 without anion gap. Urinalysis negative for infection. Chest x-ray on my interpretation shows no acute cardiopulmonary process. Radiologist services and agrees. High-sensitivity troponin is 9. EKG sinus rhythm with a ventricular rate of 60 bpm with slight depressions in the lateral leads however this is present on previous EKGs.. Patient ambulated in the hallway stable without falling. At this point I feel she stable for discharge home. I spoke with Dr. Graham who is on-call for her doctor. He will arrange follow-up with her. Patient discharged in stable condition. Impression: 1. Dizziness Lab Data Labs: Laboratory Results - last 24 hr 12/05/22 12/05/22 12/05/22 16:36 16:36 17:00 WBC 7.0 RBC 4.45 Hgb 13.7 Hct 41.6 MCV 93.5 MCH 30.8 MCHC 32.9 RDW Std Deviation 46.6 H RDW Coeff of Jovan 13.6 Plt Count 230 MPV 10.1 Immature Gran % (Auto) 0.300 Neut % (Auto) 72.5 H Lymph % (Auto) 17.2 L [place] % (Auto) 9.1 Eos % (Auto) 0.6 Baso % (Auto) 0.3 Absolute Neuts (auto) 5.1 Absolute Lymphs (auto) 1.20 Nucleated RBC % 0 Sodium 138 Potassium 3.8 Chloride 103 Carbon Dioxide 26.0 Anion Gap 9 BUN 16 Creatinine 1.00 Estim Creat Clear Calc 39.27 Est GFR (MDRD) Af Amer 68 Est GFR (MDRD) Non-Af 56 L BUN/Creatinine Ratio 16.0 Glucose 135 H Calcium 9.3 Total Bilirubin 1.00 AST 19 ALT 37 Alkaline Phosphatase 88 Troponin I High Sens 9 Total Protein 7.2 Albumin 3.6 Globulin 3.6 Albumin/Globulin Ratio 1.0 Urine Color Yellow Urine Clarity Sl. Cloudy Urine pH 5.0 Ur Specific [place] 1.025 Urine Protein 30 H Urine Glucose (UA) Normal Urine Ketones 5 H Urine Occult Blood 150 H Urine Nitrite Negative Urine Bilirubin Negative Urine Urobilinogen 1 H Ur Leukocyte Esterase 100 H Urine RBC 0-5 SEEN Urine WBC 0-5 SEEN Ur Squamous Epith Cells 0-5 SEEN Urine Bacteria 1+ Urine Mucus 0 SEEN Radiography Diagnostic Testing: Clinical Impression(s) from Imaging Studies Brain CT 12/05/22 16:01 IMPRESSION: There are no acute findings. Chronic involutional changes of the brain. Electronically Signed: Damian Morgan MD at 16:38 EDT , Chest X-Ray 12/05/22 16:20 IMPRESSION: There are no acute findings. Electronically Signed: Damian Morgan MD at 16:51 EDT , Discharge Plan Triage Chief Complaint: Dizziness ED Provider: Mundo Melendez Dx/Rx/DC Orders Instructions: ED Dizziness, Uncertain Cause Prescriptions: No Action coenzyme Q10 50 MG tablet,chewable 100 mg PO DAILY Label Comments: supplement atorvastatin 40 mg Tablet 40 mg PO QHS Qty: 30 0RF cholecalciferol (vitamin D3) 50 mcg (2,000 unit) tablet 50 mcg PO DAILY levothyroxine 100 mcg tablet 100 mcg PO DAILY Eliquis 2.5 mg tablet 2.5 mg PO BID metoprolol tartrate 25 mg tablet 25 mg PO BID Qty: 60 12RF lisinopril 5 mg tablet 5 mg PO BID Primary Care Provider: Lesley Sierra Referrals: Lesley Sierra MD [Primary Care Provider] - Disposition Disposition: Home, Self Care What to do if you have Problems For any increased pain, shortness of breath, bleeding, nausea or vomiting, chestpain, or any unexpected problems, contact your Primary Care Provider. Call [facility] ([phone]) or report to the closest Emergency Room. Call 911 if necessary. 12/05/222023 <Electronically signed by Mundo Melendez DO> Cosigner Signature (if applicable): CC: Dr. Lesley Sierra MD ~ Signed [facility] Work Phone: [phone] 431-268409-01-2022 History of Present illness Narrative* RT Peterson(R) - 05/24/2022 11:00 AM EDT Radiology Service Progress Note PATIENT NAME: Iraj Santos DATE OF SERVICE: May 24, 2022 TIME: 11:02 AM PATIENT IDENTITY VERIFICATION COMPLETED USING TWO (2) IDENTIFIERS: Name and Date of confirmedby patient verbally. FALL SCREENING: Has the patient [...] 24, 2022 11:02 AM [facility] History of Past illness Narrative* Problem Noted Date Resolved Date Closed fracture of ankle 02/11/2019 019 Other acute postoperative pain 05/17/2015 1 10/17/2014 Overview: Status post VATS lobectomy on 05/16/15. Currently has pleural jose drain in place. 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 Pain control adequate. Plan: - - Transition to PO/ tylenol, oxycodone, motrin - Bowel regimen: Senna S BID, milk of magnesia daily and bisacodyl suppository daily prn. . DVT prophylaxis 05/16/2015 08/17/2015 Overview: Was on Lovenox 40mg daily subcutaneously with DEISY hose. No signs or symptoms of DVT/PE or bleeding. The patient is at high risk for VTE. Plan: - Encourage continued ambulation . 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 05/16/15 VATS left upper lobectomy. 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 03/29/15, FNA biopsy of right thyroid nodule showed atypical cells concerning for a possible follicular neoplasm. Slides reviewed at [facility], showed thyroid tissue with H rthle cell nodule/adenoma. Pathology returned as Hurthle cell adenoma, right lobe (0.7 cm in greatest dimension). Multinodular goiter with adenomatoid nodules. documented as of this encounter (statuses as of 05/25/2022) [facility] History of Past illness Narrative* Problem Noted Date Diagnosed Date Resolved Date Closed fracture of ankle 02/11/2019 Other acute postoperative pain 05/17/2015 08/17/2015 Overview: Status post VATS lobectomy on 05/16/15. Currently has pleural jose drain in place. 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 Pain control adequate. Plan: - - Transition to PO/ tylenol, oxycodone, motrin - Bowel regimen: Senna S BID, milk of magnesia daily and bisacodyl suppository daily prn. . DVT prophylaxis 05/16/2015 08/17/2015 Overview: Was on Lovenox 40mg daily subcutaneously with DEISY hose. No signs or symptoms of DVT/PE or bleeding. The patient is at high risk for VTE. Plan: - Encourage continued ambulation . Carcinoid tumor of lung 05/16/201501/22 Overview: 3 cm hypermetabolic left upper lobe lung lesion with no adenopathy. 05/16/15 VATS left upper lobectomy. 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 03/29/15, FNA biopsy of right thyroid nodule showed atypical cells concerning for a possible follicular neoplasm. Slides reviewed at [facility], showed thyroid tissue with H rthle cell nodule/adenoma. Pathology returned as Hurthle cell adenoma, right lobe (0.7 cm in greatest dimension). Multinodular goiter with adenomatoid nodules. documented as of this encounter (statuses as of 11/29/2023) [facility] noteNo assessment information availableWKettering Health [facility] Work Phone: Evaluation note* Diagnosis Onset Date Resolution Status Personal history of colonic polyps acute Acute CVA (cerebrovascular accident) acute Phalanx, proximal fracture of finger acute [facility] Work Phone: Evaluation note* Diagnosis Onset Date Resolution Status Personal history of colonic polyps acute Acute CVA (cerebrovascular accident) acute Closed fracture of phalanx of left ring finger acute Hemianopia of left eye acute Occipital stroke acute Phalanx, proximal fracture of finger acute Traumatic ecchymosis of left hand acute [facility] Work Phone: Evaluation note* Diagnosis Onset Date Resolution Status Acute CVA (cerebrovascular accident) acute Phalanx, proximal fracture of finger acute Traumatic ecchymosis of left hand acute [facility] Work Phone: Evaluation note* Diagnosis Onset Date Resolution Status Acute CVA (cerebrovascular accident) acute Phalanx, proximal fracture of finger acute Traumatic ecchymosis of left hand acute Ataxia acute [facility] Work Phone: Evaluation note* Diagnosis Onset Date Resolution Status Ataxia acute Generalized weakness acute [facility] Work Phone: Evaluation note* Diagnosis Onset Date Resolution Status Ataxia acute Generalized weakness acute Dizziness acute Paroxysmal atrial fibrillation acute [facility] Work Phone: Evaluation note* Diagnosis Onset Date Resolution Status Ataxia acute Generalized weakness acute Dizziness acute Paroxysmal atrial fibrillation chronic Dizziness acute Paroxysmal atrial fibrillation chronic [facility] Work Phone: Evaluation note* Diagnosis Onset Date Resolution Status Dizziness acute Paroxysmal atrial fibrillation chronic [facility] Work Phone: Evaluation note* Diagnosis Onset Date Resolution Status Paroxysmal atrial fibrillation chronic Occipital stroke resolved [facility] Work Phone: History and physical note Author Dr. Elmore [facility] December 08, 2022 6:31pm Note Date/Time December 08, 2022 6:3 1pm [facility] Medical Records Department [address] [place] [address] History & Physical Exam 12/08/22 1820 MR#: [id number] Acct: [id number] Name: IRAJ SANTOS Rep #:[id number] : 1935 87 From: Thu Villatoro PCP: Dr. Lesley Sierra MD Status:ADM JESSI [address]: [address] HPI - General General Date of Admission: 12/08/22 Date of Service: 12/08/22 Chief Complaint: Dizziness and unsteadiness of gait HPI Narrative IRAJ SANTOS, is a 87 F who presents dizziness and unsteadiness of gait of acute/subacute onset 6 days ago. Was in the emergency department a day after onset at which time work-up including CT of the brain was largely normal. Symptoms have persisted and so patient returned to the emergency department. Complains of generalized weakness and difficulty with balance. Denies any vertigo. Denies any numbness or tingling in any of the extremities. Denies anymuscle weakness, involuntary movements, vision problems, headache, neck stiffness, dysarthria, dysphagia, dysphasia denies any tinnitus. [facility] Medical History Abnormal EKG Abnormal stress test Arthritis Benign essential HTN Cancer Cardiology follow-up encounter Chronic left hip pain Closed fracture of phalanx of left ring finger Closed left ankle fracture Hemianopia of left eye History of echocardiogram History of pain when walking History of stress test Hypertension Hypothyroidism Loss of hearing Lung nodule Mixed hyperlipidemia Non-smoker NSVT (nonsustained ventricular tachycardia) Occipital stroke Paroxysmal atrial fibrillation Personal history of colonic polyps Preoperative cardiovascular examination Restless legs Thyroid disease Wears glasses Home Medications levothyroxine 100 mcg tablet 100 mcg PO DAILY THYROID 06/06/21 [History Last Taken 12/08/22] apixaban 2.5 mg tablet (Eliquis) 2.5 mg PO BID BLOOD THINNER 09/13/22 [History Last Taken 12/08/22] lisinopril 5 mg tablet 5 mg PO BID BLOOD PRESSURE 12/04/22 [History Last Taken 12/08/22] atorvastatin 40 mg tablet 40 mg PO QHS CHOLESTEROL 12/08/22 [History Last Taken 12/07/22] Allergy/AdvReac Type Severity Reaction Status Date / Time No Known Allergies Allergy Verified 12/08/22 15:13 Family History Other Breast cancer CVA (cerebral vascular accident) Heart disease Surgical History H/O hysterectomy with unilateral oophorectomy (~09/18/21) H/O total hip arthroplasty History of appendectomy History of cardiac catheterization History of colonoscopy (~2017) History of left hip replacement History of lobectomy of lung History of thyroidectomy Social History Smoking Status: Never smoker alcohol intake: never substance use type: does not use caffeine: No Prior Cardiac Testing/Procedures Prior Cardiac Testing/Procedures: MRI ROS ROS Narrative Denies any chest pain or shortness of breath. All other systems reviewed and essentially negative as above reported the history. Vital Signs Vital Signs Vital Signs: 12/08/22 15:12 12/08/22 15:20 12/08/22 15:20 Temperature 35.7 C L Temperature Source Temporal Pulse Rate 60 60 Pulse Rate [Lying] Pulse Rate [Sitting (for 1 minute prior to obtaining)] Pulse Rate [Standing (for 1 minute prior to obtaining)] Respiratory Rate 18 18 Respiratory Effort Normal Non-Labored Blood Pressure 137/71 H 140/72 H Blood Pressure [Lying] Blood Pressure [Sitting (for 1 minute prior to obtaining)] Blood Pressure [Standing (for 1 minute prior to obtaining)] Blood Pressure Mean 93 94 Blood Pressure Mean [Lying] Blood Pressure Mean [Sitting (for 1 minute prior to obtaining)] Blood Pressure Mean [Standing (for 1 minute prior to obtaining)] Pulse Ox 97 95 Oxygen Delivery Method Room Air Room Air 12/08/22 15:39 12/08/22 15:40 12/08/22 16:24 Temperature Temperature Source Pulse Rate 58 L Pulse Rate [Lying] 60 61 Pulse Rate [Sitting (for 1 minute prior to obtaining)] 61 Pulse Rate [Standing (for 1 minute prior to obtaining)] 68 Respiratory Rate 16 Respiratory Effort Blood Pressure Blood Pressure [Lying] 156/80 H 156/80 H Blood Pressure [Sitting (for 1 minute prior to obtaining)] 148/72 H Blood Pressure [Standing (for 1 minute prior to obtaining)] 125/72 H Blood Pressure Mean Blood Pressure Mean [Lying] 105 105 Blood Pressure Mean [Sitting (for 1 minute prior to obtaining)] 97 Blood Pressure Mean [Standing (for 1 minute prior to obtaining)] 89 Pulse Ox 94 Oxygen Delivery Method Room Air 12/08/22 17:11 12/08/22 17:58 Temperature 36.8 C 36.4 C L Temperature Source Oral Oral Pulse Rate 59 L 71 Pulse Rate [Lying] Pulse Rate [Sitting (for 1 minute prior to obtaining)] Pulse Rate [Standing (for 1 minute prior to obtaining)] Respiratory Rate 17 16 Respiratory Effort Blood Pressure 117/59 L 117/59 L Blood Pressure [Lying] Blood Pressure [Sitting (for 1 minute prior to obtaining)] Blood Pressure [Standing (for 1 minute prior to obtaining)] Blood Pressure Mean 78 78 Blood Pressure Mean [Lying] Blood Pressure Mean [Sitting (for 1 minute prior to obtaining)] Blood Pressure Mean [Standing (for 1 minute prior to obtaining)] Pulse Ox 94 97 Oxygen Delivery Method Room Air Room Air Weight Weight: 98 kg Body Mass Index (BMI) 33.8 Physical Exam Narrative General exam. Elderly woman, not in any obvious distress, not particularly ill looking, depressed appearing, irritable. HEENT. Oral mucosa moist no pallor jaundice Neck. Neck is supple. Lungs. Clear to auscultation Heart. First and second heart sounds are no murmurs. Abdomen. Soft and nontender to palpation. No masses felt. Extremities. 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 Gait is ataxic and slightly unsteady. Romberg's test is positive. Power is 5 out of 5 in all extremities, cranial 2-12 grossly intact. Deep tendon reflexes exaggerated 3+ in both lower extremities. 2+ in upper extremities. Sensation is grossly intact. Results Medical Records Data Attestation: I reviewed the patient's medical records Lab / Micro Data Attestation: I reviewed the patient's lab results. Result Diagrams: 12/08/22 15:20 12/08/22 15:20 Labs: Laboratory Results - last 24 hr 12/08/22 15:20: WBC 8.4, RBC 4.59, Hgb 14.0, Hct 43.4, MCV 94.6, MCH 30.5, MCHC 32.3, RDW Std Deviation 46.5 H, RDW Coeff of Jovan 13.4, Plt Count 255, MPV 10.5, Immature Gran % (Auto) 0.200, Neut % (Auto) 69.4, Lymph % (Auto) 16.1 L, [place] % (Auto) 12.3 H, Eos % (Auto) 1.5, Baso % (Auto) 0.5, Absolute Neuts (auto) 5.8, Absolute Lymphs (auto) 1.35, Nucleated RBC % 0 12/08/22 15:20: Sodium 137, Potassium 3.6, Chloride 101, Carbon Dioxide 26.0, Anion Gap 10, BUN 18, Creatinine 1.08 H, Estim Creat Clear Calc 36.36, Est GFR (MDRD) Af Amer 62, Est GFR (MDRD) Non-Af 51 L, BUN/Creatinine Ratio 16.7, Glucose 142 H, Calcium 8.9, Total Bilirubin 0.70, AST 17, ALT 27, Alkaline Phosphatase 82, Troponin I High Sens 9, Total Protein 7.1, Albumin 3.6, Globulin3.5, Albumin/Globulin Ratio 1.0 12/08/22 15:20: B-Natriuretic Peptide 136.3 H 12/08/22 15:50: Urine Color Yellow, Urine Clarity Sl. Cloudy, Urine pH 6.0, Ur Specific [place] 1.020, Urine Protein 30 H, Urine Glucose (UA) Normal, Urine Ketones Negative, Urine Occult Blood 250 H, Urine Nitrite Negative, Urine Bilirubin Negative, Urine Urobilinogen 8 H, Ur Leukocyte Esterase 500 H, Urine RBC 5-10 SEEN, Urine WBC 50-100 SEEN, Ur Squamous Epith Cells 10-25 SEEN, Ur Transition Epith Cell 0-5 SEEN, Urine Bacteria 2+, Urine Mucus 0 SEEN Rhythm Strip Rhythm Strip: Sinus Rhythm Radiology Impression Brain CT 12/08/22 15:31 IMPRESSION: Age-related and chronic changes as noted of the brain. Electronically Signed: Juan Horan DO at 16:13 EDT , Chest X-Ray 12/08/22 15:55 IMPRESSION: No radiographic evidence of acute cardiopulmonary disease. Electronically Signed: Juan Horan DO at 16:17 EDT , Assessment & Plan Assessment/Plan (1) Ataxia: PLAN: Plan 1. Acute to subacute onset of dizziness and ataxia of gait. Given prior history of posterior circulation stroke will need to consider the possibility ofrepeat posterior circulation stroke. Given positive Romberg's sign on examination will need to consider possibility of subacute combined degeneration of the posterior cord from vitamin B12 deficiency. We will check vitamin B12 levels. MRI of the brain. Physical Occupational Therapy to evaluate. Charges/Coding Visit Charges Inpatient E&M: 96567 Init Hosp L3 12/08/22 1831 <Electronically signed by Thu Elmore MD> Cosigner Signature (if applicable): CC: Dr. Lesley Sierra MD; Dr. Thu Elmore MD~ Signed [facility] Work Phone: Reason for visit Narrative* Diagnostic Procedure Only (Routine) - Closed Specialty Diagnoses / Procedures Referred By Olesya kaur Referred To Contact Radiology / RADIO CT SCAN [facility] Diagnoses Malignant neoplasm of unspecified part of left bronchus or lung chest Procedures DIAGNOSTIC COMPUTED TOMOGRAPHY THORAX W/O CNTRST CT WO [address], [address] [place] [address] [facility] [address] [place] [address] Referral ID Status Reason Start Date Expiration Date V isits Requested Visits Authorized [id number] Closed Patient Cleared - Admin/Chairm an/Director advise to proceed 05/24/2022 06/23/2022 1 1 [facility] Summary Purpose Family History No Family History Records Found Relationship Condition Age at Onset Recorded Date/T philipp Unknown Family History?- Unknown December 31, 2014 2:01pm Family History?- Unknown December 31, 2014 6:51pm Family History?Stroke Unknown December 31, 2014 6:51pm Additional Family Hi story?reports mother had bowel obstruction Unknown December 31, 2014 2:01pm Additional Family Hi story?reports mother had bowel obstruction Unknown December 31, 2014 6:51pm Relationship Condition Age at Onset Recorded Date/T philipp Not Specified Cardiac disease Unknown Malignant neoplasm of breast Unknown Cerebrovascular accident (CVA) Unknown Advance Directives No Advanced Directives Records FoundDocuments on File Type Date Recorded Patient Shear Helper Expl anation Advance Directive(s) 05/11/2015 1:28 PM Advance Directive Response Recorded Date/ Time Advance Directives Yes August 01, 2021 8:02am Living Will Yes September 04, 1:34pm Power of Manufacturing Electrician Yes September 04, 2021 1:34pm Advance Directive Response Recorded Date/ Time Name of Medical Power of Manufacturing Electrician UNKNOWN August 30, 2022 5:13pm Advance Directives Yes August 01, 2021 8:02am Living Will Yes August 30 5:13pm Power of Manufacturing Electrician Yes August 30, 2022 5:13pm Advance Directive Response Recorded Date/ Time Name of Medical Power of Manufacturing Electrician Yoni Vochana August 30, 2022 8:56pm Advance Directives Yes August 01, 2021 8:02am Living Will Yes August 30 8:56pm Power of Manufacturing Electrician Yes August 30, 2022 8:56pm Advance Directive Response Recorded Date/ Time Name of Medical Power of Manufacturing Electrician Yoni Vochana August 30, 2022 9:56pm Advance Directives Yes August 01, 2021 9:02am Living Will Yes December 05, 2022 4:33pm Power of Manufacturing Electrician No December 05 4:33pm Advance Directive Response Recorded Date/ Time Name of Medical Power of Manufacturing Electrician Yoni Vochana August 30, 2022 9:56pm Advance Directives Yes August 01, 2021 9:02am Living Will Yes December 08, 2022 3:20pm Power of Manufacturing Electrician No December 08 3:20pm Advance Directive Response Recorded Date/ Time Name of Medical Power of Manufacturing Electrician Yoni Santos August 30, 2022 9:56pm Name of Medical Power of Manufacturing Electrician YONI SANTOS December 08, 2022 6:45pm Advance Directives Yes August 01, 2021 9:02am Living Will Yes December 08, 2022 6:45pm Power of Manufacturing Electrician Yes December 08 6:45pm Advance Directive Response Recorded Date/ Time Name of Medical Power of Manufacturing Electrician YONI SANTOS December 08, 2022 6:45pm Advance Directives Yes August 01, 2021 9:02am Living Will Yes December 08, 2022 6:45pm Power of Manufacturing Electrician Yes December 08 6:45pm Advance Directive Response Recorded Date/ Time Advance Directives Yes August 01, 2021 9:02am Living Will Yes December 08, 2022 6:45pm Power of Manufacturing Electrician Yes December 08 6:45pm Advance Directive Response Recorded Date/ Time Advance Directives Yes August 01, 2021 8:02am Living Will Yes December 08, 2022 5:45pm Power of Manufacturing Electrician Yes December 08 5:45pm Documents on File Type Date Recorded Patient Shear Helper Expl anation Advance Directive(s) 05/11/2015 1:28 PM Chief Complaint and Reason for Visit Chief Complaint SCREENING Chief Complaint SCREENING COLONOSCOPY ACUTE MEDICAL OCCIPITAL LOBE INFARCT Reason for Visit Personal history of colonic polyps Acute CVA (cerebrovascular accident) Phalanx, proximal fracture of finger Chief Complaint SCREENING COLONOSCOPY ACUTE MEDICAL OCCIPITAL LOBE INFARCT ACUTE MEDICAL OCCIPITAL LOBE INFARCT ACUTE MEDICAL OCCIPITAL LOBE INFARCT Reason for Visit Personal history of colonic polyps Acute CVA (cerebrovascular accident) Closed fracture of phalanx of left ring finger Hemianopia of left eye Occipital stroke Phalanx, proximal fracture of finger Traumatic ecchymosis of left hand Chief Complaint COLONOSCOPY ACUTE MEDICAL OCCIPITAL LOBE INFARCT ACUTE MEDICAL OCCIPITAL LOBE INFARCT ACUTE MEDICAL OCCIPITAL LOBE INFARCT OSTEO CVA 30 DAY MONITOR dizzy Reason for Visit Acute CVA (cerebrova scular accident) Phalanx, proximal fracture of finger Traumatic ecchymosis of left hand Chief Complaint COLONOSCOPY ACUTE MEDICAL OCCIPITAL LOBE INFARCT ACUTE MEDICAL OCCIPITAL LOBE INFARCT ACUTE MEDICAL OCCIPITAL LOBE INFARCT OSTEO CVA 30 DAY MONITOR dizzy DIZZINESS AND ATAXIA DIZZINESS AND ATAXIA Reason for Visit Acute CVA (cerebrova scular accident) Phalanx, proximal fracture of finger Traumatic ecchymosis of left hand Ataxia Chief Complaint COLONOSCOPY ACUTE MEDICAL OCCIPITAL LOBE INFARCT ACUTE MEDICAL OCCIPITAL LOBE INFARCT ACUTE MEDICAL OCCIPITAL LOBE INFARCT OSTEO CVA 30 DAY MONITOR dizzy DIZZINESS AND ATAXIA DIZZINESS AND ATAXIA DIZZINESS AND ATAXIA Reason for Visit Ataxia Generalized weakness Chief Complaint COLONOSCOPY ACUTE MEDICAL OCCIPITAL LOBE INFARCT ACUTE MEDICAL OCCIPITAL LOBE INFARCT ACUTE MEDICAL OCCIPITAL LOBE INFARCT OSTEO CVA 30 DAY MONITOR dizzy DIZZINESS AND ATAXIA DIZZINESS AND ATAXIA DIZZINESS AND ATAXIA S/P WC (DEC) Reason for Visit Ataxia Generalized weakness Dizziness Paroxysmal atrial fibrillation Chief Complaint dizzy DIZZINESS AND ATAXIA DIZZINESS AND ATAXIA DIZZINESS AND ATAXIA S/P WC (DEC) 1 M FU OCCIPITAL STROKE DIZZINESS / RX HERE Reason for Visit Ataxia Generalized weakness Dizziness Paroxysmal atrial fibrillation Dizziness Paroxysmal atrial fibrillation Chief Complaint 1 M FU OCCIPITAL STROKE DIZZINESS / RX HERE Reason for Visit Dizziness Paroxysmal atrial fibrillation Chief Complaint OCCIPITAL STROKE DIZ ZINESS / RX HERE SCREENING Chief Complaint 6 M FU Reason for Visit Paroxysmal atrial fi brillation Occipital stroke Additional Source Comments INFORMATION SOURCE (unrecogn ized section and content) DATE CREATED AUTHOR 12/30/2020 [facility] DATE CREATED AUTHOR AUTHOR'S ORGANIZ ATION 11/04/2024 [facility] DATE CREATED AUTHOR AUTHOR'S ORGANIZ ATION 11/27/2024 [facility] Source Comments (unrecognize d section and content) In the event this informatio n is protected by the Federal Confidentiality of Alcohol and Drug Abuse Patient Records regulations: The Federal rules restrict any use of the information to criminally investigate or prosecute any alcohol or drug abuse patient.[facility] the event this information is protected by the Federal Confidentiality of Alcohol and Drug Abuse Patient Records regulations: The Federal rules restrict any use of the information to criminally investigate or prosecute any alcohol or drug abuse patient.[facility] the event this information is protected by the Federal Confidentiality of Alcohol and Drug Abuse Patient Records regulations: The Federal rules restrict any use of the information to criminally investigate or prosecute any alcohol or drug abuse patient.[facility] Care Teams (unrecognized sec tion and content) Trim Sawyer Relationship Specialty Start Date End Date Lesley Sierra MD PCP - General Family Practice 09/12/11 Team Status: Active Member Role Status Dates Dr. Lesley Sierra MD Family Provider Active Dr. Lesley Sierra MD Primary Care Provider Active Team Status: Inactive Member Role Status Dates Dr. Lesley Sierra MD Primary Care Provider, Referring Alida graf Active Dr. Chris Skaggs MD Attending Provider Active Team Status: Active Member Role Status Dates Dr. Lesley Sierra MD Primary Care Provider Active Dr. Clive Lin DO Emergency Provider Active Dr. Jeb Gonzalez MD Admit Provider, Attending Provider, Other Provider Active Team Status: Active Member Role Status Dates Dr. Lesley Sierra MD Primary Care Provider Active Dr. Mario Jack MD Attending Provider Activ e Team Status: Active Member Role Status Dates Dr. Lesley Sierra MD Primary Care Provider Active Dr. Clive Lin DO Emergency Provider Active Dr. Jeb Gonzalez MD Admit Provider, Other Provide r Active Dr. Lesley Kimball DO Attending Provider, Other Provid er Active Team Status: Active Member Role Status Dates Dr. Lesley Sierra MD Primary Care Provider Active Dr. Warren Rollins MD Attending Provider Active Dr. Lesley Kimball DO Referring Provider Active Team Status: Inactive Member Role Status Dates Dr. Lesley Sierra MD Primary Care Provide r, Attending Provider, Referring Provider Active Team Status: Inactive Member Role Status Dates Dr. Lesley Sierra MD Primary Care Provider, Attending P rovider Active Team Status: Inactive Member Role Status Dates Dr. Lesley Sierra MD Primary Care Provider Active Dr. Clive Lin DO Emergency Provider Active Dr. Jeb Gonzalez MD Admit Provider, Other Provide r Active Dr. Lesley Kimball DO Attending Provider Active Team Status: Active Member Role Status Dates Dr. Lesley Sierra MD Primary Care Provider Active Dr. Lesley Kimball DO Attending Provider, Referring Pr ovider Active Team Status: Inactive Member Role Status Dates Dr. Lesley Sierra MD Primary Care Provider Active Dr. Mundo Melendez DO Emergency Provider Active Team Status: Active Member Role Status Dates Dr. Lesley Sierra MD Primary Care Provider Active Dr. Mundo Melendez DO Emergency Provider Active Dr. Thu Elmore MD Admit Provider, A ttending Provider, Other Provider Active Team Status: Active Member Role Status Dates Dr. Lesley Sierra MD Primary Care Provider Active Dr. Mundo Melendez DO Emergency Provider Active Dr. Thu Elmore MD Admit Provider, Attending Provi magy Active Team Status: Active Member Role Status Dates Dr. Lesley Sierra MD Primary Care Provider Active Dr. Mundo Melendez DO Emergency Provider Active Dr. Thu Elmore MD Admit Provider, Other Provider Active Dr. Madai Kinney DO Attending Provider, Other Provide r Active Team Status: Inactive Member Role Status Dates Dr. Lesley Sierra MD Primary Care Provider Active Dr. Mundo Melendez DO Emergency Provider Active Dr. Thu Elmore MD Admit Provider, Other Provider Active Dr. Madai Kinney DO Attending Provider Active Team Status: Inactive Member Role Status Dates Dr. Lesley Sierra MD Primary Care Provider, Referring P rovider Active Luis Enrique Joseph SHIRT FOLDING MACHINE OPERATOR, SHIRT FOLDING MACHINE OPERATOR-C Attending Provider Active Team Status: Inactive Member Role Status Dates Dr. Lesley Sierra MD Primary Care Provider Active Dr. Mundo Melendez DO Attending Provider, Emergency Provider Active Team Status: Inactive Member Role Status Dates Dr. Lesley Sierra MD Primary Care Provider, Referring P rovider Active Valery Arce PA, PA Attending Provider Active Trim Sawyer Relationship Specialty Start Date End Date Lesley Sierra MD PCP - General Family Medicine 09/12/11 Trim Sawyer Relationship Specialty Start Date End Date Lesley Sierra MD PCP - General Family Medicine 09/12/11 Goals (unrecognized section and content) Goals may be documented in a n alternate sectionGoals may be documented in an alternate sectionGoals may be documented in an alternate sectionGoals may be documented in an alternate sectionGoals may be documented in an alternate section Reason for Visit (unrecogniz ed section and content) Reason Comments Radiology CT Specialty Diagnoses / Procedures Referred By Olesya kaur Referred To Contact RADIO CT SCAN [facility] Diagnoses Malignant neoplasm of unspecified part of left bronchus or lung Malignant Neoplasm of Lung Procedures DIAGNOSTIC COMPUTED TOMOGRAPHY THORAX W/O CNTRST CT WO [address] Chris Barbosa V [address] [place] [address] [place] [address] Phone: tel: fax: RADIO CT SCAN [facility] [address] [place] [address] Phone: tel: fax: Referral ID Status Reason Start Date Expiration Date Visits Re quested Visits Authorized [id number] Closed 11/14/2024 01/13/2025 1 1 Specialty Diagnoses / Procedures Referred By Olesya kaur Referred To Contact Radiology / RADIO CT SCAN [facility] Diagnoses Malignant neoplasm of unspecified part of left bronchus or lung Malignant ncoplasm of unsp part of left bronchus or lung Procedures DIAGNOSTIC COMPUTED TOMOGRAPHY THORAX W/O CNTRST CT WO [address] Chris Barbosa V [address] [place] [address] [place] [address] Scan [facility] [address] [place] [address] Referral ID Status Reason Start Date Expiration Date Visits Re quested Visits Authorized [id number] Closed 11/11/2023 12/11/2023 1 1 FOR RECORDS PERTAINING TO PATIENTS WHO ARE [...] BE BASED ON THE PRIMARY CLINICAL RECORDS. [facility]. provides no warranty or guarantee of the accuracy or completeness of information in this document.
== END | disposition home or self-care (01) ==
LOC: MFPLAB 15:56
PROVIDERS: PCP Family Medicine; Visit Provider Family Medicine
DX: E11.22 Type 2 diabetes mellitus with diabetic chronic kidney disease (principal); N18.30 Chronic kidney disease, stage 3 unspecified
CPT/HCPCS: 36415; 80053